=== PATIENT | female | born 1995 | race Caucasian/White ===

== ENCOUNTER 2023-11-21 03:29 | Inpatient (IN) ==
[2023-11-21 03:50] LABS: Appearance Urine Clear (Clear); Bacteria Urine Automated None Seen (None Seen); Bilirubin Urine Negative (Negative); Blood Urine Negative (Negative); Cast Urine Automated 0-2 /lpf (0-2); Color Urine Yellow; Glucose Urine UA Negative (Negative); Ketones Urine Negative (Negative); Leukocyte Esterase Urine Trace (Negative); Nitrite Urine Negative (Negative); Protein Urine Negative (Negative); RBC Urine Automated 0-2 /hpf (0-2); Specific Gravity Urine 1.013 (1.000-1.030); Urobilinogen Urine Negative (Negative); WBC Urine Automated 0-5 /hpf (0-5)
--- NOTE | 2023-11-21 04:00 | Emergency Department Note ---
Impression & Plan Psychosis ED Provider Note HISTORY OF PRESENT ILLNESS: Patient is a 28-year-old female presenting for mental health examination. Patient was brought in by police after being found wandering the streets by special [facility] hospital and [employer]. Patient came willingly on her own volition with the police. On arrival to the ER, the patient is very tangential and is unable to provide significant meaningful history. She is not from the area and reports she is trying to get back to [place]. She reports that she has not been on her psychiatric medications since "I left that place." She is alert to date and location. She denies any suicidal or homicidal ideation. She will not answer why she is in town. She is unsure how she got to town ROS: as above PHYSICAL EXAM: Constitutional: Patient appears in no acute distress. HENT: Head: Normocephalic and atraumatic. Eyes: EOMI, PERRL Mouth/Throat: Mucous membranes moist. Neck: Trachea midline. Neck supple. Musculoskeletal: No edema, tenderness or deformity noted. Skin: Warm and dry. No rash, erythema, pallor or cyanosis Psychiatric: Patient appears poorly groomed. Makes fair eye contact. Thought process is tangential and difficult to redirect. Neurological: Alert and keenly responsive. CN II-XII grossly intact, moving all extremities equally and fully. MDM: - Vitals signs stable - History obtained via patient and police. History as above. - Chronic conditions affecting care: unknown - pt unsure of her medical history - Differential diagnoses include, but are not limited to: Depression; drug intoxication; alcohol intoxication; psychosis - External medical records reviewed. - Laboratory workup interpreted by myself showed normal WBC; stable electrolytes; negative ethanol; negative salicylate/acetaminophen levels - COVID negative - UA negative for infection - UDS negative - Patient was medically cleared at 5:40 AM on 11/21/2023. She is evaluated by behavioral health mental health case manager, but the patient does seem to lack any insight into her situation. She is unable to consent herself for inpatient treatment. She is very tangential in her thinking and difficult to redirect. Concerned about her ability to care for herself. Delegate issuing warrant for 302. - Prior to disposition, care of patient was checked out to Dr. Liu following a discussion of the patient's course. ASSESSMENT AND PLAN: Diagnosis: psychosis Past Med/Surg History Problem List (Updated 11/21/23 @ 06:21 by Dee Bell MD) Psychosis (Acute) Social History Smoking Status: Current every day smoker Tobacco Type: Cigarettes Preferred Language: Polish Feels Safe at Home: Yes Results & Data (ED) Vital Signs Vital Signs - 24 hr 11/21/23 03:34 11/21/23 03:34 11/21/23 05:30 Temperature 36.6 C Temperature Source Oral Oral Pulse Rate 79 Pulse Rate [Finger] 79 72 Pulse Rhythm Regular Pulse Rhythm [Finger] Regular Regular Respiratory Rate 18 18 18 Respiratory Effort / Characteristics Non-Labored Spontaneous Non-Labored Spontaneous Non-Labored Spontaneous Respiratory Depth Normal Normal Normal Respiratory Pattern Regular Regular Regular Blood Pressure 108/69 Blood Pressure [Right Arm] 108/69 111/70 Blood Pressure Mean 82 Blood Pressure Mean [Right Arm] 82 83 Pulse Oximetry 100 100 100 Oxygen Delivery Method Room Air Room Air Room Air Sepsis Recent Fever Within 48 Hours No Sepsis New/Unexplained Change in Mental Status N/A Sepsis Action Taken by Nursing No Action Required Laboratory Data 11/21/23 04:07 11/21/23 04:07 Lab Results 11/21/23 11/21/23 11/21/23 Range/Units 03:34 04:07 Unknown WBC 9.38 (4.8-10.8) K/ul RBC 4.50 (4.20-5.40) M/uL Hgb 13.7 (12.0-16.0) g/dl Hct 40.1 (37.0-47.0) % MCV 89.1 (80.0-100.0) fL MCH 30.4 (25.0-34.0) pg MCHC 34.2 (32.0-36.0) g/dL RDW Std Deviation 39.8 (36.4-46.3) fL RDW Coeff of Jay 12.3 (11.5-14.5) % Plt Count 305 (130-400) K/uL MPV 9.6 (9.4-12.4) fL Immature Gran % (Auto) 0.2 % Neut % (Auto) 69.1 % Lymph % (Auto) 21.2 % [place] % (Auto) 7.7 % Eos % (Auto) 1.1 % Baso % (Auto) 0.7 % Neut # (Auto) 6.48 (1.40-6.50) K/uL Lymph # (Auto) 1.99 (1.20-3.40) K/uL [place] # (Auto) 0.72 H (0.11-0.59) K/uL Eos # (Auto) 0.10 (0.00-0.50) K/uL Baso # (Auto) 0.07 (0.00-0.20) K/uL Immature Gran # (Auto) 0.02 (0.01-0.20) K/uL Sodium 135 L (136-145) mmol/L Potassium 4.0 (3.5-5.1) mmol/L Chloride 103 (98-107) mmol/L Carbon Dioxide 26 (21-32) mmol/L Anion Gap 6 (3-11) BUN 9 (6-23) mg/dl Creatinine 0.47 L (0.6-1.2) mg/dl Est Cr Clr Drug Dosing 157.5 ml/min Est GFR ( Amer) > 150.0 ml/min Est GFR (Non-Af Amer) 132.5 ml/min BUN/Creatinine Ratio 19.1 (10-20) Glucose 96 (70-99(Fasting)) mg/dl Calcium 9.7 (8.6-10.3) mg/dl Total Bilirubin 0.9 (0.2-1.0) mg/dl AST 31 (13-39) U/L ALT 14 (7-52) U/L Alkaline Phosphatase 47 (34-104) U/L Total Protein 8.4 H (6.0-8.3) gm/dl Albumin 5.3 H (3.4-5.0) gm/dl Globulin 3.1 (2.5-4.0) gm/dl Albumin/Globulin Ratio 1.7 (0.9-2) Urine Color Yellow Urine Appearance Clear (Clear) Urine pH 6.0 (4.5-7.5) Ur Specific [place] 1.013 (1.000-1.030) Urine Protein Negative (Negative) Urine Glucose (UA) Negative (Negative) Urine Ketones Negative (Negative) Urine Blood Negative (Negative) Urine Nitrite Negative (Negative) Urine Bilirubin Negative (Negative) Urine Urobilinogen Negative (Negative) Ur Leukocyte Esterase Trace H (Negative) Urine WBC (Auto) 0-5 (0-5) /hpf Urine RBC (Auto) 0-2 (0-2) /hpf U Hyaline Cast (Auto) 0-2 (0-2) /lpf U Epithel Cells (Auto) 3-5 H (0-2) /hpf Urine Bacteria (Auto) None Seen (None Seen) Salicylates < 3.0 L (3.0-30) mg/dl Urine Opiates Screen Neg (Neg) Ur Methadone, Qual Neg (Neg) Urine Fentanyl Screen Neg (Neg) Acetaminophen < 3 L (10-30) ug/ml Urine Barbiturates Neg (Neg) Ur Phencyclidine (PCP) Neg (Neg) U Amphetamin/Meth Scrn Neg (Neg) MDMA (Ecstasy) Screen Neg (Neg) U Benzodiazepines Scrn Neg (Neg) Ur Cocaine Metabolite Neg (Neg) U Marijuana (THC) Screen Neg (Neg) Ethyl Alcohol mg/dL < 10.0 (<10.0) mg/dl SARS-CoV-2, RNA, NAAT NEGATIVE (NEGATIVE) Discharge Plan Visit Data Chief Complaint: Mental Health Evaluation Stated Complaint: 201 ED Provider: Dee Bell Discharge Problem: Psychosis Forms Stand Alone Forms: My [facility], Suicide Prevention Resources Referrals Referrals: PCP,NO [Primary Care Provider] -
[2023-11-21 04:12] LABS: Basophils # (auto) 0.07 K/uL (0.00-0.20); Basophils % (auto) 0.7 %; Eosinophils % (auto) 1.1 %; Hematocrit (blood only) 40.1 % (37.0-47.0); Hemoglobin 13.7 g/dl (12.0-16.0); Immature Granulocytes # (auto) 0.02 K/uL (0.01-0.20); Immature Granulocytes % (auto) 0.2 %; Lymphocytes # (auto) 1.99 K/uL (1.20-3.40); Lymphocytes % (auto) 21.2 %; Mean Corpuscular Hemoglobin 30.4 pg (25.0-34.0); Mean Corpuscular Hgb Conc 34.2 g/dL (32.0-36.0); Mean Corpuscular Volume 89.1 fL (80.0-100.0); Mean Platelet Volume 9.6 fL (9.4-12.4); Monocytes # (auto) 0.72 K/uL (0.11-0.59); Monocytes % (auto) 7.7 %; Neutrophils # (auto) 6.48 K/uL (1.40-6.50); Neutrophils % (auto) 69.1 %; Platelet Count 305 K/uL (130-400); RDW Coefficient of Variation 12.3 % (11.5-14.5); RDW Standard Deviation 39.8 fL (36.4-46.3); White Blood Count 9.38 K/ul (4.8-10.8)
[2023-11-21 04:40] LABS: Alanine Aminotransferase 14 U/L (7-52); Albumin Globulin Ratio 1.7 (0.9-2); Albumin Level 5.3 gm/dl (3.4-5.0); Alkaline Phosphatase 47 U/L (34-104); Anion Gap 6 (3-11); Aspartate Aminotransferase 31 U/L (13-39); BUN Creatinine Ratio 19.1 (10-20); Bilirubin,Total 0.9 mg/dl (0.2-1.0); Blood Urea Nitrogen 9 mg/dl (6-23); Calcium 9.7 mg/dl (8.6-10.3); Carbon Dioxide 26 mmol/L (21-32); Chloride 103 mmol/L (98-107); Creatinine Clr Calc Pharmacy 157.5 ml/min; Est GFR (African American) > 150.0 ml/min; Est GFR (Non-African American) 132.5 ml/min; Globulin 3.1 gm/dl (2.5-4.0); Glucose 96 mg/dl (70-99(Fasting)); Sodium 135 mmol/L (136-145); Total Protein 8.4 gm/dl (6.0-8.3)
[2023-11-21 05:22] LABS: Amphetamines+Metham, Urine Neg (Neg); Barbiturates, Urine Neg (Neg); Benzodiazepine, Urine Neg (Neg); Cocaine, Urine Neg (Neg); Fentanyl, Urine Neg (Neg); MDMA (Ecstacy), Urine Neg (Neg); Marijuana, Urine Neg (Neg); Methadone, Urine Neg (Neg); Opiate, Urine Neg (Neg); Phencyclidine, Urine Neg (Neg)
[2023-11-21 05:32] LABS: Acetaminophen < 3 ug/ml (10-30); Salicylate < 3.0 mg/dl (3.0-30)
[2023-11-21 06:36] LABS: Thyroid Stimulating Hormone 6.146 uIu/ml (0.300-4.500)
--- NOTE | 2023-11-21 07:23 | Emergency Department Note ---
ED Visit Note Patient is a 28-year-old female was brought in by police voluntarily and evaluated by Dr. Bell. She is medically cleared. She was found to be very tangential, unable to be redirected lack insight into care and only oriented to person. Case was discussed with her psychiatric caretaker grounds and they both felt the patient was in need of inpatient treatment and consequently 302 petition was pending evaluation by delegate. On my evaluation patient refuses to participate in care and is very tangential for short period of time and then refuses to answer any questions or engage in conversation. Additional history was obtained and it was discovered that she was at [facility] daily from the to the first and found to be abusing methamphetamine. Patient was accepted and admitted to 3 S. on a [address] of the head per the request. .
--- NOTE | 2023-11-21 09:52 | CT Scan Report ---
CT OF THE HEAD WITHOUT CONTRAST CLINICAL HISTORY: per request of [facility]. Altered mental status. COMPARISON STUDY: No previous studies for comparison. CT DOSE: 2077.55 mGy.cm TECHNIQUE: Helical axial images of the head were obtained without IV contrast. Automated exposure con trol was utilized for the study. A dose lowering technique was utilized adhering to the principles o f ALARA. FINDINGS: This study is mildly compromised by motion artifact. No acute intracranial hemorrhage, midl ine shift or mass effect is present. The ventricular system is unremarkable. The basal cisterns are p atent. No extra-axial collections are present. There are no findings to suggest acute dural sinus thr ombosis or acute territorial infarct. No significant calvarial abnormalities are present. Visualized portions of the sinuses and mastoid air cells are clear. IMPRESSION: No acute intracranial findings. Exam mildly compromised by motion artifact. ACT 112: Negative or not required by law. Electronically signed by: Toni Joiner M.D. 11/21/2023 9:50 AM
[2023-11-21] MEDS ORDERED: SODIUM CHLORIDE 0.65% NA SOLN 45 ML (OCEAN) PRN (10:47)
[2023-11-21] MEDS ORDERED: MAGNESIUM HYDROXIDE SUSP 30 ML UDC PO PRN (10:47)
[2023-11-21] MEDS ORDERED: BISMUTH SUBSALICYLATE LIQD 236 ML PO PRN (10:47)
[2023-11-21] MEDS ORDERED: ALUMINUM/MAGNESIUM SUSP 30 ML UDC PO PRN (10:47)
[2023-11-21] MEDS ORDERED: LORazepam 2 MG/1 ML VIAL IM PRN (11:58)
[2023-11-21] MEDS ORDERED: BENZTROPINE MESYLATE 1 MG/ML 2 ML AMP IM PRN (11:58)
[2023-11-21] MEDS ORDERED: HALOPERIDOL LACTATE 5 MG/ML 1 ML VIAL IM PRN (11:58)
[2023-11-21] MEDS ORDERED: BENZTROPINE MESYLATE 1 MG TAB PO PRN (11:58)
[2023-11-21] MEDS: risperiDONE 1 MG TABLET PO SCH (12:45)
[2023-11-21] MEDS: LORazepam 1 MG TAB PO STA (12:45)
[2023-11-21] MEDS: Patient's ALLERGY Info needs ENTERED STA (12:48)
--- NOTE | 2023-11-21 13:23 | History & Physical ---
Date of Service November 21, 2023 Impression / Recommendations Impression Emilia Orta is a 28-year-old female unknown past history who was brought in by police after being found wandering the street by gas station. Patient presented pressured and tangential speech, memory impairment, and concern for psychosis. She was admitted on 11/21/23 09:58 on a 302 involuntary commitment for psychosis. Patient presents in a manic and psychotic condition. Unknown past history however has been on antipsychotics and lithiummood stabilizer concerning for bipolar disorder illness with psychosis. Attempts to gather collateral from family members unsuccessful. Patient has a history of legal troubles and concern for methamphetamine use. UDS was negative. TSH was elevated on admission and will check free T4 and free T3. We will get baseline EKG prior to lithium initiation. Baseline lipid panel and A1c labs. Given restless behavior and excessive and tangential speech will schedule benzodiazepine and antipsychotic medication. Overall, I spent a total of 60 minutes with this case including review of chart records, nursing report, review of lab work, direct evaluation of the patient at bedside, counseling the patient, multidisciplinary team meeting, orders, discussion with the psychiatric liason during clinical rounds, and documentation in the electronic health record. (1) Psychosis: (2) Becka: (3) High serum thyroid stimulating hormone (TSH): Plan 11/21/2023: One-time lorazepam 2 mg p.o. for anxiety. Schedule risperidone 1 mg twice daily and clonazepam 1 mg at bedtime. Baseline EKG and labs: Free T4, free T3, A1c, lipid panel. Inventory Assets Strengths: able to express needs, accepting treatment Needs: social supports, mood control Suicide Risk Level Suicide Risk Level: Moderate (q15 min suicide checks) Risk Factors Assessment Male: No : Yes Do You Have Access To A Gun?: No Health Problems: No Mental Health Diagnoses: Yes Substance Use Disorders: Yes Previous Attempt: No Family History of Suicide: No Previous Psychiatric Hospitalization: Yes Hopelessness: No Protective Factors Assessment Jehovah'S Witness Beliefs: No : No Responsible for Young Children: No Employed: No Stable Relationships: No Supportive Family: No Good Rapport with Provider: Yes Absence of Any Risk Factors Above: No Psychiatric History Identifying Data Emilia Orta is a 28-year-old female unknown past history who was brought in by police after being found wandering the street by gas station. Patient presented pressured and tangential speech, memory impairment, and concern for psychosis. She was admitted on 11/21/23 09:58 on a 302 involuntary commitment for psychosis. Chief Complaint "Uncomfortable in my skin" History of Present Illness Patient appears restless and is unable to sit still. She complains of being "uncomfortable in her skin" reports that she wants to complete steps for mental health however is vague when I try to clarify "I want to be out there" and tangential. Through the interview she is labile at times tearful and then smiling brightly. She reports having an altercation at home and then her grandmother called the police "it was all a blur". Reports past diagnosis of bipolar disorder, unable to clarify further. Complains of trouble sleeping. Unsure of past drug use. When asking about past drug use she looks at me and says "doesn't smoke come out of the body". Unable to answer questions about auditory visual hallucinations. Reports that she is not worried about her safety. Unable to give me clear medication history. Reports having a child and is from [place]. Pt provided verbal permission to call her grandmother Sejal Orta ([phone]): line disconnected. Alternate land line rang and went to [employer]. Called [facility] pharmacy and they report they never filled the prescription from 02/18/2022 of paliperidone 6 mg, lithium 300 mg twice daily, Wellbutrin, atorvastatin. Online legal records: Charges of misemanor theft by shoplifting and driving with suspended license on 10/14/2020 at [place], [place] Past Psychiatric History Current Psychiatric Diagnosis: Unspecified depression Do You Have Access To A Gun?: No History of Previous Suicide Attempt: No Past Medication Trials: paliperidone 6 mg, lithium 300 mg twice daily, Wellbutrin, atorvastatin. Allergies Allergy/AdvReac Type Severity Reaction Status Date / Time No Known Allergies Allergy Unverified 11/21/23 11:41 Family History Family History of: Doesn't Know Alcohol History Hx of Alcohol Use Over the Past 12 Months: No Smoking Use Have You Smoked or Used Tobacco Products in the Last 30 Days: Yes tobacco type: cigarettes Smoking Status: Heavy tobacco smoker Smoking packs per day: 2 Substance History Hx of Prescription Med Misuse Over the Past 12 Months: No Hx of Over the Counter Med Misuse Over the Past 12 Months: No Hx of Inhalent Misuse Over the Past 12 Months: No Hx of Organic Substance Use Over the Past 12 Months: No Hx of Illegal Substances/Street Drug Use Over Past 12 Months: Yes (Meth use in the past week) Problems as a Result of Past Substance Use: Other Problems as a Result of Past Substance Use Comments: Several visits to ER via police d/t AMS Personal History Living Arrangements: Homeless Beliefs That Will Affect Care: None Patient History Social History Smoking Status: Heavy tobacco smoker Tobacco Type: Cigarettes Preferred Language: American Communication Ability: Effective Job Tracer Required: No Beliefs That Will Affect Care: None Feels Safe at Home: Yes Gender Identity: Female Assistive Devices: None Physical Exam Mental Examination: Appearance: Disheveled Eye Contact: Direct Eye Contact Motor Behavior: Restless, Wringing Hands and Hyperactive Speech: Excessive, Tangential and Rambling Mood: Euthymic Affect: Euphoric, Labile, Nervous and Sad Thought Process: Disorganized and Tangential Thought Content: Disorganized Hallucinations: Tactile (unable to fully ascertain AVH) Insight: Poor Judgement: Poor Vital Signs (Past 24 Hours): Last Vital Signs Temp 36.6 C 11/21/23 10:50 Pulse 67 11/21/23 10:50 Resp 16 11/21/23 10:50 BP 90/72 L 11/21/23 10:50 Pulse Ox 100 11/21/23 10:50 O2 Del Method Room Air 11/21/23 10:50 Exam Statement: A physical exam was performed in the ED for the purposes of medical clearance. I accept that physical as correct and adequate for the purposes of the inpatient physical exam. Results & Data ([facility]UST) Laboratory Results Laboratory Results - last 24 hr 11/21/23 11/21/23 11/21/23 03:34 04:07 Unknown WBC 9.38 RBC 4.50 Hgb 13.7 Hct 40.1 MCV 89.1 MCH 30.4 MCHC 34.2 RDW Std Deviation 39.8 RDW Coeff of Jay 12.3 Plt Count 305 MPV 9.6 Immature Gran % (Auto) 0.2 Neut % (Auto) 69.1 Lymph % (Auto) 21.2 [place] % (Auto) 7.7 Eos % (Auto) 1.1 Baso % (Auto) 0.7 Neut # (Auto) 6.48 Lymph # (Auto) 1.99 [place] # (Auto) 0.72 H Eos # (Auto) 0.10 Baso # (Auto) 0.07 Immature Gran # (Auto) 0.02 Sodium 135 L Potassium 4.0 Chloride 103 Carbon Dioxide 26 Anion Gap 6 BUN 9 Creatinine 0.47 L Est Cr Clr Drug Dosing 157.5 Est GFR ( Amer) > 150.0 Est GFR (Non-Af Amer) 132.5 BUN/Creatinine Ratio 19.1 Glucose 96 Calcium 9.7 Total Bilirubin 0.9 AST 31 ALT 14 Alkaline Phosphatase 47 Total Protein 8.4 H Albumin 5.3 H Globulin 3.1 Albumin/Globulin Ratio 1.7 TSH 6.146 H Urine Color Yellow Urine Appearance Clear Urine pH 6.0 Ur Specific [place] 1.013 Urine Protein Negative Urine Glucose (UA) Negative Urine Ketones Negative Urine Blood Negative Urine Nitrite Negative Urine Bilirubin Negative Urine Urobilinogen Negative Ur Leukocyte Esterase Trace H Urine WBC (Auto) 0-5 Urine RBC (Auto) 0-2 U Hyaline Cast (Auto) 0-2 U Epithel Cells (Auto) 3-5 H Urine Bacteria (Auto) None Seen Salicylates < 3.0 L Urine Opiates Screen Neg Ur Methadone, Qual Neg Urine Fentanyl Screen Neg Acetaminophen < 3 L Urine Barbiturates Neg Ur Phencyclidine (PCP) Neg U Amphetamin/Meth Scrn Neg MDMA (Ecstasy) Screen Neg U Benzodiazepines Scrn Neg Ur Cocaine Metabolite Neg U Marijuana (THC) Screen Neg Ethyl Alcohol mg/dL < 10.0 SARS-CoV-2, RNA, NAAT NEGATIVE Current Inpatient Medications Current Inpatient Medications: Current Inpatient Medications Acetaminophen (Acetaminophen 325 Mg Tab) 650 mg PO Q4H PRN PRN Reason: Headache or Minor Fever Stop: 12/21/23 10:46 Al Hydrox/Mg Hydrox/Simethicone (Aluminum/Magnesium Susp 30 Ml Udc) 30 ml PO Q4H PRN PRN Reason: GI Upset Stop: 12/21/23 10:46 Benztropine Mesylate (Benztropine Mesylate 1 Mg Tab) 1 mg PO Q8H PRN PRN Reason: EPS, dystonia Stop: 12/21/23 11:57 Benztropine Mesylate (Benztropine Mesylate 1 Mg/Ml 2 Ml Amp) 1 mg IM Q8H PRN PRN Reason: EPS, dystonia Stop: 12/21/23 11:59 Bismuth Subsalicylate (Bismuth Subsalicylate Liqd 236 Ml) 15 ml PO PRN PRN PRN Reason: Loose Stool Stop: 12/21/23 10:46 Clonazepam (Clonazepam 1 Mg Tab) 1 mg PO HS JEREMIAH Stop: 12/21/23 21:59 Haloperidol (Haloperidol 5 Mg Tab) 5 mg PO Q8H PRN PRN Reason: Agitation Stop: 12/21/23 11:57 Haloperidol Lactate (Haloperidol Lactate 5 Mg/Ml 1 Ml Vial) 5 mg IM Q8H PRN PRN Reason: Agitation Stop: 12/21/23 11:57 Hydroxyzine HCl (Hydroxyzine Hcl 25 Mg Tab) 50 mg PO HSZ PRN PRN Reason: Insomnia Stop: 12/21/23 10:46 Hydroxyzine HCl (Hydroxyzine Hcl 25 Mg Tab) 25 mg PO Q4H PRN PRN Reason: Anxiety Stop: 12/21/23 10:46 Lorazepam (Lorazepam 1 Mg Tab) 2 mg PO Q8H PRN PRN Reason: Agitation Stop: 12/21/23 11:57 Lorazepam (Lorazepam 2 Mg/1 Ml Vial) 2 mg IM Q8H PRN PRN Reason: Agitation Stop: 12/21/23 11:57 Magnesium Hydroxide (Magnesium Hydroxide Susp 30 Ml Udc) 30 ml PO DAILY PRN PRN Reason: Constipation Stop: 12/21/23 10:46 Risperidone (Risperidone 1 Mg Tablet) 1 mg PO BID JEREMIAH Stop: 12/21/23 11:59 Last Admin: 11/21/23 12:45 Dose: 1 mg Sodium Chloride (Sodium Chloride 0.65% Na Soln 45 Ml ([place])) 1 - 2 sprays NA PRN PRN PRN Reason: Nasal Dryness/Congestion Stop: 12/21/23 10:46
[2023-11-21] MEDS: clonazePAM 1 MG TAB PO SCH (21:06)
[2023-11-22 08:54] LABS: Chol HDL Ratio 2.1 (0-5)
[2023-11-22 09:02] LABS: Estimated Average Glucose 100 mg/dl; Hemoglobin A1C 5.1 % (4.5-5.6)
[2023-11-22 09:12] LABS: T4 Free Thyroxine 0.93 ng/dl (0.61-1.60)
--- NOTE | 2023-11-22 10:26 | Psychiatric Progress Note ---
Date of Service November 22, 2023 Impression / Recommendations Impression Emilia Orta is a 28-year-old female unknown past history who was brought in by police after being found wandering the street by gas station. Patient presented pressured and tangential speech, memory impairment, and concern for psychosis. She was admitted on 11/21/23 09:58 on a 302 involuntary commitment for psychosis. Patient continues to be labile with tangential and disorganized thought. She presents poor orientation to her situation and location and is unable to state a clear safety or discharge plan. Concern for a bipolar 1 cyrus however cannot rule out stimulant induced psychotic disorder or schizoaffective disorder. She is tolerating her antipsychotic and sleep medications well and we will plan to increase her nightly risperidone dose today. Labs reviewed: Lipid panel and A1c within expected limits free T3 and free T4 were within expected limits. Pending baseline EKG. Blood pressure remains low likely due to dehydration. Considering starting lithium for mood stabilization. Would likely benefit from a long-acting injectable of antipsychotic given recurrent hospitalizations, poor insight, severe symptoms. Overall, I spent a total of 60 minutes with this case including review of chart records, nursing report, review of lab work, direct evaluation of the patient at bedside, counseling the patient, multidisciplinary team meeting, orders, and documentation in the electronic health record. (1) Psychosis: (2) Cyrus: (3) High serum thyroid stimulating hormone (TSH): Plan 11/22/2023: Increase risperidone to 1 mg every morning and 2 mg nightly. Continue clonazepam 1 mg at bedtime. Encourage fluids. 11/21/2023: One-time lorazepam 2 mg p.o. for anxiety. Schedule risperidone 1 mg twice daily and clonazepam 1 mg at bedtime. Baseline EKG and labs: Free T4, free T3, A1c, lipid panel. Inventory Assets Strengths: able to express needs, accepting treatment Needs: social supports, mood control Suicide Risk Level Suicide Risk Level: Moderate (q15 min suicide checks) Risk Factors Assessment Male: No : Yes Do You Have Access To A Gun?: No Health Problems: No Mental Health Diagnoses: Yes Substance Use Disorders: Yes Previous Attempt: No Family History of Suicide: No Previous Psychiatric Hospitalization: Yes Hopelessness: No Protective Factors Assessment Alevism Beliefs: No : No Responsible for Young Children: No Employed: No Stable Relationships: No Supportive Family: No Good Rapport with Provider: Yes Absence of Any Risk Factors Above: No Interval History Identifying Information Emilia Orta is a 28-year-old female unknown past history who was brought in by police after being found wandering the street by gas station. Patient presented pressured and tangential speech, memory impairment, and concern for psychosis. She was admitted on 11/21/23 09:58 on a 302 involuntary commitment for psychosis. Chief Complaint "love the way I woke up." Review of Systems Sleep Information Total Hours of Sleep: 13.15 Sleep Comments: HS Candace and Thai Meal Information Percent Meal Consumed - Breakfast: 100 Percent Meal Consumed - Lunch: 0 Nutrition Comment: Pt asleep. Meal placed in frig for Pt. Subjective Subjective Patient was seen & assessed and interval progress reviewed with treatment team nursing and social work Overnight nursing reports patient slept 13 hours. Eating well. Blood pressure remains low. When asked about sleep patient reports she "slept" and "love the way I woke up". Reports feeling "better". She then asks whether she was asked questions, proceeds to go on a tangent and says "wait that does not make sense." Reports past medications of Celexa, Wellbutrin, lithium. Confirms a history of manic episodes. When asked about her first episode of cyrus she initially states 2 years old than 5 years of age. Reports at times has been suicidal. Has difficulty staying focused in the conversation and is often tangential. Reports having 2 children but has "no clue" where they are. Reports she has been "wandering aimlessly" for the past 2 weeks. She denies recent drug or alcohol use. Reports taking a long-acting shot of Invega in the past however unable to clarify. She is quite labile during the interview laughing at times and then crying. She reports not seeing her grandmother in a "long time". Denies having any social supports. When asked where she wants to go she says "hospital" and cannot state a city, state, or any other location. When asked where she grew up she replies [place] and has lived everywhere. When I ask her if she was previously in [place] (because of collateral indicating recent hospitalization there) she reports not liking the word "[place]". She says that she wants to be "slapped in the face" with all her past medications. When asked about suicidal ideation she initially started laughing then replies "not really but may be". Struggles with answering the question clearly. She understands she is in a mental health hospital and knows the year and month however cannot state the name of the hospital and looks around. She denies hearing voices or seeing visions. She was updated about medications and treatment. Attempted to call patient's grandmother Sejal Orta and unsuccessful. Physical Exam Mental Examination Appearance: Disheveled Eye Contact: Direct Eye Contact Motor Behavior: Restless, Wringing Hands and Hyperactive Speech: Excessive, Tangential and Rambling Mood: Euthymic Affect: Euphoric, Labile, Nervous and Sad Thought Process: Disorganized and Tangential Thought Content: Disorganized Hallucinations: Tactile (unable to fully ascertain AVH) Insight: Poor Judgement: Poor Vital Signs (Past 24 Hours) Last Vital Signs Temp 36.9 C 11/22/23 06:27 Pulse 89 11/22/23 06:28 Resp 16 11/22/23 06:27 BP 89/60 L 11/22/23 06:28 Pulse Ox 100 11/21/23 10:50 O2 Del Method Room Air 11/21/23 10:50 Results & Data ([facility]) Laboratory Results Laboratory Results - last 24 hr 11/22/23 08:15 Estimat Average Glucose 100 Hemoglobin A1c 5.1 Triglycerides 40 Cholesterol 97 LDL Cholesterol, Calc 43 VLDL Cholesterol, Calc 8 HDL Cholesterol 46 Cholesterol/HDL Ratio 2.1 Free T4 0.93 Free T3 2.96 Current Inpatient Medications Current Inpatient Medications: Current Inpatient Medications Acetaminophen (Acetaminophen 325 Mg Tab) 650 mg PO Q4H PRN PRN Reason: Headache or Minor Fever Stop: 12/21/23 10:46 Al Hydrox/Mg Hydrox/Simethicone (Aluminum/Magnesium Susp 30 Ml Udc) 30 ml PO Q4H PRN PRN Reason: GI Upset Stop: 12/21/23 10:46 Benztropine Mesylate (Benztropine Mesylate 1 Mg Tab) 1 mg PO Q8H PRN PRN Reason: EPS, dystonia Stop: 12/21/23 11:57 Benztropine Mesylate (Benztropine Mesylate 1 Mg/Ml 2 Ml Amp) 1 mg IM Q8H PRN PRN Reason: EPS, dystonia Stop: 12/21/23 11:59 Bismuth Subsalicylate (Bismuth Subsalicylate Liqd 236 Ml) 15 ml PO PRN PRN PRN Reason: Loose Stool Stop: 12/21/23 10:46 Clonazepam (Clonazepam 1 Mg Tab) 1 mg PO HS JEREMIAH Stop: 12/21/23 21:59 Last Admin: 11/21/23 21:06 Dose: 1 mg Haloperidol (Haloperidol 5 Mg Tab) 5 mg PO Q8H PRN PRN Reason: Agitation Stop: 12/21/23 11:57 Haloperidol Lactate (Haloperidol Lactate 5 Mg/Ml 1 Ml Vial) 5 mg IM Q8H PRN PRN Reason: Agitation Stop: 12/21/23 11:57 Hydroxyzine HCl (Hydroxyzine Hcl 25 Mg Tab) 50 mg PO HSZ PRN PRN Reason: Insomnia Stop: 12/21/23 10:46 Hydroxyzine HCl (Hydroxyzine Hcl 25 Mg Tab) 25 mg PO Q4H PRN PRN Reason: Anxiety Stop: 12/21/23 10:46 Lorazepam (Lorazepam 1 Mg Tab) 2 mg PO Q8H PRN PRN Reason: Agitation Stop: 12/21/23 11:57 Lorazepam (Lorazepam 2 Mg/1 Ml Vial) 2 mg IM Q8H PRN PRN Reason: Agitation Stop: 12/21/23 11:57 Magnesium Hydroxide (Magnesium Hydroxide Susp 30 Ml Udc) 30 ml PO DAILY PRN PRN Reason: Constipation Stop: 12/21/23 10:46 Risperidone (Risperidone 1 Mg Tablet) 1 mg PO QAM JEREMIAH Stop: 12/23/23 08:59 Risperidone (Risperidone 2 Mg Tablet) 2 mg PO HS JEREMIAH Stop: 12/22/23 21:59 Sodium Chloride (Sodium Chloride 0.65% Na Soln 45 Ml ([place])) 1 - 2 sprays NA PRN PRN PRN Reason: Nasal Dryness/Congestion Stop: 12/21/23 10:46 Mental Health & Subst Abuse Tx Therapist Name of Therapist: marciies Latex Caster Name of Latex Caster: fidelina
[2023-11-22] MEDS: LORazepam 1 MG TAB PO ONE (10:32)
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
[2023-11-22] MEDS: DOCUSATE SODIUM 100 MG CAP PO SCH (13:47)
[2023-11-22] MEDS: haloperidoL 5 MG TAB PO PRN (13:56)
[2023-11-22] MEDS: LORazepam 1 MG TAB PO PRN (17:39)
[2023-11-22] MEDS: risperiDONE 2 MG TABLET PO SCH (21:32)
--- NOTE | 2023-11-22 22:24 | Electrocardiogram Report ---
Test Reason : Blood Pressure : / mmHG Vent. Rate : 078 BPM Atrial Rate : 078 BPM P-R Int : 116 ms QRS Dur : 076 ms QT Int : 404 ms P-R-T Axes : 070 075 056 degrees QTc Int : 460 ms Normal sinus rhythm Possible Left atrial enlargement Borderline ECG No previous ECGs available Confirmed by Rhys Gómez ([id number]) on 11/22/2023 10:23:53 PM Referred By: Boogie Liu Confirmed By:Rhys Gómez
[2023-11-23] MEDS: risperiDONE 1 MG TABLET PO SCH (08:46)
[2023-11-23 09:15] LABS: Hep B Surface Ag with confirm Negative (Negative)
[2023-11-23] MEDS ORDERED: LORazepam 1 MG TAB PO PRN (09:47)
[2023-11-23] MEDS: ACETAMINOPHEN 325 MG TAB PO PRN (09:51)
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
[2023-11-23 11:01] LABS: Hep C Ab Rflx HepCQuant RNA Prelim Positive (Negative)
[2023-11-24] MEDS: LORazepam 1 MG TAB PO PRN (10:09)
--- NOTE | 2023-11-24 10:12 | Psychiatric Progress Note ---
Date of Service November 24, 2023 Impression / Recommendations Impression Emilia Orta is a 28-year-old female unknown past history who was brought in by police after being found wandering the street by gas station. Patient presented pressured and tangential speech, memory impairment, and concern for psychosis. She was admitted on 11/21/23 09:58 on a 302 involuntary commitment for psychosis. 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 Patient has demonstrated significant dysfunction evidenced by recurrent legal troubles, persistent symptoms, recurrent hospitalizations, poor insight, inability to maintain stability in the community, and continued drug dependence. A: Blood STI tests negative. Preliminary positive reading for hepatitis C antibody. Gonorrhea and Chlamydia and Trichomonas vaginal swab pending; patient has poor insight and understanding and is unable to engage in testing. Patient had reported foot pain however is unwilling to have it examined. Patient continues to present a disorganized thought process and has difficulty engaging in the interview. Concern for delusional thinking. Appears to be tolerating the medications well presents improved sleep and slightly improved orientation. Concern for patient's safety for self care if discharged in the current state; she has difficulty engaging in aftercare planning. Overall, I spent a total of 60 minutes with this case including review of chart records, nursing report, review of lab work, direct evaluation of the patient at bedside, counseling the patient, multidisciplinary team meeting, orders, and documentation in the electronic health record. 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 11/23/2023: Continue medications and treatment plan. 11/22/2023: Increase risperidone to 1 mg every morning and 2 mg nightly. Continue clonazepam 1 mg at bedtime. Encourage fluids. 11/21/2023: One-time lorazepam 2 mg p.o. for anxiety. Schedule risperidone 1 mg twice daily and clonazepam 1 mg at bedtime. Baseline EKG and labs: Free T4, free T3, A1c, lipid panel. Inventory Assets Strengths: able to express needs, accepting treatment Needs: social supports, mood control Suicide Risk Level Suicide Risk Level: Moderate (q15 min suicide checks) Risk Factors Assessment Male: No : Yes Do You Have Access To A Gun?: No Health Problems: No Mental Health Diagnoses: Yes Substance Use Disorders: Yes Previous Attempt: No Family History of Suicide: No Previous Psychiatric Hospitalization: Yes Hopelessness: No Protective Factors Assessment Scientology Beliefs: No : No Responsible for Young Children: No Employed: No Stable Relationships: No Supportive Family: No Good Rapport with Provider: Yes Absence of Any Risk Factors Above: No Interval History Identifying Information Emilia Orta is a 28-year-old female unknown past history who was brought in by police after being found wandering the street by gas station. Patient presented pressured and tangential speech, memory impairment, and concern for psychosis. She was admitted on 11/21/23 09:58 on a 302 involuntary commitment for psychosis. Chief Complaint "woke up great". Review of Systems Sleep Information Total Hours of Sleep: 11.25 Sleep Comments: ANGEL LUIS Maria and Thai Meal Information Percent Meal Consumed - Breakfast: 75 Percent Meal Consumed - Lunch: 100 Percent Meal Consumed - Dinner: 100 Nutrition Comment: Pt asleep. Meal placed in frig for Pt. Subjective Subjective Patient was seen & assessed and interval progress reviewed with treatment team nursing and social work On initial approach the patient is smiling and reports waking up a great. Says she slept well. She was discussing with shoes that she can get. Then says there are "rude people" unable to clarify further She looks at her slip-ons and asks "are those considered sneakers." She is tangential and then reports wanting Wellbutrin and Celexa. She is alert and oriented to "[place]" not to month. She reports coming into the hospital because she is "homeless and out rage." She denies having feelings of bugs crawling over her. When asked about auditory visual hallucinations she starts laughing and then says that she needs a pair of shoes. When asked about a plan she says she has no plan. When discussing hepatitis C, her being positive for it and potential treatment she starts laughing. Educated patient about current treatments and plan. Spoke to patient's mother: reports pt becomes paranoid on methamphetamine, concern for persecutory delusions. Had extended hospital stay 2 years at [facility] for similar situation and her mental status improved. Was picked up by male friend Abdirizak from the hospital and mother suspects he has been keeping her and abusing methamphetamine with her for 2 years. Believes she may have overdosed and was put on the streets and police found her. Recent hospitalization in [facility]. Unaware of any hospitalizations during the 2 yr period when pt was with Abdirizak. Physical Exam Mental Examination Appearance: Disheveled Eye Contact: Direct Eye Contact Motor Behavior: Restless and Wringing Hands Speech: Tangential and Rambling Mood: Euthymic Affect: Euphoric, Labile, Nervous and Sad Thought Process: Disorganized and Tangential Thought Content: Disorganized Hallucinations: Tactile (unable to fully ascertain AVH) Insight: Poor Judgement: Poor Vital Signs (Past 24 Hours) Last Vital Signs Temp 36.7 C 11/24/23 06:22 Pulse 77 11/24/23 06:22 Resp 16 11/24/23 06:22 BP 106/72 11/24/23 06:22 Pulse Ox 98 11/23/23 06:05 O2 Del Method Room Air 11/23/23 06:05 Results & Data ([facility]) Laboratory Results Laboratory Results - last 24 hr 11/23/23 07:07 Hepatitis C Antibody Prelim Positive A HCV RNA (PCR) IUs/ml Pending HCV RNA PCR log IUs/ml Pending Current Inpatient Medications Current Inpatient Medications: Current Inpatient Medications Acetaminophen (Acetaminophen 325 Mg Tab) 650 mg PO Q4H PRN PRN Reason: Headache or Minor Fever Stop: 12/21/23 10:46 Last Admin: 11/23/23 09:51 Dose: 650 mg Al Hydrox/Mg Hydrox/Simethicone (Aluminum/Magnesium Susp 30 Ml Udc) 30 ml PO Q4H PRN PRN Reason: GI Upset Stop: 12/21/23 10:46 Benztropine Mesylate (Benztropine Mesylate 1 Mg Tab) 1 mg PO Q8H PRN PRN Reason: EPS, dystonia Stop: 12/21/23 11:57 Benztropine Mesylate (Benztropine Mesylate 1 Mg/Ml 2 Ml Amp) 1 mg IM Q8H PRN PRN Reason: EPS, dystonia Stop: 12/21/23 11:59 Bismuth Subsalicylate (Bismuth Subsalicylate Liqd 236 Ml) 15 ml PO PRN PRN PRN Reason: Loose Stool Stop: 12/21/23 10:46 Clonazepam (Clonazepam 1 Mg Tab) 1 mg PO HS JEREMIAH Stop: 12/21/23 21:59 Last Admin: 11/23/23 21:02 Dose: 1 mg Docusate Sodium (Docusate Sodium 100 Mg Cap) 100 mg PO BID JEREMIAH Stop: 12/22/23 10:44 Last Admin: 11/24/23 08:02 Dose: 100 mg Haloperidol (Haloperidol 5 Mg Tab) 5 mg PO Q8H PRN PRN Reason: Agitation Stop: 12/21/23 11:57 Last Admin: 11/23/23 15:01 Dose: 5 mg Haloperidol Lactate (Haloperidol Lactate 5 Mg/Ml 1 Ml Vial) 5 mg IM Q8H PRN PRN Reason: Agitation Stop: 12/21/23 11:57 Hydroxyzine HCl (Hydroxyzine Hcl 25 Mg Tab) 50 mg PO HSZ PRN PRN Reason: Insomnia Stop: 12/21/23 10:46 Hydroxyzine HCl (Hydroxyzine Hcl 25 Mg Tab) 25 mg PO Q4H PRN PRN Reason: Anxiety Stop: 12/21/23 10:46 Lorazepam (Lorazepam 2 Mg/1 Ml Vial) 1 mg IM Q8H PRN PRN Reason: Agitation Stop: 12/21/23 11:57 Lorazepam (Lorazepam 1 Mg Tab) 1 mg PO Q8H PRN PRN Reason: Agitation Stop: 12/21/23 11:57 Magnesium Hydroxide (Magnesium Hydroxide Susp 30 Ml Udc) 30 ml PO DAILY PRN PRN Reason: Constipation Stop: 12/21/23 10:46 Nicotine Polacrilex (Nicotine Polacrilex 2 Mg Gum) 1 piece MT Q2H PRN PRN Reason: nicotine cravings Stop: 12/24/23 09:27 Risperidone (Risperidone 1 Mg Tablet) 1 mg PO QAM JEREMIAH Stop: 12/23/23 08:59 Last Admin: 11/24/23 08:02 Dose: 1 mg Risperidone (Risperidone 2 Mg Tablet) 2 mg PO HS JEREMIAH Stop: 12/22/23 21:59 Last Admin: 11/23/23 21:02 Dose: 2 mg Sodium Chloride (Sodium Chloride 0.65% Na Soln 45 Ml ([place])) 1 - 2 sprays NA PRN PRN PRN Reason: Nasal Dryness/Congestion Stop: 12/21/23 10:46 Mental Health & Subst Abuse Tx Psychiatrist Name of Psychiatrist: Sara Duque [facility] Psychiatrist's Psychiatric Appointment Comment: [address], [address], [place] [address] Therapist Name of Therapist: denies Senior Qualitative Researcher Name of Senior Qualitative Researcher: denies Post Discharge Appointments Primary Care Physician Name Of Family Doctor/PCP: Sara Duque [facility] Primary Care Provider Appointment Comment: [address], [address], [place] [address]
[2023-11-24] MEDS: hydrOXYzine HCl 25 MG TAB PO PRN (15:30)
[2023-11-24] MEDS: LITHIUM CARBONATE 300 MG TAB PO SCH (21:05)
[2023-11-25] MEDS: hydrOXYzine HCl 25 MG TAB PO PRN (00:29)
--- NOTE | 2023-11-25 11:22 | Psychiatric Progress Note ---
Date of Service November 25, 2023 Impression / Recommendations Impression Emilia Orta is a 28-year-old female unknown past history who was brought in by police after being found wandering the street by gas station. Patient presented pressured and tangential speech, memory impairment, and concern for psychosis. She was admitted on 11/21/23 09:58 on a 302 involuntary commitment for psychosis. 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 Patient has demonstrated significant dysfunction evidenced by recurrent legal troubles, persistent symptoms, recurrent hospitalizations, poor insight, inability to maintain stability in the community, and continued drug dependence. A: 303 commitment approved yesterday due to concern for patient's inability to care for self in the community. Patient continues to present a labile affect and disorganized thought process. She has become more defiant with care and unwilling to engage in interview today. Patient has difficulty engaging in aftercare planning. Orientation slightly improved compared to initial prese ntation. Concern for hypotension due to poor fluid intake. Plan to decrease nightly clonazepam. Overall, I spent a total of 60 minutes with this case including review of chart records, nursing report, review of lab work, direct evaluation of the patient at bedside, counseling the patient, multidisciplinary team meeting, orders, and documentation in the electronic health record. 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 Encourage fluids. 11/24/2023: Start [place] 300mg BID for mood lability. 11/23/2023: Continue medications and treatment plan. 11/22/2023: Increase risperidone to 1 mg every morning and 2 mg nightly. Continue clonazepam 1 mg at bedtime. Encourage fluids. STI and hepatitis panel. 11/21/2023: One-time lorazepam 2 mg p.o. for anxiety. Schedule risperidone 1 mg twice daily and clonazepam 1 mg at bedtime. Baseline EKG and labs: Free T4, free T3, A1c, lipid panel. Inventory Assets Strengths: able to express needs, accepting treatment Needs: social supports, mood control Suicide Risk Level Suicide Risk Level: Moderate (q15 min suicide checks) Risk Factors Assessment Male: No : Yes Do You Have Access To A Gun?: No Health Problems: No Mental Health Diagnoses: Yes Substance Use Disorders: Yes Previous Attempt: No Family History of Suicide: No Previous Psychiatric Hospitalization: Yes Hopelessness: No Protective Factors Assessment Jain Beliefs: No : No Responsible for Young Children: No Employed: No Stable Relationships: No Supportive Family: No Good Rapport with Provider: Yes Absence of Any Risk Factors Above: No Interval History Identifying Information Emilia Orta is a 28-year-old female unknown past history who was brought in by police after being found wandering the street by gas station. Patient presented pressured and tangential speech, memory impairment, and concern for psychosis. She was admitted on 11/21/23 09:58 on a 302 involuntary commitment for psychosis. Chief Complaint "Didn't sleep well at all". Review of Systems Sleep Information Total Hours of Sleep: 6 Sleep Comments: ANGEL LUIS Andre with KIAN Guardado Meal Information Percent Meal Consumed - Breakfast: 100 Percent Meal Consumed - Lunch: 70 Percent Meal Consumed - Dinner: 100 Nutrition Comment: Pt asleep. Meal placed in frig for Pt. Subjective Subjective Patient was seen & assessed and interval progress reviewed with nursing and social work When approached for interview, pt asks when she is leaving. I ask her what is her plan and where she wants to go. She becomes angry and walks out of the room to nursing staff and asks "where can I get a plan?" Difficult to redirect and appears upset. Attempted to reassure patient and asked where she wants to go after leaving the hospital. Says she is from [place] and then asks for the interview to end. Attempted to inquire about her tooth pain and patient reports her tooth hurts and wouldn't clarify further. Physical Exam Mental Examination Appearance: Disheveled Eye Contact: Direct Eye Contact Motor Behavior: Restless and Wringing Hands Speech: Tangential and Rambling Mood: Euthymic Affect: Euphoric, Labile, Nervous and Sad Thought Process: Disorganized and Tangential Thought Content: Disorganized Hallucinations: None Insight: Poor Judgement: Poor Vital Signs (Past 24 Hours) Last Vital Signs Temp 36.6 C 11/25/23 06:46 Pulse 71 11/25/23 06:46 Resp 16 11/25/23 06:46 BP 80/46 L 11/25/23 06:47 Pulse Ox 98 11/25/23 06:46 O2 Del Method Room Air 11/25/23 06:46 Results & Data ([facility]) Laboratory Results Laboratory Results - last 24 hr 11/23/23 07:07 RPR Nonreactive Current Inpatient Medications Current Inpatient Medications: Current Inpatient Medications Acetaminophen (Acetaminophen 325 Mg Tab) 650 mg PO Q4H PRN PRN Reason: Headache or Minor Fever Stop: 12/21/23 10:46 Last Admin: 11/24/23 22:40 Dose: 650 mg Al Hydrox/Mg Hydrox/Simethicone (Aluminum/Magnesium Susp 30 Ml Udc) 30 ml PO Q4H PRN PRN Reason: GI Upset Stop: 12/21/23 10:46 Benztropine Mesylate (Benztropine Mesylate 1 Mg Tab) 1 mg PO Q8H PRN PRN Reason: EPS, dystonia Stop: 12/21/23 11:57 Benztropine Mesylate (Benztropine Mesylate 1 Mg/Ml 2 Ml Amp) 1 mg IM Q8H PRN PRN Reason: EPS, dystonia Stop: 12/21/23 11:59 Bismuth Subsalicylate (Bismuth Subsalicylate Liqd 236 Ml) 15 ml PO PRN PRN PRN Reason: Loose Stool Stop: 12/21/23 10:46 Clonazepam (Clonazepam 0.5 Mg Tab) 0.5 mg PO HS JEREMIAH Stop: 12/25/23 21:59 Docusate Sodium (Docusate Sodium 100 Mg Cap) 100 mg PO BID JEREMIAH Stop: 12/22/23 10:44 Last Admin: 11/25/23 08:53 Dose: 100 mg Haloperidol (Haloperidol 5 Mg Tab) 5 mg PO Q8H PRN PRN Reason: Agitation Stop: 12/21/23 11:57 Last Admin: 11/24/23 10:09 Dose: 5 mg Haloperidol Lactate (Haloperidol Lactate 5 Mg/Ml 1 Ml Vial) 5 mg IM Q8H PRN PRN Reason: Agitation Stop: 12/21/23 11:57 Hydroxyzine HCl (Hydroxyzine Hcl 25 Mg Tab) 50 mg PO HSZ PRN PRN Reason: Insomnia Stop: 12/21/23 10:46 Last Admin: 11/25/23 00:29 Dose: 50 mg Hydroxyzine HCl (Hydroxyzine Hcl 25 Mg Tab) 25 mg PO Q4H PRN PRN Reason: Anxiety Stop: 12/21/23 10:46 Last Admin: 11/25/23 09:01 Dose: 25 mg [place] Carbonate ([place] Carbonate 300 Mg Tab) 300 mg PO BID JEREMIAH Stop: 12/24/23 20:59 Last Admin: 11/25/23 08:53 Dose: 300 mg Lorazepam (Lorazepam 2 Mg/1 Ml Vial) 1 mg IM Q8H PRN PRN Reason: Agitation Stop: 12/21/23 11:57 Lorazepam (Lorazepam 1 Mg Tab) 1 mg PO Q8H PRN PRN Reason: Agitation Stop: 12/21/23 11:57 Last Admin: 11/24/23 10:09 Dose: 1 mg Magnesium Hydroxide (Magnesium Hydroxide Susp 30 Ml Udc) 30 ml PO DAILY PRN PRN Reason: Constipation Stop: 12/21/23 10:46 Nicotine Polacrilex (Nicotine Polacrilex 2 Mg Gum) 1 piece MT Q2H PRN PRN Reason: nicotine cravings Stop: 12/24/23 09:27 Risperidone (Risperidone 1 Mg Tablet) 1 mg PO QAM JEREMIAH Stop: 12/23/23 08:59 Last Admin: 11/25/23 08:54 Dose: 1 mg Risperidone (Risperidone 2 Mg Tablet) 2 mg PO HS JEREMIAH Stop: 12/22/23 21:59 Last Admin: 11/24/23 21:05 Dose: 2 mg Sodium Chloride (Sodium Chloride 0.65% Na Soln 45 Ml ([place])) 1 - 2 sprays NA PRN PRN PRN Reason: Nasal Dryness/Congestion Stop: 12/21/23 10:46 Mental Health & Subst Abuse Tx Psychiatrist Name of Psychiatrist: Sara Duque [facility] Psychiatrist's Psychiatric Appointment Comment: [address], [address], [facility] [address] Therapist Name of Therapist: denies Publicity Person Name of Publicity Person: denies Post Discharge Appointments Primary Care Physician Name Of Family Doctor/PCP: Sara Mandujano [facility] Primary Care Provider Appointment Comment: [address], [address], [place] [address]
[2023-11-25 11:43] LABS: Hepatitis A Antibody IgM NON-REACTIVE (NON-REACTIVE); Hepatitis B Core Antibody IgM NON-REACTIVE (NON-REACTIVE)
[2023-11-25] MEDS: NICOTINE POLACRILEX 2 MG GUM MT PRN (16:51)
[2023-11-25] MEDS: clonazePAM 0.5 MG TAB PO SCH (21:13)
--- NOTE | 2023-11-26 08:13 | Psychiatric Progress Note ---
Date of Service November 26, 2023 Impression / Recommendations Impression Emilia Orta is a 28-year-old female unknown past history who was brought in by police after being found wandering the street by gas station. Patient presented pressured and tangential speech, memory impairment, and concern for psychosis. She was admitted on 11/21/23 09:58 on a 302 involuntary commitment for psychosis, now on a 303 commitment. 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 Patient has demonstrated significant dysfunction evidenced by recurrent legal troubles, persistent symptoms, recurrent hospitalizations, poor insight, inability to maintain stability in the community, and continued drug dependence. A: Significant mood lability with marked irritability, anger, threatening violence and posturing toward provider during interview today. So far limited benefit from ativan and haldol prn so will attempt thorazine prn while continuing to monitor for hypotension but risks/benefit profile felt to favor use of alternative antipsychotic given her level of anger and impulsivity. Significant thought disorganization and confusion, unclear what may be due to primary psychotic or mood disorder vs neurotoxicity/brain insults from history of substance use including past IV substance use. Overall, I spent a total of 40 minutes on this case including meeting with the patient, reviewing the chart, nursing report, multidisciplinary team meeting, orders, and documentation. 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 11/25/2023: Decrease Clonazepam to 0.5mg HS. Encourage fluids. 11/24/2023: Start [place] 300mg BID for mood lability. 11/23/2023: Continue medications and treatment plan. 11/22/2023: Increase risperidone to 1 mg every morning and 2 mg nightly. Continue clonazepam 1 mg at bedtime. Encourage fluids. STI and hepatitis panel. 11/21/2023: One-time lorazepam 2 mg p.o. for anxiety. Schedule risperidone 1 mg twice daily and clonazepam 1 mg at bedtime. Baseline EKG and labs: Free T4, free T3, A1c, lipid panel. Inventory Assets Strengths: able to express needs, accepting treatment Needs: social supports, mood control Suicide Risk Level Suicide Risk Level: Moderate (q15 min suicide checks) (not voicing any SI but significant mood lability and disorganization) Risk Factors Assessment Male: No : Yes Do You Have Access To A Gun?: No Health Problems: No Mental Health Diagnoses: Yes Substance Use Disorders: Yes Previous Attempt: No Family History of Suicide: No Previous Psychiatric Hospitalization: Yes Hopelessness: No Protective Factors Assessment Baptism Beliefs: No : No Responsible for Young Children: No Employed: No Stable Relationships: No Supportive Family: No Good Rapport with Provider: Yes Absence of Any Risk Factors Above: No Interval History Identifying Information Emilia Orta is a 28-year-old female unknown past history who was brought in by police after being found wandering the street by gas station. Patient presented pressured and tangential speech, memory impairment, and concern for psychosis. She was admitted on 11/21/23 09:58 on a 302 involuntary commitment for psychosis. Chief Complaint "I'm going to knock you out you nasty piece of pig scum". Review of Systems Sleep Information Total Hours of Sleep: 10 Sleep Comments: ANGEL LUIS Andre Meal Information Percent Meal Consumed - Breakfast: 100 Percent Meal Consumed - Lunch: 100 Percent Meal Consumed - Dinner: 100 Nutrition Comment: Pt asleep. Meal placed in frig for Pt. Subjective Subjective Patient was seen & assessed and interval progress reviewed with treatment team nursing and social work. Very medication focused. This morning called RNs rude names and threatened to punch one of the RNs in the face. Significant mood lability. Still very disorganized, cannot tolerate any groups. Irritability. Asks to meet with me in my office. Once seated tells me her mood is "sh*tty but I'm doing". States she slept "perfectly". Then asks me about her medications, as we discuss she has significant confusion, wonders if one of her medications is "for a child". Gets agitated when she asks for the lithium "as a shot" and I tell her it is not available as an injection. Wants me to call [facility] where she was apparently hospitalized in the past and to let her go there instead for a shot. Then tells me her tooth is hurting, when I ask which tooth she states "no one who tells you that you should be asked that" and then threatens to knock me out. Physical Exam Psychiatric Orientation: alert, oriented to person and oriented to place; + uncooperative Apperance: + disheveled Eye Contact: + fair eye contact Motor Behavior: no abnormal motor movements Speech: normal rate/rhythm/volume of speech Affect: + labile affect and + angry affect Mood: + irritable mood and + angry mood Thought Process: + looseness of associations Thought Content: + preoccupation Insight: + poor insight Judgment: + poor judgement Vital Signs (Past 24 Hours) Last Vital Signs Temp 36.4 C L 11/26/23 06:30 Pulse 69 11/26/23 06:30 Resp 16 11/26/23 06:30 BP 107/72 11/26/23 06:30 Pulse Ox 98 11/26/23 06:30 O2 Del Method Room Air 11/26/23 06:30 Results & Data ([facility]) Laboratory Results Laboratory Results - last 24 hr 11/23/23 07:07 Hepatitis A IgM Ab NON-REACTIVE Hep B Core IgM Ab NON-REACTIVE Current Inpatient Medications Current Inpatient Medications: Current Inpatient Medications Acetaminophen (Acetaminophen 325 Mg Tab) 650 mg PO Q4H PRN PRN Reason: Headache or Minor Fever Stop: 12/21/23 10:46 Last Admin: 11/24/23 22:40 Dose: 650 mg Al Hydrox/Mg Hydrox/Simethicone (Aluminum/Magnesium Susp 30 Ml Udc) 30 ml PO Q4H PRN PRN Reason: GI Upset Stop: 12/21/23 10:46 Benztropine Mesylate (Benztropine Mesylate 1 Mg Tab) 1 mg PO Q8H PRN PRN Reason: EPS, dystonia Stop: 12/21/23 11:57 Benztropine Mesylate (Benztropine Mesylate 1 Mg/Ml 2 Ml Amp) 1 mg IM Q8H PRN PRN Reason: EPS, dystonia Stop: 12/21/23 11:59 Bismuth Subsalicylate (Bismuth Subsalicylate Liqd 236 Ml) 15 ml PO PRN PRN PRN Reason: Loose Stool Stop: 12/21/23 10:46 Clonazepam (Clonazepam 0.5 Mg Tab) 0.5 mg PO HS JEREMIAH Stop: 12/25/23 21:59 Last Admin: 11/25/23 21:13 Dose: 0.5 mg Docusate Sodium (Docusate Sodium 100 Mg Cap) 100 mg PO BID JEREMIAH Stop: 12/22/23 10:44 Last Admin: 11/25/23 21:12 Dose: 100 mg Haloperidol (Haloperidol 5 Mg Tab) 5 mg PO Q8H PRN PRN Reason: Agitation Stop: 12/21/23 11:57 Last Admin: 11/25/23 15:36 Dose: 5 mg Haloperidol Lactate (Haloperidol Lactate 5 Mg/Ml 1 Ml Vial) 5 mg IM Q8H PRN PRN Reason: Agitation Stop: 12/21/23 11:57 Hydroxyzine HCl (Hydroxyzine Hcl 25 Mg Tab) 50 mg PO HSZ PRN PRN Reason: Insomnia Stop: 12/21/23 10:46 Last Admin: 11/25/23 00:29 Dose: 50 mg Hydroxyzine HCl (Hydroxyzine Hcl 25 Mg Tab) 25 mg PO Q4H PRN PRN Reason: Anxiety Stop: 12/21/23 10:46 Last Admin: 11/25/23 09:01 Dose: 25 mg [place] Carbonate ([place] Carbonate 300 Mg Tab) 300 mg PO BID JEREMIAH Stop: 12/24/23 20:59 Last Admin: 11/25/23 21:13 Dose: 300 mg Lorazepam (Lorazepam 2 Mg/1 Ml Vial) 1 mg IM Q8H PRN PRN Reason: Agitation Stop: 12/21/23 11:57 Lorazepam (Lorazepam 1 Mg Tab) 1 mg PO Q8H PRN PRN Reason: Agitation Stop: 12/21/23 11:57 Last Admin: 11/25/23 15:36 Dose: 1 mg Magnesium Hydroxide (Magnesium Hydroxide Susp 30 Ml Udc) 30 ml PO DAILY PRN PRN Reason: Constipation Stop: 12/21/23 10:46 Nicotine Polacrilex (Nicotine Polacrilex 2 Mg Gum) 1 piece MT Q2H PRN PRN Reason: nicotine cravings Stop: 12/24/23 09:27 Last Admin: 11/25/23 16:51 Dose: 1 piece Risperidone (Risperidone 1 Mg Tablet) 1 mg PO QAM JEREMIAH Stop: 12/23/23 08:59 Last Admin: 11/25/23 21:13 Dose: 1 mg Risperidone (Risperidone 2 Mg Tablet) 2 mg PO HS JEREMIAH Stop: 12/22/23 21:59 Last Admin: 11/25/23 21:13 Dose: 2 mg Sodium Chloride (Sodium Chloride 0.65% Na Soln 45 Ml ([place])) 1 - 2 sprays NA PRN PRN PRN Reason: Nasal Dryness/Congestion Stop: 12/21/23 10:46 Mental Health & Subst Abuse Tx Psychiatrist Name of Psychiatrist: Sara Duque [facility] Psychiatrist's Psychiatric Appointment Comment: [id number], [place] [id number] Therapist Name of Therapist: [facility] The[facility] Name of Hospice Art Therapist: denies Post Discharge Appointments Primary Care Physician Name Of Family Doctor/PCP: Sara Duque [facility] Primary Care Provider Appointment Comment: [id number], [address], [place] [id number]
[2023-11-26] MEDS: chlorproMAZINE HCL 25 MG TAB PO PRN (09:04)
--- NOTE | 2023-11-27 08:53 | Psychiatric Progress Note ---
Date of Service November 27, 2023 Impression / Recommendations Impression Emilia Orta is a 28-year-old female unknown past history who was brought in by police after being found wandering the street by gas station. Patient presented pressured and tangential speech, memory impairment, and concern for psychosis. She was admitted on 11/21/23 09:58 on a 302 involuntary commitment for psychosis, now on a 303 commitment. 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 Patient has demonstrated significant dysfunction evidenced by recurrent legal troubles, persistent symptoms, recurrent hospitalizations, poor insight, inability to maintain stability in the community, and continued drug dependence. A: Remains disorganized and unpredictable with mood lability and significant irritability and anger. Continues to be very medication focused and derogatory. Had behavioral event requiring seclusion and IM thorazine this morning. Given concerns for need for frequent prns and hypotension will switch her from risperidone to haldol. Continue to have prn thorazine available for now as seems to be most effective prn trialed to date. Will discontinue [place] given concern for inability to safely monitor as she cannot participate in meaningful discussions about risks/possible side effects or tolerate blood work at this time and TSH already elevated at baseline. May consider Depakote trial in coming days. Overall, I spent a total of 55 minutes on this case including meeting with the patient, reviewing the chart, nursing report, multidisciplinary team meeting, orders, and documentation and emergency event. 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 Start haldol 5mg BID. 11/26/2023: Start Thorazine 12.5mg TID prn po for agitation. 11/25/2023: Decrease Clonazepam to 0.5mg HS. Encourage fluids. 11/24/2023: Start [place] 300mg BID for mood lability. 11/23/2023: Continue medications and treatment plan. 11/22/2023: Increase risperidone to 1 mg every morning and 2 mg nightly. Continue clonazepam 1 mg at bedtime. Encourage fluids. STI and hepatitis panel. 11/21/2023: One-time lorazepam 2 mg p.o. for anxiety. Schedule risperidone 1 mg twice daily and clonazepam 1 mg at bedtime. Baseline EKG and labs: Free T4, free T3, A1c, lipid panel. Inventory Assets Strengths: able to express needs, accepting treatment Needs: social supports, mood control Suicide Risk Level Suicide Risk Level: Moderate (q15 min suicide checks) (not voicing any SI but significant mood lability and disorganization) Risk Factors Assessment Male: No : Yes Do You Have Access To A Gun?: No Health Problems: No Mental Health Diagnoses: Yes Substance Use Disorders: Yes Previous Attempt: No Family History of Suicide: No Previous Psychiatric Hospitalization: Yes Hopelessness: No Protective Factors Assessment Scientologist Beliefs: No : No Responsible for Young Children: No Employed: No Stable Relationships: No Supportive Family: No Good Rapport with Provider: Yes Absence of Any Risk Factors Above: No Interval History Identifying Information Emilia Orta is a 28-year-old female unknown past history who was brought in by police after being found wandering the street by gas station. Patient presented pressured and tangential speech, memory impairment, and concern for psychosis. She was admitted on 11/21/23 09:58 on a 302 involuntary commitment for psychosis. Chief Complaint "Why am I even here? Psychosis, I know that's here (points to between her shoulder blades)". Review of Systems Sleep Information Total Hours of Sleep: 10 Sleep Comments: ANGEL LUIS Andre Meal Information Percent Meal Consumed - Breakfast: 100 Percent Meal Consumed - Lunch: 100 Percent Meal Consumed - Dinner: 100 Nutrition Comment: Pt asleep. Meal placed in frig for Pt. Subjective Subjective Patient was seen & assessed and interval progress reviewed with treatment team nursing and social work. Accepted prn Thorazine yesterday and then slept. IN the afternoon came out shirtless, threw all of her dirty clothes at the nurses station and threw a cup of water at the window. Got another prn of Thorazine around 4pm. Was taking her mattress off, this morning took her blinds down. Continues to speak about topics that make no sense. Made a hypersexual statement this morning to social science manager. Initially refused her AM medications, later accepted. Mid-morning became acutely agitated with no known inciting event, abruptly threw remote at the TV with increasing subsequent agitation and disorganized behavior then posturing and threatening and grabbed badge from RN. Required seclusion and IM thorazine. In the afternoon initially slightly more organized but then swearing profanities at staff. Physical Exam Psychiatric Orientation: alert, oriented to person and oriented to place; + uncooperative Apperance: + disheveled Eye Contact: + fair eye contact Motor Behavior: no abnormal motor movements Speech: normal rate/rhythm/volume of speech Affect: + labile affect and + angry affect Mood: + irritable mood and + angry mood Thought Process: + looseness of associations Thought Content: + preoccupation Insight: + poor insight Judgment: + poor judgement Vital Signs (Past 24 Hours) Last Vital Signs Temp 36.6 C 11/27/23 06:47 Pulse 89 11/27/23 06:47 Resp 16 11/27/23 06:47 BP 94/57 L 11/27/23 06:47 Pulse Ox 99 11/27/23 06:47 O2 Del Method Room Air 11/27/23 06:47 Results & Data ([facility]) Current Inpatient Medications Current Inpatient Medications: Current Inpatient Medications Acetaminophen (Acetaminophen 325 Mg Tab) 650 mg PO Q4H PRN PRN Reason: Headache or Minor Fever Stop: 12/21/23 10:46 Last Admin: 11/26/23 13:48 Dose: 650 mg Al Hydrox/Mg Hydrox/Simethicone (Aluminum/Magnesium Susp 30 Ml Udc) 30 ml PO Q4H PRN PRN Reason: GI Upset Stop: 12/21/23 10:46 Benztropine Mesylate (Benztropine Mesylate 1 Mg Tab) 1 mg PO Q8H PRN PRN Reason: EPS, dystonia Stop: 12/21/23 11:57 Benztropine Mesylate (Benztropine Mesylate 1 Mg/Ml 2 Ml Amp) 1 mg IM Q8H PRN PRN Reason: EPS, dystonia Stop: 12/21/23 11:59 Bismuth Subsalicylate (Bismuth Subsalicylate Liqd 236 Ml) 15 ml PO PRN PRN PRN Reason: Loose Stool Stop: 12/21/23 10:46 Chlorpromazine HCl (Chlorpromazine Hcl 25 Mg Tab) 12.5 mg PO TID PRN PRN Reason: Agitation Stop: 12/26/23 08:59 Last Admin: 11/27/23 07:40 Dose: 12.5 mg Clonazepam (Clonazepam 0.5 Mg Tab) 0.5 mg PO HS JEREMIAH Stop: 12/25/23 21:59 Last Admin: 11/26/23 21:03 Dose: 0.5 mg Docusate Sodium (Docusate Sodium 100 Mg Cap) 100 mg PO BID JEREMIAH Stop: 12/22/23 10:44 Last Admin: 11/26/23 21:03 Dose: 100 mg Haloperidol (Haloperidol 5 Mg Tab) 5 mg PO Q8H PRN PRN Reason: Agitation Stop: 12/21/23 11:57 Last Admin: 11/26/23 17:03 Dose: 5 mg Haloperidol Lactate (Haloperidol Lactate 5 Mg/Ml 1 Ml Vial) 5 mg IM Q8H PRN PRN Reason: Agitation Stop: 12/21/23 11:57 Hydroxyzine HCl (Hydroxyzine Hcl 25 Mg Tab) 50 mg PO HSZ PRN PRN Reason: Insomnia Stop: 12/21/23 10:46 Last Admin: 11/25/23 00:29 Dose: 50 mg Hydroxyzine HCl (Hydroxyzine Hcl 25 Mg Tab) 25 mg PO Q4H PRN PRN Reason: Anxiety Stop: 12/21/23 10:46 Last Admin: 11/25/23 09:01 Dose: 25 mg A[place]in Carbonate ([place] Carbonate 300 Mg Tab) 300 mg PO BID JEREMIAH Stop: 12/24/23 20:59 Last Admin: 11/26/23 21:03 Dose: 300 mg Lorazepam (Lorazepam 2 Mg/1 Ml Vial) 1 mg IM Q8H PRN PRN Reason: Agitation Stop: 12/21/23 11:57 Lorazepam (Lorazepam 1 Mg Tab) 1 mg PO Q8H PRN PRN Reason: Agitation Stop: 12/21/23 11:57 Last Admin: 11/26/23 17:03 Dose: 1 mg Magnesium Hydroxide (Magnesium Hydroxide Susp 30 Ml Udc) 30 ml PO DAILY PRN PRN Reason: Constipation Stop: 12/21/23 10:46 Nicotine Polacrilex (Nicotine Polacrilex 2 Mg Gum) 1 piece MT Q2H PRN PRN Reason: nicotine cravings Stop: 12/24/23 09:27 Last Admin: 11/25/23 16:51 Dose: 1 piece Risperidone (Risperidone 1 Mg Tablet) 1 mg PO QAM JEREMIAH Stop: 12/23/23 08:59 Last Admin: 11/25/23 21:13 Dose: 1 mg Risperidone (Risperidone 2 Mg Tablet) 2 mg PO HS JEREMIAH Stop: 12/22/23 21:59 Last Admin: 11/26/23 21:04 Dose: 2 mg Sodium Chloride (Sodium Chloride 0.65% Na Soln 45 Ml ([place])) 1 - 2 sprays NA PRN PRN PRN Reason: Nasal Dryness/Congestion Stop: 12/21/23 10:46 Mental Health & Subst Abuse Tx Psychiatrist Name of Psychiatrist: Sara Duque [facility] Psychiatrist's Psychiatric Appointment Comment: [phone] [place] [id number] Therapist Name of Therapist: denies Refrigeration Technician Name of Refrigeration Technician: denies Post Discharge Appointments Primary Care Physician Name Of Family Doctor/PCP: Sara Duque [facility] Primary Care Provider Appointment Comment: [phone] [place] [id number]
[2023-11-27] MEDS: chlorproMAZINE HCL 25 MG/ML AMP IM ONE (10:39)
--- NOTE | 2023-11-27 10:59 | Communication Note ---
Date of Service: November 27, 2023 Seclusion/Restraint/Emergency Medication Note Date: 11/27/2023 Patient assessed for imminent danger of harm to self/others. Description of events leading to Psychiatric Emergency Intervention: Patient was in main room watching TV and then threw the remote at the TV and when RN came to discuss with her she started to throw her shoes, rip up papers and making threatening statements. She then pulled a picture off the wall and attempted to flee the unit by standing by the door and pressing buttons on the badge access. She then grabbed the badge from a RN's shirt and made threatening statements including "I'm going to spit on your face" and "I'm going to kick you down the stairs". Security arrived and she walked into the seclusion room at 10:30am. The door was locked and emergency medication of Thorazine was ordered. IM Thorazine was administered at 10:39am which Emilia allowed to be administered. She continued to make statements about "he's " and "I have no mother" and "why do I even need to be here". When attempts were made to discuss concerns she was not receptive, yelled and made ongoing threats. Seclusion room door was re- locked after administration of IM medication at 10:40am. Mental Status Exam: Confused, disheveled, rapid speech, psychomotor agitation, intense eye contact, angry affect, angry mood, thought disorganization with delusions, very poor insight and judgment. Impression: Ongoing psychosis with hostility, anger and threatening behavior. Acute psychiatric emergency intervention was necessary to reduce the patient's imminent risk of harm to others/themself. Rationale for this seclusion/restraint order: refer to seclusion/restraint order Emergency Medication administered: Thorazine 25mg IM Rationale for emergency medications (if administered): refer to seclusion/restraint order Patient response: Lying down, shouting less. Plan: Continue to closely monitor patient as per seclusion/restraint criteria. No evidence of any physical harm, decompensation nor physical complaints. - Intervention initiated at: refer to seclusion/restraint order - Emergency meds (if administered): Thorazine 25mg IM -Debriefing occurred at: 10:41am with Hakan garcia MD. Marlen Bernard MD
[2023-11-27] MEDS: haloperidoL 5 MG TAB PO SCH (19:12)
--- NOTE | 2023-11-28 08:34 | Psychiatric Progress Note ---
Date of Service November 28, 2023 Impression / Recommendations Impression Emilia Orta is a 28-year-old female unknown past history who was brought in by police after being found wandering the street by gas station. Patient presented pressured and tangential speech, memory impairment, and concern for psychosis. She was admitted on 11/21/23 09:58 on a 302 involuntary commitment for psychosis, now on a 303 commitment. 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 Patient has demonstrated significant dysfunction evidenced by recurrent legal troubles, persistent symptoms, recurrent hospitalizations, poor insight, inability to maintain stability in the community, and continued drug dependence. A: Remains disorganized and unpredictable with mood lability and nonsensical thought process. Does seem to have slightly better behavioral control today after switching to haldol, will attempt to taper thorazine prns in coming days if she shows progress with haldol. No evidence for EPS or other side effects at this time. Remains hypotensive in the morning but slightly less so today. Overall, I spent a total of 30 minutes on this case including meeting with the patient, reviewing the chart, nursing report, multidisciplinary team meeting, orders, and documentation and emergency event. 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 11/27/2023: Discontinue [place] and risperidone. Start haldol 5mg BID. 11/26/2023: Start Thorazine 12.5mg TID prn po for agitation. 11/25/2023: Decrease Clonazepam to 0.5mg HS. Encourage fluids. 11/24/2023: Start [place] 300mg BID for mood lability. 11/23/2023: Continue medications and treatment plan. 11/22/2023: Increase risperidone to 1 mg every morning and 2 mg nightly. Continue clonazepam 1 mg at bedtime. Encourage fluids. STI and hepatitis panel. 11/21/2023: One-time lorazepam 2 mg p.o. for anxiety. Schedule risperidone 1 mg twice daily and clonazepam 1 mg at bedtime. Baseline EKG and labs: Free T4, free T3, A1c, lipid panel. Inventory Assets Strengths: able to express needs, accepting treatment Needs: social supports, mood control Suicide Risk Level Suicide Risk Level: Moderate (q15 min suicide checks) (not voicing any SI but significant mood lability and disorganization) Risk Factors Assessment Male: No : Yes Do You Have Access To A Gun?: No Health Problems: No Mental Health Diagnoses: Yes Substance Use Disorders: Yes Previous Attempt: No Family History of Suicide: No Previous Psychiatric Hospitalization: Yes Hopelessness: No Protective Factors Assessment Hinduism Beliefs: No : No Responsible for Young Children: No Employed: No Stable Relationships: No Supportive Family: No Good Rapport with Provider: Yes Absence of Any Risk Factors Above: No Interval History Identifying Information Emilia Orta is a 28-year-old female unknown past history who was brought in by police after being found wandering the street by gas station. Patient presented pressured and tangential speech, memory impairment, and concern for psychosis. She was admitted on 11/21/23 09:58 on a 302 involuntary commitment for psychosis. Chief Complaint "Fine". Review of Systems Sleep Information Total Hours of Sleep: 8.25 Sleep Comments: HS Thai Meal Information Percent Meal Consumed - Breakfast: 100 Percent Meal Consumed - Lunch: 100 Percent Meal Consumed - Dinner: 100 Nutrition Comment: Pt asleep. Meal placed in frig for Pt. Subjective Subjective Patient was seen & assessed and interval progress reviewed with treatment team nursing and social work. Received multiple prn medications last evening. Disorganized with showering and used barrier cream as conditioner. This morning making frequent sexual comments and with significant loosening of associations, largely nonsensical. Was able to tolerate meeting with me briefly. tells me her mood is "fine". Asks about her medications and requested a list which was provided to her. Unfortunately she remains unable to have any type of meaningful conversation about her medications. Tells me she wants to leave and when we discuss target symptoms that need to improve and disposition challenges of lack of housing she tells me she can go "anywhere" and to "run it up, set it up". When asked if she would be interested in residental substance use treatment/rehab she reports "what the f*ck kind of HIV are you throwing at me" and could not tolerate meeting with me any further. During our meeting she was observed to pour her coffee into a cup filled with coca cola and then drank this. Physical Exam Psychiatric Orientation: alert, oriented to person and oriented to place; + uncooperative Apperance: + disheveled Eye Contact: + fair eye contact Motor Behavior: no abnormal motor movements Speech: normal rate/rhythm/volume of speech Affect: + labile affect and + angry affect Mood: + irritable mood and + angry mood Thought Process: + looseness of associations Thought Content: + preoccupation (hypersexual, crude) Insight: + severely impaired insight Judgment: + poor judgement Vital Signs (Past 24 Hours) Last Vital Signs Temp 36.6 C 11/27/23 06:47 Pulse 89 11/27/23 06:47 Resp 16 11/27/23 06:47 BP 94/57 L 11/27/23 06:47 Pulse Ox 99 11/27/23 06:47 O2 Del Method Room Air 11/27/23 06:47 Results & Data ([facility]) Current Inpatient Medications Current Inpatient Medications: Current Inpatient Medications Acetaminophen (Acetaminophen 325 Mg Tab) 650 mg PO Q4H PRN PRN Reason: Headache or Minor Fever Stop: 12/21/23 10:46 Last Admin: 11/27/23 17:21 Dose: 650 mg Al Hydrox/Mg Hydrox/Simethicone (Aluminum/Magnesium Susp 30 Ml Udc) 30 ml PO Q4H PRN PRN Reason: GI Upset Stop: 12/21/23 10:46 Benztropine Mesylate (Benztropine Mesylate 1 Mg Tab) 1 mg PO Q8H PRN PRN Reason: EPS, dystonia Stop: 12/21/23 11:57 Benztropine Mesylate (Benztropine Mesylate 1 Mg/Ml 2 Ml Amp) 1 mg IM Q8H PRN PRN Reason: EPS, dystonia Stop: 12/21/23 11:59 Bismuth Subsalicylate (Bismuth Subsalicylate Liqd 236 Ml) 15 ml PO PRN PRN PRN Reason: Loose Stool Stop: 12/21/23 10:46 Chlorpromazine HCl (Chlorpromazine Hcl 25 Mg Tab) 12.5 mg PO TID PRN PRN Reason: Agitation Stop: 12/26/23 08:59 Last Admin: 11/27/23 16:27 Dose: 12.5 mg Clonazepam (Clonazepam 0.5 Mg Tab) 0.5 mg PO HS JEREMIAH Stop: 12/25/23 21:59 Last Admin: 11/27/23 19:12 Dose: 0.5 mg Docusate Sodium (Docusate Sodium 100 Mg Cap) 100 mg PO BID JEREMIAH Stop: 12/22/23 10:44 Last Admin: 11/27/23 19:13 Dose: 100 mg Haloperidol (Haloperidol 5 Mg Tab) 5 mg PO Q8H PRN PRN Reason: Agitation Stop: 12/21/23 11:57 Last Admin: 11/27/23 16:27 Dose: 5 mg Haloperidol (Haloperidol 5 Mg Tab) 5 mg PO BID JEREMIAH Stop: 12/27/23 20:59 Last Admin: 11/27/23 19:12 Dose: 5 mg Haloperidol Lactate (Haloperidol Lactate 5 Mg/Ml 1 Ml Vial) 5 mg IM Q8H PRN PRN Reason: Agitation Stop: 12/21/23 11:57 Hydroxyzine HCl (Hydroxyzine Hcl 25 Mg Tab) 50 mg PO HSZ PRN PRN Reason: Insomnia Stop: 12/21/23 10:46 Last Admin: 11/25/23 00:29 Dose: 50 mg Hydroxyzine HCl (Hydroxyzine Hcl 25 Mg Tab) 25 mg PO Q4H PRN PRN Reason: Anxiety Stop: 12/21/23 10:46 Last Admin: 11/25/23 09:01 Dose: 25 mg Lorazepam (Lorazepam 2 Mg/1 Ml Vial) 1 mg IM Q8H PRN PRN Reason: Agitation Stop: 12/21/23 11:57 Lorazepam (Lorazepam 1 Mg Tab) 1 mg PO Q8H PRN PRN Reason: Agitation Stop: 12/21/23 11:57 Last Admin: 11/27/23 15:06 Dose: 1 mg Magnesium Hydroxide (Magnesium Hydroxide Susp 30 Ml Udc) 30 ml PO DAILY PRN PRN Reason: Constipation Stop: 12/21/23 10:46 Nicotine Polacrilex (Nicotine Polacrilex 2 Mg Gum) 1 piece MT Q2H PRN PRN Reason: nicotine cravings Stop: 12/24/23 09:27 Last Admin: 11/27/23 14:53 Dose: 1 piece Sodium Chloride (Sodium Chloride 0.65% Na Soln 45 Ml ([place])) 1 - 2 sprays NA PRN PRN PRN Reason: Nasal Dryness/Congestion Stop: 12/21/23 10:46 Mental Health & Subst Abuse Tx Psychiatrist Name of Psychiatrist: Sara Duque [facility] Psychiatrist's Psychiatric Appointment Comment: [id number], [address], [place] [address] Therapist Name of Therapist: denies Help Desk Support Specialist Name of Help Desk Support Specialist: denies Post Discharge Appointments Primary Care Physician Name Of Family Doctor/PCP: Sara Duque [facility] Primary Care Provider Appointment Comment: [id number], [address], [place] [address]
[2023-11-28 17:37] LABS: Hepatitis C Vira RNA (Log) PCR <1.18 NOT DETECTED Log IU/mL (NOT DETECTED); Hepatitis C Viral RNA by PCR <15 NOT DETECTED IU/mL (NOT DETECTED)
--- NOTE | 2023-11-29 09:00 | Psychiatric Progress Note ---
Date of Service November 29, 2023 Impression / Recommendations Impression Emilia Orta is a 28-year-old female unknown past history who was brought in by police after being found wandering the street by gas station. Patient presented pressured and tangential speech, memory impairment, and concern for psychosis. She was admitted on 11/21/23 09:58 on a 302 involuntary commitment for psychosis, now on a 303 commitment. 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 Patient has demonstrated significant dysfunction evidenced by recurrent legal troubles, persistent symptoms, recurrent hospitalizations, poor insight, inability to maintain stability in the community, and continued drug dependence. A: Remains disorganized and unpredictable with mood lability and frequent crude, racist and hypersexual statements. However, overall showing some improved behavioral control today, spent more time in her room and sleeping. Remains unable to tolerate any groups, medication discussions or disposition planning. Overall, I spent a total of 25 minutes on this case including meeting with the patient, reviewing the chart, nursing report, multidisciplinary team meeting, orders, and documentation and emergency event. 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 11/28/2023: Continue current medications and tx plan. 11/27/2023: Discontinue [place] and risperidone. Start haldol 5mg BID. 11/26/2023: Start Thorazine 12.5mg TID prn po for agitation. 11/25/2023: Decrease Clonazepam to 0.5mg HS. Encourage fluids. 11/24/2023: Start [place] 300mg BID for mood lability. 11/23/2023: Continue medications and treatment plan. 11/22/2023: Increase risperidone to 1 mg every morning and 2 mg nightly. Continue clonazepam 1 mg at bedtime. Encourage fluids. STI and hepatitis panel. 11/21/2023: One-time lorazepam 2 mg p.o. for anxiety. Schedule risperidone 1 mg twice daily and clonazepam 1 mg at bedtime. Baseline EKG and labs: Free T4, free T3, A1c, lipid panel. Inventory Assets Strengths: able to express needs, accepting treatment Needs: social supports, mood control Suicide Risk Level Suicide Risk Level: Moderate (q15 min suicide checks) (not voicing any SI but significant mood lability and disorganization) Risk Factors Assessment Male: No : Yes Do You Have Access To A Gun?: No Health Problems: No Mental Health Diagnoses: Yes Substance Use Disorders: Yes Previous Attempt: No Family History of Suicide: No Previous Psychiatric Hospitalization: Yes Hopelessness: No Protective Factors Assessment Shinto Beliefs: No : No Responsible for Young Children: No Employed: No Stable Relationships: No Supportive Family: No Good Rapport with Provider: Yes Absence of Any Risk Factors Above: No Interval History Identifying Information Emilia Orta is a 28-year-old female unknown past history who was brought in by police after being found wandering the street by gas station. Patient presented pressured and tangential speech, memory impairment, and concern for psychosis. She was admitted on 11/21/23 09:58 on a 302 involuntary commitment for psychosis. Chief Complaint "I just spit in your face". Review of Systems Sleep Information Total Hours of Sleep: 9 Sleep Comments: ANGEL LUIS Andre Meal Information Percent Meal Consumed - Breakfast: 100 Percent Meal Consumed - Lunch: 100 Percent Meal Consumed - Dinner: 75 Nutrition Comment: Pt asleep. Meal placed in frig for Pt. Subjective Subjective Patient was seen & assessed and interval progress reviewed with treatment team nursing and social work. Taking her medication. Making intermittent crude sexual and racist statements. Slept well overnight. Slightly less agitated today but still insults me when I attempt to met with her and makes threats. [place] making crude statements directed at me after we met briefly. Unable to tolerate any type of meaningful or prolonged or in depth conversation. Physical Exam Psychiatric Orientation: alert, oriented to person and oriented to place; + uncooperative Apperance: + disheveled Eye Contact: + fair eye contact Motor Behavior: no abnormal motor movements Speech: normal rate/rhythm/volume of speech Affect: + labile affect and + angry affect Mood: + irritable mood and + angry mood Thought Process: + looseness of associations Thought Content: + preoccupation (hypersexual, crude) Insight: + severely impaired insight Judgment: + poor judgement Vital Signs (Past 24 Hours) Last Vital Signs Temp 36.6 C 11/27/23 06:47 Pulse 89 11/27/23 06:47 Resp 16 11/29/23 06:47 BP 94/57 L 11/27/23 06:47 Pulse Ox 99 11/27/23 06:47 O2 Del Method Room Air 11/27/23 06:47 Results & Data ([facility]) Laboratory Results Laboratory Results - last 24 hr 11/23/23 07:07 HCV RNA (PCR) IUs/ml <15 NOT DETECTED HCV RNA PCR log IUs/ml <1.18 NOT DETECTED Current Inpatient Medications Current Inpatient Medications: Current Inpatient Medications Acetaminophen (Acetaminophen 325 Mg Tab) 650 mg PO Q4H PRN PRN Reason: Headache or Minor Fever Stop: 12/21/23 10:46 Last Admin: 11/27/23 17:21 Dose: 650 mg Al Hydrox/Mg Hydrox/Simethicone (Aluminum/Magnesium Susp 30 Ml Udc) 30 ml PO Q4H PRN PRN Reason: GI Upset Stop: 12/21/23 10:46 Benztropine Mesylate (Benztropine Mesylate 1 Mg Tab) 1 mg PO Q8H PRN PRN Reason: EPS, dystonia Stop: 12/21/23 11:57 Benztropine Mesylate (Benztropine Mesylate 1 Mg/Ml 2 Ml Amp) 1 mg IM Q8H PRN PRN Reason: EPS, dystonia Stop: 12/21/23 11:59 Bismuth Subsalicylate (Bismuth Subsalicylate Liqd 236 Ml) 15 ml PO PRN PRN PRN Reason: Loose Stool Stop: 12/21/23 10:46 Chlorpromazine HCl (Chlorpromazine Hcl 25 Mg Tab) 12.5 mg PO TID PRN PRN Reason: Agitation Stop: 12/26/23 08:59 Last Admin: 11/29/23 08:18 Dose: 12.5 mg Clonazepam (Clonazepam 0.5 Mg Tab) 0.5 mg PO HS JEREMIAH Stop: 12/25/23 21:59 Last Admin: 11/28/23 20:35 Dose: 0.5 mg Haloperidol (Haloperidol 5 Mg Tab) 5 mg PO Q8H PRN PRN Reason: Agitation Stop: 12/21/23 11:57 Last Admin: 11/28/23 13:02 Dose: 5 mg Haloperidol (Haloperidol 5 Mg Tab) 5 mg PO BID JEREMIAH Stop: 12/27/23 20:59 Last Admin: 11/29/23 08:18 Dose: 5 mg Haloperidol Lactate (Haloperidol Lactate 5 Mg/Ml 1 Ml Vial) 5 mg IM Q8H PRN PRN Reason: Agitation Stop: 12/21/23 11:57 Hydroxyzine HCl (Hydroxyzine Hcl 25 Mg Tab) 50 mg PO HSZ PRN PRN Reason: Insomnia Stop: 12/21/23 10:46 Last Admin: 11/25/23 00:29 Dose: 50 mg Hydroxyzine HCl (Hydroxyzine Hcl 25 Mg Tab) 25 mg PO Q4H PRN PRN Reason: Anxiety Stop: 12/21/23 10:46 Last Admin: 11/28/23 08:53 Dose: 25 mg Lorazepam (Lorazepam 2 Mg/1 Ml Vial) 1 mg IM Q8H PRN PRN Reason: Agitation Stop: 12/21/23 11:57 Lorazepam (Lorazepam 1 Mg Tab) 1 mg PO Q8H PRN PRN Reason: Agitation Stop: 12/21/23 11:57 Last Admin: 11/28/23 13:02 Dose: 1 mg Magnesium Hydroxide (Magnesium Hydroxide Susp 30 Ml Udc) 30 ml PO DAILY PRN PRN Reason: Constipation Stop: 12/21/23 10:46 Nicotine Polacrilex (Nicotine Polacrilex 2 Mg Gum) 1 piece MT Q2H PRN PRN Reason: nicotine cravings Stop: 12/24/23 09:27 Last Admin: 11/28/23 10:09 Dose: 1 piece Sodium Chloride (Sodium Chloride 0.65% Na Soln 45 Ml ([place])) 1 - 2 sprays NA PRN PRN PRN Reason: Nasal Dryness/Congestion Stop: 12/21/23 10:46 Mental Health & Subst Abuse Tx Psychiatrist Name of Psychiatrist: Sara Mandujano [facility] Psychiatrist's Psychiatric Appointment Comment: [address], [address], [facility] [id number] Therapist Name of Therapist: denies Terrazzo Finisher Name of Terrazzo Finisher: denies Post Discharge Appointments Primary Care Physician Name Of Family Doctor/PCP: Sara Mandujano - [facility] Primary Care Provider Appointment Comment: [address], [address], [place] [id number]
--- NOTE | 2023-11-30 08:53 | Psychiatric Progress Note ---
Date of Service November 30, 2023 Impression / Recommendations Impression Emilia Orta is a 28-year-old female unknown past history who was brought in by police after being found wandering the street by gas station. Patient presented pressured and tangential speech, memory impairment, and concern for psychosis. She was admitted on 11/21/23 09:58 on a 302 involuntary commitment for psychosis, now on a 303 commitment. 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 Patient has demonstrated significant dysfunction evidenced by recurrent legal troubles, persistent symptoms, recurrent hospitalizations, poor insight, inability to maintain stability in the community, and continued drug dependence. A: Ongoing agitation and significantly loosened associations with crude and inappropriate behaviors. Given ongoing high level of agitation despite scheduled antipsychotic medication and prn antipsychotic medication will add Depakote in effort to address high level of disinhibition and anger however, patient never had screening for during medical clearance process so will attempt UPT. Once UPT results are back, if negative, will then start Depakote tomorrow morning via loading in effort to get faster symptom control. Baseline labs of CBC with diff, LFTs, electrolytes, PT, all within normal limits; will need UPT result. She remains unable to tolerate discussion of risks/benefits. Overall, I spent a total of 30 minutes on this case including meeting with the patient, reviewing the chart, nursing report, multidisciplinary team meeting, and orders. 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 Added Thorazine 25mg IM prn for agitation per her request for additional IM medication options. 11/29/2023: Continue current medications and tx plan. 11/28/2023: Continue current medications and tx plan. 11/27/2023: Discontinue [place] and risperidone. Start haldol 5mg BID. 11/26/2023: Start Thorazine 12.5mg TID prn po for agitation. 11/25/2023: Decrease Clonazepam to 0.5mg HS. Encourage fluids. 11/24/2023: Start [place] 300mg BID for mood lability. 11/23/2023: Continue medications and treatment plan. 11/22/2023: Increase risperidone to 1 mg every morning and 2 mg nightly. Continue clonazepam 1 mg at bedtime. Encourage fluids. STI and hepatitis panel. 11/21/2023: One-time lorazepam 2 mg p.o. for anxiety. Schedule risperidone 1 mg twice daily and clonazepam 1 mg at bedtime. Baseline EKG and labs: Free T4, free T3, A1c, lipid panel. Inventory Assets Strengths: able to express needs, accepting treatment Needs: social supports, mood control Suicide Risk Level Suicide Risk Level: Moderate (q15 min suicide checks) (one episode of voicing SI and significant mood lability and disorganization) Risk Factors Assessment Male: No : Yes Do You Have Access To A Gun?: No Health Problems: No Mental Health Diagnoses: Yes Substance Use Disorders: Yes Previous Attempt: No Family History of Suicide: No Previous Psychiatric Hospitalization: Yes Hopelessness: No Protective Factors Assessment Jain Beliefs: No : No Responsible for Young Children: No Employed: No Stable Relationships: No Supportive Family: No Good Rapport with Provider: Yes Absence of Any Risk Factors Above: No Interval History Identifying Information Emilia Orta is a 28-year-old female unknown past history who was brought in by police after being found wandering the street by gas station. Patient presented pressured and tangential speech, memory impairment, and concern for psychosis. She was admitted on 11/21/23 09:58 on a 302 involuntary commitment for psychosis. Chief Complaint "What do I have to do, fight you?". Review of Systems Sleep Information Total Hours of Sleep: 12 Sleep Comments: HS Klonopin Meal Information Percent Meal Consumed - Breakfast: 100 Percent Meal Consumed - Lunch: 100 Percent Meal Consumed - Dinner: 0 Nutrition Comment: sleeping Subjective Subjective Patient was seen & assessed and interval progress reviewed with treatment team nursing and social work. Last evening was tearful and reported no reason to live. Got prn Thorazine and then slept so did not get HS medications. She slept for 12 hours overnight. Asked and received prn Vistaril this morning. Mid-morning was quite agitated at times requiring security presence on the unit. She threatened to fight me and refused to engage with any type of prolonged discussion after wanting me to tell her she could leave the hospital today. She requests medication adjustments but then would not discuss any of her preferences with me or allow me to discuss possible options. Rather began asking about "squared time" and other loosened associations. She requested and received prn thorazine IM with minimal benefit. Calling RNs, SW and this provider names and later in the day threatening to slap the recreation therapist. made statements such as "hows the ret*rd then" and "you look like an cat". Continues to be unable to tolerate any groups. Doesn't interact with any peers. Physical Exam Psychiatric Orientation: alert, oriented to person and oriented to place; + uncooperative Apperance: + disheveled Eye Contact: + fair eye contact Motor Behavior: no abnormal motor movements Speech: normal rate/rhythm/volume of speech Affect: + labile affect and + angry affect Mood: + irritable mood and + angry mood Thought Process: + looseness of associations Thought Content: + preoccupation (hypersexual, crude) Insight: + severely impaired insight Judgment: + poor judgement Vital Signs (Past 24 Hours) Last Vital Signs Temp 36.6 C 11/27/23 06:47 Pulse 89 11/27/23 06:47 Resp 16 11/29/23 06:47 BP 94/57 L 11/27/23 06:47 Pulse Ox 99 11/27/23 06:47 O2 Del Method Room Air 11/27/23 06:47 Results & Data ([facility]) Current Inpatient Medications Current Inpatient Medications: Current Inpatient Medications Acetaminophen (Acetaminophen 325 Mg Tab) 650 mg PO Q4H PRN PRN Reason: Headache or Minor Fever Stop: 12/21/23 10:46 Last Admin: 11/27/23 17:21 Dose: 650 mg Al Hydrox/Mg Hydrox/Simethicone (Aluminum/Magnesium Susp 30 Ml Udc) 30 ml PO Q4H PRN PRN Reason: GI Upset Stop: 12/21/23 10:46 Benztropine Mesylate (Benztropine Mesylate 1 Mg Tab) 1 mg PO Q8H PRN PRN Reason: EPS, dystonia Stop: 12/21/23 11:57 Benztropine Mesylate (Benztropine Mesylate 1 Mg/Ml 2 Ml Amp) 1 mg IM Q8H PRN PRN Reason: EPS, dystonia Stop: 12/21/23 11:59 Bismuth Subsalicylate (Bismuth Subsalicylate Liqd 236 Ml) 15 ml PO PRN PRN PRN Reason: Loose Stool Stop: 12/21/23 10:46 Chlorpromazine HCl (Chlorpromazine Hcl 25 Mg Tab) 12.5 mg PO TID PRN PRN Reason: Agitation Stop: 12/26/23 08:59 Last Admin: 11/29/23 15:44 Dose: 12.5 mg Clonazepam (Clonazepam 0.5 Mg Tab) 0.5 mg PO HS JEREMIAH Stop: 12/25/23 21:59 Last Admin: 11/29/23 21:33 Dose: Not Given Haloperidol (Haloperidol 5 Mg Tab) 5 mg PO Q8H PRN PRN Reason: Agitation Stop: 12/21/23 11:57 Last Admin: 11/28/23 13:02 Dose: 5 mg Haloperidol (Haloperidol 5 Mg Tab) 5 mg PO BID JEREMIAH Stop: 12/27/23 20:59 Last Admin: 11/30/23 07:39 Dose: 5 mg Haloperidol Lactate (Haloperidol Lactate 5 Mg/Ml 1 Ml Vial) 5 mg IM Q8H PRN PRN Reason: Agitation Stop: 12/21/23 11:57 Hydroxyzine HCl (Hydroxyzine Hcl 25 Mg Tab) 50 mg PO HSZ PRN PRN Reason: Insomnia Stop: 12/21/23 10:46 Last Admin: 11/25/23 00:29 Dose: 50 mg Hydroxyzine HCl (Hydroxyzine Hcl 25 Mg Tab) 25 mg PO Q4H PRN PRN Reason: Anxiety Stop: 12/21/23 10:46 Last Admin: 11/30/23 07:42 Dose: 25 mg Lorazepam (Lorazepam 2 Mg/1 Ml Vial) 1 mg IM Q8H PRN PRN Reason: Agitation Stop: 12/21/23 11:57 Lorazepam (Lorazepam 1 Mg Tab) 1 mg PO Q8H PRN PRN Reason: Agitation Stop: 12/21/23 11:57 Last Admin: 11/29/23 09:05 Dose: 1 mg Magnesium Hydroxide (Magnesium Hydroxide Susp 30 Ml Udc) 30 ml PO DAILY PRN PRN Reason: Constipation Stop: 12/21/23 10:46 Nicotine Polacrilex (Nicotine Polacrilex 2 Mg Gum) 1 piece MT Q2H PRN PRN Reason: nicotine cravings Stop: 12/24/23 09:27 Last Admin: 11/28/23 10:09 Dose: 1 piece Sodium Chloride (Sodium Chloride 0.65% Na Soln 45 Ml ([place])) 1 - 2 sprays NA PRN PRN PRN Reason: Nasal Dryness/Congestion Stop: 12/21/23 10:46 Mental Health & Subst Abuse Tx Psychiatrist Name of Psychiatrist: Sara Duque [facility] Psychiatrist's Psychiatric Appointment Comment: [address], [address], [place] [address] Therapist Name of Therapist: denies Data Network Architect Name of Data Network Architect: denies Post Discharge Appointments Primary Care Physician Name Of Family Doctor/PCP: Sara Duque [facility] Primary Care Provider Appointment Comment: [phone], [address], [place] [address]
[2023-11-30] MEDS: chlorproMAZINE HCL 25 MG/ML AMP IM PRN (09:39)
[2023-11-30] MEDS: chlorproMAZINE HCL 25 MG/ML AMP ONE (10:06)
[2023-11-30] MEDS ORDERED: DIVALPROEX DELAY RELEASE 250 MG TABEC PO SCH (21:00)
--- NOTE | 2023-12-01 08:43 | Psychiatric Progress Note ---
Date of Service December 01, 2023 Impression / Recommendations Impression Emilia Orta is a 28-year-old female unknown past history who was brought in by police after being found wandering the street by gas station. Patient presented pressured and tangential speech, memory impairment, and concern for psychosis. She was admitted on 11/21/23 09:58 on a 302 involuntary commitment for psychosis, now on a 303 commitment. 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 Patient has demonstrated significant dysfunction evidenced by recurrent legal troubles, persistent symptoms, recurrent hospitalizations, poor insight, inability to maintain stability in the community, and continued drug dependence. A: Less agitated today but with ongoing loosened associations, nonsensical thought process though having moments of slightly clearer thought process at times. Remains unable to provide urine for test given her disorganization and agitation with attempts to prompt or assist. Therefore will continue with current medications. Overall, I spent a total of 25 minutes on this case including meeting with the patient, reviewing the chart, nursing report, multidisciplinary team meeting, an d orders. 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 Continuing to attempt to get urine sample for UPT. 11/30/2023: UPT ordered. Added Thorazine 25mg IM prn for agitation per her request for additional IM medication options. 11/29/2023: Continue current medications and tx plan. 11/28/2023: Continue current medications and tx plan. 11/27/2023: Discontinue [place] and risperidone. Start haldol 5mg BID. 11/26/2023: Start Thorazine 12.5mg TID prn po for agitation. 11/25/2023: Decrease Clonazepam to 0.5mg HS. Encourage fluids. 11/24/2023: Start [place] 300mg BID for mood lability. 11/23/2023: Continue medications and treatment plan. 11/22/2023: Increase risperidone to 1 mg every morning and 2 mg nightly. Continue clonazepam 1 mg at bedtime. Encourage fluids. STI and hepatitis panel. 11/21/2023: One-time lorazepam 2 mg p.o. for anxiety. Schedule risperidone 1 mg twice daily and clonazepam 1 mg at bedtime. Baseline EKG and labs: Free T4, free T3, A1c, lipid panel. Inventory Assets Strengths: able to express needs, accepting treatment Needs: social supports, mood control Suicide Risk Level Suicide Risk Level: Moderate (q15 min suicide checks) (one episode of voicing SI and significant mood lability and disorganization) Risk Factors Assessment Male: No : Yes Do You Have Access To A Gun?: No Health Problems: No Mental Health Diagnoses: Yes Substance Use Disorders: Yes Previous Attempt: No Family History of Suicide: No Previous Psychiatric Hospitalization: Yes Hopelessness: No Protective Factors Assessment Worship Beliefs: No : No Responsible for Young Children: No Employed: No Stable Relationships: No Supportive Family: No Good Rapport with Provider: Yes Absence of Any Risk Factors Above: No Interval History Identifying Information Emilia Orta is a 28-year-old female unknown past history who was brought in by police after being found wandering the street by gas station. Patient presented pressured and tangential speech, memory impairment, and concern for psychosis. She was admitted on 11/21/23 09:58 on a 302 involuntary commitment for psychosis. Chief Complaint "I'm sleeping, leave". Review of Systems Sleep Information Total Hours of Sleep: 7.30 Sleep Comments: PRN Thorazine and Vistaril Meal Information Percent Meal Consumed - Breakfast: 100 Percent Meal Consumed - Lunch: 75 Percent Meal Consumed - Dinner: 50 Nutrition Comment: sleeping Subjective Subjective Patient was seen & assessed and interval progress reviewed with treatment team nursing and social work. Requesting frequent prn medications. Thinks Vistaril is Ritalin so likes to ask for this. Declined her HS medications. This morning making rude statements. Remains nonsensical. Slept or remained in her room throughout much of the day. Frequently asking for prn medications. Ate her lunch. Dismissive during attempts to have any type of prolonged conversation but less acutely threatening. Physical Exam Psychiatric Orientation: alert, oriented to person and oriented to place; + uncooperative Apperance: + disheveled Eye Contact: + fair eye contact Motor Behavior: no abnormal motor movements Speech: normal rate/rhythm/volume of speech Affect: + labile affect Mood: + irritable mood and + angry mood Thought Process: + looseness of associations Thought Content: + preoccupation (hypersexual, crude) Insight: + severely impaired insight Judgment: + poor judgement Vital Signs (Past 24 Hours) Last Vital Signs Temp 36.6 C 11/27/23 06:47 Pulse 89 11/27/23 06:47 Resp 16 11/29/23 06:47 BP 94/57 L 11/27/23 06:47 Pulse Ox 99 11/27/23 06:47 O2 Del Method Room Air 11/27/23 06:47 Results & Data ([facility]) Current Inpatient Medications Current Inpatient Medications: Current Inpatient Medications Acetaminophen (Acetaminophen 325 Mg Tab) 650 mg PO Q4H PRN PRN Reason: Headache or Minor Fever Stop: 12/21/23 10:46 Last Admin: 11/27/23 17:21 Dose: 650 mg Al Hydrox/Mg Hydrox/Simethicone (Aluminum/Magnesium Susp 30 Ml Udc) 30 ml PO Q4H PRN PRN Reason: GI Upset Stop: 12/21/23 10:46 Benztropine Mesylate (Benztropine Mesylate 1 Mg Tab) 1 mg PO Q8H PRN PRN Reason: EPS, dystonia Stop: 12/21/23 11:57 Benztropine Mesylate (Benztropine Mesylate 1 Mg/Ml 2 Ml Amp) 1 mg IM Q8H PRN PRN Reason: EPS, dystonia Stop: 12/21/23 11:59 Bismuth Subsalicylate (Bismuth Subsalicylate Liqd 236 Ml) 15 ml PO PRN PRN PRN Reason: Loose Stool Stop: 12/21/23 10:46 Chlorpromazine HCl (Chlorpromazine Hcl 25 Mg Tab) 12.5 mg PO TID PRN PRN Reason: Agitation Stop: 12/26/23 08:59 Last Admin: 12/01/23 07:36 Dose: 12.5 mg Chlorpromazine HCl (Chlorpromazine Hcl 25 Mg/Ml Amp) 25 mg IM BID PRN PRN Reason: Agitation Stop: 12/30/23 09:34 Last Admin: 11/30/23 09:39 Dose: 25 mg Clonazepam (Clonazepam 0.5 Mg Tab) 0.5 mg PO HS JEREMIAH Stop: 12/25/23 21:59 Last Admin: 11/30/23 21:39 Dose: Not Given Haloperidol (Haloperidol 5 Mg Tab) 5 mg PO Q8H PRN PRN Reason: Agitation Stop: 12/21/23 11:57 Last Admin: 11/30/23 11:42 Dose: 5 mg Haloperidol (Haloperidol 5 Mg Tab) 5 mg PO BID JEREMIAH Stop: 12/27/23 20:59 Last Admin: 12/01/23 07:36 Dose: 5 mg Haloperidol Lactate (Haloperidol Lactate 5 Mg/Ml 1 Ml Vial) 5 mg IM Q8H PRN PRN Reason: Agitation Stop: 12/21/23 11:57 Hydroxyzine HCl (Hydroxyzine Hcl 25 Mg Tab) 50 mg PO HSZ PRN PRN Reason: Insomnia Stop: 12/21/23 10:46 Last Admin: 11/25/23 00:29 Dose: 50 mg Hydroxyzine HCl (Hydroxyzine Hcl 25 Mg Tab) 25 mg PO Q4H PRN PRN Reason: Anxiety Stop: 12/21/23 10:46 Last Admin: 12/01/23 07:36 Dose: 25 mg Lorazepam (Lorazepam 2 Mg/1 Ml Vial) 1 mg IM Q8H PRN PRN Reason: Agitation Stop: 12/21/23 11:57 Lorazepam (Lorazepam 1 Mg Tab) 1 mg PO Q8H PRN PRN Reason: Agitation Stop: 12/21/23 11:57 Last Admin: 11/30/23 11:42 Dose: 1 mg Magnesium Hydroxide (Magnesium Hydroxide Susp 30 Ml Udc) 30 ml PO DAILY PRN PRN Reason: Constipation Stop: 12/21/23 10:46 Nicotine Polacrilex (Nicotine Polacrilex 2 Mg Gum) 1 piece MT Q2H PRN PRN Reason: nicotine cravings Stop: 12/24/23 09:27 Last Admin: 11/28/23 10:09 Dose: 1 piece Sodium Chloride (Sodium Chloride 0.65% Na Soln 45 Ml ([place])) 1 - 2 sprays NA P RN PRN PRN Reason: Nasal Dryness/Congestion Stop: 12/21/23 10:46 Mental Health & Subst Abuse Tx Psychiatrist Name of Psychiatrist: Sara Duque [facility] Psychiatrist's Psychiatric Appointment Comment: [phone], [address], [place] [address] Therapist Name of Therapist: denies Destaticizer Feeder Name of Destaticizer Feeder: denies Post Discharge Appointments Primary Care Physician Name Of Family Doctor/PCP: Sara Duque [facility] Primary Care Provider Appointment Comment: [id number], [address], [place] [address]
[2023-12-01 21:38] LABS: Pregnancy Test, Urine Negative (Negative)
--- NOTE | 2023-12-02 12:12 | Psychiatric Progress Note ---
Date of Service December 02, 2023 Impression / Recommendations Impression Emilia Orta is a 28-year-old female unknown past history who was brought in by police after being found wandering the street by gas station. Patient presented pressured and tangential speech, memory impairment, and concern for psychosis. She was admitted on 11/21/23 09:58 on a 302 involuntary commitment for psychosis, now on a 303 commitment. 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 Patient has demonstrated significant dysfunction evidenced by recurrent legal troubles, persistent symptoms, recurrent hospitalizations, poor insight, inability to maintain stability in the community, and continued drug dependence. A: Ongoing loosened associations, nonsensical thought process though having moments of slightly clearer thought process at times. Presenting behavioral issues and prompting PRN medications for agitation. Urine test negative, LFTs within expected limits. Discussed starting Depakote for mood lability and sleep; risks/side effects discussed with patient and agreeable. Overall, I spent a total of 45 minutes with this case including review of chart records, nursing report, review of lab work, direct evaluation of the patient at bedside, counseling the patient, orders, and documentation in the electronic health record. 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 12/01/2023: Continue current medications and tx plan. Continuing to attempt to get urine sample for UPT. 11/30/2023: UPT ordered. Added Thorazine 25mg IM prn for agitation per her request for additional IM medication options. 11/29/2023: Continue current medications and tx plan. 11/28/2023: Continue current medications and tx plan. 11/27/2023: Discontinue [place] and risperidone. Start haldol 5mg BID. 11/26/2023: Start Thorazine 12.5mg TID prn po for agitation. 11/25/2023: Decrease Clonazepam to 0.5mg HS. Encourage fluids. 11/24/2023: Start [place] 300mg BID for mood lability. 11/23/2023: Continue medications and treatment plan. 11/22/2023: Increase risperidone to 1 mg every morning and 2 mg nightly. Continue clonazepam 1 mg at bedtime. Encourage fluids. STI and hepatitis panel. 11/21/2023: One-time lorazepam 2 mg p.o. for anxiety. Schedule risperidone 1 mg twice daily and clonazepam 1 mg at bedtime. Baseline EKG and labs: Free T4, free T3, A1c, lipid panel. Inventory Assets Strengths: able to express needs, accepting treatment Needs: social supports, mood control Suicide Risk Level Suicide Risk Level: Moderate (q15 min suicide checks) (one episode of voicing SI and significant mood lability and disorganization) Risk Factors Assessment Male: No : Yes Do You Have Access To A Gun?: No Health Problems: No Mental Health Diagnoses: Yes Substance Use Disorders: Yes Previous Attempt: No Family History of Suicide: No Previous Psychiatric Hospitalization: Yes Hopelessness: No Protective Factors Assessment Latter Day Beliefs: No : No Responsible for Young Children: No Employed: No Stable Relationships: No Supportive Family: No Good Rapport with Provider: Yes Absence of Any Risk Factors Above: No Interval History Identifying Information Emilia Orta is a 28-year-old female unknown past history who was brought in by police after being found wandering the street by gas station. Patient presented pressured and tangential speech, memory impairment, and concern for psychosis. She was admitted on 11/21/23 09:58 on a 302 involuntary commitment for psychosis. Chief Complaint "how do I make a plan" Review of Systems Sleep Information Total Hours of Sleep: 11 Sleep Comments: PRN Thorazine and Vistaril Meal Information Percent Meal Consumed - Breakfast: 100 Percent Meal Consumed - Lunch: 100 Percent Meal Consumed - Dinner: 100 Nutrition Comment: sleeping Subjective Subjective Patient was seen & assessed and interval progress reviewed with nursing and social work Pt is unable to state the location she is in or the name of the hospital. Saying it is [facility]. When asked about history of drug use says she is "sober" and does not clarify further. Later confirms past opiate use. When asked about events over the last 2 years says she doesn't remember anything. Reports having teeth problems, asked how her tooth chipped and says at a gas station. Often replies with non-sensical responses and has difficulty staying focused on the conversation. "What is to be a kenyan self." Says she is agreeable to looking int o rehab options after attempting to develop an aftercare plan with her. Pt is labile through the conversation, at times becoming slightly tearful. I clarified medications with the patient and she is agreeable to depakote. Discussed that the thorazine IMs are PRNs and says she likes the shots. Physical Exam Mental Examination Appearance: Disheveled Eye Contact: Direct Eye Contact Motor Behavior: Unremarkable Speech: Tangential Mood: Euthymic Affect: Labile, Nervous and Sad Thought Process: Disorganized and Tangential Thought Content: Disorganized Hallucinations: None Insight: Poor Judgement: Poor Vital Signs (Past 24 Hours) Last Vital Signs Temp 36.6 C 11/27/23 06:47 Pulse 89 11/27/23 06:47 Resp 16 11/29/23 06:47 BP 94/57 L 11/27/23 06:47 Pulse Ox 99 11/27/23 06:47 O2 Del Method Room Air 11/27/23 06:47 Results & Data ([facility]) Laboratory Results Laboratory Results - last 24 hr 12/01/23 21:20 Urine Test Negative Current Inpatient Medications Current Inpatient Medications: Current Inpatient Medications Acetaminophen (Acetaminophen 325 Mg Tab) 650 mg PO Q4H PRN PRN Reason: Headache or Minor Fever Stop: 12/21/23 10:46 Last Admin: 11/27/23 17:21 Dose: 650 mg Al Hydrox/Mg Hydrox/Simethicone (Aluminum/Magnesium Susp 30 Ml Udc) 30 ml PO Q4H PRN PRN Reason: GI Upset Stop: 12/21/23 10:46 Benztropine Mesylate (Benztropine Mesylate 1 Mg Tab) 1 mg PO Q8H PRN PRN Reason: EPS, dystonia Stop: 12/21/23 11:57 Benztropine Mesylate (Benztropine Mesylate 1 Mg/Ml 2 Ml Amp) 1 mg IM Q8H PRN PRN Reason: EPS, dystonia Stop: 12/21/23 11:59 Bismuth Subsalicylate (Bismuth Subsalicylate Liqd 236 Ml) 15 ml PO PRN PRN PRN Reason: Loose Stool Stop: 12/21/23 10:46 Chlorpromazine HCl (Chlorpromazine Hcl 25 Mg Tab) 12.5 mg PO TID PRN PRN Reason: Agitation Stop: 12/26/23 08:59 Last Admin: 12/02/23 07:45 Dose: 12.5 mg Chlorpromazine HCl (Chlorpromazine Hcl 25 Mg/Ml Amp) 25 mg IM BID PRN PRN Reason: Agitation Stop: 12/30/23 09:34 Last Admin: 11/30/23 09:39 Dose: 25 mg Clonazepam (Clonazepam 0.5 Mg Tab) 0.5 mg PO HS JEREMIAH Stop: 12/25/23 21:59 Last Admin: 12/01/23 21:09 Dose: 0.5 mg Haloperidol (Haloperidol 5 Mg Tab) 5 mg PO Q8H PRN PRN Reason: Agitation Stop: 12/21/23 11:57 Last Admin: 11/30/23 11:42 Dose: 5 mg Haloperidol (Haloperidol 5 Mg Tab) 5 mg PO BID JEREMIAH Stop: 12/27/23 20:59 Last Admin: 12/02/23 07:44 Dose: 5 mg Haloperidol Lactate (Haloperidol Lactate 5 Mg/Ml 1 Ml Vial) 5 mg IM Q8H PRN PRN Reason: Agitation Stop: 12/21/23 11:57 Hydroxyzine HCl (Hydroxyzine Hcl 25 Mg Tab) 50 mg PO HSZ PRN PRN Reason: Insomnia Stop: 12/21/23 10:46 Last Admin: 11/25/23 00:29 Dose: 50 mg Hydroxyzine HCl (Hydroxyzine Hcl 25 Mg Tab) 25 mg PO Q4H PRN PRN Reason: Anxiety Stop: 12/21/23 10:46 Last Admin: 12/02/23 07:45 Dose: 25 mg Lorazepam (Lorazepam 2 Mg/1 Ml Vial) 1 mg IM Q8H PRN PRN Reason: Agitation Stop: 12/21/23 11:57 Lorazepam (Lorazepam 1 Mg Tab) 1 mg PO Q8H PRN PRN Reason: Agitation Stop: 12/21/23 11:57 Last Admin: 12/01/23 10:08 Dose: 1 mg Magnesium Hydroxide (Magnesium Hydroxide Susp 30 Ml Udc) 30 ml PO DAILY PRN PRN Reason: Constipation Stop: 12/21/23 10:46 Nicotine Polacrilex (Nicotine Polacrilex 2 Mg Gum) 1 piece MT Q2H PRN PRN Reason: nicotine cravings Stop: 12/24/23 09:27 Last Admin: 11/28/23 10:09 Dose: 1 piece Sodium Chloride (Sodium Chloride 0.65% Na Soln 45 Ml ([place])) 1 - 2 sprays NA PRN PRN PRN Reason: Nasal Dryness/Congestion Stop: 12/21/23 10:46 Mental Health & Subst Abuse Tx Psychiatrist Name of Psychiatrist: Sara Duque [facility] Psychiatrist's Psychiatric Appointment Comment: [address], [address], [place] [address] Therapist Name of Therapist: denies Striper Name of Striper: denies Post Discharge Appointments Primary Care Physician Name Of Family Doctor/PCP: Sara Duque [facility] Primary Care Provider Appointment Comment: [address], [address], [place] [address]
[2023-12-02] MEDS: LORazepam 2 MG/1 ML VIAL IM PRN (14:06)
--- NOTE | 2023-12-02 14:10 | Communication Note ---
Date of Service: December 02, 2023 Pt placed herself in nursing station, attempted to deescalate by nursing and physicians and move to common area or her room; pt refused. Started pulling cab les from computers. Slightly combative when attempted to remove from room. Willingly took IM PRNs Thorazine 25mg, Lorazepam 1mg IM. Jaylan Cade MD
[2023-12-02] MEDS: DIVALPROEX DELAY RELEASE 500 MG TAB PO SCH (21:30)
--- NOTE | 2023-12-03 16:08 | Psychiatric Progress Note ---
Date of Service December 03, 2023 Impression / Recommendations Impression Emilia Orta is a 28-year-old female unknown past history who was brought in by police after being found wandering the street by gas station. Patient presented pressured and tangential speech, memory impairment, and concern for psychosis. She was admitted on 11/21/23 09:58 on a 302 involuntary commitment for psychosis, now on a 303 commitment. 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 Patient has demonstrated significant dysfunction evidenced by recurrent legal troubles, persistent symptoms, recurrent hospitalizations, poor insight, inability to maintain stability in the community, and continued drug dependence. A: Patient presenting clearer thought process. Unable to recall memories of recent years or prior to hospitalization. Less behavioral issues today. Tolerating depakote well with improved sleep. Overall, I spent a total of 45 minutes with this case including review of chart records, nursing report, review of lab work, direct evaluation of the patient at bedside, counseling the patient, orders, and documentation in the electronic health record. 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 12/02/2023: Start Depakote DR 500mg HS. 12/01/2023: Continue current medications and tx plan. Continuing to attempt to get urine sample for UPT. 11/30/2023: UPT ordered. Added Thorazine 25mg IM prn for agitation per her request for additional IM medication options. 11/29/2023: Continue current medications and tx plan. 11/28/2023: Continue current medications and tx plan. 11/27/2023: Discontinue [place] and risperidone. Start haldol 5mg BID. 11/26/2023: Start Thorazine 12.5mg TID prn po for agitation. 11/25/2023: Decrease Clonazepam to 0.5mg HS. Encourage fluids. 11/24/2023: Start [place] 300mg BID for mood lability. 11/23/2023: Continue medications and treatment plan. 11/22/2023: Increase risperidone to 1 mg every morning and 2 mg nightly. Continue clonazepam 1 mg at bedtime. Encourage fluids. STI and hepatitis panel. 11/21/2023: One-time lorazepam 2 mg p.o. for anxiety. Schedule risperidone 1 mg twice daily and clonazepam 1 mg at bedtime. Baseline EKG and labs: Free T4, free T3, A1c, lipid panel. Inventory Assets Strengths: able to express needs, accepting treatment Needs: social supports, mood control Suicide Risk Level Suicide Risk Level: Moderate (q15 min suicide checks) (one episode of voicing SI and significant mood lability and disorganization) Risk Factors Assessment Male: No : Yes Do You Have Access To A Gun?: No Health Problems: No Mental Health Diagnoses: Yes Substance Use Disorders: Yes Previous Attempt: No Family History of Suicide: No Previous Psychiatric Hospitalization: Yes Hopelessness: No Protective Factors Assessment Quaker Beliefs: No : No Responsible for Young Children: No Employed: No Stable Relationships: No Supportive Family: No Good Rapport with Provider: Yes Absence of Any Risk Factors Above: No Interval History Identifying Information Emilia Orta is a 28-year-old female unknown past history who was brought in by police after being found wandering the street by gas station. Patient presented pressured and tangential speech, memory impairment, and concern for psychosis. She was admitted on 11/21/23 09:58 on a 302 involuntary commitment for psychosis. Chief Complaint "doing ok". Review of Systems Sleep Information Total Hours of Sleep: 11.5 Sleep Comments: PRN Thorazine and Vistaril Meal Information Percent Meal Consumed - Breakfast: 100 Percent Meal Consumed - Lunch: 100 Percent Meal Consumed - Dinner: 100 Nutrition Comment: sleeping Subjective Subjective Patient was seen & assessed and interval progress reviewed with nursing and social work Overnight patient was irritable and angry. Eating well. Journaling. Took her medications. Slept well. Received as needed Thorazine this a.m. Patient seen in her room. Reports sleeping well. Feels "better". When attempting to recall her past prior to hospitalization she reports having a poor memory. Unable to state the name of the hospital. Verbalizes that she is open to rehab. Looking forward to lunch. Continues to have difficulty maintaining a linear thought process. Physical Exam Mental Examination Appearance: Disheveled Eye Contact: Maintains Eye Contact Motor Behavior: Unremarkable Speech: Tangential Mood: Euthymic Affect: Congruent Thought Process: Disorganized and Tangential Thought Content: Disorganized Hallucinations: None Insight: Poor Judgement: Poor Vital Signs (Past 24 Hours) Last Vital Signs Temp 36.6 C 11/27/23 06:47 Pulse 89 11/27/23 06:47 Resp 16 11/29/23 06:47 BP 94/57 L 11/27/23 06:47 Pulse Ox 99 11/27/23 06:47 O2 Del Method Room Air 11/27/23 06:47 Results & Data ([facility]) Current Inpatient Medications Current Inpatient Medications: Current Inpatient Medications Acetaminophen (Acetaminophen 325 Mg Tab) 650 mg PO Q4H PRN PRN Reason: Headache or Minor Fever Stop: 12/21/23 10:46 Last Admin: 11/27/23 17:21 Dose: 650 mg Al Hydrox/Mg Hydrox/Simethicone (Aluminum/Magnesium Susp 30 Ml Udc) 30 ml PO Q4H PRN PRN Reason: GI Upset Stop: 12/21/23 10:46 Benztropine Mesylate (Benztropine Mesylate 1 Mg Tab) 1 mg PO Q8H PRN PRN Reason: EPS, dystonia Stop: 12/21/23 11:57 Benztropine Mesylate (Benztropine Mesylate 1 Mg/Ml 2 Ml Amp) 1 mg IM Q8H PRN PRN Reason: EPS, dystonia Stop: 12/21/23 11:59 Bismuth Subsalicylate (Bismuth Subsalicylate Liqd 236 Ml) 15 ml PO PRN PRN PRN Reason: Loose Stool Stop: 12/21/23 10:46 Chlorpromazine HCl (Chlorpromazine Hcl 25 Mg Tab) 12.5 mg PO TID PRN PRN Reason: Agitation Stop: 12/26/23 08:59 Last Admin: 12/03/23 08:04 Dose: 12.5 mg Chlorpromazine HCl (Chlorpromazine Hcl 25 Mg/Ml Amp) 25 mg IM BID PRN PRN Reason: Agitation Stop: 12/30/23 09:34 Last Admin: 12/02/23 14:07 Dose: 25 mg Clonazepam (Clonazepam 0.5 Mg Tab) 0.5 mg PO HS JEREMIAH Stop: 12/25/23 21:59 Last Admin: 12/02/23 21:29 Dose: 0.5 mg Divalproex Sodium (Divalproex Delay Release 500 Mg Tab) 500 mg PO HS JEREMIAH Stop: 01/01/24 21:59 Last Admin: 12/02/23 21:30 Dose: 500 mg Haloperidol (Haloperidol 5 Mg Tab) 5 mg PO Q8H PRN PRN Reason: Agitation Stop: 12/21/23 11:57 Last Admin: 11/30/23 11:42 Dose: 5 mg Haloperidol (Haloperidol 5 Mg Tab) 5 mg PO BID JEREMIAH Stop: 12/27/23 20:59 Last Admin: 12/03/23 08:01 Dose: 5 mg Haloperidol Lactate (Haloperidol Lactate 5 Mg/Ml 1 Ml Vial) 5 mg IM Q8H PRN PRN Reason: Agitation Stop: 12/21/23 11:57 Hydroxyzine HCl (Hydroxyzine Hcl 25 Mg Tab) 50 mg PO HSZ PRN PRN Reason: Insomnia Stop: 12/21/23 10:46 Last Admin: 11/25/23 00:29 Dose: 50 mg Hydroxyzine HCl (Hydroxyzine Hcl 25 Mg Tab) 25 mg PO Q4H PRN PRN Reason: Anxiety Stop: 12/21/23 10:46 Last Admin: 12/03/23 08:04 Dose: 25 mg Lorazepam (Lorazepam 2 Mg/1 Ml Vial) 1 mg IM Q8H PRN PRN Reason: Agitation Stop: 12/21/23 11:57 Last Admin: 12/02/23 14:06 Dose: 1 mg Lorazepam (Lorazepam 1 Mg Tab) 1 mg PO Q8H PRN PRN Reason: Agitation Stop: 12/21/23 11:57 Last Admin: 12/02/23 13:42 Dose: 1 mg Magnesium Hydroxide (Magnesium Hydroxide Susp 30 Ml Udc) 30 ml PO DAILY PRN PRN Reason: Constipation Stop: 12/21/23 10:46 Nicotine Polacrilex (Nicotine Polacrilex 2 Mg Gum) 1 piece MT Q2H PRN PRN Reason: nicotine cravings Stop: 12/24/23 09:27 Last Admin: 11/28/23 10:09 Dose: 1 piece Sodium Chloride (Sodium Chloride 0.65% Na Soln 45 Ml ([place])) 1 - 2 sprays NA PRN PRN PRN Reason: Nasal Dryness/Congestion Stop: 12/21/23 10:46 Mental Health & Subst Abuse Tx Psychiatrist Name of Psychiatrist: Sara Duque [facility] Psychiatrist's Psychiatric Appointment Comment: [address], [address], [place] [address] Therapist Name of Therapist: denies Telecommunication Systems Designer Name of Telecommunication Systems Designer: denies Post Discharge Appointments Primary Care Physician Name Of Family Doctor/PCP: Sara Duque [facility] Primary Care Provider Appointment Comment: [address], [address], [place] [id number]
--- NOTE | 2023-12-04 16:30 | Psychiatric Progress Note ---
Date of Service December 04, 2023 Impression / Recommendations Impression Emilia Orta is a 28-year-old female unknown past history who was brought in by police after being found wandering the street by gas station. Patient presented pressured and tangential speech, memory impairment, and concern for psychosis. She was admitted on 11/21/23 09:58 on a 302 involuntary commitment for psychosis, now on a 303 commitment. Currently on 303 commitment. 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 Patient has demonstrated significant dysfunction evidenced by recurrent legal troubles, persistent sy mptoms, recurrent hospitalizations, poor insight, inability to maintain stability in the community, and continued drug dependence. A: Patient continues to present nonsensical statements. Calmer behaviors. Refusing medications at times. Gathered collateral from pt's mother today. Overall, I spent a total of 60 minutes with this case including review of chart records, nursing report, review of lab work, direct evaluation of the patient at bedside, counseling the patient, orders, and documentation in the electronic health record. 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 12/03/2023: Continue current medications and tx plan. 12/02/2023: Start Depakote DR 500mg HS. 12/01/2023: Continue current medications and tx plan. Continuing to attempt to get urine sample for UPT. 11/30/2023: UPT ordered. Added Thorazine 25mg IM prn for agitation per her request for additional IM medication options. 11/29/2023: Continue current medications and tx plan. 11/28/2023: Continue current medications and tx plan. 11/27/2023: Discontinue [place] and risperidone. Start haldol 5mg BID. 11/26/2023: Start Thorazine 12.5mg TID prn po for agitation. 11/25/2023: Decrease Clonazepam to 0.5mg HS. Encourage fluids. 11/24/2023: Start [place] 300mg BID for mood lability. 11/23/2023: Continue medications and treatment plan. 11/22/2023: Increase risperidone to 1 mg every morning and 2 mg nightly. Continue clonazepam 1 mg at bedtime. Encourage fluids. STI and hepatitis panel. 11/21/2023: One-time lorazepam 2 mg p.o. for anxiety. Schedule risperidone 1 mg twice daily and clonazepam 1 mg at bedtime. Baseline EKG and labs: Free T4, free T3, A1c, lipid panel. Inventory Assets Strengths: able to express needs, accepting treatment Needs: social supports, mood control Suicide Risk Level Suicide Risk Level: Moderate (q15 min suicide checks) (one episode of voicing SI and significant mood lability and disorganization) Risk Factors Assessment Male: No : Yes Do You Have Access To A Gun?: No Health Problems: No Mental Health Diagnoses: Yes Substance Use Disorders: Yes Previous Attempt: No Family History of Suicide: No Previous Psychiatric Hospitalization: Yes Hopelessness: No Protective Factors Assessment Mandaeism Beliefs: No : No Responsible for Young Children: No Employed: No Stable Relationships: No Supportive Family: No Good Rapport with Provider: Yes Absence of Any Risk Factors Above: No Interval History Identifying Information Emilia Orta is a 28-year-old female unknown past history who was brought in by police after being found wandering the street by gas station. Patient presented pressured and tangential speech, memory impairment, and concern for psychosis. She was admitted on 11/21/23 09:58 on a 302 involuntary commitment for psychosis. Chief Complaint "doing okay" Review of Systems Sleep Information Total Hours of Sleep: 7.5 Sleep Comments: PRN Thorazine and Vistaril Meal Information Percent Meal Consumed - Breakfast: 100 Percent Meal Consumed - Lunch: 100 Percent Meal Consumed - Dinner: 100 Nutrition Comment: sleeping Subjective Subjective Patient was seen & assessed and interval progress reviewed with treatment team nursing and social work Overnight patient skipped p.m. medications. Patient spoke to mother on phone. On interview patient reports "doing okay". Confirms that she called her mom. Alert and oriented to [facility] and hospital. When asked about her past she reports not remembering. Suddenly replies "get off your ass. Sick of this". And continues to make other nonsensical statements. When asked about past friend who engaged in drug use with her says she saw someone tried to kill someone and could not answer the question. When asked if she was feeling anxious she replies "do not know what anxiety is". Was not able to recall details of her last hospitalization in [place]. Agreeable for me to call her mother. Called patient's mother Rani Orta [phone]: Pt didn't ask about leaving the hospital this time. Pt told mother that she is not on medications. Mother lives in [place]. Abdirizak has been calling hospitals trying to find out where she is. During conversation pt didn't recall son, Roscoe. Will be in town in 2.5 weeks asking about vistation and clothing restrictions. Discussed our concerns with mother. Physical Exam Mental Examination Appearance: Disheveled Eye Contact: Maintains Eye Contact Motor Behavior: Unremarkable Speech: Tangential Mood: Euthymic Affect: Congruent Thought Process: Disorganized and Tangential Thought Content: Disorganized Hallucinations: None Insight: Poor Judgement: Poor Vital Signs (Past 24 Hours) Last Vital Signs Temp 36.6 C 11/27/23 06:47 Pulse 89 11/27/23 06:47 Resp 16 11/29/23 06:47 BP 94/57 L 11/27/23 06:47 Pulse Ox 99 11/27/23 06:47 O2 Del Method Room Air 11/27/23 06:47 Results & Data (U) Current Inpatient Medications Current Inpatient Medications: Current Inpatient Medications Acetaminophen (Acetaminophen 325 Mg Tab) 650 mg PO Q4H PRN PRN Reason: Headache or Minor Fever Stop: 12/21/23 10:46 Last Admin: 12/04/23 14:13 Dose: 650 mg Al Hydrox/Mg Hydrox/Simethicone (Aluminum/Magnesium Susp 30 Ml Udc) 30 ml PO Q4H PRN PRN Reason: GI Upset Stop: 12/21/23 10:46 Benzocaine (Benzocaine 20% (Orajel) 11.9 Gm Tube) 1 appln MT Q4H PRN PRN Reason: gum or tooth pain Stop: 01/03/24 08:56 Benztropine Mesylate (Benztropine Mesylate 1 Mg Tab) 1 mg PO Q8H PRN PRN Reason: EPS, dystonia Stop: 12/21/23 11:57 Benztropine Mesylate (Benztropine Mesylate 1 Mg/Ml 2 Ml Amp) 1 mg IM Q8H PRN PRN Reason: EPS, dystonia Stop: 12/21/23 11:59 Bismuth Subsalicylate (Bismuth Subsalicylate Liqd 236 Ml) 15 ml PO PRN PRN PRN Reason: Loose Stool Stop: 12/21/23 10:46 Chlorpromazine HCl (Chlorpromazine Hcl 25 Mg Tab) 12.5 mg PO TID PRN PRN Reason: Agitation Stop: 12/26/23 08:59 Last Admin: 12/03/23 08:04 Dose: 12.5 mg Chlorpromazine HCl (Chlorpromazine Hcl 25 Mg/Ml Amp) 25 mg IM BID PRN PRN Reason: Agitation Stop: 12/30/23 09:34 Last Admin: 12/02/23 14:07 Dose: 25 mg Clonazepam (Clonazepam 0.5 Mg Tab) 0.5 mg PO HS [facility] Stop: 12/25/23 21:59 Last Admin: 12/03/23 22:32 Dose: Not Given Divalproex Sodium (Divalproex Delay Release 500 Mg Tab) 500 mg PO HS JEREMIAH Stop: 01/01/24 21:59 Last Admin: 12/03/23 22:32 Dose: Not Given Haloperidol (Haloperidol 5 Mg Tab) 5 mg PO Q8H PRN PRN Reason: Agitation Stop: 12/21/23 11:57 Last Admin: 12/04/23 13:29 Dose: 5 mg Haloperidol (Haloperidol 5 Mg Tab) 5 mg PO BID JEREMIAH Stop: 12/27/23 20:59 Last Admin: 12/04/23 06:49 Dose: 5 mg Haloperidol Lactate (Haloperidol Lactate 5 Mg/Ml 1 Ml Vial) 5 mg IM Q8H PRN PRN Reason: Agitation Stop: 12/21/23 11:57 Hydroxyzine HCl (Hydroxyzine Hcl 25 Mg Tab) 50 mg PO HSZ PRN PRN Reason: Insomnia Stop: 12/21/23 10:46 Last Admin: 11/25/23 00:29 Dose: 50 mg Hydroxyzine HCl (Hydroxyzine Hcl 25 Mg Tab) 25 mg PO Q4H PRN PRN Reason: Anxiety Stop: 12/21/23 10:46 Last Admin: 12/04/23 06:52 Dose: 25 mg Lorazepam (Lorazepam 2 Mg/1 Ml Vial) 1 mg IM Q8H PRN PRN Reason: Agitation Stop: 12/21/23 11:57 Last Admin: 12/02/23 14:06 Dose: 1 mg Lorazepam (Lorazepam 1 Mg Tab) 1 mg PO Q8H PRN PRN Reason: Agitation Stop: 12/21/23 11:57 Last Admin: 12/04/23 13:29 Dose: 1 mg Magnesium Hydroxide (Magnesium Hydroxide Susp 30 Ml Udc) 30 ml PO DAILY PRN PRN Reason: Constipation Stop: 12/21/23 10:46 Nicotine Polacrilex (Nicotine Polacrilex 2 Mg Gum) 1 piece MT Q2H PRN PRN Reason: nicotine cravings Stop: 12/24/23 09:27 Last Admin: 12/04/23 07:50 Dose: 1 piece Sodium Chloride (Sodium Chloride 0.65% Na Soln 45 Ml ([place])) 1 - 2 sprays NA PRN PRN PRN Reason: Nasal Dryness/Congestion Stop: 12/21/23 10:46 Mental Health & Subst Abuse Tx Psychiatrist Name of Psychiatrist: Sara Duque [facility] Psychiatrist's Psychiatric Appointment Comment: [address], [address], [facility] [address] Therapist Name of Therapist: denies Apartment Maintenance Worker Name of Apartment Maintenance Worker: denies Post Discharge Appointments Primary Care Physician Name Of Family Doctor/PCP: Sara Duque [facility] Primary Care Provider Appointment Comment: [address], [address], [facility] [address]
--- NOTE | 2023-12-05 14:49 | Psychiatric Progress Note ---
Date of Service December 05, 2023 Impression / Recommendations Impression Emilia Orta is a 28-year-old female unknown past history who was brought in by police after being found wandering the street by gas station. Patient presented pressured and tangential speech, memory impairment, and concern for psychosis. She was admitted on 11/21/23 09:58 on a 302 involuntary commitment for psychosis, now on a 303 commitment. Currently on 303 commitment. 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 Patient has demonstrated significant dysfunction evidenced by recurrent legal troubles, persistent sy mptoms, recurrent hospitalizations, poor insight, inability to maintain stability in the community, and continued drug dependence. A: Patient is slowly becoming more lucid and presenting improved memory of the past. Still continues to be disoriented about her situation and only at times presents a linear stream of consciousness. She has been refusing nightly medications and may benefit from scheduling medications at dinner. Overall, I spent a total of 30 minutes with this case including review of chart records, nursing report, review of lab work, direct evaluation of the patient at bedside, counseling the patient, orders, and documentation in the electronic health record. 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 12/04/2023: Continue current medications and tx plan. 12/03/2023: Continue current medications and tx plan. 12/02/2023: Start Depakote DR 500mg HS. 12/01/2023: Continue current medications and tx plan. Continuing to attempt to get urine sample for UPT. 11/30/2023: UPT ordered. Added Thorazine 25mg IM prn for agitation per her request for additional IM medication options. 11/29/2023: Continue current medications and tx plan. 11/28/2023: Continue current medications and tx plan. 11/27/2023: Discontinue [place] and risperidone. Start haldol 5mg BID. 11/26/2023: Start Thorazine 12.5mg TID prn po for agitation. 11/25/2023: Decrease Clonazepam to 0.5mg HS. Encourage fluids. 11/24/2023: Start [place] 300mg BID for mood lability. 11/23/2023: Continue medications and treatment plan. 11/22/2023: Increase risperidone to 1 mg every morning and 2 mg nightly. Continue clonazepam 1 mg at bedtime. Encourage fluids. STI and hepatitis panel. 11/21/2023: One-time lorazepam 2 mg p.o. for anxiety. Schedule risperidone 1 mg twice daily and clonazepam 1 mg at bedtime. Baseline EKG and labs: Free T4, free T3, A1c, lipid panel. Inventory Assets Strengths: able to express needs, accepting treatment Needs: social supports, mood control Suicide Risk Level Suicide Risk Level: Moderate (q15 min suicide checks) (one episode of voicing SI and significant mood lability and disorganization) Risk Factors Assessment Male: No : Yes Do You Have Access To A Gun?: No Health Problems: No Mental Health Diagnoses: Yes Substance Use Disorders: Yes Previous Attempt: No Family History of Suicide: No Previous Psychiatric Hospitalization: Yes Hopelessness: No Protective Factors Assessment Mormonism Beliefs: No : No Responsible for Young Children: No Employed: No Stable Relationships: No Supportive Family: No Good Rapport with Provider: Yes Absence of Any Risk Factors Above: No Interval History Identifying Information Emilia Orta is a 28-year-old female unknown past history who was brought in by police after being found wandering the street by gas station. Patient presented pressured and tangential speech, memory impairment, and concern for psychosis. She was admitted on 11/21/23 09:58 on a 302 involuntary commitment for psychosis. Chief Complaint "okay". Review of Systems Sleep Information Total Hours of Sleep: 8.25 Sleep Comments: PRN Thorazine and Vistaril Meal Information Percent Meal Consumed - Breakfast: 100 Percent Meal Consumed - Lunch: 100 Percent Meal Consumed - Dinner: 100 Nutrition Comment: sleeping Subjective Subjective Patient was seen & assessed and interval progress reviewed with treatment team nursing and social work Overnight refused nightly medications. Blood pressure low today at 70/40 and likely due to low fluid intake, baseline low blood pressure, potentially cuff size may be too large for arm. Patient reports that she will take meds with dinner. Alert and oriented to [facility] however states the wrong city. When asked about Abdirizak she reports that it is a "friend of somebody's" and is unable to clarify further. She reports a plan to call at them when she leaves because she knows him. Reports having 4 children name Roscoe Varela Casein. Unable to state her fourth child's name. Then states nonsensical statements "how was I to get up like you are supposed to get up". "Some people do not know these things". She reports smoking methamphetamine did not inject. Patient walks up and stands near the entrance of her room and appears interested in lunch. Physical Exam Mental Examination Appearance: Disheveled Eye Contact: Maintains Eye Contact Motor Behavior: Unremarkable Speech: Tangential Mood: Euthymic Affect: Congruent Thought Process: Disorganized and Tangential Thought Content: Disorganized Hallucinations: None Insight: Poor Judgement: Poor Vital Signs (Past 24 Hours) Last Vital Signs Temp 36.1 C L 12/05/23 06:21 Pulse 72 12/05/23 06:21 Resp 16 12/05/23 06:21 BP 70/40 L 12/05/23 06:21 Pulse Ox 98 12/05/23 06:21 O2 Del Method Room Air 12/05/23 06:21 Results & Data ([facility]) Current Inpatient Medications Current Inpatient Medications: Current Inpatient Medications Acetaminophen (Acetaminophen 325 Mg Tab) 650 mg PO Q4H PRN PRN Reason: Headache or Minor Fever Stop: 12/21/23 10:46 Last Admin: 12/04/23 14:13 Dose: 650 mg Al Hydrox/Mg Hydrox/Simethicone (Aluminum/Magnesium Susp 30 Ml Udc) 30 ml PO Q4H PRN PRN Reason: GI Upset Stop: 12/21/23 10:46 Benzocaine (Benzocaine 20% (Orajel) 11.9 Gm Tube) 1 appln MT Q4H PRN PRN Reason: gum or tooth pain Stop: 01/03/24 08:56 Benztropine Mesylate (Benztropine Mesylate 1 Mg Tab) 1 mg PO Q8H PRN PRN Reason: EPS, dystonia Stop: 12/21/23 11:57 Benztropine Mesylate (Benztropine Mesylate 1 Mg/Ml 2 Ml Amp) 1 mg IM Q8H PRN PRN Reason: EPS, dystonia Stop: 12/21/23 11:59 Bismuth Subsalicylate (Bismuth Subsalicylate Liqd 236 Ml) 15 ml PO PRN PRN PRN Reason: Loose Stool Stop: 12/21/23 10:46 Chlorpromazine HCl (Chlorpromazine Hcl 25 Mg Tab) 12.5 mg PO TID PRN PRN Reason: Agitation Stop: 12/26/23 08:59 Last Admin: 12/03/23 08:04 Dose: 12.5 mg Chlorpromazine HCl (Chlorpromazine Hcl 25 Mg/Ml Amp) 25 mg IM BID PRN PRN Reason: Agitation Stop: 12/30/23 09:34 Last Admin: 12/02/23 14:07 Dose: 25 mg Clonazepam (Clonazepam 0.5 Mg Tab) 0.5 mg PO QDD JEREMIAH Stop: 01/04/24 17:44 Divalproex Sodium (Divalproex Delay Release 500 Mg Tab) 500 mg PO QDD JEREMIAH Stop: 01/04/24 17:44 Haloperidol (Haloperidol 5 Mg Tab) 5 mg PO Q8H PRN PRN Reason: Agitation Stop: 12/21/23 11:57 Last Admin: 12/04/23 13:29 Dose: 5 mg Haloperidol (Haloperidol 5 Mg Tab) 5 mg PO BIDM JEREMIAH Stop: 01/04/24 17:44 Haloperidol Lactate (Haloperidol Lactate 5 Mg/Ml 1 Ml Vial) 5 mg IM Q8H PRN PRN Reason: Agitation Stop: 12/21/23 11:57 Hydroxyzine HCl (Hydroxyzine Hcl 25 Mg Tab) 50 mg PO HSZ PRN PRN Reason: Insomnia Stop: 12/21/23 10:46 Last Admin: 11/25/23 00:29 Dose: 50 mg Hydroxyzine HCl (Hydroxyzine Hcl 25 Mg Tab) 25 mg PO Q4H PRN PRN Reason: Anxiety Stop: 12/21/23 10:46 Last Admin: 12/04/23 06:52 Dose: 25 mg Lorazepam (Lorazepam 2 Mg/1 Ml Vial) 1 mg IM Q8H PRN PRN Reason: Agitation Stop: 12/21/23 11:57 Last Admin: 12/02/23 14:06 Dose: 1 mg Lorazepam (Lorazepam 1 Mg Tab) 1 mg PO Q8H PRN PRN Reason: Agitation Stop: 12/21/23 11:57 Last Admin: 12/04/23 13:29 Dose: 1 mg Magnesium Hydroxide (Magnesium Hydroxide Susp 30 Ml Udc) 30 ml PO DAILY PRN PRN Reason: Constipation Stop: 12/21/23 10:46 Nicotine Polacrilex (Nicotine Polacrilex 2 Mg Gum) 1 piece MT Q2H PRN PRN Reason: nicotine cravings Stop: 12/24/23 09:27 Last Admin: 12/05/23 14:22 Dose: 1 piece Sodium Chloride (Sodium Chloride 0.65% Na Soln 45 Ml ([place])) 1 - 2 sprays NA PRN PRN PRN Reason: Nasal Dryness/Congestion Stop: 12/21/23 10:46 Mental Health & Subst Abuse Tx Psychiatrist Name of Psychiatrist: Sara Duque [facility] Psychiatrist's Psychiatric Appointment Comment: [address], [address], [facility] [address] Therapist Name of Therapist: denies Photographer Name of Photographer: denies Post Discharge Appointments Primary Care Physician Name Of Family Doctor/PCP: Sara Duque [facility] Primary Care Provider Appointment Comment: [address], [address], [place] [address]
[2023-12-05] MEDS: haloperidoL 5 MG TAB PO SCH (17:26)
[2023-12-05] MEDS: clonazePAM 0.5 MG TAB PO SCH (17:26)
[2023-12-05] MEDS: DIVALPROEX DELAY RELEASE 500 MG TAB PO SCH (17:27)
[2023-12-06] MEDS: NICOTINE 7 MG/24 HR TDSY TD SCH (07:43)
--- NOTE | 2023-12-06 17:08 | Psychiatric Progress Note ---
Date of Service December 06, 2023 Impression / Recommendations Impression Emilia Orta is a 28-year-old female unknown past history who was brought in by police after being found wandering the street by gas station. Patient presented pressured and tangential speech, memory impairment, and concern for psychosis. She was admitted on 11/21/23 09:58 on a 302 involuntary commitment for psychosis, now on a 303 commitment. Currently on 303 commitment. 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 Patient has demonstrated significant dysfunction evidenced by recurrent legal troubles, persistent sy mptoms, recurrent hospitalizations, poor insight, inability to maintain stability in the community, and continued drug dependence. A: Patient is slowly becoming more lucid and presenting improved memory of the past. Still continues to be disoriented about her situation and only at times presents a linear stream of consciousness. Took nightly meds however med seeking during the day. Overall, I spent a total of 30 minutes with this case including review of chart records, nursing report, review of lab work, direct evaluation of the patient at bedside, counseling the patient, orders, and documentation in the electronic health record. 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 12/05/2023: Schedule Depakote/Haldol/Klonopin at dinner instead of bedtime. 12/04/2023: Continue current medications and tx plan. 12/03/2023: Continue current medications and tx plan. 12/02/2023: Start Depakote DR 500mg HS. 12/01/2023: Continue current medications and tx plan. Continuing to attempt to get urine sample for UPT. 11/30/2023: UPT ordered. Added Thorazine 25mg IM prn for agitation per her request for additional IM medication options. 11/29/2023: Continue current medications and tx plan. 11/28/2023: Continue current medications and tx plan. 11/27/2023: Discontinue [place] and risperidone. Start haldol 5mg BID. 11/26/2023: Start Thorazine 12.5mg TID prn po for agitation. 11/25/2023: Decrease Clonazepam to 0.5mg HS. Encourage fluids. 11/24/2023: Start [place] 300mg BID for mood lability. 11/23/2023: Continue medications and treatment plan. 11/22/2023: Increase risperidone to 1 mg every morning and 2 mg nightly. Continue clonazepam 1 mg at bedtime. Encourage fluids. STI and hepatitis panel. 11/21/2023: One-time lorazepam 2 mg p.o. for anxiety. Schedule risperidone 1 mg twice daily and clonazepam 1 mg at bedtime. Baseline EKG and labs: Free T4, free T3, A1c, lipid panel. Inventory Assets Strengths: able to express needs, accepting treatment Needs: social supports, mood control Suicide Risk Level Suicide Risk Level: Moderate (q15 min suicide checks) (one episode of voicing SI and significant mood lability and disorganization) Risk Factors Assessment Male: No : Yes Do You Have Access To A Gun?: No Health Problems: No Mental Health Diagnoses: Yes Substance Use Disorders: Yes Previous Attempt: No Family History of Suicide: No Previous Psychiatric Hospitalization: Yes Hopelessness: No Protective Factors Assessment Mu-Ism Beliefs: No : No Responsible for Young Children: No Employed: No Stable Relationships: No Supportive Family: No Good Rapport with Provider: Yes Absence of Any Risk Factors Above: No Interval History Identifying Information Emilia Orta is a 28-year-old female unknown past history who was brought in by police after being found wandering the street by [employer]. Patient presented pressured and tangential speech, memory impairment, and concern for psychosis. She was admitted on 11/21/23 09:58 on a 302 involuntary commitment for psychosis. Chief Complaint "okay". Review of Systems Sleep Information Total Hours of Sleep: 7.30 Sleep Comments: PRN Thorazine and Vistaril Meal Information Percent Meal Consumed - Breakfast: 100 Percent Meal Consumed - Lunch: 100 Percent Meal Consumed - Dinner: 100 Nutrition Comment: sleeping Subjective Subjective Patient was seen & assessed and interval progress reviewed with treatment team nursing and social work Overnight took medications. Nursing reports she has been less aggressive but has less punding behavior. Has been drinking more water. On interview patient is asking for lithium. When explained that managing lithium levels would be difficult in her scenario she keeps asking for. Alert and oriented to [facility] [place]. When I explained my concerns for her continued drug dependence she appeared ambivalent. When asked what she remembers of the past year she reports that her uncle however says she is not sure when asked how. She said her son was just born last year and then says that was her "eldest son" and is unable to clarify further. "Came here for someone else's wellbeing." Asked what she means by that and is unable to explain. She then gets up from the interview and goes to the door and says that she is going to go ask for a prn. She appears to be calm in demeanor and not visibly anxious. I asked why she needs it currently and she is not able to give me an answer. Physical Exam Mental Examination Appearance: Disheveled Eye Contact: Maintains Eye Contact Motor Behavior: Unremarkable Speech: Tangential Mood: Euthymic Affect: Congruent Thought Process: Disorganized and Tangential Thought Content: Disorganized Hallucinations: None Insight: Poor Judgement: Poor Vital Signs (Past 24 Hours) Last Vital Signs Temp 36.1 C L 12/05/23 06:21 Pulse 72 12/05/23 06:21 Resp 16 12/05/23 06:21 BP 70/40 L 12/05/23 06:21 Pulse Ox 98 12/05/23 06:21 O2 Del Method Room Air 12/05/23 06:21 Results & Data ([facility]) Current Inpatient Medications Current Inpatient Medications: Current Inpatient Medications Acetaminophen (Acetaminophen 325 Mg Tab) 650 mg PO Q4H PRN PRN Reason: Headache or Minor Fever Stop: 12/21/23 10:46 Last Admin: 12/06/23 10:43 Dose: 650 mg Al Hydrox/Mg Hydrox/Simethicone (Aluminum/Magnesium Susp 30 Ml Udc) 30 ml PO Q4H PRN PRN Reason: GI Upset Stop: 12/21/23 10:46 Benzocaine (Benzocaine 20% (Orajel) 11.9 Gm Tube) 1 appln MT Q4H PRN PRN Reason: gum or tooth pain Stop: 01/03/24 08:56 Benztropine Mesylate (Benztropine Mesylate 1 Mg Tab) 1 mg PO Q8H PRN PRN Reason: EPS, dystonia Stop: 12/21/23 11:57 Benztropine Mesylate (Benztropine Mesylate 1 Mg/Ml 2 Ml Amp) 1 mg IM Q8H PRN PRN Reason: EPS, dystonia Stop: 12/21/23 11:59 Bismuth Subsalicylate (Bismuth Subsalicylate Liqd 236 Ml) 15 ml PO PRN PRN PRN Reason: Loose Stool Stop: 12/21/23 10:46 Chlorpromazine HCl (Chlorpromazine Hcl 25 Mg Tab) 12.5 mg PO TID PRN PRN Reason: Agitation Stop: 12/26/23 08:59 Last Admin: 12/06/23 10:43 Dose: 12.5 mg Chlorpromazine HCl (Chlorpromazine Hcl 25 Mg/Ml Amp) 25 mg IM BID PRN PRN Reason: Agitation Stop: 12/30/23 09:34 Last Admin: 12/02/23 14:07 Dose: 25 mg Clonazepam (Clonazepam 0.5 Mg Tab) 0.5 mg PO QDD JEREMIAH Stop: 01/04/24 17:44 Last Admin: 12/05/23 17:26 Dose: 0.5 mg Divalproex Sodium (Divalproex Delay Release 500 Mg Tab) 500 mg PO QDD JEREMIAH Stop: 01/04/24 17:44 Last Admin: 12/05/23 17:27 Dose: 500 mg Haloperidol (Haloperidol 5 Mg Tab) 5 mg PO Q8H PRN PRN Reason: Agitation Stop: 12/21/23 11:57 Last Admin: 12/06/23 11:28 Dose: 5 mg Haloperidol (Haloperidol 5 Mg Tab) 5 mg PO BIDM [facility] Stop: 01/04/24 17:44 Last Admin: 12/06/23 07:43 Dose: 5 mg Haloperidol Lactate (Haloperidol Lactate 5 Mg/Ml 1 Ml Vial) 5 mg IM Q8H PRN PRN Reason: Agitation Stop: 12/21/23 11:57 Hydroxyzine HCl (Hydroxyzine Hcl 25 Mg Tab) 50 mg PO HSZ PRN PRN Reason: Insomnia Stop: 12/21/23 10:46 Last Admin: 12/05/23 18:44 Dose: 50 mg Hydroxyzine HCl (Hydroxyzine Hcl 25 Mg Tab) 25 mg PO Q4H PRN PRN Reason: Anxiety Stop: 12/21/23 10:46 Last Admin: 12/04/23 06:52 Dose: 25 mg Lorazepam (Lorazepam 2 Mg/1 Ml Vial) 1 mg IM Q8H PRN PRN Reason: Agitation Stop: 12/21/23 11:57 Last Admin: 12/02/23 14:06 Dose: 1 mg Lorazepam (Lorazepam 1 Mg Tab) 1 mg PO Q8H PRN PRN Reason: Agitation Stop: 12/21/23 11:57 Last Admin: 12/06/23 11:28 Dose: 1 mg Magnesium Hydroxide (Magnesium Hydroxide Susp 30 Ml Udc) 30 ml PO DAILY PRN PRN Reason: Constipation Stop: 12/21/23 10:46 Miscellaneous (Remove Nicoderm Patch) 1 each N/A DAILY@0859 [facility] Stop: 01/05/24 08:58 Last Admin: 12/06/23 07:43 Dose: 1 each Nicotine (Nicotine 7 Mg/24 Hr Tdsy) 1 patch TD QAM JEREMIAH Stop: 01/05/24 08:59 Last Admin: 12/06/23 07:43 Dose: 1 patch Nicotine Polacrilex (Nicotine Polacrilex 2 Mg Gum) 1 piece MT Q2H PRN PRN Reason: nicotine cravings Stop: 12/24/23 09:27 Last Admin: 12/05/23 14:22 Dose: 1 piece Sodium Chloride (Sodium Chloride 0.65% Na Soln 45 Ml ([place])) 1 - 2 sprays NA PRN PRN PRN Reason: Nasal Dryness/Congestion Stop: 12/21/23 10:46 Mental Health & Subst Abuse Tx Psychiatrist Name of Psychiatrist: Sara Duque [facility] Psychiatrist's Psychiatric Appointment Comment: [address], [address], [place] [address] Therapist Name of Therapist: denies Game Warden Name of Game Warden: denies Post Discharge Appointments Primary Care Physician Name Of Family Doctor/PCP: Sara Duque [facility] Primary Care Provider Appointment Comment: [address], [address], [place] [address]
--- NOTE | 2023-12-08 12:44 | Psychiatric Progress Note ---
Date of Service December 07, 2023 Impression / Recommendations Impression Emilia Orta is a 28-year-old female unknown past history who was brought in by police after being found wandering the street [place]. Patient presented pressured and tangential speech, memory impairment, and concern for psychosis. She was admitted on 11/21/23 09:58 on a 302 involuntary commitment for psychosis, now on a 303 commitment. Currently on 303 commitment. 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 Patient has demonstrated significant dysfunction evidenced by recurrent legal troubles, persistent sy mptoms, recurrent hospitalizations, poor insight, inability to maintain stability in the community, and continued drug dependence. A: Patient is slowly becoming more lucid and presenting improved memory of the past. Disoriented about her situation and unable to reasonably engage in disposition planning. Refusing BP checks; unclear reason. Overall, I spent a total of 30 minutes with this case including review of chart records, nursing report, review of lab work, direct evaluation of the patient at bedside, counseling the patient, orders, and documentation in the electronic health record. 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 12/06/2023: Continue medications and treatment plan. 12/05/2023: Schedule Depakote/Haldol/Klonopin at dinner instead of bedtime. 12/04/2023: Continue current medications and tx plan. 12/03/2023: Continue current medications and tx plan. 12/02/2023: Start Depakote DR 500mg HS. 12/01/2023: Continue current medications and tx plan. Continuing to attempt to get urine sample for UPT. 11/30/2023: UPT ordered. Added Thorazine 25mg IM prn for agitation per her request for additional IM medication options. 11/29/2023: Continue current medications and tx plan. 11/28/2023: Continue current medications and tx plan. 11/27/2023: Discontinue [place] and risperidone. Start haldol 5mg BID. 11/26/2023: Start Thorazine 12.5mg TID prn po for agitation. 11/25/2023: Decrease Clonazepam to 0.5mg HS. Encourage fluids. 11/24/2023: Start [place] 300mg BID for mood lability. 11/23/2023: Continue medications and treatment plan. 11/22/2023: Increase risperidone to 1 mg every morning and 2 mg nightly. Continue clonazepam 1 mg at bedtime. Encourage fluids. STI and hepatitis panel. 11/21/2023: One-time lorazepam 2 mg p.o. for anxiety. Schedule risperidone 1 mg twice daily and clonazepam 1 mg at bedtime. Baseline EKG and labs: Free T4, free T3, A1c, lipid panel. Inventory Assets Strengths: able to express needs, accepting treatment Needs: social supports, mood control Suicide Risk Level Suicide Risk Level: Moderate (q15 min suicide checks) (one episode of voicing SI and significant mood lability and disorganization) Risk Factors Assessment Male: No : Yes Do You Have Access To A Gun?: No Health Problems: No Mental Health Diagnoses: Yes Substance Use Disorders: Yes Previous Attempt: No Family History of Suicide: No Previous Psychiatric Hospitalization: Yes Hopelessness: No Protective Factors Assessment Protestant Beliefs: No : No Responsible for Young Children: No Employed: No Stable Relationships: No Supportive Family: No Good Rapport with Provider: Yes Absence of Any Risk Factors Above: No Interval History Identifying Information Emilia Orta is a 28-year-old female unknown past history who was brought in by police after being found wandering the street [place]. Patient presented pressured and tangential speech, memory impairment, and concern for psychosis. She was admitted on 11/21/23 09:58 on a 302 involuntary commitment for psychosis. Chief Complaint "this is a bad joke". Review of Systems Sleep Information Total Hours of Sleep: 6.5 Sleep Comments: PRN Thorazine and Vistaril Meal Information Percent Meal Consumed - Breakfast: 100 Percent Meal Consumed - Lunch: 100 Percent Meal Consumed - Dinner: 100 Nutrition Comment: sleeping Subjective Subjective Patient was seen & assessed and interval progress reviewed with treatment team nursing and social work Pt took meds overnight. Slept well. Nursing reports she continues to be labile. Refuding BP checks in AM. Reports that the police brought her to the hospital. "Can't remember" what took place prior. Confirms she is open to rehab. asking if rehab is open and thinks that it's closed during the summer months. Believes its related to school schedule. Redirected. Does not state why she is refusing blood pressure checks. Physical Exam Mental Examination Appearance: Disheveled Eye Contact: Maintains Eye Contact Motor Behavior: Unremarkable Speech: Tangential Mood: Euthymic Affect: Congruent and Labile Thought Process: Disorganized and Tangential Thought Content: Disorganized Hallucinations: None Insight: Poor Judgement: Poor Vital Signs (Past 24 Hours) Last Vital Signs Temp 36.9 C 12/07/23 16:40 Pulse 81 12/07/23 16:40 Resp 16 12/07/23 16:40 BP 95/63 L 12/07/23 16:42 Pulse Ox 99 12/07/23 16:40 O2 Del Method Room Air 12/07/23 16:40 Results & Data ([facility]) Current Inpatient Medications Current Inpatient Medications: Current Inpatient Medications Acetaminophen (Acetaminophen 325 Mg Tab) 650 mg PO Q4H PRN PRN Reason: Headache or Minor Fever Stop: 12/21/23 10:46 Last Admin: 12/06/23 10:43 Dose: 650 mg Al Hydrox/Mg Hydrox/Simethicone (Aluminum/Magnesium Susp 30 Ml Udc) 30 ml PO Q4H PRN PRN Reason: GI Upset Stop: 12/21/23 10:46 Benzocaine (Benzocaine 20% (Orajel) 11.9 Gm Tube) 1 appln MT Q4H PRN PRN Reason: gum or tooth pain Stop: 01/03/24 08:56 Benztropine Mesylate (Benztropine Mesylate 1 Mg Tab) 1 mg PO Q8H PRN PRN Reason: EPS, dystonia Stop: 12/21/23 11:57 Benztropine Mesylate (Benztropine Mesylate 1 Mg/Ml 2 Ml Amp) 1 mg IM Q8H PRN PRN Reason: EPS, dystonia Stop: 12/21/23 11:59 Bismuth Subsalicylate (Bismuth Subsalicylate Liqd 236 Ml) 15 ml PO PRN PRN PRN Reason: Loose Stool Stop: 12/21/23 10:46 Chlorpromazine HCl (Chlorpromazine Hcl 25 Mg Tab) 12.5 mg PO TID PRN PRN Reason: Agitation Stop: 12/26/23 08:59 Last Admin: 12/06/23 10:43 Dose: 12.5 mg Chlorpromazine HCl (Chlorpromazine Hcl 25 Mg/Ml Amp) 25 mg IM BID PRN PRN Reason: Agitation Stop: 12/30/23 09:34 Last Admin: 12/02/23 14:07 Dose: 25 mg Clonazepam (Clonazepam 0.5 Mg Tab) 0.5 mg PO QDD JEREMIAH Stop: 01/04/24 17:44 Last Admin: 12/07/23 16:49 Dose: 0.5 mg Divalproex Sodium (Divalproex Delay Release 500 Mg Tab) 500 mg PO QDD JEREMIAH Stop: 01/04/24 17:44 Last Admin: 12/07/23 16:46 Dose: 500 mg Haloperidol (Haloperidol 5 Mg Tab) 5 mg PO Q8H PRN PRN Reason: Agitation Stop: 12/21/23 11:57 Last Admin: 12/07/23 12:16 Dose: 5 mg Haloperidol (Haloperidol 5 Mg Tab) 5 mg PO BIDM JEREMIAH Stop: 01/04/24 17:44 Last Admin: 12/07/23 16:47 Dose: 5 mg Haloperidol Lactate (Haloperidol Lactate 5 Mg/Ml 1 Ml Vial) 5 mg IM Q8H PRN PRN Reason: Agitation Stop: 12/21/23 11:57 Hydroxyzine HCl (Hydroxyzine Hcl 25 Mg Tab) 50 mg PO HSZ PRN PRN Reason: Insomnia Stop: 12/21/23 10:46 Last Admin: 12/05/23 18:44 Dose: 50 mg Hydroxyzine HCl (Hydroxyzine Hcl 25 Mg Tab) 25 mg PO Q4H PRN PRN Reason: Anxiety Stop: 12/21/23 10:46 Last Admin: 12/04/23 06:52 Dose: 25 mg Lorazepam (Lorazepam 2 Mg/1 Ml Vial) 1 mg IM Q8H PRN PRN Reason: Agitation Stop: 12/21/23 11:57 Last Admin: 12/02/23 14:06 Dose: 1 mg Lorazepam (Lorazepam 1 Mg Tab) 1 mg PO Q8H PRN PRN Reason: Agitation Stop: 12/21/23 11:57 Last Admin: 12/07/23 12:16 Dose: 1 mg Magnesium Hydroxide (Magnesium Hydroxide Susp 30 Ml Udc) 30 ml PO DAILY PRN PRN Reason: Constipation Stop: 12/21/23 10:46 Miscellaneous (Remove Nicoderm Patch) 1 each N/A DAILY@0859 [facility] Stop: 01/05/24 08:58 Last Admin: 12/07/23 09:03 Dose: 1 each Nicotine (Nicotine 7 Mg/24 Hr Tdsy) 1 patch TD QAM JEREMIAH Stop: 01/05/24 08:59 Last Admin: 12/07/23 09:02 Dose: 1 patch Nicotine Polacrilex (Nicotine Polacrilex 2 Mg Gum) 1 piece MT Q2H PRN PRN Reason: nicotine cravings Stop: 12/24/23 09:27 Last Admin: 12/05/23 14:22 Dose: 1 piece Sodium Chloride (Sodium Chloride 0.65% Na Soln 45 Ml ([place])) 1 - 2 sprays NA PRN PRN PRN Reason: Nasal Dryness/Congestion Stop: 12/21/23 10:46 Mental Health & Subst Abuse Tx Psychiatrist Name of Psychiatrist: Sara Duque [facility] Psychiatrist's Psychiatric Appointment Comment: [address], [address], [facility] [address] Therapist Name of Therapist: denies Baseball Winder Name of Baseball Winder: denies Post Discharge Appointments Primary Care Physician Name Of Family Doctor/PCP: Sara Duque [facility] Primary Care Provider Appointment Comment: [address], [address], [facility] [address]
--- NOTE | 2023-12-08 15:27 | Psychiatric Progress Note ---
Date of Service December 08, 2023 Impression / Recommendations Impression Emilia Orta is a 28-year-old female unknown past history who was brought in by police after being found wandering the street by gas station. Patient presented pressured and tangential speech, memory impairment, and concern for psychosis. She was admitted on 11/21/23 09:58 on a 302 involuntary commitment for psychosis, now on a 303 commitment. Currently on 303 commitment. 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 Patient has demonstrated significant dysfunction evidenced by recurrent legal troubles, persistent sy mptoms, recurrent hospitalizations, poor insight, inability to maintain stability in the community, and continued drug dependence. A: Patient is slowly becoming more lucid and presenting improved memory of the past. Having difficulty with disposition planning. Plan to get BP readings prior to lunch time given past non-adherence. VPA levels to be drawn tomorrow PM. Overall, I spent a total of 30 minutes with this case including review of chart records, nursing report, review of lab work, direct evaluation of the patient at bedside, counseling the patient, orders, and documentation in the electronic health record. 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 12/06/2023: Continue medications and treatment plan. 12/05/2023: Schedule Depakote/Haldol/Klonopin at dinner instead of bedtime. 12/04/2023: Continue current medications and tx plan. 12/03/2023: Continue current medications and tx plan. 12/02/2023: Start Depakote DR 500mg HS. 12/01/2023: Continue current medications and tx plan. Continuing to attempt to get urine sample for UPT. 11/30/2023: UPT ordered. Added Thorazine 25mg IM prn for agitation per her request for additional IM medication options. 11/29/2023: Continue current medications and tx plan. 11/28/2023: Continue current medications and tx plan. 11/27/2023: Discontinue Mack and risperidone. Start haldol 5mg BID. 11/26/2023: Start Thorazine 12.5mg TID prn po for agitation. 11/25/2023: Decrease Clonazepam to 0.5mg HS. Encourage fluids. 11/24/2023: Start Mack 300mg BID for mood lability. 11/23/2023: Continue medications and treatment plan. 11/22/2023: Increase risperidone to 1 mg every morning and 2 mg nightly. Continue clonazepam 1 mg at bedtime. Encourage fluids. STI and hepatitis panel. 11/21/2023: One-time lorazepam 2 mg p.o. for anxiety. Schedule risperidone 1 mg twice daily and clonazepam 1 mg at bedtime. Baseline EKG and labs: Free T4, free T3, A1c, lipid panel. Inventory Assets Strengths: able to express needs, accepting treatment Needs: social supports, mood control Suicide Risk Level Suicide Risk Level: Moderate (q15 min suicide checks) (one episode of voicing SI and significant mood lability and disorganization) Risk Factors Assessment Male: No : Yes Do You Have Access To A Gun?: No Health Problems: No Mental Health Diagnoses: Yes Substance Use Disorders: Yes Previous Attempt: No Family History of Suicide: No Previous Psychiatric Hospitalization: Yes Hopelessness: No Protective Factors Assessment Cheondoism Beliefs: No : No Responsible for Young Children: No Employed: No Stable Relationships: No Supportive Family: No Good Rapport with Provider: Yes Absence of Any Risk Factors Above: No Interval History Identifying Information Emilia Orta is a 28-year-old female unknown past history who was brought in by police after being found wandering the street by gas station. Patient presented pressured and tangential speech, memory impairment, and concern for psychosis. She was admitted on 11/21/23 09:58 on a 302 involuntary commitment for psychosis. Chief Complaint "okay" Review of Systems Sleep Information Total Hours of Sleep: 6.5 Sleep Comments: PRN Thorazine and Vistaril Meal Information Percent Meal Consumed - Breakfast: 100 Percent Meal Consumed - Lunch: 100 Percent Meal Consumed - Dinner: 100 Nutrition Comment: sleeping Subjective Subjective Patient was seen & assessed and interval progress reviewed with treatment team nursing and social work Pt seen in the group room. Playing music loudly and turns it off as I approach. Seen coloring in the artbook. Reports being happy because she can "walk away" when she leaves the hospital. Told her we can provide a ride as well and appears suprised and happy. Says she is unable to her call her mom when asked. Says her mom has trouble with the phone company and changes her number often. When asked about her discharge plans replies "no clue." Introduce the idea of rehab and she agrees and appears optimistic. Physical Exam Mental Examination Appearance: Disheveled Eye Contact: Maintains Eye Contact Motor Behavior: Unremarkable Speech: Tangential Mood: Euthymic Affect: Congruent and Labile Thought Process: Disorganized and Tangential Thought Content: Disorganized Hallucinations: None Insight: Poor Judgement: Poor Vital Signs (Past 24 Hours) Last Vital Signs Temp 36.9 C 12/07/23 16:40 Pulse 81 12/07/23 16:40 Resp 16 12/07/23 16:40 BP 95/63 L 12/07/23 16:42 Pulse Ox 99 12/07/23 16:40 O2 Del Method Room Air 12/07/23 16:40 Results & Data ([facility]) Current Inpatient Medications Current Inpatient Medications: Current Inpatient Medications Acetaminophen (Acetaminophen 325 Mg Tab) 650 mg PO Q4H PRN PRN Reason: Headache or Minor Fever Stop: 12/21/23 10:46 Last Admin: 12/06/23 10:43 Dose: 650 mg Al Hydrox/Mg Hydrox/Simethicone (Aluminum/Magnesium Susp 30 Ml Udc) 30 ml PO Q4H PRN PRN Reason: GI Upset Stop: 12/21/23 10:46 Benzocaine (Benzocaine 20% (Orajel) 11.9 Gm Tube) 1 appln MT Q4H PRN PRN Reason: gum or tooth pain Stop: 01/03/24 08:56 Benztropine Mesylate (Benztropine Mesylate 1 Mg Tab) 1 mg PO Q8H PRN PRN Reason: EPS, dystonia Stop: 12/21/23 11:57 Benztropine Mesylate (Benztropine Mesylate 1 Mg/Ml 2 Ml Amp) 1 mg IM Q8H PRN PRN Reason: EPS, dystonia Stop: 12/21/23 11:59 Bismuth Subsalicylate (Bismuth Subsalicylate Liqd 236 Ml) 15 ml PO PRN PRN PRN Reason: Loose Stool Stop: 12/21/23 10:46 Chlorpromazine HCl (Chlorpromazine Hcl 25 Mg Tab) 12.5 mg PO TID PRN PRN Reason: Agitation Stop: 12/26/23 08:59 Last Admin: 12/06/23 10:43 Dose: 12.5 mg Chlorpromazine HCl (Chlorpromazine Hcl 25 Mg/Ml Amp) 25 mg IM BID PRN PRN Reason: Agitation Stop: 12/30/23 09:34 Last Admin: 12/02/23 14:07 Dose: 25 mg Clonazepam (Clonazepam 0.5 Mg Tab) 0.5 mg PO QDD JEREMIAH Stop: 01/04/24 17:44 Last Admin: 12/07/23 16:49 Dose: 0.5 mg Divalproex Sodium (Divalproex Delay Release 500 Mg Tab) 500 mg PO QDD JEREMIAH Stop: 01/04/24 17:44 Last Admin: 12/07/23 16:46 Dose: 500 mg Haloperidol (Haloperidol 5 Mg Tab) 5 mg PO Q8H PRN PRN Reason: Agitation Stop: 12/21/23 11:57 Last Admin: 12/07/23 12:16 Dose: 5 mg Haloperidol (Haloperidol 5 Mg Tab) 5 mg PO BIDM [facility] Stop: 01/04/24 17:44 Last Admin: 12/07/23 16:47 Dose: 5 mg Haloperidol Lactate (Haloperidol Lactate 5 Mg/Ml 1 Ml Vial) 5 mg IM Q8H PRN PRN Reason: Agitation Stop: 12/21/23 11:57 Hydroxyzine HCl (Hydroxyzine Hcl 25 Mg Tab) 50 mg PO HSZ PRN PRN Reason: Insomnia Stop: 12/21/23 10:46 Last Admin: 12/05/23 18:44 Dose: 50 mg Hydroxyzine HCl (Hydroxyzine Hcl 25 Mg Tab) 25 mg PO Q4H PRN PRN Reason: Anxiety Stop: 12/21/23 10:46 Last Admin: 12/04/23 06:52 Dose: 25 mg Lorazepam (Lorazepam 2 Mg/1 Ml Vial) 1 mg IM Q8H PRN PRN Reason: Agitation Stop: 12/21/23 11:57 Last Admin: 12/02/23 14:06 Dose: 1 mg Lorazepam (Lorazepam 1 Mg Tab) 1 mg PO Q8H PRN PRN Reason: Agitation Stop: 12/21/23 11:57 Last Admin: 12/07/23 12:16 Dose: 1 mg Magnesium Hydroxide (Magnesium Hydroxide Susp 30 Ml Udc) 30 ml PO DAILY PRN PRN Reason: Constipation Stop: 12/21/23 10:46 Miscellaneous (Remove Nicoderm Patch) 1 each N/A DAILY@0859 [facility] Stop: 01/05/24 08:58 Last Admin: 12/07/23 09:03 Dose: 1 each Nicotine (Nicotine 7 Mg/24 Hr Tdsy) 1 patch TD QAM [facility] Stop: 01/05/24 08:59 Last Admin: 12/07/23 09:02 Dose: 1 patch Nicotine Polacrilex (Nicotine Polacrilex 2 Mg Gum) 1 piece MT Q2H PRN PRN Reason: nicotine cravings Stop: 12/24/23 09:27 Last Admin: 12/05/23 14:22 Dose: 1 piece Sodium Chloride (Sodium Chloride 0.65% Na Soln 45 Ml ([place])) 1 - 2 sprays NA PRN PRN PRN Reason: Nasal Dryness/Congestion Stop: 12/21/23 10:46 Mental Health & Subst Abuse Tx Psychiatrist Name of Psychiatrist: [facility] Psychiatrist's Psychiatric Appointment Comment: [address], [address], [place] [address] Therapist Name of Therapist: denies Carcass Splitter Name of Carcass Splitter: denies Post Discharge Appointments Primary Care Physician Name Of Family Doctor/PCP: [facility] Primary [facility] Provider Appointment Comment: [address], [address], [place] [id number]
--- NOTE | 2023-12-08 15:49 | Communication Note ---
Date of Service: December 08, 2023 Reviewed medication records from [facility] 02/04/2022 to 02/18/2022: Presented after having HI thoughts towards grandmother with plan to slit throat. H/o bipolar disorder with psychosis. H/o PTSD with childhood trauma. PPH first in adolescence, 2018, and 09/19/2021 to 10/07/2021. H/o smoked crack cocaine use, alcohol abuse. Past IVDU with heroin. Presented to hospital with crack and heroin use. H/o unprotected sexual with multiple partners; h/o STIs. Prior meds include wellbutrin, celexa, buspar, lithium, sertraline, risperidone, invega sustenna, lorazepam, mirtazapine, trazodone. Multiple past incarcerations and probation. In September 2021, pt moved from [place] to [place]. 3 y/o Daughter (At that time) lives with grandmother in [facility]. 3 y/o son and 11 y/o daughter lives with father in [place]. 2 sisters. 8th grade education. Unemployed at the time. Homeless. Pt was d/c to alcohol drug rehab.
--- NOTE | 2023-12-09 08:53 | Psychiatric Progress Note ---
Date of Service December 09, 2023 Impression / Recommendations Impression Emilia Orta is a 28-year-old female unknown past history who was brought in by police after being found wandering the street by gas station. Patient presented pressured and tangential speech, memory impairment, and concern for psychosis. She was admitted on 11/21/23 09:58 on a 302 involuntary commitment for psychosis, now on a 303 commitment. Currently on 303 commitment. 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 Patient has demonstrated significant dysfunction evidenced by recurrent legal troubles, persistent sy mptoms, recurrent hospitalizations, poor insight, inability to maintain stability in the community, and continued drug dependence. A: Less irritable, still with some confusion but more logical as we discuss possible disposition planning options. Seems to be responding to the medications. Continues to minimize prior to admission substance use. Reviewed interim progress. Overall, I spent a total of 35 minutes with this case including review of chart records, nursing report, review of lab work, direct evaluation of the patient at bedside, counseling the patient, orders, and documentation in the electronic health record. 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 Will consider transition to Depakote ER after trough level is back. Can consider transition to olanzapine if she continues to prefer this to haldol. 12/08/2023: Trough Depakote level tomorrow PM (12/09/23) 12/07/2023: Continue medications and treatment plan. 12/06/2023: Continue medications and treatment plan. 12/05/2023: Schedule Depakote/Haldol/Klonopin at dinner instead of bedtime. 12/04/2023: Continue current medications and tx plan. 12/03/2023: Continue current medications and tx plan. 12/02/2023: Start Depakote DR 500mg HS. 12/01/2023: Continue current medications and tx plan. Continuing to attempt to get urine sample for UPT. 11/30/2023: UPT ordered. Added Thorazine 25mg IM prn for agitation per her request for additional IM medication options. 11/29/2023: Continue current medications and tx plan. 11/28/2023: Continue current medications and tx plan. 11/27/2023: Discontinue Umapine and risperidone. Start haldol 5mg BID. 11/26/2023: Start Thorazine 12.5mg TID prn po for agitation. 11/25/2023: Decrease Clonazepam to 0.5mg HS. Encourage fluids. 11/24/2023: Start Umapine 300mg BID for mood lability. 11/23/2023: Continue medications and treatment plan. 11/22/2023: Increase risperidone to 1 mg every morning and 2 mg nightly. Continue clonazepam 1 mg at bedtime. Encourage fluids. STI and hepatitis panel. 11/21/2023: One-time lorazepam 2 mg p.o. for anxiety. Schedule risperidone 1 mg twice daily and clonazepam 1 mg at bedtime. Baseline EKG and labs: Free T4, free T3, A1c, lipid panel. Inventory Assets Strengths: able to express needs, accepting treatment Needs: social supports, mood control Suicide Risk Level Suicide Risk Level: Moderate (q15 min suicide checks) (one episode of voicing SI and significant mood lability and disorganization) Risk Factors Assessment Male: No : Yes Do You Have Access To A Gun?: No Health Problems: No Mental Health Diagnoses: Yes Substance Use Disorders: Yes Previous Attempt: No Family History of Suicide: No Previous Psychiatric Hospitalization: Yes Hopelessness: No Protective Factors Assessment Spiritism Beliefs: No : No Responsible for Young Children: No Employed: No Stable Relationships: No Supportive Family: No Good Rapport with Provider: Yes Absence of Any Risk Factors Above: No Interval History Identifying Information Emilia Orta is a 28-year-old female unknown past history who was brought in by police after being found wandering the street by gas station. Patient presented pressured and tangential speech, memory impairment, and concern for psychosis. She was admitted on 11/21/23 09:58 on a 302 involuntary commitment for psychosis. Chief Complaint "Ok". Review of Systems Sleep Information Total Hours of Sleep: 9.30 Sleep Comments: PRN Thorazine and Vistaril Meal Information Percent Meal Consumed - Breakfast: 100 Percent Meal Consumed - Lunch: 100 Percent Meal Consumed - Dinner: 75 Nutrition Comment: sleeping Subjective Subjective Patient was seen & assessed and interval progress reviewed with treatment team nursing and social work. More appropriate conversations and interactions. Today reports her mood is ok. Interested in residential substance use treatment but remains with some confusion about use patterns prior to admission. Denies any medication side effects. Some confusion about medications, states she likes olanzapine and then reports "you know it's because it and celexa, those medication in that class work well for me". Physical Exam Psychiatric Orientation: alert and oriented x 3 Apperance: + disheveled Eye Contact: + fair eye contact Motor Behavior: no abnormal motor movements Speech: normal rate/rhythm/volume of speech Affect: + labile affect Mood: + irritable mood (but much less today) Thought Process: + looseness of associations Thought Content: reality based without delusions Insight: + limited insight Judgment: + limited judgement Vital Signs (Past 24 Hours) Last Vital Signs Temp 36.9 C 12/07/23 16:40 Pulse 81 12/07/23 16:40 Resp 16 12/07/23 16:40 BP 95/63 L 12/07/23 16:42 Pulse Ox 99 12/07/23 16:40 O2 Del Method Room Air 12/07/23 16:40 Results & Data ([facility]) Current Inpatient Medications Current Inpatient Medications: Current Inpatient Medications Acetaminophen (Acetaminophen 325 Mg Tab) 650 mg PO Q4H PRN PRN Reason: Headache or Minor Fever Stop: 12/21/23 10:46 Last Admin: 12/06/23 10:43 Dose: 650 mg Al Hydrox/Mg Hydrox/Simethicone (Aluminum/Magnesium Susp 30 Ml Udc) 30 ml PO Q4H PRN PRN Reason: GI Upset Stop: 12/21/23 10:46 Benzocaine (Benzocaine 20% (Orajel) 11.9 Gm Tube) 1 appln MT Q4H PRN PRN Reason: gum or tooth pain Stop: 01/03/24 08:56 Benztropine Mesylate (Benztropine Mesylate 1 Mg Tab) 1 mg PO Q8H PRN PRN Reason: EPS, dystonia Stop: 12/21/23 11:57 Benztropine Mesylate (Benztropine Mesylate 1 Mg/Ml 2 Ml Amp) 1 mg IM Q8H PRN PRN Reason: EPS, dystonia Stop: 12/21/23 11:59 Bismuth Subsalicylate (Bismuth Subsalicylate Liqd 236 Ml) 15 ml PO PRN PRN PRN Reason: Loose Stool Stop: 12/21/23 10:46 Chlorpromazine HCl (Chlorpromazine Hcl 25 Mg Tab) 12.5 mg PO TID PRN PRN Reason: Agitation Stop: 12/26/23 08:59 Last Admin: 12/06/23 10:43 Dose: 12.5 mg Chlorpromazine HCl (Chlorpromazine Hcl 25 Mg/Ml Amp) 25 mg IM BID PRN PRN Reason: Agitation Stop: 12/30/23 09:34 Last Admin: 12/02/23 14:07 Dose: 25 mg Clonazepam (Clonazepam 0.5 Mg Tab) 0.5 mg PO QDD JEREMIA[facility] Stop: 01/04/24 17:44 Last Admin: 12/08/23 16:59 Dose: 0.5 mg Divalproex Sodium (Divalproex Delay Release 500 Mg Tab) 500 mg PO QDD [facility] Stop: 01/04/24 17:44 Last Admin: 12/08/23 16:59 Dose: 500 mg Haloperidol (Haloperidol 5 Mg Tab) 5 mg PO Q8H PRN PRN Reason: Agitation Stop: 12/21/23 11:57 Last Admin: 12/07/23 12:16 Dose: 5 mg Haloperidol (Haloperidol 5 Mg Tab) 5 mg PO BIDM [facility] Stop: 01/04/24 17:44 Last Admin: 12/09/23 07:22 Dose: 5 mg Haloperidol Lactate (Haloperidol Lactate 5 Mg/Ml 1 Ml Vial) 5 mg IM Q8H PRN PRN Reason: Agitation Stop: 12/21/23 11:57 Hydroxyzine HCl (Hydroxyzine Hcl 25 Mg Tab) 50 mg PO HSZ PRN PRN Reason: Insomnia Stop: 12/21/23 10:46 Last Admin: 12/05/23 18:44 Dose: 50 mg Hydroxyzine HCl (Hydroxyzine Hcl 25 Mg Tab) 25 mg PO Q4H PRN PRN Reason: Anxiety Stop: 12/21/23 10:46 Last Admin: 12/09/23 07:26 Dose: 25 mg Lorazepam (Lorazepam 2 Mg/1 Ml Vial) 1 mg IM Q8H PRN PRN Reason: Agitation Stop: 12/21/23 11:57 Last Admin: 12/02/23 14:06 Dose: 1 mg Lorazepam (Lorazepam 1 Mg Tab) 1 mg PO Q8H PRN PRN Reason: Agitation Stop: 12/21/23 11:57 Last Admin: 12/07/23 12:16 Dose: 1 mg Magnesium Hydroxide (Magnesium Hydroxide Susp 30 Ml Udc) 30 ml PO DAILY PRN PRN Reason: Constipation Stop: 12/21/23 10:46 Miscellaneous (Remove Nicoderm Patch) 1 each N/A DAILY@0859 [facility] Stop: 01/05/24 08:58 Last Admin: 12/09/23 07:25 Dose: Not Given Nicotine (Nicotine 7 Mg/24 Hr Tdsy) 1 patch TD QAM [facility] Stop: 01/05/24 08:59 Last Admin: 12/09/23 07:25 Dose: Not Given Nicotine Polacrilex (Nicotine Polacrilex 2 Mg Gum) 1 piece MT Q2H PRN PRN Reason: nicotine cravings Stop: 12/24/23 09:27 Last Admin: 12/05/23 14:22 Dose: 1 piece Sodium Chloride (Sodium Chloride 0.65% Na Soln 45 Ml ([place])) 1 - 2 sprays NA PRN PRN PRN Reason: Nasal Dryness/Congestion Stop: 12/21/23 10:46 Mental Health & Subst Abuse Tx Psychiatrist Name of Psychiatrist: Sara Duque [facility] Psychiatrist's Psychiatric Appointment Comment: [address], [address], [facility] [address] Therapist Name of Therapist: denies Tower Erector Name of Tower Erector: denies Post Discharge Appointments Primary Care Physician Name Of Family Doctor/PCP: Sara Duque [facility] Primary Care Provider Appointment Comment: [address], [address], [facility] [id number]
--- NOTE | 2023-12-10 09:09 | Psychiatric Progress Note ---
Date of Service December 10, 2023 Impression / Recommendations Impression Emilia Orta is a 28-year-old female unknown past history who was brought in by police after being found wandering the street by gas station. Patient presented pressured and tangential speech, memory impairment, and concern for psychosis. She was admitted on 11/21/23 09:58 on a 302 involuntary commitment for psychosis, now on a 303 commitment. Currently on 303 commitment. 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 Patient has demonstrated significant dysfunction evidenced by recurrent legal troubles, persistent sy mptoms, recurrent hospitalizations, poor insight, inability to maintain stability in the community, and continued drug dependence. A: Mood continues to be more pleasant and cooperative with more organized thought process. She is now able to tolerate discussions about her medications and disposition options. She consents to increasing Depakote to split dosing, she prefers this to once daily ER option. Reviewed Depakote level, outside therapeutic range so further reason to titrate dose up. Hypotensive this morning but asymptomatic, continue to encourage fluid intake, will continue to monitor. Overall, I spent a total of 30 minutes with this case including review of chart records, nursing report, review of lab work, direct evaluation of the patient at bedside, counseling the patient, orders, and documentation in the electronic health record. 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 Plan to taper Klonopin in coming days if Depakote increase is well tolerated. 12/09/2023: Continue current medications and tx plan. Will consider transition to Depakote ER after trough level is back. Can consider transition to olanzapine if she continues to prefer this to haldol. 12/08/2023: Trough Depakote level tomorrow PM (12/09/23) 12/07/2023: Continue medications and treatment plan. 12/06/2023: Continue medications and treatment plan. 12/05/2023: Schedule Depakote/Haldol/Klonopin at dinner instead of bedtime. 12/04/2023: Continue current medications and tx plan. 12/03/2023: Continue current medications and tx plan. 12/02/2023: Start Depakote DR 500mg HS. 12/01/2023: Continue current medications and tx plan. Continuing to attempt to get urine sample for UPT. 11/30/2023: UPT ordered. Added Thorazine 25mg IM prn for agitation per her request for additional IM medication options. 11/29/2023: Continue current medications and tx plan. 11/28/2023: Continue current medications and tx plan. 11/27/2023: Discontinue [place] and risperidone. Start haldol 5mg BID. 11/26/2023: Start Thorazine 12.5mg TID prn po for agitation. 11/25/2023: Decrease Clonazepam to 0.5mg HS. Encourage fluids. 11/24/2023: Start [place] 300mg BID for mood lability. 11/23/2023: Continue medications and treatment plan. 11/22/2023: Increase risperidone to 1 mg every morning and 2 mg nightly. Continue clonazepam 1 mg at bedtime. Encourage fluids. STI and hepatitis panel. 11/21/2023: One-time lorazepam 2 mg p.o. for anxiety. Schedule risperidone 1 mg twice daily and clonazepam 1 mg at bedtime. Baseline EKG and labs: Free T4, free T3, A1c, lipid panel. Inventory Assets Strengths: able to express needs, accepting treatment Needs: social supports, mood control Suicide Risk Level Suicide Risk Level: Moderate (q15 min suicide checks) (one episode of voicing SI but recently denying SI, mood less labile, able to ask staff for support ) Risk Factors Assessment Male: No : Yes Do You Have Access To A Gun?: No Health Problems: No Mental Health Diagnoses: Yes Substance Use Disorders: Yes Previous Attempt: No Family History of Suicide: No Previous Psychiatric Hospitalization: Yes Hopelessness: No Protective Factors Assessment Baptism Beliefs: No : No Responsible for Young Children: No Employed: No Stable Relationships: No Supportive Family: No Good Rapport with Provider: Yes Absence of Any Risk Factors Above: No Interval History Identifying Information Emilia Orta is a 28-year-old female unknown past history who was brought in by police after being found wandering the street by gas station. Patient presented pressured and tangential speech, memory impairment, and concern for psychosis. She was admitted on 11/21/23 09:58 on a 302 involuntary commitment for psychosis. Chief Complaint "Fine, a little anxious and agitated". Review of Systems Sleep Information Total Hours of Sleep: 12 Sleep Comments: Meal Information Percent Meal Consumed - Breakfast: 100 Percent Meal Consumed - Lunch: 100 Percent Meal Consumed - Dinner: 100 Nutrition Comment: sleeping Subjective Subjective Patient was seen & assessed and interval progress reviewed with treatment team nursing and social work. Sleeping well. Very cooperative with assessment today. Reports some mood symptoms including agitation but no evidence of this. Requests Klonopin but understanding of discussion for plan to taper this to discontinuation and therefore not increase dosing. She requests Vistaril instead as finds this helpful for her mood. She wonders about having a mood stabilizer in the morning as well as the afternoon and is interested in increasing the Depakote. Reviewed option for olanzapine as she mentioned this yesterday, she declines to start this preferring Depakote increase and staying on haldol. She is interested in residential substance use treatment. Physical Exam Psychiatric Orientation: alert and oriented x 3 Apperance: appropriately dressed and appropriately groomed Eye Contact: good eye contact Motor Behavior: no abnormal motor movements Speech: normal rate/rhythm/volume of speech Affect: + anxious affect Mood: + anxious mood and + irritable mood Thought Process: + circumstantial thought process Thought Content: reality based without delusions Insight: + limited insight Judgment: + fair judgement Vital Signs (Past 24 Hours) Last Vital Signs Temp 36.2 C L 12/09/23 15:55 Pulse 84 12/09/23 15:55 Resp 18 12/09/23 15:55 BP 100/66 12/09/23 15:55 Pulse Ox 99 12/09/23 15:55 O2 Del Method Room Air 12/09/23 15:55 Results & Data (U) Laboratory Results Laboratory Results - last 24 hr 12/09/23 17:30 Valproic Acid 43 L Current Inpatient Medications Current Inpatient Medications: Current Inpatient Medications Acetaminophen (Acetaminophen 325 Mg Tab) 650 mg PO Q4H PRN PRN Reason: Headache or Minor Fever Stop: 12/21/23 10:46 Last Admin: 12/06/23 10:43 Dose: 650 mg Al Hydrox/Mg Hydrox/Simethicone (Aluminum/Magnesium Susp 30 Ml Udc) 30 ml PO Q4H PRN PRN Reason: GI Upset Stop: 12/21/23 10:46 Benzocaine (Benzocaine 20% (Orajel) 11.9 Gm Tube) 1 appln MT Q4H PRN PRN Reason: gum or tooth pain Stop: 01/03/24 08:56 Benztropine Mesylate (Benztropine Mesylate 1 Mg Tab) 1 mg PO Q8H PRN PRN Reason: EPS, dystonia Stop: 12/21/23 11:57 Benztropine Mesylate (Benztropine Mesylate 1 Mg/Ml 2 Ml Amp) 1 mg IM Q8H PRN PRN Reason: EPS, dystonia Stop: 12/21/23 11:59 Bismuth Subsalicylate (Bismuth Subsalicylate Liqd 236 Ml) 15 ml PO PRN PRN PRN Reason: Loose Stool Stop: 12/21/23 10:46 Chlorpromazine HCl (Chlorpromazine Hcl 25 Mg Tab) 12.5 mg PO TID PRN PRN Reason: Agitation Stop: 12/26/23 08:59 Last Admin: 12/06/23 10:43 Dose: 12.5 mg Chlorpromazine HCl (Chlorpromazine Hcl 25 Mg/Ml Amp) 25 mg IM BID PRN PRN Reason: Agitation Stop: 12/30/23 09:34 Last Admin: 12/02/23 14:07 Dose: 25 mg Clonazepam (Clonazepam 0.5 Mg Tab) 0.5 mg PO QDD JEREMIAH Stop: 01/04/24 17:44 Last Admin: 12/09/23 16:59 Dose: 0.5 mg Divalproex Sodium (Divalproex Delay Release 500 Mg Tab) 500 mg PO QDD JEREMIAH Stop: 01/04/24 17:44 Last Admin: 12/09/23 17:29 Dose: 500 mg Haloperidol (Haloperidol 5 Mg Tab) 5 mg PO Q8H PRN PRN Reason: Agitation Stop: 12/21/23 11:57 Last Admin: 12/07/23 12:16 Dose: 5 mg Haloperidol (Haloperidol 5 Mg Tab) 5 mg PO BIDM [facility] Stop: 01/04/24 17:44 Last Admin: 12/10/23 08:58 Dose: 5 mg Haloperidol Lactate (Haloperidol Lactate 5 Mg/Ml 1 Ml Vial) 5 mg IM Q8H PRN PRN Reason: Agitation Stop: 12/21/23 11:57 Hydroxyzine HCl (Hydroxyzine Hcl 25 Mg Tab) 50 mg PO HSZ PRN PRN Reason: Insomnia Stop: 12/21/23 10:46 Last Admin: 12/05/23 18:44 Dose: 50 mg Hydroxyzine HCl (Hydroxyzine Hcl 25 Mg Tab) 25 mg PO Q4H PRN PRN Reason: Anxiety Stop: 12/21/23 10:46 Last Admin: 12/09/23 07:26 Dose: 25 mg Lorazepam (Lorazepam 2 Mg/1 Ml Vial) 1 mg IM Q8H PRN PRN Reason: Agitation Stop: 12/21/23 11:57 Last Admin: 12/02/23 14:06 Dose: 1 mg Lorazepam (Lorazepam 1 Mg Tab) 1 mg PO Q8H PRN PRN Reason: Agitation Stop: 12/21/23 11:57 Last Admin: 12/07/23 12:16 Dose: 1 mg Magnesium Hydroxide (Magnesium Hydroxide Susp 30 Ml Udc) 30 ml PO DAILY PRN PRN Reason: Constipation Stop: 12/21/23 10:46 Miscellaneous (Remove Nicoderm Patch) 1 each N/A DAILY@0859 [facility] Stop: 01/05/24 08:58 Last Admin: 12/10/23 08:59 Dose: Not Given Nicotine (Nicotine 7 Mg/24 Hr Tdsy) 1 patch TD QAM [facility] Stop: 01/05/24 08:59 Last Admin: 12/10/23 08:59 Dose: Not Given Nicotine Polacrilex (Nicotine Polacrilex 2 Mg Gum) 1 piece MT Q2H PRN PRN Reason: nicotine cravings Stop: 12/24/23 09:27 Last Admin: 12/09/23 15:58 Dose: 1 piece Sodium Chloride (Sodium Chloride 0.65% Na Soln 45 Ml ([place])) 1 - 2 sprays NA PRN PRN PRN Reason: Nasal Dryness/Congestion Stop: 12/21/23 10:46 Mental Health & Subst Abuse Tx Psychiatrist Name of Psychiatrist: Sara Duque [facility] Psychiatrist's Psychiatric Appointment Comment: [address], [address], [place] [address] Therapist Name of Therapist: denies Net Lead Architect Name of Net Lead Architect: denies Post Discharge Appointments Primary Care Physician Name Of Family Doctor/PCP: Sara Duque [facility] Primary Care Provider Appointment Comment: [address], [address], [place] [address]
--- NOTE | 2023-12-11 08:59 | Psychiatric Progress Note ---
Date of Service December 11, 2023 Impression / Recommendations Impression Emilia Orta is a 28-year-old female unknown past history who was brought in by police after being found wandering the street by gas station. Patient presented pressured and tangential speech, memory impairment, and concern for psychosis. She was admitted on 11/21/23 09:58 on a 302 involuntary commitment for psychosis, now on a 303 commitment. Currently on 303 commitment. 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 Patient has demonstrated significant dysfunction evidenced by recurrent legal troubles, persistent sy mptoms, recurrent hospitalizations, poor insight, inability to maintain stability in the community, and continued drug dependence. A: Some increased lability today related to disposition discussions which showed evidence of ongoing loosening associations and thought disorganization. Due to her ongoing difficulty attending to her basic needs including housing and welfare I completed paperwork to file for 304 commitment request. Tolerating Depakote increase. Will continue to monitor umbilicus site, hospitalist recommended trial of bacitracin ointment and ordered Tdap given risk for tetanus given metal of object she was using as a piercing ring. Overall, I spent a total of 55 minutes with this case including review of chart records, nursing report, review of lab work, direct evaluation of the patient at bedside, counseling the patient, orders, and documentation in the electronic health record. 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 12/10/2023: Increase Depakote DR 250mg qAM and 500mg qdinner. Plan to taper Klonopin in coming days if Depakote increase is well tolerated. 12/09/2023: Continue current medications and tx plan. Will consider transition to Depakote ER after trough level is back. Can consider transition to olanzapine if she continues to prefer this to haldol. 12/08/2023: Trough Depakote level tomorrow PM (12/09/23) 12/07/2023: Continue medications and treatment plan. 12/06/2023: Continue medications and treatment plan. 12/05/2023: Schedule Depakote/Haldol/Klonopin at dinner instead of bedtime. 12/04/2023: Continue current medications and tx plan. 12/03/2023: Continue current medications and tx plan. 12/02/2023: Start Depakote DR 500mg HS. 12/01/2023: Continue current medications and tx plan. Continuing to attempt to get urine sample for UPT. 11/30/2023: UPT ordered. Added Thorazine 25mg IM prn for agitation per her request for additional IM medication options. 11/29/2023: Continue current medications and tx plan. 11/28/2023: Continue current medications and tx plan. 11/27/2023: Discontinue [place] and risperidone. Start haldol 5mg BID. 11/26/2023: Start Thorazine 12.5mg TID prn po for agitation. 11/25/2023: Decrease Clonazepam to 0.5mg HS. Encourage fluids. 11/24/2023: Start [place] 300mg BID for mood lability. 11/23/2023: Continue medications and treatment plan. 11/22/2023: Increase risperidone to 1 mg every morning and 2 mg nightly. Continue clonazepam 1 mg at bedtime. Encourage fluids. STI and hepatitis panel. 11/21/2023: One-time lorazepam 2 mg p.o. for anxiety. Schedule risperidone 1 mg twice daily and clonazepam 1 mg at bedtime. Baseline EKG and labs: Free T4, free T3, A1c, lipid panel. Inventory Assets Strengths: able to express needs, accepting treatment Needs: social supports, mood control Suicide Risk Level Suicide Risk Level: Moderate (q15 min suicide checks) (one episode of voicing SI but recently denying SI, mood less labile overall, able to ask staff for support ) Risk Factors Assessment Male: No : Yes Do You Have Access To A Gun?: No Health Problems: No Mental Health Diagnoses: Yes Substance Use Disorders: Yes Previous Attempt: No Family History of Suicide: No Previous Psychiatric Hospitalization: Yes Hopelessness: No Protective Factors Assessment Episcopalian Beliefs: No : No Responsible for Young Children: No Employed: No Stable Relationships: No Supportive Family: No Good Rapport with Provider: Yes Absence of Any Risk Factors Above: No Interval History Identifying Information Emilia Orta is a 28-year-old female unknown past history who was brought in by police after being found wandering the street by gas station. Patient presented pressured and tangential speech, memory impairment, and concern for psychosis. She was admitted on 11/21/23 09:58 on a 302 involuntary commitment for psychosis. Chief Complaint "Ok". Review of Systems Sleep Information Total Hours of Sleep: 10 Meal Information Percent Meal Consumed - Breakfast: 100 Percent Meal Consumed - Lunch: 100 Percent Meal Consumed - Dinner: 100 Nutrition Comment: sleeping Subjective Subjective Patient was seen & assessed and interval progress reviewed with treatment team nursing and social work. Upbeat mood in the morning and made calls to start process for possible residential substance use treatment but then became more disorganized, requested to leave today and citing having an address she could go to but then unable to provide details of this. Confused when discussing disposition options with me. Frustrated by being in the hospital but unable to think about any possible options outside of the hospital. Confused about what day of the week it was. Confused about what county she had called on the phone mixing up [place] and [place] and frustrated when I attempted to discuss this with her. Mid-day announced that she needed a pair of scissors to cut a homemade ring out of her belly button. Nurses were able to remove using suture kit. Emilia stated homemade ring was from something she found and that "I just wasn't thinking" when she decided to put it in her exisiting piercing hole. She did allow me to examine site and slight redness near ring but no other redness, she reported very mild itchiness but denies any burning, redness, warmth or pain. She agreed to allow antibiotic ointment and nursing assessments to ensure no signs of infection develop. Physical Exam Psychiatric Orientation: alert and oriented x 3 Apperance: appropriately dressed and + disheveled Eye Contact: good eye contact Motor Behavior: no abnormal motor movements Speech: normal rate/rhythm/volume of speech Affect: + anxious affect, + labile affect, + irritable affect and + elated affect Mood: + anxious mood and + irritable mood Thought Process: + circumstantial thought process and + looseness of associations Thought Content: + preoccupation Insight: + limited insight Judgment: + limited judgement Vital Signs (Past 24 Hours) Last Vital Signs Temp 36.1 C L 12/10/23 12:20 Pulse 68 12/10/23 12:20 Resp 18 12/10/23 12:20 BP 89/61 L 12/10/23 12:20 Pulse Ox 99 12/10/23 12:20 O2 Del Method Room Air 12/10/23 12:20 Results & Data ([facility]) Current Inpatient Medications Current Inpatient Medications: Current Inpatient Medications Acetaminophen (Acetaminophen 325 Mg Tab) 650 mg PO Q4H PRN PRN Reason: Headache or Minor Fever Stop: 12/21/23 10:46 Last Admin: 12/06/23 10:43 Dose: 650 mg Al Hydrox/Mg Hydrox/Simethicone (Aluminum/Magnesium Susp 30 Ml Udc) 30 ml PO Q4H PRN PRN Reason: GI Upset Stop: 12/21/23 10:46 Benzocaine (Benzocaine 20% (Orajel) 11.9 Gm Tube) 1 appln MT Q4H PRN PRN Reason: gum or tooth pain Stop: 01/03/24 08:56 Benztropine Mesylate (Benztropine Mesylate 1 Mg Tab) 1 mg PO Q8H PRN PRN Reason: EPS, dystonia Stop: 12/21/23 11:57 Benztropine Mesylate (Benztropine Mesylate 1 Mg/Ml 2 Ml Amp) 1 mg IM Q8H PRN PRN Reason: EPS, dystonia Stop: 12/21/23 11:59 Bismuth Subsalicylate (Bismuth Subsalicylate Liqd 236 Ml) 15 ml PO PRN PRN PRN Reason: Loose Stool Stop: 12/21/23 10:46 Chlorpromazine HCl (Chlorpromazine Hcl 25 Mg Tab) 12.5 mg PO TID PRN PRN Reason: Agitation Stop: 12/26/23 08:59 Last Admin: 12/06/23 10:43 Dose: 12.5 mg Chlorpromazine HCl (Chlorpromazine Hcl 25 Mg/Ml Amp) 25 mg IM BID PRN PRN Reason: Agitation Stop: 12/30/23 09:34 Last Admin: 12/02/23 14:07 Dose: 25 mg Clonazepam (Clonazepam 0.5 Mg Tab) 0.5 mg PO QDD JEREMIAH Stop: 01/04/24 17:44 Last Admin: 12/10/23 17:23 Dose: 0.5 mg Divalproex Sodium (Divalproex Delay Release 500 Mg Tab) 500 mg PO QDD JEREMIAH Stop: 01/04/24 17:44 Last Admin: 12/10/23 17:23 Dose: 500 mg Divalproex Sodium (Divalproex Delay Release 250 Mg [place]) 250 mg PO QAM JEREMIAH Stop: 01/10/24 08:59 Haloperidol (Haloperidol 5 Mg Tab) 5 mg PO Q8H PRN PRN Reason: Agitation Stop: 12/21/23 11:57 Last Admin: 12/07/23 12:16 Dose: 5 mg Haloperidol (Haloperidol 5 Mg Tab) 5 mg PO BIDM [facility] Stop: 01/04/24 17:44 Last Admin: 12/10/23 17:23 Dose: 5 mg Haloperidol Lactate (Haloperidol Lactate 5 Mg/Ml 1 Ml Vial) 5 mg IM Q8H PRN PRN Reason: Agitation Stop: 12/21/23 11:57 Hydroxyzine HCl (Hydroxyzine Hcl 25 Mg Tab) 50 mg PO HSZ PRN PRN Reason: Insomnia Stop: 12/21/23 10:46 Last Admin: 12/05/23 18:44 Dose: 50 mg Hydroxyzine HCl (Hydroxyzine Hcl 25 Mg Tab) 25 mg PO Q4H PRN PRN Reason: Anxiety Stop: 12/21/23 10:46 Last Admin: 12/10/23 12:05 Dose: 25 mg Lorazepam (Lorazepam 2 Mg/1 Ml Vial) 1 mg IM Q8H PRN PRN Reason: Agitation Stop: 12/21/23 11:57 Last Admin: 12/02/23 14:06 Dose: 1 mg Lorazepam (Lorazepam 1 Mg Tab) 1 mg PO Q8H PRN PRN Reason: Agitation Stop: 12/21/23 11:57 Last Admin: 12/07/23 12:16 Dose: 1 mg Magnesium Hydroxide (Magnesium Hydroxide Susp 30 Ml Udc) 30 ml PO DAILY PRN PRN Reason: Constipation Stop: 12/21/23 10:46 Miscellaneous (Remove Nicoderm Patch) 1 each N/A DAILY@0859 [facility] Stop: 01/05/24 08:58 Last Admin: 12/10/23 08:59 Dose: Not Given Nicotine (Nicotine 7 Mg/24 Hr Tdsy) 1 patch TD QAM JEREMIAH Stop: 01/05/24 08:59 Last Admin: 12/10/23 08:59 Dose: Not Given Nicotine Polacrilex (Nicotine Polacrilex 2 Mg Gum) 1 piece MT Q2H PRN PRN Reason: nicotine cravings Stop: 12/24/23 09:27 Last Admin: 12/09/23 15:58 Dose: 1 piece Sodium Chloride (Sodium Chloride 0.65% Na Soln 45 Ml ([place])) 1 - 2 sprays NA PRN PRN PRN Reason: Nasal Dryness/Congestion Stop: 12/21/23 10:46 Mental Health & Subst Abuse Tx Psychiatrist Name of Psychiatrist: Sara Duque [facility] Psychiatrist's Psychiatric Appointment Comment: [address], [address], [facility] [address] Therapist Name of Therapist: denies Pad Extraction Tender Name of Pad Extraction Tender: denies Post Discharge Appointments Primary Care Physician Name Of Family Doctor/PCP: Sara Duque [facility] Primary Care Provider Appointment Comment: [address], [address], [place] [address]
[2023-12-11] MEDS: DIVALPROEX DELAY RELEASE 250 MG TABEC PO SCH (09:04)
[2023-12-11] MEDS: DIPHTHER/TETAN/PERTUS Vaccine (Tdap, Adol/Adult) 0.5mL IM ONE (15:35)
[2023-12-11] MEDS ORDERED: Nursing to Pharmacy Communication SCH (17:15)
[2023-12-11] MEDS: BACITRACIN OINT 14 GM TUBE EXT SCH (18:04)
[2023-12-11] MEDS ORDERED: BACITRACIN OINT 14 GM TUBE EXT SCH (21:00)
--- NOTE | 2023-12-12 08:51 | Psychiatric Progress Note ---
Date of Service December 12, 2023 Impression / Recommendations Impression Emilia Orta is a 28-year-old female unknown past history who was brought in by police after being found wandering the street by gas station. Patient presented pressured and tangential speech, memory impairment, and concern for psychosis. She was admitted on 11/21/23 09:58 on a 302 involuntary commitment for psychosis, now on a 303 commitment. Currently on 303 commitment. 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 Patient has demonstrated significant dysfunction evidenced by recurrent legal troubles, persistent sy mptoms, recurrent hospitalizations, poor insight, inability to maintain stability in the community, and continued drug dependence. A: Ongoing mood lability, more tearful today. 304 commitment hearing scheduled for tomorrow. Unclear if her statements about living with her mother are a plausible disposition option. SW left message with her mother to confirm and discuss logistics if this were to be a feasible option. Overall, I spent a total of 25 minutes with this case including review of chart records, nursing report, review of lab work, direct evaluation of the patient at bedside, counseling the patient, orders, and documentation in the electronic health record. 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 12/11/2023: Bacitracin ointment BID and Tdap vaccine ordered. 12/10/2023: Increase Depakote DR 250mg qAM and 500mg qdinner. Plan to taper Klonopin in coming days if Depakote increase is well tolerated. 12/09/2023: Continue current medications and tx plan. Will consider transition to Depakote ER after trough level is back. Can consider transition to olanzapine if she continues to prefer this to haldol. 12/08/2023: Trough Depakote level tomorrow PM (7/20/24) 12/07/2023: Continue medications and treatment plan. 12/06/2023: Continue medications and treatment plan. 12/05/2023: Schedule Depakote/Haldol/Klonopin at dinner instead of bedtime. 12/04/2023: Continue current medications and tx plan. 12/03/2023: Continue current medications and tx plan. 12/02/2023: Start Depakote DR 500mg HS. 12/01/2023: Continue current medications and tx plan. Continuing to attempt to get urine sample for UPT. 11/30/2023: UPT ordered. Added Thorazine 25mg IM prn for agitation per her request for additional IM medication options. 11/29/2023: Continue current medications and tx plan. 11/28/2023: Continue current medications and tx plan. 11/27/2023: Discontinue [place] and risperidone. Start haldol 5mg BID. 11/26/2023: Start Thorazine 12.5mg TID prn po for agitation. 11/25/2023: Decrease Clonazepam to 0.5mg HS. Encourage fluids. 11/24/2023: Start [place] 300mg BID for mood lability. 11/23/2023: Continue medications and treatment plan. 11/22/2023: Increase risperidone to 1 mg every morning and 2 mg nightly. Continue clonazepam 1 mg at bedtime. Encourage fluids. STI and hepatitis panel. 11/21/2023: One-time lorazepam 2 mg p.o. for anxiety. Schedule risperidone 1 mg twice daily and clonazepam 1 mg at bedtime. Baseline EKG and labs: Free T4, free T3, A1c, lipid panel. Inventory Assets Strengths: able to express needs, accepting treatment Needs: social supports, mood control Suicide Risk Level Suicide Risk Level: Moderate (q15 min suicide checks) (one episode of voicing SI but recently denying SI, mood lability, able to ask staff for support ) Risk Factors Assessment Male: No : Yes Do You Have Access To A Gun?: No Health Problems: No Mental Health Diagnoses: Yes Substance Use Disorders: Yes Previous Attempt: No Family History of Suicide: No Previous Psychiatric Hospitalization: Yes Hopelessness: No Protective Factors Assessment Christian Beliefs: No : No Responsible for Young Children: No Employed: No Stable Relationships: No Supportive Family: No Good Rapport with Provider: Yes Absence of Any Risk Factors Above: No Interval History Identifying Information Emilia Orta is a 28-year-old female unknown past history who was brought in by police after being found wandering the street by gas station. Patient presented pressured and tangential speech, memory impairment, and concern for psychosis. She was admitted on 11/21/23 09:58 on a 302 involuntary commitment for psychosis. Chief Complaint "My mom can get me". Review of Systems Sleep Information Total Hours of Sleep: 8 Meal Information Percent Meal Consumed - Breakfast: 100 Percent Meal Consumed - Lunch: 100 Percent Meal Consumed - Dinner: 100 Nutrition Comment: sleeping Subjective Subjective Patient was seen & assessed and interval progress reviewed with treatment team nursing and social work. Still not attending any groups. Hang up yesterday afternoon while trying to call [facility] to discuss residential substance use treatment. This morning was tearful in discussing with counselor being lonely and not having any support except her mother. Today tells me she wants to live with her mother in [place]. Tolerating her medications. Physical Exam Psychiatric Orientation: alert and oriented x 3 Apperance: appropriately dressed and + disheveled Eye Contact: good eye contact Motor Behavior: no abnormal motor movements Speech: normal rate/rhythm/volume of speech Affect: + anxious affect, + tearful affect, + labile affect and + irritable affect Mood: + depressed mood and + anxious mood Thought Process: + circumstantial thought process and + looseness of associations Thought Content: + preoccupation Insight: + limited insight Judgment: + limited judgement Vital Signs (Past 24 Hours) Last Vital Signs Temp 36.5 C 12/12/23 06:38 Pulse 73 12/12/23 06:38 Resp 16 12/12/23 06:38 BP 90/57 L 12/12/23 06:38 Pulse Ox 99 12/10/23 12:20 O2 Del Method Room Air 12/10/23 12:20 Results & Data ([facility]) Current Inpatient Medications Current Inpatient Medications: Current Inpatient Medications Acetaminophen (Acetaminophen 325 Mg Tab) 650 mg PO Q4H PRN PRN Reason: Headache or Minor Fever Stop: 12/21/23 10:46 Last Admin: 12/06/23 10:43 Dose: 650 mg Al Hydrox/Mg Hydrox/Simethicone (Aluminum/Magnesium Susp 30 Ml Udc) 30 ml PO Q4H PRN PRN Reason: GI Upset Stop: 12/21/23 10:46 Bacitracin (Bacitracin Oint 14 Gm Tube) 1 appln EXT BID JEREMIAH Stop: 01/11/24 08:59 Benzocaine (Benzocaine 20% (Orajel) 11.9 Gm Tube) 1 appln MT Q4H PRN PRN Reason: gum or tooth pain Stop: 01/03/24 08:56 Benztropine Mesylate (Benztropine Mesylate 1 Mg Tab) 1 mg PO Q8H PRN PRN Reason: EPS, dystonia Stop: 12/21/23 11:57 Benztropine Mesylate (Benztropine Mesylate 1 Mg/Ml 2 Ml Amp) 1 mg IM Q8H PRN PRN Reason: EPS, dystonia Stop: 12/21/23 11:59 Bismuth Subsalicylate (Bismuth Subsalicylate Liqd 236 Ml) 15 ml PO PRN PRN PRN Reason: Loose Stool Stop: 12/21/23 10:46 Chlorpromazine HCl (Chlorpromazine Hcl 25 Mg Tab) 12.5 mg PO TID PRN PRN Reason: Agitation Stop: 12/26/23 08:59 Last Admin: 12/06/23 10:43 Dose: 12.5 mg Chlorpromazine HCl (Chlorpromazine Hcl 25 Mg/Ml Amp) 25 mg IM BID PRN PRN Reason: Agitation Stop: 12/30/23 09:34 Last Admin: 12/02/23 14:07 Dose: 25 mg Clonazepam (Clonazepam 0.5 Mg Tab) 0.5 mg PO QDD [facility] Stop: 01/04/24 17:44 Last Admin: 12/11/23 17:35 Dose: 0.5 mg Divalproex Sodium (Divalproex Delay Release 500 Mg Tab) 500 mg PO QDD [facility] Stop: 01/04/24 17:44 Last Admin: 12/11/23 17:34 Dose: 500 mg Divalproex Sodium (Divalproex Delay Release 250 Mg Tabec) 250 mg PO QAM [facility] Stop: 01/10/24 08:59 Last Admin: 12/12/23 07:58 Dose: 250 mg Haloperidol (Haloperidol 5 Mg Tab) 5 mg PO Q8H PRN PRN Reason: Agitation Stop: 12/21/23 11:57 Last Admin: 12/07/23 12:16 Dose: 5 mg Haloperidol (Haloperidol 5 Mg Tab) 5 mg PO BIDM [facility] Stop: 01/04/24 17:44 Last Admin: 12/12/23 07:57 Dose: 5 mg Haloperidol Lactate (Haloperidol Lactate 5 Mg/Ml 1 Ml Vial) 5 mg IM Q8H PRN PRN Reason: Agitation Stop: 12/21/23 11:57 Hydroxyzine HCl (Hydroxyzine Hcl 25 Mg Tab) 50 mg PO HSZ PRN PRN Reason: Insomnia Stop: 12/21/23 10:46 Last Admin: 12/05/23 18:44 Dose: 50 mg Hydroxyzine HCl (Hydroxyzine Hcl 25 Mg Tab) 25 mg PO Q4H PRN PRN Reason: Anxiety Stop: 12/21/23 10:46 Last Admin: 12/10/23 12:05 Dose: 25 mg Lorazepam (Lorazepam 2 Mg/1 Ml Vial) 1 mg IM Q8H PRN PRN Reason: Agitation Stop: 12/21/23 11:57 Last Admin: 12/02/23 14:06 Dose: 1 mg Lorazepam (Lorazepam 1 Mg Tab) 1 mg PO Q8H PRN PRN Reason: Agitation Stop: 12/21/23 11:57 Last Admin: 12/07/23 12:16 Dose: 1 mg Magnesium Hydroxide (Magnesium Hydroxide Susp 30 Ml Udc) 30 ml PO DAILY PRN PRN Reason: Constipation Stop: 12/21/23 10:46 Miscellaneous (Remove Nicoderm Patch) 1 each N/A DAILY@0859 [facility] Stop: 01/05/24 08:58 Last Admin: 12/12/23 08:00 Dose: Not Given Nicotine (Nicotine 7 Mg/24 Hr Tdsy) 1 patch TD QAM [facility] Stop: 01/05/24 08:59 Last Admin: 12/12/23 07:59 Dose: 1 patch Nicotine Polacrilex (Nicotine Polacrilex 2 Mg Gum) 1 piece MT Q2H PRN PRN Reason: nicotine cravings Stop: 12/24/23 09:27 Last Admin: 12/09/23 15:58 Dose: 1 piece Sodium Chloride (Sodium Chloride 0.65% Na Soln 45 Ml ([place])) 1 - 2 sprays NA PRN PRN PRN Reason: Nasal Dryness/Congestion Stop: 12/21/23 10:46 Mental Health & Subst Abuse Tx Psychiatrist Name of Psychiatrist: Sara Duque [facility] Psychiatrist's Psychiatric Appointment Comment: [address], [address], [facility] [address] Therapist Name of Therapist: denies Radio Station Operator Name of Radio Station Operator: denies Post Discharge Appointments Primary Care Physician Name Of Family Doctor/PCP: Sara Duque [facility] Primary Care Provider Appointment Comment: [address], [address], [facility] [address]
[2023-12-12] MEDS: BACITRACIN OINT 14 GM TUBE EXT SCH (10:29)
[2023-12-12] MEDS: BENZOCAINE 20% (ORAJEL) 11.9 GM TUBE MT PRN (19:10)
--- NOTE | 2023-12-13 08:56 | Psychiatric Progress Note ---
Date of Service December 13, 2023 Impression / Recommendations Impression Emilia Orta is a 28-year-old female unknown past history who was brought in by police after being found wandering the street by gas station. Patient presented pressured and tangential speech, memory impairment, and concern for psychosis. She was admitted on 11/21/23 09:58 on a 302 involuntary commitment for psychosis, now on a 304 commitment. 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 Patient has demonstrated significant dysfunction evidenced by recurrent legal troubles, persistent symptoms, recurrent hospitalizations, poor insight, inability to maintain stability in the community, and continued drug dependence. A: More irritable and disorganized today, increased delusions and paranoia after night with less sleep. participated in 304 commitment hearing and 304 commitment granted. Ongoing challenge of lack of disposition options. Overall, I spent a total of 60 minutes with this case including review of chart records, nursing report, review of lab work, direct evaluation of the patient at bedside, counseling the patient, orders, and documentation in the electronic health record, participation in 304 hearing. 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 12/12/2023: Continue current medications and tx plan. 12/11/2023: Bacitracin ointment BID and Tdap vaccine ordered. 12/10/2023: Increase Depakote DR 250mg qAM and 500mg qdinner. Plan to taper Klonopin in coming days if Depakote increase is well tolerated. 12/09/2023: Continue current medications and tx plan. Will consider transition to Depakote ER after trough level is back. Can consider transition to olanzapine if she continues to prefer this to haldol. 12/08/2023: Trough Depakote level tomorrow PM (12/09/23) 12/07/2023: Continue medications and treatment plan. 12/06/2023: Continue medications and treatment plan. 12/05/2023: Schedule Depakote/Haldol/Klonopin at dinner instead of bedtime. 12/04/2023: Continue current medications and tx plan. 12/03/2023: Continue current medications and tx plan. 12/02/2023: Start Depakote DR 500mg HS. 12/01/2023: Continue current medications and tx plan. Continuing to attempt to get urine sample for UPT. 11/30/2023: UPT ordered. Added Thorazine 25mg IM prn for agitation per her request for additional IM medication options. 11/29/2023: Continue current medications and tx plan. 11/28/2023: Continue current medications and tx plan. 11/27/2023: Discontinue [place] and risperidone. Start haldol 5mg BID. 11/26/2023: Start Thorazine 12.5mg TID prn po for agitation. 11/25/2023: Decrease Clonazepam to 0.5mg HS. Encourage fluids. 11/24/2023: Start [place] 300mg BID for mood lability. 11/23/2023: Continue medications and treatment plan. 11/22/2023: Increase risperidone to 1 mg every morning and 2 mg nightly. Continue clonazepam 1 mg at bedtime. Encourage fluids. STI and hepatitis panel. 11/21/2023: One-time lorazepam 2 mg p.o. for anxiety. Schedule risperidone 1 mg twice daily and clonazepam 1 mg at bedtime. Baseline EKG and labs: Free T4, free T3, A1c, lipid panel. Inventory Assets Strengths: able to express needs, accepting treatment Needs: social supports, mood control Suicide Risk Level Suicide Risk Level: Moderate (q15 min suicide checks) (one episode of voicing SI but recently denying SI, mood lability, able to ask staff for support ) Risk Factors Assessment Male: No : Yes Do You Have Access To A Gun?: No Health Problems: No Mental Health Diagnoses: Yes Substance Use Disorders: Yes Previous Attempt: No Family History of Suicide: No Previous Psychiatric Hospitalization: Yes Hopelessness: No Protective Factors Assessment Zoroastrian Beliefs: No : No Responsible for Young Children: No Employed: No Stable Relationships: No Supportive Family: No Good Rapport with Provider: Yes Absence of Any Risk Factors Above: No Interval History Identifying Information Emilia Orta is a 28-year-old female unknown past history who was brought in by police after being found wandering the street by gas station. Patient presented pressured and tangential speech, memory impairment, and concern for psychosis. She was admitted on 11/21/23 09:58 on a 302 involuntary commitment for psychosis. Chief Complaint "I'm not taking medication when I leave". Review of Systems Sleep Information Total Hours of Sleep: 6.30 Meal Information Percent Meal Consumed - Breakfast: 100 Percent Meal Consumed - Lunch: 100 Percent Meal Consumed - Dinner: 100 Nutrition Comment: sleeping Subjective Subjective Patient was seen & assessed and interval progress reviewed with treatment team nursing and social work. Yesterday tolerated community meeting and did seem to follow structure for the first time yesterday. This morning more organized, declined to participate in 304 commitment hearing. Afternoon much more disorganized, talking about HIV, suspicious of me asking me about my mu-ism beliefs and reporting her intention to not take any medications and not need any medical follow-up after discharge. Reports she can live with grandmother who has PFA against her. Then tells us her mother was on the phone and was coming to get her next week but then observed to not be dialing any numbers on the phone. Upset with discussion about medications, asking for [place] "injection" and to get more Klonopin. Physical Exam Psychiatric Orientation: alert and oriented x 3 Apperance: appropriately dressed and + disheveled Eye Contact: good eye contact Motor Behavior: no abnormal motor movements Speech: normal rate/rhythm/volume of speech Affect: + anxious affect, + tearful affect, + labile affect and + irritable affect Mood: + anxious mood, + irritable mood and + angry mood Thought Process: + circumstantial thought process and + looseness of association s Thought Content: + preoccupation Insight: + limited insight Judgment: + limited judgement Vital Signs (Past 24 Hours) Last Vital Signs Temp 36.5 C 12/12/23 06:38 Pulse 73 12/12/23 06:38 Resp 16 12/12/23 06:38 BP 90/57 L 12/12/23 06:38 Pulse Ox 99 12/10/23 12:20 O2 Del Method Room Air 12/10/23 12:20 Results & Data ([facility]) Current Inpatient Medications Current Inpatient Medications: Current Inpatient Medications Acetaminophen (Acetaminophen 325 Mg Tab) 650 mg PO Q4H PRN PRN Reason: Headache or Minor Fever Stop: 12/21/23 10:46 Last Admin: 12/12/23 18:41 Dose: 650 mg Al Hydrox/Mg Hydrox/Simethicone (Aluminum/Magnesium Susp 30 Ml Udc) 30 ml PO Q4H PRN PRN Reason: GI Upset Stop: 12/21/23 10:46 Bacitracin (Bacitracin Oint 14 Gm Tube) 1 appln EXT BID JEREMIAH Stop: 01/11/24 08:59 Last Admin: 12/13/23 08:41 Dose: Not Given Benzocaine (Benzocaine 20% (Orajel) 11.9 Gm Tube) 1 appln MT Q4H PRN PRN Reason: gum or tooth pain Stop: 01/03/24 08:56 Last Admin: 12/12/23 19:10 Dose: 1 appln Benztropine Mesylate (Benztropine Mesylate 1 Mg Tab) 1 mg PO Q8H PRN PRN Reason: EPS, dystonia Stop: 12/21/23 11:57 Benztropine Mesylate (Benztropine Mesylate 1 Mg/Ml 2 Ml Amp) 1 mg IM Q8H PRN PRN Reason: EPS, dystonia Stop: 12/21/23 11:59 Bismuth Subsalicylate (Bismuth Subsalicylate Liqd 236 Ml) 15 ml PO PRN PRN PRN Reason: Loose Stool Stop: 12/21/23 10:46 Chlorpromazine HCl (Chlorpromazine Hcl 25 Mg Tab) 12.5 mg PO TID PRN PRN Reason: Agitation Stop: 12/26/23 08:59 Last Admin: 12/06/23 10:43 Dose: 12.5 mg Chlorpromazine HCl (Chlorpromazine Hcl 25 Mg/Ml Amp) 25 mg IM BID PRN PRN Reason: Agitation Stop: 12/30/23 09:34 Last Admin: 12/02/23 14:07 Dose: 25 mg Clonazepam (Clonazepam 0.5 Mg Tab) 0.5 mg PO QDD [facility] Stop: 01/04/24 17:44 Last Admin: 12/12/23 17:29 Dose: 0.5 mg Divalproex Sodium (Divalproex Delay Release 500 Mg Tab) 500 mg PO QDD [facility] Stop: 01/04/24 17:44 Last Admin: 12/12/23 18:41 Dose: 500 mg Divalproex Sodium (Divalproex Delay Release 250 Mg Tabec) 250 mg PO QAM [facility] Stop: 01/10/24 08:59 Last Admin: 12/13/23 08:40 Dose: 250 mg Haloperidol (Haloperidol 5 Mg Tab) 5 mg PO Q8H PRN PRN Reason: Agitation Stop: 12/21/23 11:57 Last Admin: 12/07/23 12:16 Dose: 5 mg Haloperidol (Haloperidol 5 Mg Tab) 5 mg PO BIDM [facility] Stop: 01/04/24 17:44 Last Admin: 12/13/23 08:40 Dose: 5 mg Haloperidol Lactate (Haloperidol Lactate 5 Mg/Ml 1 Ml Vial) 5 mg IM Q8H PRN PRN Reason: Agitation Stop: 12/21/23 11:57 Hydroxyzine HCl (Hydroxyzine Hcl 25 Mg Tab) 50 mg PO HSZ PRN PRN Reason: Insomnia Stop: 12/21/23 10:46 Last Admin: 12/05/23 18:44 Dose: 50 mg Hydroxyzine HCl (Hydroxyzine Hcl 25 Mg Tab) 25 mg PO Q4H PRN PRN Reason: Anxiety Stop: 12/21/23 10:46 Last Admin: 12/12/23 10:35 Dose: 25 mg Lorazepam (Lorazepam 2 Mg/1 Ml Vial) 1 mg IM Q8H PRN PRN Reason: Agitation Stop: 12/21/23 11:57 Last Admin: 12/02/23 14:06 Dose: 1 mg Lorazepam (Lorazepam 1 Mg Tab) 1 mg PO Q8H PRN PRN Reason: Agitation Stop: 12/21/23 11:57 Last Admin: 12/07/23 12:16 Dose: 1 mg Magnesium Hydroxide (Magnesium Hydroxide Susp 30 Ml Udc) 30 ml PO DAILY PRN PRN Reason: Constipation Stop: 12/21/23 10:46 Miscellaneous (Remove Nicoderm Patch) 1 each N/A DAILY@0859 [facility] Stop: 01/05/24 08:58 Last Admin: 12/13/23 08:41 Dose: 1 each Nicotine (Nicotine 7 Mg/24 Hr Tdsy) 1 patch TD QAM [facility]ER[facility]IA[facility] Stop: 01/05/24 08:59 Last Admin: 12/13/23 08:41 Dose: Not Given Nicotine Polacrilex (Nicotine Polacrilex 2 Mg Gum) 1 piece MT Q2H PRN PRN Reason: nicotine cravings Stop: 12/24/23 09:27 Last Admin: 12/12/23 10:37 Dose: 1 piece Sodium Chloride (Sodium Chloride 0.65% Na Soln 45 Ml ([place])) 1 - 2 sprays NA PRN PRN PRN Reason: Nasal Dryness/Congestion Stop: 12/21/23 10:46 Mental Health & Subst Abuse Tx Psychiatrist Name of Psychiatrist: Sara Mandujano [facility] Psychiatrist's Psychiatric Appointment Comment: [address], [address], [place] [address] Therapist Name of Therapist: denies Straw Hat Brusher Name of Straw Hat Brusher: denies Post Discharge Appointments Primary Care Physician Name Of Family Doctor/PCP: Sara Mandujano [facility] Primary Care Provider Appointment Comment: [address], [address], [place] [address]
--- NOTE | 2023-12-14 09:01 | Psychiatric Progress Note ---
Date of Service December 14, 2023 Impression / Recommendations Impression Emilia Orta is a 28-year-old female unknown past history who was brought in by police after being found wandering the street by gas station. Patient presented pressured and tangential speech, memory impairment, and concern for psychosis. She was admitted on 11/21/23 09:58 on a 302 involuntary commitment for psychosis, now on a 304 commitment. 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 Patient has demonstrated significant dysfunction evidenced by recurrent legal troubles, persistent symptoms, recurrent hospitalizations, poor insight, inability to maintain stability in the community, and continued drug dependence. A: Less irritable today but still with loosened associations, paranoia. Ongoing poor insight. Tolerating higher dose of Depakote, plan to continue with titration. Ongoing challenge of lack of disposition options, ongoing attempts at motivational interviewing regarding substance use prior to admission. Overall, I spent a total of 25 minutes with this case including review of chart records, nursing report, review of lab work, direct evaluation of the patient at bedside, counseling the patient, orders, and documentation in the electronic health record. 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 12/13/2023: Increase Depakote to 500mg BID. 12/12/2023: Continue current medications and tx plan. 12/11/2023: Bacitracin ointment BID and Tdap vaccine ordered. 12/10/2023: Increase Depakote DR 250mg qAM and 500mg qdinner. Plan to taper Klonopin in coming days if Depakote increase is well tolerated. 12/09/2023: Continue current medications and tx plan. Will consider transition to Depakote ER after trough level is back. Can consider transition to olanzapine if she continues to prefer this to haldol. 12/08/2023: Trough Depakote level tomorrow PM (12/09/23) 12/07/2023: Continue medications and treatment plan. 12/06/2023: Continue medications and treatment plan. 12/05/2023: Schedule Depakote/Haldol/Klonopin at dinner instead of bedtime. 12/04/2023: Continue current medications and tx plan. 12/03/2023: Continue current medications and tx plan. 12/02/2023: Start Depakote DR 500mg HS. 12/01/2023: Continue current medications and tx plan. Continuing to attempt to get urine sample for UPT. 11/30/2023: UPT ordered. Added Thorazine 25mg IM prn for agitation per her request for additional IM medication options. 11/29/2023: Continue current medications and tx plan. 11/28/2023: Continue current medications and tx plan. 11/27/2023: Discontinue [place] and risperidone. Start haldol 5mg BID. 11/26/2023: Start Thorazine 12.5mg TID prn po for agitation. 11/25/2023: Decrease Clonazepam to 0.5mg HS. Encourage fluids. 11/24/2023: Start [place] 300mg BID for mood lability. 11/23/2023: Continue medications and treatment plan. 11/22/2023: Increase risperidone to 1 mg every morning and 2 mg nightly. Continue clonazepam 1 mg at bedtime. Encourage fluids. STI and hepatitis panel. 11/21/2023: One-time lorazepam 2 mg p.o. for anxiety. Schedule risperidone 1 mg twice daily and clonazepam 1 mg at bedtime. Baseline EKG and labs: Free T4, free T3, A1c, lipid panel. Inventory Assets Strengths: able to express needs, accepting treatment Needs: social supports, mood control Suicide Risk Level Suicide Risk Level: Moderate (q15 min suicide checks) (one episode of voicing SI but recently denying SI, mood lability, able to ask staff for support ) Risk Factors Assessment Male: No : Yes Do You Have Access To A Gun?: No Health Problems: No Mental Health Diagnoses: Yes Substance Use Disorders: Yes Previous Attempt: No Family History of Suicide: No Previous Psychiatric Hospitalization: Yes Hopelessness: No Protective Factors Assessment Yarsani Beliefs: No : No Responsible for Young Children: No Employed: No Stable Relationships: No Supportive Family: No Good Rapport with Provider: Yes Absence of Any Risk Factors Above: No Interval History Identifying Information Emilia Orta is a 28-year-old female unknown past history who was brought in by police after being found wandering the street by gas station. Patient presented pressured and tangential speech, memory impairment, and concern for psychosis. She was admitted on 11/21/23 09:58 on a 302 involuntary commitment for psychosis. Chief Complaint "Fine". Review of Systems Sleep Information Total Hours of Sleep: 7.75 Meal Information Percent Meal Consumed - Breakfast: 100 Percent Meal Consumed - Lunch: 100 Percent Meal Consumed - Dinner: 90 Nutrition Comment: sleeping Subjective Subjective Patient was seen & assessed and interval progress reviewed with treatment team nursing and social work. Yesterday got prn haldol and ativan po and did better in the evening. Her mother called in last night and confirmed that Emilia did in fact call her and that Emilia asked her mom to lie to staff to say that she would pick and shovel man Emilia and let her live with her. Her mother wants to visit but wants Emilia to go to residential substance use treatment. Today reports her mood is "fine". Attempt to discuss her recent methamphetamine use prior to hospitalization, she states she thinks her confusion may be due to "the air is bad out there". Denies any side effects from the higher dose of Depakote. More cooperative with interview today. Physical Exam Psychiatric Orientation: alert and oriented x 3 Apperance: appropriately dressed and + disheveled Eye Contact: good eye contact Motor Behavior: no abnormal motor movements Speech: normal rate/rhythm/volume of speech Affect: + labile affect and + constricted affect Mood: + anxious mood and + irritable mood Thought Process: + circumstantial thought process and + looseness of associations Thought Content: + preoccupation Insight: + poor insight Judgment: + limited judgement Vital Signs (Past 24 Hours) Last Vital Signs Temp 36.5 C 12/13/23 12:00 Pulse 80 12/13/23 12:00 Resp 18 12/13/23 12:00 BP 98/67 L 12/13/23 12:00 Pulse Ox 99 12/10/23 12:20 O2 Del Method Room Air 12/10/23 12:20 Results & Data ([facility]) Current Inpatient Medications Current Inpatient Medications: Current Inpatient Medications Acetaminophen (Acetaminophen 325 Mg Tab) 650 mg PO Q4H PRN PRN Reason: Headache or Minor Fever Stop: 12/21/23 10:46 Last Admin: 12/14/23 07:36 Dose: 650 mg Al Hydrox/Mg Hydrox/Simethicone (Aluminum/Magnesium Susp 30 Ml Udc) 30 ml PO Q4H PRN PRN Reason: GI Upset Stop: 12/21/23 10:46 Bacitracin (Bacitracin Oint 14 Gm Tube) 1 appln EXT BID JEREMIAH Stop: 01/11/24 08:59 Last Admin: 12/13/23 19:47 Dose: Not Given Benzocaine (Benzocaine 20% (Orajel) 11.9 Gm Tube) 1 appln MT Q4H PRN PRN Reason: gum or tooth pain Stop: 01/03/24 08:56 Last Admin: 12/12/23 19:10 Dose: 1 appln Benztropine Mesylate (Benztropine Mesylate 1 Mg Tab) 1 mg PO Q8H PRN PRN Reason: EPS, dystonia Stop: 12/21/23 11:57 Benztropine Mesylate (Benztropine Mesylate 1 Mg/Ml 2 Ml Amp) 1 mg IM Q8H PRN PRN Reason: EPS, dystonia Stop: 12/21/23 11:59 Bismuth Subsalicylate (Bismuth Subsalicylate Liqd 236 Ml) 15 ml PO PRN PRN PRN Reason: Loose Stool Stop: 12/21/23 10:46 Chlorpromazine HCl (Chlorpromazine Hcl 25 Mg Tab) 12.5 mg PO TID PRN PRN Reason: Agitation Stop: 12/26/23 08:59 Last Admin: 12/06/23 10:43 Dose: 12.5 mg Chlorpromazine HCl (Chlorpromazine Hcl 25 Mg/Ml Amp) 25 mg IM BID PRN PRN Reason: Agitation Stop: 12/30/23 09:34 Last Admin: 12/02/23 14:07 Dose: 25 mg Clonazepam (Clonazepam 0.5 Mg Tab) 0.5 mg PO QDD JEREMIAH Stop: 01/04/24 17:44 Last Admin: 12/13/23 17:40 Dose: 0.5 mg Divalproex Sodium (Divalproex Delay Release 500 Mg Tab) 500 mg PO QDD [facility] Stop: 01/04/24 17:44 Last Admin: 12/13/23 17:40 Dose: 500 mg Divalproex Sodium (Divalproex Delay Release 500 Mg Tab) 500 mg PO QAM [facility] Stop: 01/13/24 08:59 Haloperidol (Haloperidol 5 Mg Tab) 5 mg PO Q8H PRN PRN Reason: Agitation Stop: 12/21/23 11:57 Last Admin: 12/13/23 15:27 Dose: 5 mg Haloperidol (Haloperidol 5 Mg Tab) 5 mg PO BIDM [facility] Stop: 01/04/24 17:44 Last Admin: 12/13/23 17:40 Dose: 5 mg Haloperidol Lactate (Haloperidol Lactate 5 Mg/Ml 1 Ml Vial) 5 mg IM Q8H PRN PRN Reason: Agitation Stop: 12/21/23 11:57 Hydroxyzine HCl (Hydroxyzine Hcl 25 Mg Tab) 50 mg PO HSZ PRN PRN Reason: Insomnia Stop: 12/21/23 10:46 Last Admin: 12/05/23 18:44 Dose: 50 mg Hydroxyzine HCl (Hydroxyzine Hcl 25 Mg Tab) 25 mg PO Q4H PRN PRN Reason: Anxiety Stop: 12/21/23 10:46 Last Admin: 12/12/23 10:35 Dose: 25 mg Lorazepam (Lorazepam 2 Mg/1 Ml Vial) 1 mg IM Q8H PRN PRN Reason: Agitation Stop: 12/21/23 11:57 Last Admin: 12/02/23 14:06 Dose: 1 mg Lorazepam (Lorazepam 1 Mg Tab) 1 mg PO Q8H PRN PRN Reason: Agitation Stop: 12/21/23 11:57 Last Admin: 12/13/23 15:23 Dose: 1 mg Magnesium Hydroxide (Magnesium Hydroxide Susp 30 Ml Udc) 30 ml PO DAILY PRN PRN Reason: Constipation Stop: 12/21/23 10:46 Miscellaneous (Remove Nicoderm Patch) 1 each N/A DAILY@0859 [facility] Stop: 01/05/24 08:58 Last Admin: 12/13/23 08:41 Dose: 1 each Nicotine (Nicotine 7 Mg/24 Hr Tdsy) 1 patch TD QAM JEREMIAH Stop: 01/05/24 08:59 Last Admin: 12/13/23 08:41 Dose: Not Given Nicotine Polacrilex (Nicotine Polacrilex 2 Mg Gum) 1 piece MT Q2H PRN PRN Reason: nicotine cravings Stop: 12/24/23 09:27 Last Admin: 12/13/23 10:09 Dose: 1 piece Sodium Chloride (Sodium Chloride 0.65% Na Soln 45 Ml ([place])) 1 - 2 sprays NA PRN PRN PRN Reason: Nasal Dryness/Congestion Stop: 12/21/23 10:46 Mental Health & Subst Abuse Tx Psychiatrist Name of Psychiatrist: Sara Mandujano [facility] Psychiatrist's Psychiatric Appointment Comment: [address], [address], [place] [address] Therapist Name of Therapist: denies Documentation Engineer Name of Documentation Engineer: denies Post Discharge Appointments Primary Care Physician Name Of Family Doctor/PCP: Sara Mandujano [facility] Primary Care Provider Appointment Comment: [address], [address], [place] [address]
[2023-12-14] MEDS: DIVALPROEX DELAY RELEASE 500 MG TAB PO SCH (09:08)
--- NOTE | 2023-12-15 09:05 | Psychiatric Progress Note ---
Date of Service December 15, 2023 Impression / Recommendations Impression Emilia Orta is a 28-year-old female unknown past history who was brought in by police after being found wandering the street by [place] station. Patient presented pressured and tangential speech, memory impairment, and concern for psychosis. She was admitted on 11/21/23 09:58 on a 302 involuntary commitment for psychosis, now on a 304 commitment. 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 Patient has demonstrated significant dysfunction evidenced by recurrent legal troubles, persistent symptoms, recurrent hospitalizations, poor insight, inability to maintain stability in the community, and continued drug dependence. A: Cooperative with interview today but fairly superficial in terms of discussion so hard to determine how much underlying irritability may be present. Remains easily confused during attempts to discuss disposition but states willing to re-attempt call with [facility] today. Depending on progress may need to consider state hospital referral if poor insight persists. Overall, I spent a total of 25 minutes with this case including review of chart records, nursing report, review of lab work, direct evaluation of the patient at bedside, counseling the patient, orders, and documentation in the electronic health record. 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 12/14/2023: Continue current medications and tx plan. 12/13/2023: Increase Depakote to 500mg BID. 12/12/2023: Continue current medications and tx plan. 12/11/2023: Bacitracin ointment BID and Tdap vaccine ordered. 12/10/2023: Increase Depakote DR 250mg qAM and 500mg qdinner. Plan to taper Klonopin in coming days if Depakote increase is well tolerated. 12/09/2023: Continue current medications and tx plan. Will consider transition to Depakote ER after trough level is back. Can consider transition to olanzapine if she continues to prefer this to haldol. 12/08/2023: Trough Depakote level tomorrow PM (12/09/23) 12/07/2023: Continue medications and treatment plan. 12/06/2023: Continue medications and treatment plan. 12/05/2023: Schedule Depakote/Haldol/Klonopin at dinner instead of bedtime. 12/04/2023: Continue current medications and tx plan. 12/03/2023: Continue current medications and tx plan. 12/02/2023: Start Depakote DR 500mg HS. 12/01/2023: Continue current medications and tx plan. Continuing to attempt to get urine sample for UPT. 11/30/2023: UPT ordered. Added Thorazine 25mg IM prn for agitation per her request for additional IM medication options. 11/29/2023: Continue current medications and tx plan. 11/28/2023: Continue current medications and tx plan. 11/27/2023: Discontinue [place] and risperidone. Start haldol 5mg BID. 11/26/2023: Start Thorazine 12.5mg TID prn po for agitation. 11/25/2023: Decrease Clonazepam to 0.5mg HS. Encourage fluids. 11/24/2023: Start [place] 300mg BID for mood lability. 11/23/2023: Continue medications and treatment plan. 11/22/2023: Increase risperidone to 1 mg every morning and 2 mg nightly. Continue clonazepam 1 mg at bedtime. Encourage fluids. STI and hepatitis panel. 11/21/2023: One-time lorazepam 2 mg p.o. for anxiety. Schedule risperidone 1 mg twice daily and clonazepam 1 mg at bedtime. Baseline EKG and labs: Free T4, free T3, A1c, lipid panel. Inventory Assets Strengths: able to express needs, accepting treatment Needs: social supports, mood control Suicide Risk Level Suicide Risk Level: Moderate (q15 min suicide checks) (one episode of voicing SI but recently denying SI, mood lability, able to ask staff for support ) Risk Factors Assessment Male: No : Yes Do You Have Access To A Gun?: No Health Problems: No Mental Health Diagnoses: Yes Substance Use Disorders: Yes Previous Attempt: No Family History of Suicide: No Previous Psychiatric Hospitalization: Yes Hopelessness: No Protective Factors Assessment Presybeterian Beliefs: No : No Responsible for Young Children: No Employed: No Stable Relationships: No Supportive Family: No Good Rapport with Provider: Yes Absence of Any Risk Factors Above: No Interval History Identifying Information Emilia Orta is a 28-year-old female unknown past history who was brought in by police after being found wandering the street by [place] station. Patient presented pressured and tangential speech, memory impairment, and concern for psychosis. She was admitted on 11/21/23 09:58 on a 302 involuntary commitment for psychosis. Chief Complaint "OK, I slept pretty good". Review of Systems Sleep Information Total Hours of Sleep: 10 Meal Information Percent Meal Consumed - Breakfast: 100 Percent Meal Consumed - Lunch: 100 Percent Meal Consumed - Dinner: 75 Nutrition Comment: sleeping Subjective Subjective Patient was seen & assessed and interval progress reviewed with treatment team nursing and social work. More cooperative last evening. Today lying in bed, but reports stable mood. Agreeable to try to make phone call to [facility] again about possible residential substance use use treatment resources. Continues to have limited insight. Physical Exam Psychiatric Orientation: alert and oriented x 3 Apperance: appropriately dressed and + disheveled Eye Contact: good eye contact Motor Behavior: no abnormal motor movements Speech: normal rate/rhythm/volume of speech Affect: + labile affect and + constricted affect Mood: + anxious mood and + irritable mood Thought Process: + circumstantial thought process and + looseness of associations Thought Content: + preoccupation Insight: + poor insight Judgment: + limited judgement Vital Signs (Past 24 Hours) Last Vital Signs Temp 36.9 C 12/14/23 12:38 Pulse 74 12/14/23 12:38 Resp 16 12/14/23 12:38 BP 98/66 L 12/14/23 12:38 Pulse Ox 99 12/10/23 12:20 O2 Del Method Room Air 12/10/23 12:20 Results & Data (U) Current Inpatient Medications Current Inpatient Medications: Current Inpatient Medications Acetaminophen (Acetaminophen 325 Mg Tab) 650 mg PO Q4H PRN PRN Reason: Headache or Minor Fever Stop: 12/21/23 10:46 Last Admin: 12/14/23 16:09 Dose: 650 mg Al Hydrox/Mg Hydrox/Simethicone (Aluminum/Magnesium Susp 30 Ml Udc) 30 ml PO Q4H PRN PRN Reason: GI Upset Stop: 12/21/23 10:46 Bacitracin (Bacitracin Oint 14 Gm Tube) 1 appln EXT BID JEREMIAH Stop: 01/11/24 08:59 Last Admin: 12/15/23 08:32 Dose: Not Given Benzocaine (Benzocaine 20% (Orajel) 11.9 Gm Tube) 1 appln MT Q4H PRN PRN Reason: gum or tooth pain Stop: 01/03/24 08:56 Last Admin: 12/14/23 16:10 Dose: 1 appln Benztropine Mesylate (Benztropine Mesylate 1 Mg Tab) 1 mg PO Q8H PRN PRN Reason: EPS, dystonia Stop: 12/21/23 11:57 Benztropine Mesylate (Benztropine Mesylate 1 Mg/Ml 2 Ml Amp) 1 mg IM Q8H PRN PRN Reason: EPS, dystonia Stop: 12/21/23 11:59 Bismuth Subsalicylate (Bismuth Subsalicylate Liqd 236 Ml) 15 ml PO PRN PRN PRN Reason: Loose Stool Stop: 12/21/23 10:46 Chlorpromazine HCl (Chlorpromazine Hcl 25 Mg Tab) 12.5 mg PO TID PRN PRN Reason: Agitation Stop: 12/26/23 08:59 Last Admin: 12/06/23 10:43 Dose: 12.5 mg Chlorpromazine HCl (Chlorpromazine Hcl 25 Mg/Ml Amp) 25 mg IM BID PRN PRN Reason: Agitation Stop: 12/30/23 09:34 Last Admin: 12/02/23 14:07 Dose: 25 mg Clonazepam (Clonazepam 0.5 Mg Tab) 0.5 mg PO QDD [facility] Stop: 01/04/24 17:44 Last Admin: 12/14/23 17:55 Dose: 0.5 mg Divalproex Sodium (Divalproex Delay Release 500 Mg Tab) 500 mg PO QDD [facility] Stop: 01/04/24 17:44 Last Admin: 12/14/23 17:54 Dose: 500 mg Divalproex Sodium (Divalproex Delay Release 500 Mg Tab) 500 mg PO QAM [facility] Stop: 01/13/24 08:59 Last Admin: 12/15/23 08:33 Dose: 500 mg Haloperidol (Haloperidol 5 Mg Tab) 5 mg PO Q8H PRN PRN Reason: Agitation Stop: 12/21/23 11:57 Last Admin: 12/13/23 15:27 Dose: 5 mg Haloperidol (Haloperidol 5 Mg Tab) 5 mg PO BIDM [facility] Stop: 01/04/24 17:44 Last Admin: 12/15/23 08:33 Dose: 5 mg Haloperidol Lactate (Haloperidol Lactate 5 Mg/Ml 1 Ml Vial) 5 mg IM Q8H PRN PRN Reason: Agitation Stop: 12/21/23 11:57 Hydroxyzine HCl (Hydroxyzine Hcl 25 Mg Tab) 50 mg PO HSZ PRN PRN Reason: Insomnia Stop: 12/21/23 10:46 Last Admin: 12/05/23 18:44 Dose: 50 mg Hydroxyzine HCl (Hydroxyzine Hcl 25 Mg Tab) 25 mg PO Q4H PRN PRN Reason: Anxiety Stop: 12/21/23 10:46 Last Admin: 12/12/23 10:35 Dose: 25 mg Lorazepam (Lorazepam 2 Mg/1 Ml Vial) 1 mg IM Q8H PRN PRN Reason: Agitation Stop: 12/21/23 11:57 Last Admin: 12/02/23 14:06 Dose: 1 mg Lorazepam (Lorazepam 1 Mg Tab) 1 mg PO Q8H PRN PRN Reason: Agitation Stop: 12/21/23 11:57 Last Admin: 12/14/23 16:10 Dose: 1 mg Magnesium Hydroxide (Magnesium Hydroxide Susp 30 Ml Udc) 30 ml PO DAILY PRN PRN Reason: Constipation Stop: 12/21/23 10:46 Miscellaneous (Remove Nicoderm Patch) 1 each N/A DAILY@0859 [facility] Stop: 01/05/24 08:58 Last Admin: 12/15/23 08:32 Dose: Not Given Nicotine (Nicotine 7 Mg/24 Hr Tdsy) 1 patch TD QAM [facility] Stop: 01/05/24 08:59 Last Admin: 12/15/23 08:32 Dose: Not Given Nicotine Polacrilex (Nicotine Polacrilex 2 Mg Gum) 1 piece MT Q2H PRN PRN Reason: nicotine cravings Stop: 12/24/23 09:27 Last Admin: 12/13/23 10:09 Dose: 1 piece Sodium Chloride (Sodium Chloride 0.65% Na Soln 45 Ml ([place])) 1 - 2 sprays NA PRN PRN PRN Reason: Nasal Dryness/Congestion Stop: 12/21/23 10:46 Mental Health & Subst Abuse Tx Psychiatrist Name of Psychiatrist: Sara Duque [facility] Psychiatrist's Psychiatric Appointment Comment: [id number], [address], [place] [address] Therapist Name of Therapist: denies Cogeneration Technician Name of Cogeneration Technician: denies Post Discharge Appointments Primary Care Physician Name Of Family Doctor/PCP: Sara Duque [facility] Primary Care Provider Appointment Comment: [id number], [address], [place] [address]
[2023-12-16] MEDS: IBUPROFEN 200 MG TAB PO PRN (13:12)
--- NOTE | 2023-12-16 16:51 | Psychiatric Progress Note ---
Date of Service December 16, 2023 Impression / Recommendations Impression Emilia Orta is a 28-year-old female unknown past history who was brought in by police after being found wandering the street by gas station. Patient presented pressured and tangential speech, memory impairment, and concern for psychosis. She was admitted on 11/21/23 09:58 on a 302 involuntary commitment for psychosis, now on a 304 commitment. 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 Patient has demonstrated significant dysfunction evidenced by recurrent legal troubles, persistent symptoms, recurrent hospitalizations, poor insight, inability to maintain stability in the community, and continued drug dependence. A: Cooperative with interview today but fairly superficial in terms of discussion so hard to determine how much underlying irritability may be present. Remains easily confused during attempts to discuss disposition. If patient's mental status does not improve considering referral to [facility] or [facility]. Overall, I spent a total of 35 minutes with this case including review of chart records, nursing report, review of lab work, direct evaluation of the patient at bedside, counseling the patient, orders, and documentation in the electronic health record. 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 12/15/2023: Continue current medications and tx plan. 12/14/2023: Continue current medications and tx plan. 12/13/2023: Increase Depakote to 500mg BID. 12/12/2023: Continue current medications and tx plan. 12/11/2023: Bacitracin ointment BID and Tdap vaccine ordered. 12/10/2023: Increase Depakote DR 250mg qAM and 500mg qdinner. Plan to taper Klonopin in coming days if Depakote increase is well tolerated. 12/09/2023: Continue current medications and tx plan. Will consider transition to Depakote ER after trough level is back. Can consider transition to olanzapine if she continues to prefer this to haldol. 12/08/2023: Trough Depakote level tomorrow PM (12/09/23) 12/07/2023: Continue medications and treatment plan. 12/06/2023: Continue medications and treatment plan. 12/05/2023: Schedule Depakote/Haldol/Klonopin at dinner instead of bedtime. 12/04/2023: Continue current medications and tx plan. 12/03/2023: Continue current medications and tx plan. 12/02/2023: Start Depakote DR 500mg HS. 12/01/2023: Continue current medications and tx plan. Continuing to attempt to get urine sample for UPT. 11/30/2023: UPT ordered. Added Thorazine 25mg IM prn for agitation per her request for additional IM medication options. 11/29/2023: Continue current medications and tx plan. 11/28/2023: Continue current medications and tx plan. 11/27/2023: Discontinue [place] and risperidone. Start haldol 5mg BID. 11/26/2023: Start Thorazine 12.5mg TID prn po for agitation. 11/25/2023: Decrease Clonazepam to 0.5mg HS. Encourage fluids. 11/24/2023: Start [place] 300mg BID for mood lability. 11/23/2023: Continue medications and treatment plan. 11/22/2023: Increase risperidone to 1 mg every morning and 2 mg nightly. Continue clonazepam 1 mg at bedtime. Encourage fluids. STI and hepatitis panel. 11/21/2023: One-time lorazepam 2 mg p.o. for anxiety. Schedule risperidone 1 mg twice daily and clonazepam 1 mg at bedtime. Baseline EKG and labs: Free T4, free T3, A1c, lipid panel. Inventory Assets Strengths: able to express needs, accepting treatment Needs: social supports, mood control Suicide Risk Level Suicide Risk Level: Moderate (q15 min suicide checks) (one episode of voicing SI but recently denying SI, mood lability, able to ask staff for support ) Risk Factors Assessment Male: No : Yes Do You Have Access To A Gun?: No Health Problems: No Mental Health Diagnoses: Yes Substance Use Disorders: Yes Previous Attempt: No Family History of Suicide: No Previous Psychiatric Hospitalization: Yes Hopelessness: No Protective Factors Assessment Confucianist Beliefs: No : No Responsible for Young Children: No Employed: No Stable Relationships: No Supportive Family: No Good Rapport with Provider: Yes Absence of Any Risk Factors Above: No Interval History Identifying Information Emilia Orta is a 28-year-old female unknown past history who was brought in by police after being found wandering the street by gas station. Patient presented pressured and tangential speech, memory impairment, and concern for psychosis. She was admitted on 11/21/23 09:58 on a 302 involuntary commitment for psychosis. Currently on 304 comittment. Chief Complaint "Need help adulting" Review of Systems Sleep Information Total Hours of Sleep: 10.75 Meal Information Percent Meal Consumed - Breakfast: 100 Percent Meal Consumed - Lunch: 100 Percent Meal Consumed - Dinner: 100 Nutrition Comment: sleeping Subjective Subjective Patient was seen & assessed and interval progress reviewed with treatment team nursing and social work Patient appears labile today and tearful. Unable to state why. Says she is agreeable for rehab. Seems unaware of her phone call with rehab the week prior. Says she is not sleeping well however unable to clarify further. Eating well. Alert and oriented to place however not date or month. When asked about what rehab can help her with says that can help her with "adult thing". When discussing substance use and potential contributions to her condition unable to state that she wants to quit. Physical Exam Mental Examination Appearance: Disheveled Eye Contact: Maintains Eye Contact Motor Behavior: Unremarkable Speech: Tangential Mood: Euthymic Affect: Congruent and Labile Thought Process: Disorganized and Tangential Thought Content: Disorganized Hallucinations: None Insight: Poor Judgement: Poor Vital Signs (Past 24 Hours) Last Vital Signs Temp 36.7 C 12/16/23 12:00 Pulse 72 12/16/23 12:00 Resp 18 12/16/23 12:00 BP 96/64 L 12/16/23 12:00 Pulse Ox 99 12/10/23 12:20 O2 Del Method Room Air 12/10/23 12:20 Results & Data (U) Current Inpatient Medications Current Inpatient Medications: Current Inpatient Medications Acetaminophen (Acetaminophen 325 Mg Tab) 650 mg PO Q4H PRN PRN Reason: Headache or Minor Fever Stop: 12/21/23 10:46 Last Admin: 12/16/23 10:41 Dose: 650 mg Al Hydrox/Mg Hydrox/Simethicone (Aluminum/Magnesium Susp 30 Ml Udc) 30 ml PO Q4H PRN PRN Reason: GI Upset Stop: 12/21/23 10:46 Bacitracin (Bacitracin Oint 14 Gm Tube) 1 appln EXT BID JEREMIAH Stop: 01/11/24 08:59 Last Admin: 12/16/23 08:15 Dose: 1 appln Benzocaine (Benzocaine 20% (Orajel) 11.9 Gm Tube) 1 appln MT Q4H PRN PRN Reason: gum or tooth pain Stop: 01/03/24 08:56 Last Admin: 12/16/23 11:30 Dose: 1 appln Benztropine Mesylate (Benztropine Mesylate 1 Mg Tab) 1 mg PO Q8H PRN PRN Reason: EPS, dystonia Stop: 12/21/23 11:57 Benztropine Mesylate (Benztropine Mesylate 1 Mg/Ml 2 Ml Amp) 1 mg IM Q8H PRN PRN Reason: EPS, dystonia Stop: 12/21/23 11:59 Bismuth Subsalicylate (Bismuth Subsalicylate Liqd 236 Ml) 15 ml PO PRN PRN PRN Reason: Loose Stool Stop: 12/21/23 10:46 Chlorpromazine HCl (Chlorpromazine Hcl 25 Mg Tab) 12.5 mg PO TID PRN PRN Reason: Agitation Stop: 12/26/23 08:59 Last Admin: 12/06/23 10:43 Dose: 12.5 mg Chlorpromazine HCl (Chlorpromazine Hcl 25 Mg/Ml Amp) 25 mg IM BID PRN PRN Reason: Agitation Stop: 12/30/23 09:34 Last Admin: 12/02/23 14:07 Dose: 25 mg Clonazepam (Clonazepam 0.5 Mg Tab) 0.5 mg PO QDD [facility] Stop: 01/04/24 17:44 Last Admin: 12/15/23 17:10 Dose: 0.5 mg Divalproex Sodium (Divalproex Delay Release 500 Mg Tab) 500 mg PO QDD [facility] Stop: 01/04/24 17:44 Last Admin: 12/15/23 17:08 Dose: 500 mg Divalproex Sodium (Divalproex Delay Release 500 Mg Tab) 500 mg PO QAM [facility] Stop: 01/13/24 08:59 Last Admin: 12/16/23 08:15 Dose: 500 mg Haloperidol (Haloperidol 5 Mg Tab) 5 mg PO Q8H PRN PRN Reason: Agitation Stop: 12/21/23 11:57 Last Admin: 12/16/23 10:10 Dose: 5 mg Haloperidol (Haloperidol 5 Mg Tab) 5 mg PO BIDM [facility] Stop: 01/04/24 17:44 Last Admin: 12/16/23 08:15 Dose: 5 mg Haloperidol Lactate (Haloperidol Lactate 5 Mg/Ml 1 Ml Vial) 5 mg IM Q8H PRN PRN Reason: Agitation Stop: 12/21/23 11:57 Hydroxyzine HCl (Hydroxyzine Hcl 25 Mg Tab) 50 mg PO HSZ PRN PRN Reason: Insomnia Stop: 12/21/23 10:46 Last Admin: 12/05/23 18:44 Dose: 50 mg Hydroxyzine HCl (Hydroxyzine Hcl 25 Mg Tab) 25 mg PO Q4H PRN PRN Reason: Anxiety Stop: 12/21/23 10:46 Last Admin: 12/12/23 10:35 Dose: 25 mg Ibuprofen (Ibuprofen 200 Mg Tab) 400 mg PO Q8H PRN PRN Reason: Pain Stop: 01/15/24 12:36 Last Admin: 12/16/23 13:12 Dose: 400 mg Lorazepam (Lorazepam 2 Mg/1 Ml Vial) 1 mg IM Q8H PRN PRN Reason: Agitation Stop: 12/21/23 11:57 Last Admin: 12/02/23 14:06 Dose: 1 mg Lorazepam (Lorazepam 1 Mg Tab) 1 mg PO Q8H PRN PRN Reason: Agitation Stop: 12/21/23 11:57 Last Admin: 12/16/23 10:10 Dose: 1 mg Magnesium Hydroxide (Magnesium Hydroxide Susp 30 Ml Udc) 30 ml PO DAILY PRN PRN Reason: Constipation Stop: 12/21/23 10:46 Miscellaneous (Remove Nicoderm Patch) 1 each N/A DAILY@0859 [facility] Stop: 01/05/24 08:58 Last Admin: 12/16/23 08:15 Dose: 1 each Nicotine (Nicotine 7 Mg/24 Hr Tdsy) 1 patch TD QAM JEREMIAH Stop: 01/05/24 08:59 Last Admin: 12/16/23 08:14 Dose: 1 patch Nicotine Polacrilex (Nicotine Polacrilex 2 Mg Gum) 1 piece MT Q2H PRN PRN Reason: nicotine cravings Stop: 12/24/23 09:27 Last Admin: 12/16/23 09:36 Dose: 1 piece Sodium Chloride (Sodium Chloride 0.65% Na Soln 45 Ml ([place])) 1 - 2 sprays NA PRN PRN PRN Reason: Nasal Dryness/Congestion Stop: 12/21/23 10:46 Mental Health & Subst Abuse Tx Psychiatrist Name of Psychiatrist: Sara Mandujano [facility] Psychiatrist's Psychiatric Appointment Comment: [address], [address], [place] [address] Therapist Name of Therapist: denies Offset Press Operator Helper Name of Offset Press Operator Helper: denies Post Discharge Appointments Primary Care Physician Name Of Family Doctor/PCP: Sara Mandujano [facility] Primary Care Provider Appointment Comment: [address], [address], [place] [address]
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
--- NOTE | 2023-12-18 13:04 | Psychiatric Progress Note ---
Date of Service December 18, 2023 Impression / Recommendations Impression Emilia Orta is a 28-year-old female unknown past history who was brought in by police after being found wandering the street by gas station. Patient presented pressured and tangential speech, memory impairment, and concern for psychosis. She was admitted on 11/21/23 09:58 on a 302 involuntary commitment for psychosis, now on a 304 commitment. 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 Patient has demonstrated significant dysfunction evidenced by recurrent legal troubles, persistent symptoms, recurrent hospitalizations, poor insight, inability to maintain stability in the community, and continued drug dependence. A: Patient continues to be disorganized on interview. Has trouble maintaining a linear stream of thought and unable to answer questions regarding substance use history. 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 Patient's behaviors have been stable recently however showing slow improvement in cognition. Concern for ability for self care and nourishment if discharged in her current state. May benefit from subacute care for recovery. Exploring placement options however limited given patient's mental state and potential for acceptance. VPA trough level resulted at 49, plan to continue current dosing. Overall, I spent a total of 45 minutes with this case including review of chart records, nursing report, review of lab work, direct evaluation of the patient at bedside, counseling the patient, orders, gathering collateral, documentation in the electronic health record. 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 12/17/2023: Continue current medications and tx plan. Plan for VPA trough level tomorrow AM. 12/16/2023: Continue current medication and tx plan. 12/15/2023: Continue current medications and tx plan. 12/14/2023: Continue current medications and tx plan. 12/13/2023: Increase Depakote to 500mg BID. 12/12/2023: Continue current medications and tx plan. 12/11/2023: Bacitracin ointment BID and Tdap vaccine ordered. 12/10/2023: Increase Depakote DR 250mg qAM and 500mg qdinner. Plan to taper Klonopin in coming days if Depakote increase is well tolerated. 12/09/2023: Continue current medications and tx plan. Will consider transition to Depakote ER after trough level is back. Can consider transition to olanzapine if she continues to prefer this to haldol. 12/08/2023: Trough Depakote level tomorrow PM (12/09/23) 12/07/2023: Continue medications and treatment plan. 12/06/2023: Continue medications and treatment plan. 12/05/2023: Schedule Depakote/Haldol/Klonopin at dinner instead of bedtime. 12/04/2023: Continue current medications and tx plan. 12/03/2023: Continue current medications and tx plan. 12/02/2023: Start Depakote DR 500mg HS. 12/01/2023: Continue current medications and tx plan. Continuing to attempt to get urine sample for UPT. 11/30/2023: UPT ordered. Added Thorazine 25mg IM prn for agitation per her request for additional IM medication options. 11/29/2023: Continue current medications and tx plan. 11/28/2023: Continue current medications and tx plan. 11/27/2023: Discontinue [place] and risperidone. Start haldol 5mg BID. 11/26/2023: Start Thorazine 12.5mg TID prn po for agitation. 11/25/2023: Decrease Clonazepam to 0.5mg HS. Encourage fluids. 11/24/2023: Start Lockney 300mg BID for mood lability. 11/23/2023: Continue medications and treatment plan. 11/22/2023: Increase risperidone to 1 mg every morning and 2 mg nightly. Continue clonazepam 1 mg at bedtime. Encourage fluids. STI and hepatitis panel. 11/21/2023: One-time lorazepam 2 mg p.o. for anxiety. Schedule risperidone 1 mg twice daily and clonazepam 1 mg at bedtime. Baseline EKG and labs: Free T4, free T3, A1c, lipid panel. Inventory Assets Strengths: able to express needs, accepting treatment Needs: social supports, mood control Suicide Risk Level Suicide Risk Level: Moderate (q15 min suicide checks) (one episode of voicing SI but recently denying SI, mood lability, able to ask staff for support ) Risk Factors Assessment Male: No : Yes Do You Have Access To A Gun?: No Health Problems: No Mental Health Diagnoses: Yes Substance Use Disorders: Yes Previous Attempt: No Family History of Suicide: No Previous Psychiatric Hospitalization: Yes Hopelessness: No Protective Factors Assessment Confucianism Beliefs: No : No Responsible for Young Children: No Employed: No Stable Relationships: No Supportive Family: No Good Rapport with Provider: Yes Absence of Any Risk Factors Above: No Interval History Identifying Information Emilia Orta is a 28-year-old female unknown past history who was brought in by police after being found wandering the street by gas station. Patient presented pressured and tangential speech, memory impairment, and concern for psychosis. She was admitted on 11/21/23 09:58 on a 302 involuntary commitment for psychosis. Currently on 304 comittment. Chief Complaint "I'm confused" Review of Systems Sleep Information Total Hours of Sleep: 10.15 Meal Information Percent Meal Consumed - Breakfast: 100 Percent Meal Consumed - Lunch: 100 Percent Meal Consumed - Dinner: 100 Nutrition Comment: sleeping Subjective Subjective Patient was seen & assessed and interval progress reviewed with treatment team nursing and social work Reports having an okay night. Feels rested. Confirms she is still interested in rehab. We discuss what potentially went wrong in her preliminary interview. I role-play the interviewer and asked her what substance use problems she has. She reports "I do not know, I do not have problems". when asked specifically what drugs that she used too much have in the past she reports "meth". Again I ask her what substance use problems she has and she repeatedly says "I am confused. I do not know." Conversation is derailed patient has trouble staying focused on the question. Physical Exam Mental Examination Appearance: Disheveled Eye Contact: Maintains Eye Contact Motor Behavior: Unremarkable Speech: Tangential Mood: Euthymic Affect: Congruent and Labile Thought Process: Disorganized and Tangential Thought Content: Disorganized Hallucinations: None Insight: Poor Judgement: Poor Vital Signs (Past 24 Hours) Last Vital Signs Temp 36.5 C 12/17/23 12:00 Pulse 74 12/17/23 12:00 Resp 18 12/17/23 12:00 BP 94/66 L 12/17/23 12:00 Pulse Ox 99 12/10/23 12:20 O2 Del Method Room Air 12/10/23 12:20 Results & Data ([facility]) Laboratory Results Laboratory Results - last 24 hr 12/18/23 07:42 Valproic Acid 49 L Current Inpatient Medications Current Inpatient Medications: Current Inpatient Medications Acetaminophen (Acetaminophen 325 Mg Tab) 650 mg PO Q4H PRN PRN Reason: Headache or Minor Fever Stop: 12/21/23 10:46 Last Admin: 12/18/23 12:01 Dose: 650 mg Al Hydrox/Mg Hydrox/Simethicone (Aluminum/Magnesium Susp 30 Ml Udc) 30 ml PO Q4H PRN PRN Reason: GI Upset Stop: 12/21/23 10:46 Bacitracin (Bacitracin Oint 14 Gm Tube) 1 appln EXT BID JEREMIAH Stop: 01/11/24 08:59 Last Admin: 12/18/23 07:57 Dose: Not Given Benzocaine (Benzocaine 20% (Orajel) 11.9 Gm Tube) 1 appln MT Q4H PRN PRN Reason: gum or tooth pain Stop: 01/03/24 08:56 Last Admin: 12/17/23 10:11 Dose: 1 appln Benztropine Mesylate (Benztropine Mesylate 1 Mg Tab) 1 mg PO Q8H PRN PRN Reason: EPS, dystonia Stop: 12/21/23 11:57 Benztropine Mesylate (Benztropine Mesylate 1 Mg/Ml 2 Ml Amp) 1 mg IM Q8H PRN PRN Reason: EPS, dystonia Stop: 12/21/23 11:59 Bismuth Subsalicylate (Bismuth Subsalicylate Liqd 236 Ml) 15 ml PO PRN PRN PRN Reason: Loose Stool Stop: 12/21/23 10:46 Chlorpromazine HCl (Chlorpromazine Hcl 25 Mg Tab) 12.5 mg PO TID PRN PRN Reason: Agitation Stop: 12/26/23 08:59 Last Admin: 12/17/23 08:26 Dose: 12.5 mg Chlorpromazine HCl (Chlorpromazine Hcl 25 Mg/Ml Amp) 25 mg IM BID PRN PRN Reason: Agitation Stop: 12/30/23 09:34 Last Admin: 12/02/23 14:07 Dose: 25 mg Clonazepam (Clonazepam 0.5 Mg Tab) 0.5 mg PO QDD [facility] Stop: 01/04/24 17:44 Last Admin: 12/17/23 17:02 Dose: 0.5 mg Divalproex Sodium (Divalproex Delay Release 500 Mg Tab) 500 mg PO QDD [facility] Stop: 01/04/24 17:44 Last Admin: 12/17/23 17:02 Dose: 500 mg Divalproex Sodium (Divalproex Delay Release 500 Mg Tab) 500 mg PO QAM [facility] Stop: 01/13/24 08:59 Last Admin: 12/18/23 07:54 Dose: 500 mg Haloperidol (Haloperidol 5 Mg Tab) 5 mg PO Q8H PRN PRN Reason: Agitation Stop: 12/21/23 11:57 Last Admin: 12/16/23 10:10 Dose: 5 mg Haloperidol (Haloperidol 5 Mg Tab) 5 mg PO BIDM [facility] Stop: 01/04/24 17:44 Last Admin: 12/18/23 07:54 Dose: 5 mg Haloperidol Lactate (Haloperidol Lactate 5 Mg/Ml 1 Ml Vial) 5 mg IM Q8H PRN PRN Reason: Agitation Stop: 12/21/23 11:57 Hydroxyzine HCl (Hydroxyzine Hcl 25 Mg Tab) 50 mg PO HSZ PRN PRN Reason: Insomnia Stop: 12/21/23 10:46 Last Admin: 12/05/23 18:44 Dose: 50 mg Hydroxyzine HCl (Hydroxyzine Hcl 25 Mg Tab) 25 mg PO Q4H PRN PRN Reason: Anxiety Stop: 12/21/23 10:46 Last Admin: 12/12/23 10:35 Dose: 25 mg Ibuprofen (Ibuprofen 200 Mg Tab) 400 mg PO Q8H PRN PRN Reason: Pain Stop: 01/15/24 12:36 Last Admin: 12/18/23 10:00 Dose: 400 mg Lorazepam (Lorazepam 2 Mg/1 Ml Vial) 1 mg IM Q8H PRN PRN Reason: Agitation Stop: 12/21/23 11:57 Last Admin: 12/02/23 14:06 Dose: 1 mg Lorazepam (Lorazepam 1 Mg Tab) 1 mg PO Q8H PRN PRN Reason: Agitation Stop: 12/21/23 11:57 Last Admin: 12/16/23 10:10 Dose: 1 mg Magnesium Hydroxide (Magnesium Hydroxide Susp 30 Ml Udc) 30 ml PO DAILY PRN PRN Reason: Constipation Stop: 12/21/23 10:46 Miscellaneous (Remove Nicoderm Patch) 1 each N/A DAILY@0859 [facility] Stop: 01/05/24 08:58 Last Admin: 12/18/23 07:56 Dose: 1 each Nicotine (Nicotine 7 Mg/24 Hr Tdsy) 1 patch TD QAM [facility] Stop: 01/05/24 08:59 Last Admin: 12/18/23 07:54 Dose: 1 patch Nicotine Polacrilex (Nicotine Polacrilex 2 Mg Gum) 1 piece MT Q2H PRN PRN Reason: nicotine cravings Stop: 12/24/23 09:27 Last Admin: 12/16/23 09:36 Dose: 1 piece Sodium Chloride (Sodium Chloride 0.65% Na Soln 45 Ml ([place])) 1 - 2 sprays NA PRN PRN PRN Reason: Nasal Dryness/Congestion Stop: 12/21/23 10:46 Mental Health & Subst Abuse Tx Psychiatrist Name of Psychiatrist: Sara Duque [facility] Psychiatrist's Psychiatric Appointment Comment: [id number], [address], [facility] [address] Therapist Name of Therapist: denies Still Photographer Name of Still Photographer: denies Post Discharge Appointments Primary Care Physician Name Of Family Doctor/PCP: Sara Duque [facility] Primary Care Provider Appointment Comment: [id number], [address], [place] [address]
[2023-12-19] MEDS: haloperidoL 0.5 MG TAB PO SCH (17:25)
--- NOTE | 2023-12-19 18:08 | Oral/Maxillofacial Consult ---
Date of Consultation December 19, 2023 Assessment & Plan (1) Carious teeth: (2) Staining of teeth due to drugs: (3) Gingival and periodontal disease: History of Present Illness Attending Physician: Marlen Bernard MD History of Present Illness Oral Maxillofacial Surgery Exam Present Complaint: I have pain/swelling from my infected and fractured teeth. Symptoms have been ongoing for a while. Grossly decayed and fractured # 16 and 19 Oral Exam: Finding--P-cor associated with the fractured teeth, tender gingival tissue with deep pocket formation.Teeth are grossly decayed and removal is clinical indicated. Imaging: CT will be ordered Soft tissue The floor of the mouth, tongue, hard/soft palate, posterior pharyngeal area all with in normal limits, no pathology or abnormal findings noted. No lesions noted that require follow up or Bx. Oral Care: Overall oral care is fair Occlusion: Class I TMJ exam: No pop, clicking, pain, good ROM, No history of TMJ injury or dysfunction Periodontal exam: Generalized gingival tissue inflammation with evidence of periodontal pathology. Head/Neck exam: Neck is supple, FROM, Able to extend and flex neck w/o difficulty, no masses, no abnormalities. Treatment Plan: Obtain CT evaluate the relationship of the grossly carious and fractured teeth to the nerve and sinus Set up with general anesthesia in hospital vs. surgical due to complexity of the procedure I reviewed the treatment plan and consent with the patient. Understanding was expressed. Time was given for questions regarding the surgery, risks and post op care. Discussed alternative to treatment--procedure as planned, Do not do surgery The following teeth are decayed and fractured and removal is indicated SUKI:16 and 19 I will finalize the treatment plan after I review the CT scan Risks discussed: Bleeding,Pain,swelling,infection, dry socket, delayed healing, nerve injury to face,lips,tongue,chin area which could be permanent (rare). TMJ, jaw stiffness, change in bite (rare), ear pain (referred). Sinus problems like fistula or infection. Need to leave a small root fragment in place to avoid injury to nerve or sinus. Relationship of teeth to nerve/sinus and risk of jaw fracture. Consent to be signed once I evaluate the CT and review with Emilia Surgery to be set up once I review the CT scan and have Emilia sign the consent for extractions and anesthesia Allergies Allergy/AdvReac Type Severity Reaction Status Date / Time No Known Allergies Allergy Unverified 11/21/23 11:41 Patient History Social History Smoking Status: Heavy tobacco smoker Tobacco Type: Cigarettes Preferred Language: Slovak Communication Ability: Effective Mail Sorting Supervisor Required: No Beliefs That Will Affect Care: None Feels Safe at Home: Yes Gender Identity: Female Assistive Devices: None Results & Data Vital Signs (Past 12 Hours) Vital Signs Temp Pulse Resp BP 12/19/23 12:00 36.5 C 72 18 98/62 L PG Care Time/CCT Total # of Minutes Spent Total Time Spent with Patient: Total time spent is greater than 50% in coordination of care (as documented) at patient's floor/unit and/or counseling patient: Coding Level of Care Code 65013 INT INP/OBS CARE MIN Diagnoses Carious teeth K02.9 Staining of teeth due to drugs K03.7; T50.905A Gingival and periodontal disease K05.6; K06.9
[2023-12-20] MEDS: haloperidoL 5 MG TAB PO SCH (08:55)
--- NOTE | 2023-12-20 11:23 | CT Scan Report ---
CT facial bones wo con CLINICAL HISTORY: 28 years-old Female presenting with Fractured , decayed teeth. COMPARISON STUDY: Head CT November 21, 2023 TECHNIQUE: High-resolution CT scan of the facial bones is performed. Images are reviewed in the axia l, sagittal, and coronal planes. IV contrast was not administered for this examination. Additional 3 -D rendered images were submitted for review. A dose lowering technique was utilized adhering to the principles of ALARA. FINDINGS: There is no evidence of facial bone fracture. The bony orbits are intact and the orbital contents are within normal limits. The zygomatic arches, nasal bones, and pterygoid plates are preserved. The max illa and mandible are intact. Mastoid air cells and middle ear cavities are clear. Mild mucosal thickening of the left maxillary si nus. Remaining paranasal sinuses are clear. Mild rightward bowing and spurring of the nasal septum. T he imaged calvarium and upper cervical spine are within normal limits. Partially imaged brain parench yma is within normal limits. Dental findings include unerupted bilateral third mandibular molars and absent maxillary third molars. There is a large dental caries present within the left maxillary secon d molar with small periapical cyst. The roots of this molar extend into the floor of the maxillary si nus. Additional large dental caries noted within the left mandibular first molar. Root canal changes with moderate-sized periapical cyst involves the left maxillary central incisor with anterior cortica l dehiscence. There are two unerupted supernumerary small teeth posterior to the maxillary central in cisors. IMPRESSION: 1. Bilateral molar dental caries as above. 2. Root canal changes with moderate-sized periapical cyst involves the left maxillary central incisor with anterior cortical dehiscence. 3. Unerupted bilateral third mandibular molars with two unerupted supernumerary small teeth posterior to the maxillary central incisors. . 4. Mild mucosal thickening of the left maxillary sinus. 5. No significant inflammatory changes or fluid collections. ACT 112: Negative or not required by law. The above report was generated using voice recognition software. It may contain grammatical, syntax o r spelling errors. Electronically signed by: Reese Estrada M.D. 12/20/2023 11:21 AM
--- NOTE | 2023-12-20 12:39 | Oral/Maxillofacial Progress Nt ---
Date of Service December 20, 2023 Assessment & Plan Admission and Anticipated Discharge Date Admission Date: November 21, 2023 Subjective I reviewed the CT. There is no doubt that Emilia has many dental issues. She has multiply dental caries and early periodontal disease. She has asymptomatic impacted lower # 17 and # 32 impacted teeth and supernumerary teeth present behind the upper central teeth There is an asymptomatic failing root canal associated with # 9 Ideally getting her involved for routine dental care would be the best option to address the on going problems Perhaps she is a candidate for the CV dental program. To address the most urgent needs I will plan to extract # 15 and 30 in the OR with general anesthesia. The extraction of the upper left # 15 will also address the sinus issues in the left sinus. I will stop over to the unit to get consent and arrange an OR date the extractions of 15 and 30 in the OR. For future planning on D/C if someone can check to see if she would be eligible for the CV dental program that would be greatly appreciated. CT facial bones wo con CLINICAL HISTORY: 28 years-old Female presenting with Fractured , decayed teeth. COMPARISON STUDY: Head CT November 21, 2023 FINDINGS: There is no evidence of facial bone fracture. The bony orbits are intact and the orbital contents are within normal limits. The zygomatic arches, nasal bones, and pterygoid plates are preserved. The maxilla and mandible are intact. Mastoid air cells and middle ear cavities are clear. Mild mucosal thickening of the left maxillary sinus. Remaining paranasal sinuses are clear. Mild rightward bowing and spurring of the nasal septum. The imaged calvarium and upper cervical spine are within normal limits. Partially imaged brain parenchyma is within no rmal limits. Dental findings include unerupted bilateral third mandibular molars and absent maxillary third molars. There is a large dental caries present within the left maxillary second molar with small periapical cyst. The roots of this molar extend into the floor of the maxillary sinus. Additional large dental caries noted within the left mandibular first molar. Root canal changes with moderate-sized periapical cyst involves the left maxillary central incisor with anterior cortical dehiscence. There are two unerupted supernumerary small teeth posterior to the maxillary central incisors. IMPRESSION: 1. Bilateral molar dental caries as above. 2. Root canal changes with moderate-sized periapical cyst involves the left maxillary central incisor with anterior cortical dehiscence. 3. Unerupted bilateral third mandibular molars with two unerupted supernumerary small teeth posterior to the maxillary central incisors. 4. Mild mucosal thickening of the left maxillary sinus. 5. No significant inflammatory changes or fluid collection PG Care Time/CCT Total # of Minutes Spent Total Time Spent with Patient: Total time spent is greater than 50% in coordination of care (as documented) at patient's floor/unit and/or counseling patient: Coding Level of Care Code None
--- NOTE | 2023-12-20 15:22 | Psychiatric Progress Note ---
Date of Service December 20, 2023 Impression / Recommendations Impression Emilia Orta is a 28-year-old female unknown past history who was brought in by police after being found wandering the street by gas station. Patient presented pressured and tangential speech, memory impairment, and concern for psychosis. She was admitted on 11/21/23 09:58 on a 302 involuntary commitment for psychosis, now on a 304 commitment. 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 Patient has demonstrated significant dysfunction evidenced by recurrent legal troubles, persistent symptoms, recurrent hospitalizations, poor insight, inability to maintain stability in the community, and continued drug dependence. A: Patient appears slightly more labile today and having difficulty controlling emotions. Memory has been slowly improving the patient presents more linear thought process. Better able to engage in discussions about abstinence from illicit drugs. Patient seen by oral surgeon and CT noted to have multiple severe dental caries with cysts; surgery to be scheduled. Overall, I spent a total of 45 minutes with this case including review of chart records, nursing report, review of lab work, direct evaluation of the patient at bedside, counseling the patient, orders, documentation in the electronic health record. 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 Continue medications and treatment plan. 12/19/2023: Decrease Haloperidol to 2.5mg BID. Consult for oral surgery for tooth pain. 12/18/2023: Continue current medications and tx plan. 12/17/2023: Continue current medications and tx plan. Plan for VPA trough level tomorrow AM. 12/16/2023: Continue current medication and tx plan. 12/15/2023: Continue current medications and tx plan. 12/14/2023: Continue current medications and tx plan. 12/13/2023: Increase Depakote to 500mg BID. 12/12/2023: Continue current medications and tx plan. 12/11/2023: Bacitracin ointment BID and Tdap vaccine ordered. 12/10/2023: Increase Depakote DR 250mg qAM and 500mg qdinner. Plan to taper Klonopin in coming days if Depakote increase is well tolerated. 12/09/2023: Continue current medications and tx plan. Will consider transition to Depakote ER after trough level is back. Can consider transition to olanzapine if she continues to prefer this to haldol. 12/08/2023: Trough Depakote level tomorrow PM (12/09/23) 12/07/2023: Continue medications and treatment plan. 12/06/2023: Continue medications and treatment plan. 12/05/2023: Schedule Depakote/Haldol/Klonopin at dinner instead of bedtime. 12/04/2023: Continue current medications and tx plan. 12/03/2023: Continue current medications and tx plan. 12/02/2023: Start Depakote DR 500mg HS. 12/01/2023: Continue current medications and tx plan. Continuing to attempt to get urine sample for UPT. 11/30/2023: UPT ordered. Added Thorazine 25mg IM prn for agitation per her request for additional IM medication options. 11/29/2023: Continue current medications and tx plan. 11/28/2023: Continue current medications and tx plan. 11/27/2023: Discontinue [place] and risperidone. Start haldol 5mg BID. 11/26/2023: Start Thorazine 12.5mg TID prn po for agitation. 11/25/2023: Decrease Clonazepam to 0.5mg HS. Encourage fluids. 11/24/2023: Start Grabill 300mg BID for mood lability. 11/23/2023: Continue medications and treatment plan. 11/22/2023: Increase risperidone to 1 mg every morning and 2 mg nightly. Continue clonazepam 1 mg at bedtime. Encourage fluids. STI and hepatitis panel. 11/21/2023: One-time lorazepam 2 mg p.o. for anxiety. Schedule risperidone 1 mg twice daily and clonazepam 1 mg at bedtime. Baseline EKG and labs: Free T4, free T3, A1c, lipid panel. Inventory Assets Strengths: able to express needs, accepting treatment Needs: social supports, mood control Suicide Risk Level Suicide Risk Level: Moderate (q15 min suicide checks) (one episode of voicing SI but recently denying SI, mood lability, able to ask staff for support ) Risk Factors Assessment Male: No : Yes Do You Have Access To A Gun?: No Health Problems: No Mental Health Diagnoses: Yes Substance Use Disorders: Yes Previous Attempt: No Family History of Suicide: No Previous Psychiatric Hospitalization: Yes Hopelessness: No Protective Factors Assessment Zoroastrianism Beliefs: No : No Responsible for Young Children: No Employed: No Stable Relationships: No Supportive Family: No Good Rapport with Provider: Yes Absence of Any Risk Factors Above: No Interval History Identifying Information Emilia Orta is a 28-year-old female unknown past history who was brought in by police after being found wandering the street by gas station. Patient presented pressured and tangential speech, memory impairment, and concern for psychosis. She was admitted on 11/21/23 09:58 on a 302 involuntary commitment for psychosis. Currently on 304 comittment. Chief Complaint "great day" Review of Systems Sleep Information Total Hours of Sleep: 8.75 Meal Information Percent Meal Consumed - Breakfast: 100 Percent Meal Consumed - Lunch: 100 Percent Meal Consumed - Dinner: 100 Nutrition Comment: sleeping Subjective Subjective Patient was seen & assessed and interval progress reviewed with treatment team nursing and social work Seen by oral surgeon and ordered CT scan. Patient reports not noticing a difference being off the Haldol. Complains of being "a little jumpy" and agitated this morning. Says the rest of her day went "great". Patient is labile on interview and is on the verge of crying. Role- played the interview with rehab and she reports past drug problem on heroin and alcohol and meth. Reports initially not wanting to be clean and then says she does want to be clean. Discusses how she is having so many emotions and has been difficult to handle. Says that she "wants to know how the brain works and what she needs". Physical Exam Mental Examination Appearance: Disheveled Eye Contact: Maintains Eye Contact Motor Behavior: Unremarkable Speech: Tangential Mood: Euthymic Affect: Congruent and Labile Thought Process: Disorganized and Tangential Thought Content: Disorganized Hallucinations: None Insight: Poor Judgement: Poor Vital Signs (Past 24 Hours) Last Vital Signs Temp 36.7 C 12/20/23 12:00 Pulse 70 12/20/23 12:00 Resp 18 12/20/23 12:00 BP 96/68 L 12/20/23 12:00 Pulse Ox 99 12/10/23 12:20 O2 Del Method Room Air 12/10/23 12:20 Results & Data ([facility]) Current Inpatient Medications Current Inpatient Medications: Current Inpatient Medications Acetaminophen (Acetaminophen 325 Mg Tab) 650 mg PO Q4H PRN PRN Reason: Headache or Minor Fever Stop: 12/21/23 10:46 Last Admin: 12/19/23 16:18 Dose: 650 mg Al Hydrox/Mg Hydrox/Simethicone (Aluminum/Magnesium Susp 30 Ml Udc) 30 ml PO Q4H PRN PRN Reason: GI Upset Stop: 12/21/23 10:46 Bacitracin (Bacitracin Oint 14 Gm Tube) 1 appln EXT BID JEREMIAH Stop: 01/11/24 08:59 Last Admin: 12/20/23 08:56 Dose: Not Given Benzocaine (Benzocaine 20% (Orajel) 11.9 Gm Tube) 1 appln MT Q4H PRN PRN Reason: gum or tooth pain Stop: 01/03/24 08:56 Last Admin: 12/17/23 10:11 Dose: 1 appln Benztropine Mesylate (Benztropine Mesylate 1 Mg Tab) 1 mg PO Q8H PRN PRN Reason: EPS, dystonia Stop: 12/21/23 11:57 Benztropine Mesylate (Benztropine Mesylate 1 Mg/Ml 2 Ml Amp) 1 mg IM Q8H PRN PRN Reason: EPS, dystonia Stop: 12/21/23 11:59 Bismuth Subsalicylate (Bismuth Subsalicylate Liqd 236 Ml) 15 ml PO PRN PRN PRN Reason: Loose Stool Stop: 12/21/23 10:46 Chlorpromazine HCl (Chlorpromazine Hcl 25 Mg Tab) 12.5 mg PO TID PRN PRN Reason: Agitation Stop: 12/26/23 08:59 Last Admin: 12/17/23 08:26 Dose: 12.5 mg Chlorpromazine HCl (Chlorpromazine Hcl 25 Mg/Ml Amp) 25 mg IM BID PRN PRN Reason: Agitation Stop: 12/30/23 09:34 Last Admin: 12/02/23 14:07 Dose: 25 mg Clonazepam (Clonazepam 0.5 Mg Tab) 0.5 mg PO QDD [facility] Stop: 01/04/24 17:44 Last Admin: 12/19/23 17:25 Dose: 0.5 mg Divalproex Sodium (Divalproex Delay Release 500 Mg Tab) 500 mg PO QDD [facility] Stop: 01/04/24 17:44 Last Admin: 12/19/23 17:25 Dose: 500 mg Divalproex Sodium (Divalproex Delay Release 500 Mg Tab) 500 mg PO QAM [facility] Stop: 01/13/24 08:59 Last Admin: 12/20/23 08:56 Dose: 500 mg Haloperidol (Haloperidol 5 Mg Tab) 5 mg PO Q8H PRN PRN Reason: Agitation Stop: 12/21/23 11:57 Last Admin: 12/16/23 10:10 Dose: 5 mg Haloperidol (Haloperidol 5 Mg Tab) 2.5 mg PO BIDM [facility] Stop: 01/19/24 08:59 Last Admin: 12/20/23 08:55 Dose: 2.5 mg Haloperidol Lactate (Haloperidol Lactate 5 Mg/Ml 1 Ml Vial) 5 mg IM Q8H PRN PRN Reason: Agitation Stop: 12/21/23 11:57 Hydroxyzine HCl (Hydroxyzine Hcl 25 Mg Tab) 50 mg PO HSZ PRN PRN Reason: Insomnia Stop: 12/21/23 10:46 Last Admin: 12/05/23 18:44 Dose: 50 mg Hydroxyzine HCl (Hydroxyzine Hcl 25 Mg Tab) 25 mg PO Q4H PRN PRN Reason: Anxiety Stop: 12/21/23 10:46 Last Admin: 12/18/23 16:08 Dose: 25 mg Ibuprofen (Ibuprofen 200 Mg Tab) 400 mg PO Q8H PRN PRN Reason: Pain Stop: 01/15/24 12:36 Last Admin: 12/19/23 12:38 Dose: 400 mg Lorazepam (Lorazepam 2 Mg/1 Ml Vial) 1 mg IM Q8H PRN PRN Reason: Agitation Stop: 12/21/23 11:57 Last Admin: 12/02/23 14:06 Dose: 1 mg Lorazepam (Lorazepam 1 Mg Tab) 1 mg PO Q8H PRN PRN Reason: Agitation Stop: 12/21/23 11:57 Last Admin: 12/20/23 11:17 Dose: 1 mg Magnesium Hydroxide (Magnesium Hydroxide Susp 30 Ml Udc) 30 ml PO DAILY PRN PRN Reason: Constipation Stop: 12/21/23 10:46 Miscellaneous (Remove Nicoderm Patch) 1 each N/A DAILY@0859 [facility] Stop: 01/05/24 08:58 Last Admin: 12/20/23 08:57 Dose: 1 each Nicotine (Nicotine 7 Mg/24 Hr Tdsy) 1 patch TD QAM JEREMIAH Stop: 01/05/24 08:59 Last Admin: 12/20/23 08:57 Dose: 1 patch Nicotine Polacrilex (Nicotine Polacrilex 2 Mg Gum) 1 piece MT Q2H PRN PRN Reason: nicotine cravings Stop: 12/24/23 09:27 Last Admin: 12/20/23 14:38 Dose: 1 piece Sodium Chloride (Sodium Chloride 0.65% Na Soln 45 Ml ([place])) 1 - 2 sprays NA PRN PRN PRN Reason: Nasal Dryness/Congestion Stop: 12/21/23 10:46 Mental Health & Subst Abuse Tx Psychiatrist Name of Psychiatrist: Sara Duque [facility] Psychiatrist's Psychiatric Appointment Comment: [address], [address], [facility] [address] Therapist Name of Therapist: denies Central Office Operator Name of Central Office Operator: denies Post Discharge Appointments Primary Care Physician Name Of Family Doctor/PCP: Sara Duque [facility] Primary Care Provider Appointment Comment: [address], [address], [facility] [address]
--- NOTE | 2023-12-20 22:10 | Oral/Maxillofacial Progress Nt ---
Date of Service December 20, 2023 Assessment & Plan Admission and Anticipated Discharge Date Admission Date: November 21, 2023 Subjective With unit staff present I reviewed with Emilia that we will plan on removing tooth 15 and 30 with anesthesia on Monday. I reviewed the consent and Emilia has a good understanding that the 2 teeth must be removed. The unit will help to coordinate the procedure for MondayDec 24 in the OR. I see no reason that Emilia can not be transferred back to the unit from the outpatient recovery area. She may need pain Meds and a few days of oral antibiotics. If we are a go for Monday OR please arrange for NPO Monday night Please, if need make any drug modifications pre-op. Thanks Garrett Zuñiga DMD Results & Data Vital Signs (Past 12 Hours) Vital Signs Temp Pulse Resp BP 12/20/23 12:00 36.7 C 70 18 96/68 L PG Care Time/CCT Total # of Minutes Spent Total Time Spent with Patient: Total time spent is greater than 50% in coordination of care (as documented) at patient's floor/unit and/or counseling patient: Coding Level of Care Code None
--- NOTE | 2023-12-21 08:08 | Psychiatric Progress Note ---
Date of Service December 19, 2023 Back dated progress note, hospital outage impacted note submission Impression / Recommendations Impression Emilia Orta is a 28-year-old female unknown past history who was brought in by police after being found wandering the street by gas station. Patient presented pressured and tangential speech, memory impairment, and concern for psychosis. She was admitted on 11/21/23 09:58 on a 302 involuntary commitment for psychosis, now on a 304 commitment. 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 Patient has demonstrated significant dysfunction evidenced by recurrent legal troubles, persistent symptoms, recurrent hospitalizations, poor insight, inability to maintain stability in the community, and continued drug dependence. A: Patient having difficulty with extended conversations about abstinence and rehab. Appears slightly less disorganized and interacting more clearly. Open to plan to decrease haldol dose. Overall, I spent a total of 30 minutes with this case including review of chart records, nursing report, review of lab work, direct evaluation of the patient at bedside, counseling the patient, orders, documentation in the electronic health record. 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 Consult for oral surgery for tooth pain. 12/18/2023: Continue current medications and tx plan. 12/17/2023: Continue current medications and tx plan. Plan for VPA trough level tomorrow AM. 12/16/2023: Continue current medication and tx plan. 12/15/2023: Continue current medications and tx plan. 12/14/2023: Continue current medications and tx plan. 12/13/2023: Increase Depakote to 500mg BID. 12/12/2023: Continue current medications and tx plan. 12/11/2023: Bacitracin ointment BID and Tdap vaccine ordered. 12/10/2023: Increase Depakote DR 250mg qAM and 500mg qdinner. Plan to taper Klonopin in coming days if Depakote increase is well tolerated. 12/09/2023: Continue current medications and tx plan. Will consider transition to Depakote ER after trough level is back. Can consider transition to olanzapine if she continues to prefer this to haldol. 12/08/2023: Trough Depakote level tomorrow PM (12/09/23) 12/07/2023: Continue medications and treatment plan. 12/06/2023: Continue medications and treatment plan. 12/05/2023: Schedule Depakote/Haldol/Klonopin at dinner instead of bedtime. 12/04/2023: Continue current medications and tx plan. 12/03/2023: Continue current medications and tx plan. 12/02/2023: Start Depakote DR 500mg HS. 12/01/2023: Continue current medications and tx plan. Continuing to attempt to get urine sample for UPT. 11/30/2023: UPT ordered. Added Thorazine 25mg IM prn for agitation per her request for additional IM medication options. 11/29/2023: Continue current medications and tx plan. 11/28/2023: Continue current medications and tx plan. 11/27/2023: Discontinue Bear and risperidone. Start haldol 5mg BID. 11/26/2023: Start Thorazine 12.5mg TID prn po for agitation. 11/25/2023: Decrease Clonazepam to 0.5mg HS. Encourage fluids. 11/24/2023: Start Bear 300mg BID for mood lability. 11/23/2023: Continue medications and treatment plan. 11/22/2023: Increase risperidone to 1 mg every morning and 2 mg nightly. Continue clonazepam 1 mg at bedtime. Encourage fluids. STI and hepatitis panel. 11/21/2023: One-time lorazepam 2 mg p.o. for anxiety. Schedule risperidone 1 mg twice daily and clonazepam 1 mg at bedtime. Baseline EKG and labs: Free T4, free T3, A1c, lipid panel. Inventory Assets Strengths: able to express needs, accepting treatment Needs: social supports, mood control Suicide Risk Level Suicide Risk Level: Moderate (q15 min suicide checks) (one episode of voicing SI but recently denying SI, mood lability, able to ask staff for support ) Risk Factors Assessment Male: No : Yes Do You Have Access To A Gun?: No Health Problems: No Mental Health Diagnoses: Yes Substance Use Disorders: Yes Previous Attempt: No Family History of Suicide: No Previous Psychiatric Hospitalization: Yes Hopelessness: No Protective Factors Assessment Lutheran Beliefs: No : No Responsible for Young Children: No Employed: No Stable Relationships: No Supportive Family: No Good Rapport with Provider: Yes Absence of Any Risk Factors Above: No Interval History Identifying Information Emilia Orta is a 28-year-old female unknown past history who was brought in by police after being found wandering the street by [place] station. Patient presented pressured and tangential speech, memory impairment, and concern for psychosis. She was admitted on 11/21/23 09:58 on a 302 involuntary commitment for psychosis. Currently on 304 comittment. Chief Complaint "Ok" Review of Systems Sleep Information Total Hours of Sleep: 6.5 Meal Information Percent Meal Consumed - Breakfast: 100 Percent Meal Consumed - Lunch: 100 Percent Meal Consumed - Dinner: 100 Nutrition Comment: sleeping Subjective Subjective Patient was seen & assessed and interval progress reviewed with treatment team nursing and social work Patient reports doing well. Was presented interview questions for rehab and required some redirection. Open to getting treatment for her tooth pain. Labile and crying at times. Physical Exam Mental Examination Appearance: Disheveled Eye Contact: Maintains Eye Contact Motor Behavior: Unremarkable Speech: Tangential Mood: Euthymic Affect: Congruent and Labile Thought Process: Disorganized and Tangential Thought Content: Disorganized Hallucinations: None Insight: Poor Judgement: Poor Vital Signs (Past 24 Hours) Last Vital Signs Temp 36.7 C 12/20/23 12:00 Pulse 70 12/20/23 12:00 Resp 18 12/20/23 12:00 BP 96/68 L 12/20/23 12:00 Pulse Ox 99 12/10/23 12:20 O2 Del Method Room Air 12/10/23 12:20 Results & Data (U) Current Inpatient Medications Current Inpatient Medications: Current Inpatient Medications Acetaminophen (Acetaminophen 325 Mg Tab) 650 mg PO Q4H PRN PRN Reason: Headache or Minor Fever Stop: 12/21/23 10:46 Last Admin: 12/19/23 16:18 Dose: 650 mg Al Hydrox/Mg Hydrox/Simethicone (Aluminum/Magnesium Susp 30 Ml Udc) 30 ml PO Q4H PRN PRN Reason: GI Upset Stop: 12/21/23 10:46 Bacitracin (Bacitracin Oint 14 Gm Tube) 1 appln EXT BID JEREMIAH Stop: 01/11/24 08:59 Last Admin: 12/20/23 21:02 Dose: 1 appln Benzocaine (Benzocaine 20% (Orajel) 11.9 Gm Tube) 1 appln MT Q4H PRN PRN Reason: gum or tooth pain Stop: 01/03/24 08:56 Last Admin: 12/17/23 10:11 Dose: 1 appln Benztropine Mesylate (Benztropine Mesylate 1 Mg Tab) 1 mg PO Q8H PRN PRN Reason: EPS, dystonia Stop: 12/21/23 11:57 Benztropine Mesylate (Benztropine Mesylate 1 Mg/Ml 2 Ml Amp) 1 mg IM Q8H PRN PRN Reason: EPS, dystonia Stop: 12/21/23 11:59 Bismuth Subsalicylate (Bismuth Subsalicylate Liqd 236 Ml) 15 ml PO PRN PRN PRN Reason: Loose Stool Stop: 12/21/23 10:46 Chlorpromazine HCl (Chlorpromazine Hcl 25 Mg Tab) 12.5 mg PO TID PRN PRN Reason: Agitation Stop: 12/26/23 08:59 Last Admin: 12/17/23 08:26 Dose: 12.5 mg Chlorpromazine HCl (Chlorpromazine Hcl 25 Mg/Ml Amp) 25 mg IM BID PRN PRN Reason: Agitation Stop: 12/30/23 09:34 Last Admin: 12/02/23 14:07 Dose: 25 mg Clonazepam (Clonazepam 0.5 Mg Tab) 0.5 mg PO QDD [facility] Stop: 01/04/24 17:44 Last Admin: 12/20/23 17:25 Dose: 0.5 mg Divalproex Sodium (Divalproex Delay Release 500 Mg Tab) 500 mg PO QDD [facility] Stop: 01/04/24 17:44 Last Admin: 12/20/23 17:25 Dose: 500 mg Divalproex Sodium (Divalproex Delay Release 500 Mg Tab) 500 mg PO QAM [facility] Stop: 01/13/24 08:59 Last Admin: 12/20/23 08:56 Dose: 500 mg Haloperidol (Haloperidol 5 Mg Tab) 5 mg PO Q8H PRN PRN Reason: Agitation Stop: 12/21/23 11:57 Last Admin: 12/16/23 10:10 Dose: 5 mg Haloperidol (Haloperidol 5 Mg Tab) 2.5 mg PO BIDM [facility] Stop: 01/19/24 08:59 Last Admin: 12/20/23 17:25 Dose: 2.5 mg Haloperidol Lactate (Haloperidol Lactate 5 Mg/Ml 1 Ml Vial) 5 mg IM Q8H PRN PRN Reason: Agitation Stop: 12/21/23 11:57 Hydroxyzine HCl (Hydroxyzine Hcl 25 Mg Tab) 50 mg PO HSZ PRN PRN Reason: Insomnia Stop: 12/21/23 10:46 Last Admin: 12/20/23 21:07 Dose: 50 mg Hydroxyzine HCl (Hydroxyzine Hcl 25 Mg Tab) 25 mg PO Q4H PRN PRN Reason: Anxiety Stop: 12/21/23 10:46 Last Admin: 12/18/23 16:08 Dose: 25 mg Ibuprofen (Ibuprofen 200 Mg Tab) 400 mg PO Q8H PRN PRN Reason: Pain Stop: 01/15/24 12:36 Last Admin: 12/19/23 12:38 Dose: 400 mg Lorazepam (Lorazepam 2 Mg/1 Ml Vial) 1 mg IM Q8H PRN PRN Reason: Agitation Stop: 12/21/23 11:57 Last Admin: 12/02/23 14:06 Dose: 1 mg Lorazepam (Lorazepam 1 Mg Tab) 1 mg PO Q8H PRN PRN Reason: Agitation Stop: 12/21/23 11:57 Last Admin: 12/20/23 21:10 Dose: 1 mg Magnesium Hydroxide (Magnesium Hydroxide Susp 30 Ml Udc) 30 ml PO DAILY PRN PRN Reason: Constipation Stop: 12/21/23 10:46 Miscellaneous (Remove Nicoderm Patch) 1 each N/A DAILY@0859 [facility] Stop: 01/05/24 08:58 Last Admin: 12/20/23 08:57 Dose: 1 each Nicotine (Nicotine 7 Mg/24 Hr Tdsy) 1 patch TD [facility] Stop: 01/05/24 08:59 Last Admin: 12/20/23 08:57 Dose: 1 patch Nicotine Polacrilex (Nicotine Polacrilex 2 Mg Gum) 1 piece MT Q2H PRN PRN Reason: nicotine cravings Stop: 12/24/23 09:27 Last Admin: 12/20/23 17:52 Dose: 1 piece Sodium Chloride (Sodium Chloride 0.65% Na Soln 45 Ml ([place])) 1 - 2 sprays NA PRN PRN PRN Reason: Nasal Dryness/Congestion Stop: 12/21/23 10:46 Mental Health & Subst Abuse Tx Psychiatrist Name of Psychiatrist: Sara Duque [facility] Psychiatrist's Psychiatric Appointment Comment: [address], [address], [place] [address] Therapist Name of Therapist: denies Engagement Quality Consultant Name of Engagement Quality Consultant: denies Post Discharge Appointments Primary Care Physician Name Of Family Doctor/PCP: Sara Duque [facility] Primary Care Provider Appointment Comment: [address], [address], [place] [address]
[2023-12-21] MEDS ORDERED: BISMUTH SUBSALICYLATE LIQD 236 ML PO PRN (11:20)
[2023-12-21] MEDS ORDERED: MAGNESIUM HYDROXIDE SUSP 30 ML UDC PO PRN (11:20)
[2023-12-21] MEDS ORDERED: ALUMINUM/MAGNESIUM SUSP 30 ML UDC PO PRN (11:20)
[2023-12-21] MEDS ORDERED: SODIUM CHLORIDE 0.65% NA SOLN 45 ML (OCEAN) PRN (11:20)
--- NOTE | 2023-12-21 14:59 | Psychiatric Progress Note ---
Date of Service December 21, 2023 Impression / Recommendations Impression Emilia Orta is a 28-year-old female unknown past history who was brought in by police after being found wandering the street by gas station. Patient presented pressured and tangential speech, memory impairment, and concern for psychosis. She was admitted on 11/21/23 09:58 on a 302 involuntary commitment for psychosis, now on a 304 commitment. 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 Patient has demonstrated significant dysfunction evidenced by recurrent legal troubles, persistent symptoms, recurrent hospitalizations, poor insight, inability to maintain stability in the community, and continued drug dependence. A: Patient more labile alternating from bright affect to tearfulness. Able to tolerate longer conversations about after care and more input into discussion. Oral surgery tooth removal planned for Monday and pt to be NPO Monday after dinner. Can get Monday AM meds after returning from surgery. Given increased lability will increase nightly depakote to 750mg HS (pt able to tolerate based on recent blood levels). SW updated that pt eligible for step down unit in this [facility] and will apply. Pt previously denied from [facility] since not currently in [facility]. Overall, I spent a total of 40 minutes with this case including review of chart records, nursing report, review of lab work, direct evaluation of the patient at bedside, counseling the patient, orders, documentation in the electronic health record. 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 12/20/2023: Continue current medications and tx plan. 12/19/2023: Decrease Haloperidol to 2.5mg BID. Consult for oral surgery for tooth pain. 12/18/2023: Continue current medications and tx plan. 12/17/2023: Continue current medications and tx plan. Plan for VPA trough level tomorrow AM. 12/16/2023: Continue current medication and tx plan. 12/15/2023: Continue current medications and tx plan. 12/14/2023: Continue current medications and tx plan. 12/13/2023: Increase Depakote to 500mg BID. 12/12/2023: Continue current medications and tx plan. 12/11/2023: Bacitracin ointment BID and Tdap vaccine ordered. 12/10/2023: Increase Depakote DR 250mg qAM and 500mg qdinner. Plan to taper Klonopin in coming days if Depakote increase is well tolerated. 12/09/2023: Continue current medications and tx plan. Will consider transition to Depakote ER after trough level is back. Can consider transition to olanzapine if she continues to prefer this to haldol. 12/08/2023: Trough Depakote level tomorrow PM (12/09/23) 12/07/2023: Continue medications and treatment plan. 12/06/2023: Continue medications and treatment plan. 12/05/2023: Schedule Depakote/Haldol/Klonopin at dinner instead of bedtime. 12/04/2023: Continue current medications and tx plan. 12/03/2023: Continue current medications and tx plan. 12/02/2023: Start Depakote DR 500mg HS. 12/01/2023: Continue current medications and tx plan. Continuing to attempt to get urine sample for UPT. 11/30/2023: UPT ordered. Added Thorazine 25mg IM prn for agitation per her request for additional IM medication options. 11/29/2023: Continue current medications and tx plan. 11/28/2023: Continue current medications and tx plan. 11/27/2023: Discontinue [place] and risperidone. Start haldol 5mg BID. 11/26/2023: Start Thorazine 12.5mg TID prn po for agitation. 11/25/2023: Decrease Clonazepam to 0.5mg HS. Encourage fluids. 11/24/2023: Start [place] 300mg BID for mood lability. 11/23/2023: Continue medications and treatment plan. 11/22/2023: Increase risperidone to 1 mg every morning and 2 mg nightly. Continue clonazepam 1 mg at bedtime. Encourage fluids. STI and hepatitis panel. 11/21/2023: One-time lorazepam 2 mg p.o. for anxiety. Schedule risperidone 1 mg twice daily and clonazepam 1 mg at bedtime. Baseline EKG and labs: Free T4, free T3, A1c, lipid panel. Inventory Assets Strengths: able to express needs, accepting treatment Needs: social supports, mood control Suicide Risk Level Suicide Risk Level: Moderate (q15 min suicide checks) (one episode of voicing SI but recently denying SI, mood lability, able to ask staff for support ) Risk Factors Assessment Male: No : Yes Do You Have Access To A Gun?: No Health Problems: No Mental Health Diagnoses: Yes Substance Use Disorders: Yes Previous Attempt: No Family History of Suicide: No Previous Psychiatric Hospitalization: Yes Hopelessness: No Protective Factors Assessment Islam Beliefs: No : No Responsible for Young Children: No Employed: No Stable Relationships: No Supportive Family: No Good Rapport with Provider: Yes Absence of Any Risk Factors Above: No Interval History Identifying Information Emilia Orta is a 28-year-old female unknown past history who was brought in by police after being found wandering the street by gas station. Patient presented pressured and tangential speech, memory impairment, and concern for psychosis. She was admitted on 11/21/23 09:58 on a 302 involuntary commitment for psychosis. Currently on 304 comittment. Chief Complaint "Feeling great". Review of Systems Sleep Information Total Hours of Sleep: 6.5 Meal Information Percent Meal Consumed - Breakfast: 80 Percent Meal Consumed - Lunch: 100 Percent Meal Consumed - Dinner: 100 Nutrition Comment: sleeping Subjective Subjective Patient was seen & assessed and interval progress reviewed with treatment team nursing and social work Patient reports "Feeling great" and in high spirits. Seems very happy. We discuss updates regarding her dental care. Attempt to have discussion about relapse prevention and impact on illicit substances, some understanding presented. Discussed avenues for independent living moving forward. Labile and at times appeared sad in the interview; unable to clarify further. Physical Exam Mental Examination Appearance: Disheveled Eye Contact: Maintains Eye Contact Motor Behavior: Unremarkable Speech: Tangential Mood: Euthymic Affect: Congruent and Labile Thought Process: Disorganized and Tangential Thought Content: Disorganized Hallucinations: None Insight: Poor Judgement: Poor Vital Signs (Past 24 Hours) Last Vital Signs Temp 36.7 C 12/20/23 12:00 Pulse 70 12/20/23 12:00 Resp 18 12/20/23 12:00 BP 96/68 L 12/20/23 12:00 Pulse Ox 99 12/10/23 12:20 O2 Del Method Room Air 12/10/23 12:20 Results & Data ([facility]) Current Inpatient Medications Current Inpatient Medications: Current Inpatient Medications Acetaminophen (Acetaminophen 325 Mg Tab) 650 mg PO Q4H PRN PRN Reason: Headache or Minor Fever Stop: 01/20/24 11:19 Al Hydrox/Mg Hydrox/Simethicone (Aluminum/Magnesium Susp 30 Ml Udc) 30 ml PO Q4H PRN PRN Reason: GI Upset Stop: 01/20/24 11:19 Bacitracin (Bacitracin Oint 14 Gm Tube) 1 appln EXT BID JEREMIAH Stop: 01/11/24 08:59 Last Admin: 12/21/23 09:45 Dose: Not Given Benzocaine (Benzocaine 20% (Orajel) 11.9 Gm Tube) 1 appln MT Q4H PRN PRN Reason: gum or tooth pain Stop: 01/03/24 08:56 Last Admin: 12/17/23 10:11 Dose: 1 appln Bismuth Subsalicylate (Bismuth Subsalicylate Liqd 236 Ml) 15 ml PO PRN PRN PRN Reason: Loose Stool Stop: 01/20/24 11:19 Chlorpromazine HCl (Chlorpromazine Hcl 25 Mg Tab) 12.5 mg PO TID PRN PRN Reason: Agitation Stop: 12/26/23 08:59 Last Admin: 12/17/23 08:26 Dose: 12.5 mg Chlorpromazine HCl (Chlorpromazine Hcl 25 Mg/Ml Amp) 25 mg IM BID PRN PRN Reason: Agitation Stop: 12/30/23 09:34 Last Admin: 12/02/23 14:07 Dose: 25 mg Clonazepam (Clonazepam 0.5 Mg Tab) 0.5 mg PO QDD JEREMIAH Stop: 01/04/24 17:44 Last Admin: 12/20/23 17:25 Dose: 0.5 mg Divalproex Sodium (Divalproex Delay Release 500 Mg Tab) 500 mg PO QAM [facility] Stop: 01/13/24 08:59 Last Admin: 12/21/23 09:30 Dose: 500 mg Divalproex Sodium (Divalproex Delay Release 250 Mg Tabec) 750 mg PO QDD [facility] Stop: 01/20/24 17:44 Haloperidol (Haloperidol 5 Mg Tab) 5 mg PO Q8H PRN PRN Reason: Agitation Stop: 01/18/24 11:57 Last Admin: 12/16/23 10:10 Dose: 5 mg Haloperidol (Haloperidol 5 Mg Tab) 2.5 mg PO BIDM [facility] Stop: 01/19/24 08:59 Last Admin: 12/21/23 09:30 Dose: 2.5 mg Haloperidol Lactate (Haloperidol Lactate 5 Mg/Ml 1 Ml Vial) 5 mg IM Q8H PRN PRN Reason: Agitation Stop: 01/18/24 11:57 Hydroxyzine HCl (Hydroxyzine Hcl 25 Mg Tab) 50 mg PO HSZ PRN PRN Reason: Insomnia Stop: 01/20/24 11:19 Hydroxyzine HCl (Hydroxyzine Hcl 25 Mg Tab) 25 mg PO Q4H PRN PRN Reason: Anxiety Stop: 01/20/24 11:19 Ibuprofen (Ibuprofen 200 Mg Tab) 400 mg PO Q8H PRN PRN Reason: Pain Stop: 01/15/24 12:36 Last Admin: 12/19/23 12:38 Dose: 400 mg Lorazepam (Lorazepam 2 Mg/1 Ml Vial) 1 mg IM Q8H PRN PRN Reason: Agitation Stop: 01/18/24 11:57 Last Admin: 12/02/23 14:06 Dose: 1 mg Lorazepam (Lorazepam 1 Mg Tab) 1 mg PO Q8H PRN PRN Reason: Agitation Stop: 01/18/24 11:57 Last Admin: 12/20/23 21:10 Dose: 1 mg Magnesium Hydroxide (Magnesium Hydroxide Susp 30 Ml Udc) 30 ml PO DAILY PRN PRN Reason: Constipation Stop: 01/20/24 11:19 Miscellaneous (Remove Nicoderm Patch) 1 each N/A DAILY@0859 [facility] Stop: 01/05/24 08:58 Last Admin: 12/21/23 09:38 Dose: 1 each Nicotine (Nicotine 7 Mg/24 Hr Tdsy) 1 patch TD QAM [facility] Stop: 01/05/24 08:59 Last Admin: 12/21/23 09:31 Dose: 1 patch Nicotine Polacrilex (Nicotine Polacrilex 2 Mg Gum) 1 piece MT Q2H PRN PRN Reason: nicotine cravings Stop: 12/24/23 09:27 Last Admin: 12/21/23 13:21 Dose: 1 piece Sodium Chloride (Sodium Chloride 0.65% Na Soln 45 Ml ([place])) 1 - 2 sprays NA PRN PRN PRN Reason: Nasal Dryness/Congestion Stop: 01/20/24 11:19 Mental Health & Subst Abuse Tx Psychiatrist Name of Psychiatrist: Sara Duque [facility] Psychiatrist's Psychiatric Appointment Comment: [address], [address] [address] Therapist Name of Therapist: marciies Social And Political Studies Professor Name of Social And Political Studies Professor: denies Post Discharge Appointments Primary Care Physician Name Of Family Doctor/PCP: Sara Duque [facility] Primary Care Provider Appointment Comment: [address], [address], [place] [address]
[2023-12-21] MEDS: ACETAMINOPHEN 325 MG TAB PO PRN (15:41)
[2023-12-21] MEDS: DIVALPROEX DELAY RELEASE 250 MG TABEC PO SCH (17:18)
--- NOTE | 2023-12-22 08:55 | Psychiatric Progress Note ---
Date of Service December 22, 2023 Impression / Recommendations Impression Emilia Orta is a 28-year-old female unknown past history who was brought in by police after being found wandering the street by gas station. Patient presented pressured and tangential speech, memory impairment, and concern for psychosis. She was admitted on 11/21/23 09:58 on a 302 involuntary commitment for psychosis, now on a 304 commitment. 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 Patient has demonstrated significant dysfunction evidenced by recurrent legal troubles, persistent symptoms, recurrent hospitalizations, poor insight, inability to maintain stability in the community, and continued drug dependence. A: She recalls plan for oral surgery on Monday and is glad this is happening, remains otherwise frustrated with hospitalization as wishes she could just be discharge. Continues to have poor insight into lack of disposition options and that her inability to tolerate conversations about disposition, especially phone calls, is the main reason for this. Unclear why she brought up Wellbutrin but this is contraindicated given her recent agitation, ongoing lability and psychosis with loosening of associations. Tolerating taper of haldol so far but still with loosening of associations. She has been hospitalized for 30days so 30 day length of stay and treatment team review was done today. Discussed as treatment team concerns about the safety of having her be able to go outside. Given her ongoing significantly impaired insight and mood lability with periods of agitation, she is not deemed to be a candidate to be able to go outside at this time due to concern for high elopement risk. We will continue to re-assess during treatment team and as she progresses clinically. Overall, I spent a total of 36 minutes with this case including review of chart records, nursing report, review of lab work, direct evaluation of the patient at bedside, counseling the patient, orders, documentation in the electronic health record. 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 12/21/2023: Increase nightly depakote to 750mg in the evening. 12/20/2023: Continue current medications and tx plan. 12/19/2023: Decrease Haloperidol to 2.5mg BID. Consult for oral surgery for tooth pain. 12/18/2023: Continue current medications and tx plan. 12/17/2023: Continue current medications and tx plan. Plan for VPA trough level tomorrow AM. 12/16/2023: Continue current medication and tx plan. 12/15/2023: Continue current medications and tx plan. 12/14/2023: Continue current medications and tx plan. 12/13/2023: Increase Depakote to 500mg BID. 12/12/2023: Continue current medications and tx plan. 12/11/2023: Bacitracin ointment BID and Tdap vaccine ordered. 12/10/2023: Increase Depakote DR 250mg qAM and 500mg qdinner. Plan to taper Klonopin in coming days if Depakote increase is well tolerated. 12/09/2023: Continue current medications and tx plan. Will consider transition to Depakote ER after trough level is back. Can consider transition to olanzapine if she continues to prefer this to haldol. 12/08/2023: Trough Depakote level tomorrow PM (12/09/23) 12/07/2023: Continue medications and treatment plan. 12/06/2023: Continue medications and treatment plan. 12/05/2023: Schedule Depakote/Haldol/Klonopin at dinner instead of bedtime. 12/04/2023: Continue current medications and tx plan. 12/03/2023: Continue current medications and tx plan. 12/02/2023: Start Depakote DR 500mg HS. 12/01/2023: Continue current medications and tx plan. Continuing to attempt to get urine sample for UPT. 11/30/2023: UPT ordered. Added Thorazine 25mg IM prn for agitation per her reques t for additional IM medication options. 11/29/2023: Continue current medications and tx plan. 11/28/2023: Continue current medications and tx plan. 11/27/2023: Discontinue [place] and risperidone. Start haldol 5mg BID. 11/26/2023: Start Thorazine 12.5mg TID prn po for agitation. 11/25/2023: Decrease Clonazepam to 0.5mg HS. Encourage fluids. 11/24/2023: Start [place] 300mg BID for mood lability. 11/23/2023: Continue medications and treatment plan. 11/22/2023: Increase risperidone to 1 mg every morning and 2 mg nightly. Continue clonazepam 1 mg at bedtime. Encourage fluids. STI and hepatitis panel. 11/21/2023: One-time lorazepam 2 mg p.o. for anxiety. Schedule risperidone 1 mg twice daily and clonazepam 1 mg at bedtime. Baseline EKG and labs: Free T4, free T3, A1c, lipid panel. Inventory Assets Strengths: able to express needs, accepting treatment Needs: social supports, mood control Suicide Risk Level Suicide Risk Level: Moderate (q15 min suicide checks) (one episode of voicing SI but recently denying SI, mood lability, able to ask staff for support ) Risk Factors Assessment Male: No : Yes Do You Have Access To A Gun?: No Health Problems: No Mental Health Diagnoses: Yes Substance Use Disorders: Yes Previous Attempt: No Family History of Suicide: No Previous Psychiatric Hospitalization: Yes Hopelessness: No Protective Factors Assessment Buddhist Beliefs: No : No Responsible for Young Children: No Employed: No Stable Relationships: No Supportive Family: No Good Rapport with Provider: Yes Absence of Any Risk Factors Above: No Interval History Identifying Information Emilia Orta is a 28-year-old female unknown past history who was brought in by police after being found wandering the street by gas station. Patient presented pressured and tangential speech, memory impairment, and concern for psychosis. She was admitted on 11/21/23 09:58 on a 302 involuntary commitment for psychosis. Currently on 304 comittment. Chief Complaint "Fine, pretty well". Review of Systems Sleep Information Total Hours of Sleep: 7.5 Meal Information Percent Meal Consumed - Breakfast: 80 Percent Meal Consumed - Lunch: 100 Percent Meal Consumed - Dinner: 90 Nutrition Comment: sleeping Subjective Subjective Patient was seen & assessed and interval progress reviewed with treatment team nursing and social work. Disorganized in group yesterday, said she was "". Attending groups. Reports her mood is stable but feels "tired" due to "drinking coffee to crash out". Wonders about stopping Depakote and starting Wellbutrin, advised this was not recommended and plan is to continue with Depakote, she was receptive to this. Remains focused on discharge, encouraged her to journal her thoughts about what she wants and what she would hope to get out of residential substance use treatment as she is hopeful to explore this again. She asks for higher nicotine patch dose. Physical Exam Psychiatric Orientation: alert and oriented x 3 Apperance: appropriately dressed and + disheveled Eye Contact: good eye contact Motor Behavior: no abnormal motor movements Speech: normal rate/rhythm/volume of speech Affect: + labile affect Mood: + anxious mood and + irritable mood Thought Process: + circumstantial thought process and + looseness of associations Thought Content: + preoccupation Insight: + poor insight Judgment: + limited judgement Vital Signs (Past 24 Hours) Last Vital Signs Temp 36.7 C 12/20/23 12:00 Pulse 70 12/20/23 12:00 Resp 18 12/20/23 12:00 BP 96/68 L 12/20/23 12:00 Pulse Ox 99 12/10/23 12:20 O2 Del Method Room Air 12/10/23 12:20 Results & Data ([facility]) Laboratory Results Laboratory Results - last 24 hr 12/21/23 20:43 C.trachomatis RNA Pending N.gonorrhoeae RNA Pending T.vaginalis (Amp Det) Pending Current Inpatient Medications Current Inpatient Medications: Current Inpatient Medications Acetaminophen (Acetaminophen 325 Mg Tab) 650 mg PO Q4H PRN PRN Reason: Headache or Minor Fever Stop: 01/20/24 11:19 Last Admin: 12/21/23 15:41 Dose: 650 mg Al Hydrox/Mg Hydrox/Simethicone (Aluminum/Magnesium Susp 30 Ml Udc) 30 ml PO Q4H PRN PRN Reason: GI Upset Stop: 01/20/24 11:19 Bacitracin (Bacitracin Oint 14 Gm Tube) 1 appln EXT BID JEREMIAH Stop: 01/11/24 08:59 Last Admin: 12/22/23 07:38 Dose: Not Given Benzocaine (Benzocaine 20% (Orajel) 11.9 Gm Tube) 1 appln MT Q4H PRN PRN Reason: gum or tooth pain Stop: 01/03/24 08:56 Last Admin: 12/17/23 10:11 Dose: 1 appln Bismuth Subsalicylate (Bismuth Subsalicylate Liqd 236 Ml) 15 ml PO PRN PRN PRN Reason: Loose Stool Stop: 01/20/24 11:19 Chlorpromazine HCl (Chlorpromazine Hcl 25 Mg Tab) 12.5 mg PO TID PRN PRN Reason: Agitation Stop: 12/26/23 08:59 Last Admin: 12/17/23 08:26 Dose: 12.5 mg Chlorpromazine HCl (Chlorpromazine Hcl 25 Mg/Ml Amp) 25 mg IM BID PRN PRN Reason: Agitation Stop: 12/30/23 09:34 Last Admin: 12/02/23 14:07 Dose: 25 mg Clonazepam (Clonazepam 0.5 Mg Tab) 0.5 mg PO QDD [facility] Stop: 01/04/24 17:44 Last Admin: 12/21/23 17:20 Dose: 0.5 mg Divalproex Sodium (Divalproex Delay Release 500 Mg Tab) 500 mg PO QAM [facility] Stop: 01/13/24 08:59 Last Admin: 12/22/23 07:32 Dose: 500 mg Divalproex Sodium (Divalproex Delay Release 250 Mg Tabec) 750 mg PO QDD [facility] Stop: 01/20/24 17:44 Last Admin: 12/21/23 17:18 Dose: 750 mg Haloperidol (Haloperidol 5 Mg Tab) 5 mg PO Q8H PRN PRN Reason: Agitation Stop: 01/18/24 11:57 Last Admin: 12/16/23 10:10 Dose: 5 mg Haloperidol (Haloperidol 5 Mg Tab) 2.5 mg PO BIDM [facility] Stop: 01/19/24 08:59 Last Admin: 12/22/23 07:32 Dose: 2.5 mg Haloperidol Lactate (Haloperidol Lactate 5 Mg/Ml 1 Ml Vial) 5 mg IM Q8H PRN PRN Reason: Agitation Stop: 01/18/24 11:57 Hydroxyzine HCl (Hydroxyzine Hcl 25 Mg Tab) 50 mg PO HSZ PRN PRN Reason: Insomnia Stop: 01/20/24 11:19 Hydroxyzine HCl (Hydroxyzine Hcl 25 Mg Tab) 25 mg PO Q4H PRN PRN Reason: Anxiety Stop: 01/20/24 11:19 Ibuprofen (Ibuprofen 200 Mg Tab) 400 mg PO Q8H PRN PRN Reason: Pain Stop: 01/15/24 12:36 Last Admin: 12/19/23 12:38 Dose: 400 mg Lorazepam (Lorazepam 2 Mg/1 Ml Vial) 1 mg IM Q8H PRN PRN Reason: Agitation Stop: 01/18/24 11:57 Last Admin: 12/02/23 14:06 Dose: 1 mg Lorazepam (Lorazepam 1 Mg Tab) 1 mg PO Q8H PRN PRN Reason: Agitation Stop: 01/18/24 11:57 Last Admin: 12/20/23 21:10 Dose: 1 mg Magnesium Hydroxide (Magnesium Hydroxide Susp 30 Ml Udc) 30 ml PO DAILY PRN PRN Reason: Constipation Stop: 01/20/24 11:19 Miscellaneous (Remove Nicoderm Patch) 1 each N/A DAILY@0859 [facility] Stop: 01/05/24 08:58 Last Admin: 12/22/23 07:32 Dose: 1 each Nicotine (Nicotine 7 Mg/24 Hr Tdsy) 1 patch TD QAM JEREMIAH Stop: 01/05/24 08:59 Last Admin: 12/22/23 07:32 Dose: 1 patch Nicotine Polacrilex (Nicotine Polacrilex 2 Mg Gum) 1 piece MT Q2H PRN PRN Reason: nicotine cravings Stop: 12/24/23 09:27 Last Admin: 12/21/23 15:42 Dose: 1 piece Sodium Chloride (Sodium Chloride 0.65% Na Soln 45 Ml ([place])) 1 - 2 sprays NA PRN PRN PRN Reason: Nasal Dryness/Congestion Stop: 01/20/24 11:19 Mental Health & Subst Abuse Tx Psychiatrist Name of Psychiatrist: Sara Mandujano [facility] Psychiatrist's Psychiatric Appointment Comment: [address], [place] [address] Therapist Name of Therapist: denies Retina Subspecialist Name of Retina Subspecialist: denies Post Discharge Appointments Primary Care Physician Name Of Family Doctor/PCP: Sara Mandujano [facility] Primary Care Provider Appointment Comment: [address], [address], [place] [address]
[2023-12-22 12:30] LABS: Chlam trach RNA(Genit,Ureth,Ur Not Detected (NotDetected); GC(Neis gon)RNA(Genit,Ureth,Ur Not Detected (NotDetected)
[2023-12-22 12:35] LABS: Trichomonas vag by NAA Not Detected (NotDetected)
[2023-12-22] MEDS: NICOTINE 14 MG/24 HR PATCH TD SCH (18:11)
--- NOTE | 2023-12-23 09:27 | Psychiatric Progress Note ---
Date of Service December 23, 2023 Impression / Recommendations Impression Emilia Orta is a 28-year-old female unknown past history who was brought in by police after being found wandering the street by gas station. Patient presented pressured and tangential speech, memory impairment, and concern for psychosis. She was admitted on 11/21/23 09:58 on a 302 involuntary commitment for psychosis, now on a 304 commitment. 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 Patient has demonstrated significant dysfunction evidenced by recurrent legal troubles, persistent symptoms, recurrent hospitalizations, poor insight, inability to maintain stability in the community, and continued drug dependence. A: Increasingly suspect diagnosis may be most consistent with schizophrenia. Mood lability lessening but still with periods of loosening of associations but overall making good progress. No new medication side effects. Overall, I spent a total of 25 minutes with this case including review of chart records, nursing report, review of lab work, direct evaluation of the patient at bedside, counseling the patient, orders, documentation in the electronic health record. 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 12/22/2023: Continue current medications and tx plan. 12/21/2023: Increase nightly depakote to 750mg in the evening. 12/20/2023: Continue current medications and tx plan. 12/19/2023: Decrease Haloperidol to 2.5mg BID. Consult for oral surgery for tooth pain. 12/18/2023: Continue current medications and tx plan. 12/17/2023: Continue current medications and tx plan. Plan for VPA trough level tomorrow AM. 12/16/2023: Continue current medication and tx plan. 12/15/2023: Continue current medications and tx plan. 12/14/2023: Continue current medications and tx plan. 12/13/2023: Increase Depakote to 500mg BID. 12/12/2023: Continue current medications and tx plan. 12/11/2023: Bacitracin ointment BID and Tdap vaccine ordered. 12/10/2023: Increase Depakote DR 250mg qAM and 500mg qdinner. Plan to taper Klonopin in coming days if Depakote increase is well tolerated. 12/09/2023: Continue current medications and tx plan. Will consider transition to Depakote ER after trough level is back. Can consider transition to olanzapine if she continues to prefer this to haldol. 12/08/2023: Trough Depakote level tomorrow PM (12/09/23) 12/07/2023: Continue medications and treatment plan. 12/06/2023: Continue medications and treatment plan. 12/05/2023: Schedule Depakote/Haldol/Klonopin at dinner instead of bedtime. 12/04/2023: Continue current medications and tx plan. 12/03/2023: Continue current medications and tx plan. 12/02/2023: Start Depakote DR 500mg HS. 12/01/2023: Continue current medications and tx plan. Continuing to attempt to get urine sample for UPT. 11/30/2023: UPT ordered. Added Thorazine 25mg IM prn for agitation per her request for additional IM medication options. 11/29/2023: Continue current medications and tx plan. 11/28/2023: Continue current medications and tx plan. 11/27/2023: Discontinue [place] and risperidone. Start haldol 5mg BID. 11/26/2023: Start Thorazine 12.5mg TID prn po for agitation. 11/25/2023: Decrease Clonazepam to 0.5mg HS. Encourage fluids. 11/24/2023: Start [place] 300mg BID for mood lability. 11/23/2023: Continue medications and treatment plan. 11/22/2023: Increase risperidone to 1 mg every morning and 2 mg nightly. Continue clonazepam 1 mg at bedtime. Encourage fluids. STI and hepatitis panel. 11/21/2023: One-time lorazepam 2 mg p.o. for anxiety. Schedule risperidone 1 mg twice daily and clonazepam 1 mg at bedtime. Baseline EKG and labs: Free T4, free T3, A1c, lipid panel. Inventory Assets Strengths: able to express needs, accepting treatment Needs: social supports, mood control Suicide Risk Level Suicide Risk Level: Moderate (q15 min suicide checks) (one episode of voicing SI but recently denying SI, mood lability, able to ask staff for support ) Risk Factors Assessment Male: No : Yes Do You Have Access To A Gun?: No Health Problems: No Mental Health Diagnoses: Yes Substance Use Disorders: Yes Previous Attempt: No Family History of Suicide: No Previous Psychiatric Hospitalization: Yes Hopelessness: No Protective Factors Assessment Caodaism Beliefs: No : No Responsible for Young Children: No Employed: No Stable Relationships: No Supportive Family: No Good Rapport with Provider: Yes Absence of Any Risk Factors Above: No Interval History Identifying Information Emilia Orta is a 28-year-old female unknown past history who was brought in by police after being found wandering the street by gas station. Patient presented pressured and tangential speech, memory impairment, and concern for psychosis. She was admitted on 11/21/23 09:58 on a 302 involuntary commitment for psychosis. Currently on 304 comittment. Chief Complaint "They're going". Review of Systems Sleep Information Total Hours of Sleep: 11 Meal Information Percent Meal Consumed - Breakfast: 100 Percent Meal Consumed - Lunch: 100 Percent Meal Consumed - Dinner: 100 Nutrition Comment: sleeping Subjective Subjective Patient was seen & assessed and interval progress reviewed with treatment team nursing and social work. Sleeping overnight but less napping during the day. Still periods of disorganization, but attending some groups. Made some disorganized comments to RN about past pregnancies. Reports stable mood, looking forward to tooth extraction procedure. Physical Exam Psychiatric Orientation: alert and oriented x 3 Apperance: appropriately dressed and + disheveled Eye Contact: good eye contact Motor Behavior: no abnormal motor movements Speech: normal rate/rhythm/volume of speech Affect: + labile affect Mood: no anxious mood and no irritable mood Thought Process: + circumstantial thought process and + looseness of associations Thought Content: + preoccupation Insight: + poor insight Judgment: + limited judgement Vital Signs (Past 24 Hours) Last Vital Signs Temp 36.7 C 12/22/23 12:00 Pulse 74 12/22/23 12:00 Resp 18 12/22/23 12:00 BP 96/64 L 12/22/23 12:00 Pulse Ox 99 12/10/23 12:20 O2 Del Method Room Air 12/10/23 12:20 Results & Data ([facility]) Laboratory Results Laboratory Results - last 24 hr 12/21/23 20:43 C.trachomatis RNA Not Detected N.gonorrhoeae RNA Not Detected T.vaginalis (Amp Det) Not Detected Current Inpatient Medications Current Inpatient Medications: Current Inpatient Medications Acetaminophen (Acetaminophen 325 Mg Tab) 650 mg PO Q4H PRN PRN Reason: Headache or Minor Fever Stop: 01/20/24 11:19 Last Admin: 12/22/23 11:12 Dose: 650 mg Al Hydrox/Mg Hydrox/Simethicone (Aluminum/Magnesium Susp 30 Ml Udc) 30 ml PO Q4H PRN PRN Reason: GI Upset Stop: 01/20/24 11:19 Bacitracin (Bacitracin Oint 14 Gm Tube) 1 appln EXT BID JEREMIAH Stop: 01/11/24 08:59 Last Admin: 12/23/23 08:22 Dose: 1 appln Benzocaine (Benzocaine 20% (Orajel) 11.9 Gm Tube) 1 appln MT Q4H PRN PRN Reason: gum or tooth pain Stop: 01/03/24 08:56 Last Admin: 12/17/23 10:11 Dose: 1 appln Bismuth Subsalicylate (Bismuth Subsalicylate Liqd 236 Ml) 15 ml PO PRN PRN PRN Reason: Loose Stool Stop: 01/20/24 11:19 Chlorpromazine HCl (Chlorpromazine Hcl 25 Mg Tab) 12.5 mg PO TID PRN PRN Reason: Agitation Stop: 12/26/23 08:59 Last Admin: 12/22/23 12:33 Dose: 12.5 mg Chlorpromazine HCl (Chlorpromazine Hcl 25 Mg/Ml Amp) 25 mg IM BID PRN PRN Reason: Agitation Stop: 12/30/23 09:34 Last Admin: 12/02/23 14:07 Dose: 25 mg Clonazepam (Clonazepam 0.5 Mg Tab) 0.5 mg PO QDD JEREMIAH Stop: 01/04/24 17:44 Last Admin: 12/22/23 18:14 Dose: 0.5 mg Divalproex Sodium (Divalproex Delay Release 500 Mg Tab) 500 mg PO QAM [facility] Stop: 01/13/24 08:59 Last Admin: 12/23/23 08:21 Dose: 500 mg Divalproex Sodium (Divalproex Delay Release 250 Mg Tabec) 750 mg PO QDD [facility] Stop: 01/20/24 17:44 Last Admin: 12/22/23 18:12 Dose: 750 mg Haloperidol (Haloperidol 5 Mg Tab) 5 mg PO Q8H PRN PRN Reason: Agitation Stop: 01/18/24 11:57 Last Admin: 12/16/23 10:10 Dose: 5 mg Haloperidol (Haloperidol 5 Mg Tab) 2.5 mg PO BIDM [facility] Stop: 01/19/24 08:59 Last Admin: 12/23/23 08:21 Dose: 2.5 mg Haloperidol Lactate (Haloperidol Lactate 5 Mg/Ml 1 Ml Vial) 5 mg IM Q8H PRN PRN Reason: Agitation Stop: 01/18/24 11:57 Hydroxyzine HCl (Hydroxyzine Hcl 25 Mg Tab) 50 mg PO HSZ PRN PRN Reason: Insomnia Stop: 01/20/24 11:19 Hydroxyzine HCl (Hydroxyzine Hcl 25 Mg Tab) 25 mg PO Q4H PRN PRN Reason: Anxiety Stop: 01/20/24 11:19 Ibuprofen (Ibuprofen 200 Mg Tab) 400 mg PO Q8H PRN PRN Reason: Pain Stop: 01/15/24 12:36 Last Admin: 12/22/23 15:04 Dose: 400 mg Lorazepam (Lorazepam 2 Mg/1 Ml Vial) 1 mg IM Q8H PRN PRN Reason: Agitation Stop: 01/18/24 11:57 Last Admin: 12/02/23 14:06 Dose: 1 mg Lorazepam (Lorazepam 1 Mg Tab) 1 mg PO Q8H PRN PRN Reason: Agitation Stop: 01/18/24 11:57 Last Admin: 12/20/23 21:10 Dose: 1 mg Magnesium Hydroxide (Magnesium Hydroxide Susp 30 Ml Udc) 30 ml PO DAILY PRN PRN Reason: Constipation Stop: 01/20/24 11:19 Miscellaneous (Remove Nicoderm Patch) 1 each N/A DAILY@0859 [facility] Stop: 01/05/24 08:58 Last Admin: 12/23/23 08:19 Dose: 1 each Miscellaneous (Remove Nicoderm Patch) 1 each N/A DAILY@0859 [facility] Stop: 01/21/24 15:59 Last Admin: 12/23/23 09:02 Dose: 1 each Nicotine (Nicotine 14 Mg/24 Hr Patch) 1 patch TD QAM [facility] Stop: 01/21/24 15:59 Last Admin: 12/23/23 09:02 Dose: 1 patch Nicotine Polacrilex (Nicotine Polacrilex 2 Mg Gum) 1 piece MT Q2H PRN PRN Reason: nicotine cravings Stop: 12/24/23 09:27 Last Admin: 12/22/23 09:09 Dose: 1 piece Sodium Chloride (Sodium Chloride 0.65% Na Soln 45 Ml ([place])) 1 - 2 sprays NA PRN PRN PRN Reason: Nasal Dryness/Congestion Stop: 01/20/24 11:19 Mental Health & Subst Abuse Tx Psychiatrist Name of Psychiatrist: Sara Duque [facility] Psychiatrist's Psychiatric Appointment Comment: [phone], [address], [place] [address] Therapist Name of Therapist: denies Canvass Manager Name of Canvass Manager: denies Post Discharge Appointments Primary Care Physician Name Of Family Doctor/PCP: Sara Mandujano [facility] Primary Care Provider Appointment Comment: [phone], [address], [place] [address]
[2023-12-23] MEDS: hydrOXYzine HCl 25 MG TAB PO PRN (12:05)
--- NOTE | 2023-12-24 08:52 | Psychiatric Progress Note ---
Date of Service December 24, 2023 Impression / Recommendations Impression Emilia Orta is a 28-year-old female unknown past history who was brought in by police after being found wandering the street by [place] station. Patient presented pressured and tangential speech, memory impairment, and concern for psychosis. She was admitted on 11/21/23 09:58 on a 302 involuntary commitment for psychosis, now on a 304 commitment. 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 Patient has demonstrated significant dysfunction evidenced by recurrent legal troubles, persistent symptoms, recurrent hospitalizations, poor insight, inability to maintain stability in the community, and continued drug dependence. A: Stable mood today, more organized but concrete and sparse thought content during our interview today. No new medication side effects. NOP after dinner for surgical procedure tomorrow. After surgery may attempt to cross-titrate from haldol to abilify or paliperidone to provide option for STEINER moving forward. Overall, I spent a total of 25 minutes with this case including review of chart records, nursing report, review of lab work, direct evaluation of the patient at bedside, counseling the patient, orders, documentation in the electronic health record. 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 12/23/2023: Continue current medications and tx plan. 12/22/2023: Continue current medications and tx plan. 12/21/2023: Increase nightly depakote to 750mg in the evening. 12/20/2023: Continue current medications and tx plan. 12/19/2023: Decrease Haloperidol to 2.5mg BID. Consult for oral surgery for tooth pain. 12/18/2023: Continue current medications and tx plan. 12/17/2023: Continue current medications and tx plan. Plan for VPA trough level tomorrow AM. 12/16/2023: Continue current medication and tx plan. 12/15/2023: Continue current medications and tx plan. 12/14/2023: Continue current medications and tx plan. 12/13/2023: Increase Depakote to 500mg BID. 12/12/2023: Continue current medications and tx plan. 12/11/2023: Bacitracin ointment BID and Tdap vaccine ordered. 12/10/2023: Increase Depakote DR 250mg qAM and 500mg qdinner. Plan to taper Klonopin in coming days if Depakote increase is well tolerated. 12/09/2023: Continue current medications and tx plan. Will consider transition to Depakote ER after trough level is back. Can consider transition to olanzapine if she continues to prefer this to haldol. 12/08/2023: Trough Depakote level tomorrow PM (12/09/23) 12/07/2023: Continue medications and treatment plan. 12/06/2023: Continue medications and treatment plan. 12/05/2023: Schedule Depakote/Haldol/Klonopin at dinner instead of bedtime. 12/04/2023: Continue current medications and tx plan. 12/03/2023: Continue current medications and tx plan. 12/02/2023: Start Depakote DR 500mg HS. 12/01/2023: Continue current medications and tx plan. Continuing to attempt to get urine sample for UPT. 11/30/2023: UPT ordered. Added Thorazine 25mg IM prn for agitation per her request for additional IM medication options. 11/29/2023: Continue current medications and tx plan. 11/28/2023: Continue current medications and tx plan. 11/27/2023: Discontinue [place] and risperidone. Start haldol 5mg BID. 11/26/2023: Start Thorazine 12.5mg TID prn po for agitation. 11/25/2023: Decrease Clonazepam to 0.5mg HS. Encourage fluids. 11/24/2023: Start [place] 300mg BID for mood lability. 11/23/2023: Continue medications and treatment plan. 11/22/2023: Increase risperidone to 1 mg every morning and 2 mg nightly. Continue clonazepam 1 mg at bedtime. Encourage fluids. STI and hepatitis panel. 11/21/2023: One-time lorazepam 2 mg p.o. for anxiety. Schedule risperidone 1 mg twice daily and clonazepam 1 mg at bedtime. Baseline EKG and labs: Free T4, free T3, A1c, lipid panel. Inventory Assets Strengths: able to express needs, accepting treatment Needs: social supports, mood control Suicide Risk Level Suicide Risk Level: Moderate (q15 min suicide checks) (one episode of voicing SI but recently denying SI, mood lability, able to ask staff for support ) Risk Factors Assessment Male: No : Yes Do You Have Access To A Gun?: No Health Problems: No Mental Health Diagnoses: Yes Substance Use Disorders: Yes Previous Attempt: No Family History of Suicide: No Previous Psychiatric Hospitalization: Yes Hopelessness: No Protective Factors Assessment Confucianist Beliefs: No : No Responsible for Young Children: No Employed: No Stable Relationships: No Supportive Family: No Good Rapport with Provider: Yes Absence of Any Risk Factors Above: No Interval History Identifying Information Emilia Orta is a 28-year-old female unknown past history who was brought in by police after being found wandering the street by gas station. Patient presented pressured and tangential speech, memory impairment, and concern for psychosis. She was admitted on 11/21/23 09:58 on a 302 involuntary commitment for psychosis. Currently on 304 comittment. Chief Complaint "OK". Review of Systems Sleep Information Total Hours of Sleep: 9 Meal Information Percent Meal Consumed - Breakfast: 100 Percent Meal Consumed - Lunch: 100 Percent Meal Consumed - Dinner: 100 Nutrition Comment: sleeping Subjective Subjective Patient was seen & assessed and interval progress reviewed with treatment team nursing and social work. Played a card game with peers yesterday, slightly hyperverbal at times but was able to be redirected. Some disorganization after dinner for which she received prn Thorazine. Reports stable mood today, that she's been going to groups and talking to people. Glad she's having her dental procedure tomorrow as she thinks one of her teeth to be removed is getting more infected. Denies any medication issues. Physical Exam Psychiatric Orientation: alert and oriented x 3 Apperance: appropriately dressed and + disheveled Eye Contact: good eye contact Motor Behavior: no abnormal motor movements Speech: normal rate/rhythm/volume of speech Affect: + labile affect Mood: no anxious mood and no irritable mood Thought Process: + circumstantial thought process and + looseness of associations Thought Content: + preoccupation Insight: + poor insight Judgment: + limited judgement Vital Signs (Past 24 Hours) Last Vital Signs Temp 36.7 C 12/22/23 12:00 Pulse 74 12/22/23 12:00 Resp 18 12/22/23 12:00 BP 96/64 L 12/22/23 12:00 Pulse Ox 99 12/10/23 12:20 O2 Del Method Room Air 12/10/23 12:20 Results & Data ([facility]) Current Inpatient Medications Current Inpatient Medications: Current Inpatient Medications Acetaminophen (Acetaminophen 325 Mg Tab) 650 mg PO Q4H PRN PRN Reason: Headache or Minor Fever Stop: 01/20/24 11:19 Last Admin: 12/22/23 11:12 Dose: 650 mg Al Hydrox/Mg Hydrox/Simethicone (Aluminum/Magnesium Susp 30 Ml Udc) 30 ml PO Q4H PRN PRN Reason: GI Upset Stop: 01/20/24 11:19 Bacitracin (Bacitracin Oint 14 Gm Tube) 1 appln EXT BID JEREMIAH Stop: 01/11/24 08:59 Last Admin: 12/24/23 08:44 Dose: 1 appln Benzocaine (Benzocaine 20% (Orajel) 11.9 Gm Tube) 1 appln MT Q4H PRN PRN Reason: gum or tooth pain Stop: 01/03/24 08:56 Last Admin: 12/17/23 10:11 Dose: 1 appln Bismuth Subsalicylate (Bismuth Subsalicylate Liqd 236 Ml) 15 ml PO PRN PRN PRN Reason: Loose Stool Stop: 01/20/24 11:19 Chlorpromazine HCl (Chlorpromazine Hcl 25 Mg Tab) 12.5 mg PO TID PRN PRN Reason: Agitation Stop: 12/26/23 08:59 Last Admin: 12/23/23 19:15 Dose: 12.5 mg Chlorpromazine HCl (Chlorpromazine Hcl 25 Mg/Ml Amp) 25 mg IM BID PRN PRN Reason: Agitation Stop: 12/30/23 09:34 Last Admin: 12/02/23 14:07 Dose: 25 mg Clonazepam (Clonazepam 0.5 Mg Tab) 0.5 mg PO QDD [facility] Stop: 01/04/24 17:44 Last Admin: 12/23/23 17:37 Dose: 0.5 mg Divalproex Sodium (Divalproex Delay Release 500 Mg Tab) 500 mg PO QAM [facility] Stop: 01/13/24 08:59 Last Admin: 12/24/23 08:43 Dose: 500 mg Divalproex Sodium (Divalproex Delay Release 250 Mg Tabec) 750 mg PO QDD [facility] Stop: 01/20/24 17:44 Last Admin: 12/23/23 17:36 Dose: 750 mg Haloperidol (Haloperidol 5 Mg Tab) 5 mg PO Q8H PRN PRN Reason: Agitation Stop: 01/18/24 11:57 Last Admin: 12/16/23 10:10 Dose: 5 mg Haloperidol (Haloperidol 5 Mg Tab) 2.5 mg PO BIDM [facility] Stop: 01/19/24 08:59 Last Admin: 12/24/23 08:43 Dose: 2.5 mg Haloperidol Lactate (Haloperidol Lactate 5 Mg/Ml 1 Ml Vial) 5 mg IM Q8H PRN PRN Reason: Agitation Stop: 01/18/24 11:57 Hydroxyzine HCl (Hydroxyzine Hcl 25 Mg Tab) 50 mg PO HSZ PRN PRN Reason: Insomnia Stop: 01/20/24 11:19 Hydroxyzine HCl (Hydroxyzine Hcl 25 Mg Tab) 25 mg PO Q4H PRN PRN Reason: Anxiety Stop: 01/20/24 11:19 Last Admin: 12/24/23 08:49 Dose: 25 mg Ibuprofen (Ibuprofen 200 Mg Tab) 400 mg PO Q8H PRN PRN Reason: Pain Stop: 01/15/24 12:36 Last Admin: 12/22/23 15:04 Dose: 400 mg Lorazepam (Lorazepam 2 Mg/1 Ml Vial) 1 mg IM Q8H PRN PRN Reason: Agitation Stop: 01/18/24 11:57 Last Admin: 12/02/23 14:06 Dose: 1 mg Lorazepam (Lorazepam 1 Mg Tab) 1 mg PO Q8H PRN PRN Reason: Agitation Stop: 01/18/24 11:57 Last Admin: 12/20/23 21:10 Dose: 1 mg Magnesium Hydroxide (Magnesium Hydroxide Susp 30 Ml Udc) 30 ml PO DAILY PRN PRN Reason: Constipation Stop: 01/20/24 11:19 Miscellaneous (Remove Nicoderm Patch) 1 each N/A DAILY@0859 [facility] Stop: 01/21/24 15:59 Last Admin: 12/24/23 08:43 Dose: 1 each Nicotine (Nicotine 14 Mg/24 Hr Patch) 1 patch TD QAM [facility] Stop: 01/21/24 15:59 Last Admin: 12/24/23 08:43 Dose: 1 patch Nicotine Polacrilex (Nicotine Polacrilex 2 Mg Gum) 1 piece MT Q2H PRN PRN Reason: nicotine cravings Stop: 12/24/23 09:27 Last Admin: 12/23/23 11:09 Dose: 1 piece Sodium Chloride (Sodium Chloride 0.65% Na Soln 45 Ml ([place])) 1 - 2 sprays NA PRN PRN PRN Reason: Nasal Dryness/Congestion Stop: 01/20/24 11:19 Mental Health & Subst Abuse Tx Psychiatrist Name of Psychiatrist: Sara Duque [facility] Psychiatrist's Psychiatric Appointment Comment: [phone], [address], [place] [address] Therapist Name of Therapist: denies Hospital Administrative Assistant Name of Hospital Administrative Assistant: denies Post Discharge Appointments Primary Care Physician Name Of Family Doctor/PCP: Sara Duque [facility] Primary Care Provider Appointment Comment: [phone], [address], [place] [address]
--- NOTE | 2023-12-25 07:59 | History & Physical Report ---
Date of Service December 25, 2023 Assessment & Plan Admission and Anticipated Discharge Date Admission Date: November 21, 2023 History of Present Illness Chief Complaint: Updated H&P for the planned oral surgery procedure Problem: Pain,swelling located---lower right # 30 area Finding: There is a carious, fractured and infected tooth at site#:15 and 30 Plan: Surgical removal of the following tooth/teeth:15 and 30 After a complete H&P/ vital signs and oral exam was completed the patient was ready for the surgical procedure. I was requested to remove the infected teeth 15 and 32 as part of her comprehensive care and planning for eventual discharge. Informed consent was reviewed and the consent form was signed. I gave them time to discuss any questions and if I explained the surgery that I will be performing to their understanding. Emilia Orta is a 28-year-old female unknown past history who was brought in by police after being found wandering the street by gas station. Patient presented pressured and tangential speech, memory impairment, and concern for psychosis. She was admitted on 11/21/23 09:58 on a 302 involuntary commitment for psychosis. Patient presents in a manic and psychotic condition. Unknown past history however has been on antipsychotics and lithiummood stabilizer concerning for bipolar disorder illness with psychosis. Attempts to gather collateral from family members unsuccessful. Patient has a history of legal troubles and concern for methamphetamine use. UDS was negative. TSH was elevated on admission and will check free T4 and free T3. We will get baseline EKG prior to lithium initiation. Baseline lipid panel and A1c labs. Given restless behavior and excessive and tangential speech will schedule benzodiazepine and antipsychotic medication. Overall, I spent a total of 60 minutes with this case including review of chart records, nursing report, review of lab work, direct evaluation of the patient at bedside, counseling the patient, multidisciplinary team meeting, orders, discussion with the psychiatric liaison during clinical rounds, and documentation in the electronic health record. (1) Psychosis: (2) Becka: (3) High serum thyroid stimulating hormone (TSH): Reviewed case for staff and MD chris for the planned procedure Physical Exam Eyes PERRL, conjunctivae normal, anicteric sclerae Mouth carious # 15 and 30 Neck trachea midline, no thyromegaly Thyroid: normal thyroid Respiratory normal respiratory effort, lungs clear to auscultation Auscultation: lungs clear to auscultation bilaterally Cardiovascular RRR, no murmur, no edema Rate/Rhythm: regular rate and regular rhythm Gastrointestinal (Abdomen) normal bowel sounds, soft, nontender, no hepatosplenomegaly Musculoskeletal no cyanosis or clubbing, extremities motor strength 5/5 Skin no rashes, warm and dry Neurologic PERRL, EOMI, accommodation nl, no face palsy, no dysarthria Cranial Nerves: sense of smell intact, PERRL, normal accommodation, EOM intact bilaterally, normal facial strength, tongue midline, normal gag reflex, normal hearing, able to rotate head bilaterally, able to elevate shoulders bilaterally, no nystagmus and symmetric palate elevation Primary Care Provider: NO PCP Allergies Allergy/AdvReac Type Severity Reaction Status Date / Time No Known Allergies Allergy Verified 12/25/23 06:50 Past Med/Surg History Problem List Staining of teeth due to drugs Other and unspecified reactive psychosis Thoughts of violence Unspecified mood [affective] disorder Polysubstance abuse Medical History Encounter for pre-operative examination Gingival and periodontal disease Carious teeth Polysubstance use disorder 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 High serum thyroid stimulating hormone (TSH) Social History Smoking Status: Heavy tobacco smoker Tobacco Type: Cigarettes Preferred Language: Citizen Of [place] Communication Ability: Effective Underwater Photographer Required: No Beliefs That Will Affect Care: None Feels Safe at Home: Yes Gender Identity: Female Assistive Devices: None Code Status & VTE Plan VTE Prophylaxis Plan VTE Prophylaxis will be ordered: No Reason for no VTE drug order: Treatment not indicated PG Care Time/CCT Total # of Minutes Spent Total Time Spent with Patient: Total time spent is greater than 50% in coordination of care (as documented) at patient's floor/unit and/or counseling patient: Coding Level of Care Code None
[2023-12-25] MEDS ORDERED: HYDROCODONE/ACETAMOPHEN 5/325MG TAB PO PRN (08:46)
[2023-12-25] MEDS ORDERED: ONDANSETRON INJ 2 MG/ML 2 ML VIAL IV PRN (08:46)
--- NOTE | 2023-12-25 08:56 | Post Operative Brief Note ---
PG Immediate Post Op with CF Date of Surgery December 25, 2023 Pre & Post Diagnosis carious and abscessed teeth I identified the patient and participated in the time-out.: Yes Procedure I&D lower right Ext of ,15, Surgeon Garrett Zñuiga, OLIVIA Director [employer] none Estimated Blood Loss 2 Findings Consistent with Post-Op Diagnosis abscessed teeth and swelling/pain Anesthesia Type General Complications none Disposition Accompanied Patient To Recovery: Yes
--- NOTE | 2023-12-25 09:30 | Psychiatric Progress Note ---
Date of Service December 25, 2023 Impression / Recommendations Impression Emliia Orta is a 28-year-old female unknown past history who was brought in by police after being found wandering the street by gas station. Patient presented pressured and tangential speech, memory impairment, and concern for psychosis. She was admitted on 11/21/23 09:58 on a 302 involuntary commitment for psychosis, now on a 304 commitment. 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 Patient has demonstrated significant dysfunction evidenced by recurrent legal troubles, persistent symptoms, recurrent hospitalizations, poor insight, inability to maintain stability in the community, and continued drug dependence. A: Some increased mood lability and periods of increased impulsivity and irritability following OR dental procedure this morning, suspect may be in part due to use of sedative medications which can be disinhibiting and required steroids. Pain medications ordered per recommendation by oral surgeon, appreciate their help and recommendations. Requiring frequent nursing reminders about her dietary limitations while she recovers from the procedure, observed trying to grab items out of the garage and some other disorganized behaviors following her return to the unit. Overall, I spent a total of 25 minutes with this case including review of chart records, nursing report, review of lab work, direct evaluation of the patient at bedside, counseling the patient, orders, documentation in the electronic health record. 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 12/24/2023: Continue current medications and tx plan. 12/23/2023: Continue current medications and tx plan. 12/22/2023: Continue current medications and tx plan. 12/21/2023: Increase nightly depakote to 750mg in the evening. 12/20/2023: Continue current medications and tx plan. 12/19/2023: Decrease Haloperidol to 2.5mg BID. Consult for oral surgery for tooth pain. 12/18/2023: Continue current medications and tx plan. 12/17/2023: Continue current medications and tx plan. Plan for VPA trough level tomorrow AM. 12/16/2023: Continue current medication and tx plan. 12/15/2023: Continue current medications and tx plan. 12/14/2023: Continue current medications and tx plan. 12/13/2023: Increase Depakote to 500mg BID. 12/12/2023: Continue current medications and tx plan. 12/11/2023: Bacitracin ointment BID and Tdap vaccine ordered. 12/10/2023: Increase Depakote DR 250mg qAM and 500mg qdinner. Plan to taper Klonopin in coming days if Depakote increase is well tolerated. 12/09/2023: Continue current medications and tx plan. Will consider transition to Depakote ER after trough level is back. Can consider transition to olanzapine if she continues to prefer this to haldol. 12/08/2023: Trough Depakote level tomorrow PM (12/09/23) 12/07/2023: Continue medications and treatment plan. 12/06/2023: Continue medications and treatment plan. 12/05/2023: Schedule Depakote/Haldol/Klonopin at dinner instead of bedtime. 12/04/2023: Continue current medications and tx plan. 12/03/2023: Continue current medications and tx plan. 12/02/2023: Start Depakote DR 500mg HS. 12/01/2023: Continue current medications and tx plan. Continuing to attempt to get urine sample for UPT. 11/30/2023: UPT ordered. Added Thorazine 25mg IM prn for agitation per her request for additional IM medication options. 11/29/2023: Continue current medications and tx plan. 11/28/2023: Continue current medications and tx plan. 11/27/2023: Discontinue [place] and risperidone. Start haldol 5mg BID. 11/26/2023: Start Thorazine 12.5mg TID prn po for agitation. 11/25/2023: Decrease Clonazepam to 0.5mg HS. Encourage fluids. 11/24/2023: Start [place] 300mg BID for mood lability. 11/23/2023: Continue medications and treatment plan. 11/22/2023: Increase risperidone to 1 mg every morning and 2 mg nightly. Continue clonazepam 1 mg at bedtime. Encourage fluids. STI and hepatitis panel. 11/21/2023: One-time lorazepam 2 mg p.o. for anxiety. Schedule risperidone 1 mg twice daily and clonazepam 1 mg at bedtime. Baseline EKG and labs: Free T4, free T3, A1c, lipid panel. Inventory Assets Strengths: able to express needs, accepting treatment Needs: social supports, mood control Suicide Risk Level Suicide Risk Level: Moderate (q15 min suicide checks) (one episode of voicing SI but recently denying SI, mood lability, able to ask staff for support ) Risk Factors Assessment Male: No : Yes Do You Have Access To A Gun?: No Health Problems: No Mental Health Diagnoses: Yes Substance Use Disorders: Yes Previous Attempt: No Family History of Suicide: No Previous Psychiatric Hospitalization: Yes Hopelessness: No Protective Factors Assessment Buddhism Beliefs: No : No Responsible for Young Children: No Employed: No Stable Relationships: No Supportive Family: No Good Rapport with Provider: Yes Absence of Any Risk Factors Above: No Interval History Identifying Information Emilia Orta is a 28-year-old female unknown past history who was brought in by police after being found wandering the street by gas station. Patient presented pressured and tangential speech, memory impairment, and concern for psychosis. She was admitted on 11/21/23 09:58 on a 302 involuntary commitment for psychosis. Currently on 304 comittment. Chief Complaint "No more talking to me". Review of Systems Sleep Information Total Hours of Sleep: 8.15 Meal Information Percent Meal Consumed - Breakfast: 90 Percent Meal Consumed - Lunch: 100 Percent Meal Consumed - Dinner: 100 Nutrition Comment: Patient NPO - in surgery Subjective Subjective Patient was seen & assessed and interval progress reviewed with treatment team nursing and social work. Went to OR this morning for dental procedure. Pleased with dental procedure. Quite energetic and animated on her return with some ongo ing loosened associations. Focused on desire to eat normal meals, reminded of recommendation to start with liquids and progress slowly as tolerated. Observed her eating a jelly packet from the counter with her fingers. Tells me "I'm totally good" and pleased with result of the surgery. States she now wants to work on discharge, wonders if she's still here because "you don't even know what to do with me". Discussed the referral in place to [facility] but she was not able to tolerate this discussion. Then asked for coffee and told me "no more talking to me". Physical Exam Psychiatric Orientation: alert and oriented x 3 Apperance: appropriately dressed and + disheveled Eye Contact: good eye contact Motor Behavior: no abnormal motor movements Speech: normal rate/rhythm/volume of speech Affect: + labile affect, + irritable affect and + elated affect Mood: + irritable mood; no anxious mood Thought Process: + circumstantial thought process and + looseness of associations Thought Content: + preoccupation Insight: + poor insight Judgment: + limited judgement Vital Signs (Past 24 Hours) Last Vital Signs Temp 36.7 C 12/22/23 12:00 Pulse 74 12/22/23 12:00 Resp 18 12/22/23 12:00 BP 96/64 L 12/22/23 12:00 Pulse Ox 99 12/10/23 12:20 O2 Del Method Room Air 12/10/23 12:20 Results & Data (U) Current Inpatient Medications Current Inpatient Medications: Current Inpatient Medications Acetaminophen (Acetaminophen 325 Mg Tab) 650 mg PO Q4H JEREMIAH Stop: 01/24/24 09:14 Hydrocodone Bitart/Acetaminophen (Hydrocodone/Acetamophen 5/325mg Tab) 1 tab PO Q4H PRN PRN Reason: MODERATE Pain (4,5,6) & Pre PT Stop: 01/08/24 08:45 Al Hydrox/Mg Hydrox/Simethicone (Aluminum/Magnesium Susp 30 Ml Udc) 30 ml PO Q4H PRN PRN Reason: GI Upset Stop: 01/20/24 11:19 Bacitracin (Bacitracin Oint 14 Gm Tube) 1 appln EXT BID JEREMIAH Stop: 01/11/24 08:59 Last Admin: 12/24/23 20:03 Dose: Not Given Benzocaine (Benzocaine 20% (Orajel) 11.9 Gm Tube) 1 appln MT Q4H PRN PRN Reason: gum or tooth pain Stop: 01/03/24 08:56 Last Admin: 12/17/23 10:11 Dose: 1 appln Bismuth Subsalicylate (Bismuth Subsalicylate Liqd 236 Ml) 15 ml PO PRN PRN PRN Reason: Loose Stool Stop: 01/20/24 11:19 Chlorpromazine HCl (Chlorpromazine Hcl 25 Mg Tab) 12.5 mg PO TID PRN PRN Reason: Agitation Stop: 12/26/23 08:59 Last Admin: 12/24/23 15:34 Dose: 12.5 mg Chlorpromazine HCl (Chlorpromazine Hcl 25 Mg/Ml Amp) 25 mg IM BID PRN PRN Reason: Agitation Stop: 12/30/23 09:34 Last Admin: 12/02/23 14:07 Dose: 25 mg Clonazepam (Clonazepam 0.5 Mg Tab) 0.5 mg PO QDD [facility] Stop: 01/04/24 17:44 Last Admin: 12/24/23 17:12 Dose: 0.5 mg Divalproex Sodium (Divalproex Delay Release 500 Mg Tab) 500 mg PO QAM [facility] Stop: 01/13/24 08:59 Last Admin: 12/24/23 08:43 Dose: 500 mg Divalproex Sodium (Divalproex Delay Release 250 Mg Tabec) 750 mg PO QDD [facility] Stop: 01/20/24 17:44 Last Admin: 12/24/23 17:12 Dose: 750 mg Haloperidol (Haloperidol 5 Mg Tab) 5 mg PO Q8H PRN PRN Reason: Agitation Stop: 01/18/24 11:57 Last Admin: 12/16/23 10:10 Dose: 5 mg Haloperidol (Haloperidol 5 Mg Tab) 2.5 mg PO BIDM [facility] Stop: 01/19/24 08:59 Last Admin: 12/24/23 17:12 Dose: 2.5 mg Haloperidol Lactate (Haloperidol Lactate 5 Mg/Ml 1 Ml Vial) 5 mg IM Q8H PRN PRN Reason: Agitation Stop: 01/18/24 11:57 Hydroxyzine HCl (Hydroxyzine Hcl 25 Mg Tab) 50 mg PO HSZ PRN PRN Reason: Insomnia Stop: 01/20/24 11:19 Hydroxyzine HCl (Hydroxyzine Hcl 25 Mg Tab) 25 mg PO Q4H PRN PRN Reason: Anxiety Stop: 01/20/24 11:19 Last Admin: 12/24/23 08:49 Dose: 25 mg Ibuprofen (Ibuprofen 200 Mg Tab) 400 mg PO Q8H PRN PRN Reason: Pain Stop: 01/15/24 12:36 Last Admin: 12/22/23 15:04 Dose: 400 mg Ibuprofen (Ibuprofen 600 Mg Tab) 600 mg PO QID JEREMIAH Stop: 01/24/24 12:59 Lorazepam (Lorazepam 2 Mg/1 Ml Vial) 1 mg IM Q8H PRN PRN Reason: Agitation Stop: 01/18/24 11:57 Last Admin: 12/02/23 14:06 Dose: 1 mg Lorazepam (Lorazepam 1 Mg Tab) 1 mg PO Q8H PRN PRN Reason: Agitation Stop: 01/18/24 11:57 Last Admin: 12/20/23 21:10 Dose: 1 mg Magnesium Hydroxide (Magnesium Hydroxide Susp 30 Ml Udc) 30 ml PO DAILY PRN PRN Reason: Constipation Stop: 01/20/24 11:19 Miscellaneous (Remove Nicoderm Patch) 1 each N/A DAILY@[id number] [facility] Stop: 01/21/24 15:59 Last Admin: 12/24/23 08:43 Dose: 1 each Nicotine (Nicotine 14 Mg/24 Hr Patch) 1 patch TD QAM [facility] Stop: 01/21/24 15:59 Last Admin: 12/24/23 08:43 Dose: 1 patch Ondansetron HCl (Ondansetron Inj 2 Mg/Ml 2 Ml Vial) 4 mg IV Q4H PRN PRN Reason: Nausea And Vomiting Stop: 01/24/24 08:45 Sodium Chloride (Sodium Chloride 0.65% Na Soln 45 Ml (Weld)) 1 - 2 sprays NA PRN PRN PRN Reason: Nasal Dryness/Congestion Stop: 01/20/24 11:19 Mental Health & Subst Abuse Tx Psychiatrist Name of Psychiatrist: Sara Duque [facility] Psychiatrist's Psychiatric Appointment Comment: [address], [address], [facility] [address] Therapist Name of Therapist: denies Pickle Maker Name of Pickle Maker: denies Post Discharge Appointments Primary Care Physician Name Of Family Doctor/PCP: Sara Duque [facility] Primary Care Provider Appointment Comment: [address], [address], [place] [address]
[2023-12-25] MEDS: ACETAMINOPHEN 325 MG TAB PO SCH (11:00)
[2023-12-25] MEDS: IBUPROFEN 600 MG TAB PO SCH (11:01)
[2023-12-25] MEDS ORDERED: Nursing to Pharmacy Communication SCH (13:45)
--- NOTE | 2023-12-26 09:10 | Psychiatric Progress Note ---
Date of Service December 26, 2023 Impression / Recommendations Impression Emilia Orta is a 28-year-old female unknown past history who was brought in by police after being found wandering the street by gas station. Patient presented pressured and tangential speech, memory impairment, and concern for psychosis. She was admitted on 11/21/23 09:58 on a 302 involuntary commitment for psychosis, now on a 304 commitment. Diagnostically consistent with unspecified psychosis- suspect schizoaffective disorder and possible methamphetamine induced psychosis as well as manic episode on admission. Collateral notable for periods of prolonged heavy methamphetamine use, particularly smoked methamphetamine, other polysubstance use, second-degree relative with a primary psychotic disorder, and presentation of a disorganized tangential thought process with concern for tactile disturbances and delusional thoughts there is a strong suspicion for methamphetamine induced psychotic disorder in the setting of severe methamphetamine use disorder vs schizophrenia vs bipolar affective disorder current manic episode. Patient has demonstrated significant dysfunction evidenced by recurrent legal troubles, persistent symptoms, recurrent hospitalizations, poor insight, inability to maintain stab ility in the community, and continued drug dependence. A: Mood is more euthymic today, overall more organized but still with some delusions and disorganization, cannot safely manage outside of the structure of an inpatient environment without additional supports so continuing to explore option for EAC. Did well with her EAC interview, and showed some insight about psychosis and that she remains in need of additional support. Continues to tolerate medications well. Overall, I spent a total of 35 minutes with this case including review of chart records, nursing report, review of lab work, direct evaluation of the patient at bedside, counseling the patient, orders, documentation in the electronic health record. 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 12/25/2023: Continue current medications and tx plan. 12/24/2023: Continue current medications and tx plan. 12/23/2023: Continue current medications and tx plan. 12/22/2023: Continue current medications and tx plan. 12/21/2023: Increase nightly depakote to 750mg in the evening. 12/20/2023: Continue current medications and tx plan. 12/19/2023: Decrease Haloperidol to 2.5mg BID. Consult for oral surgery for tooth pain. 12/18/2023: Continue current medications and tx plan. 12/17/2023: Continue current medications and tx plan. Plan for VPA trough level tomorrow AM. 12/16/2023: Continue current medication and tx plan. 12/15/2023: Continue current medications and tx plan. 12/14/2023: Continue current medications and tx plan. 12/13/2023: Increase Depakote to 500mg BID. 12/12/2023: Continue current medications and tx plan. 12/11/2023: Bacitracin ointment BID and Tdap vaccine ordered. 12/10/2023: Increase Depakote DR 250mg qAM and 500mg qdinner. Plan to taper Klonopin in coming days if Depakote increase is well tolerated. 12/09/2023: Continue current medications and tx plan. Will consider transition to Depakote ER after trough level is back. Can consider transition to olanzapine if she continues to prefer this to haldol. 12/08/2023: Trough Depakote level tomorrow PM (12/09/23) 12/07/2023: Continue medications and treatment plan. 12/06/2023: Continue medications and treatment plan. 12/05/2023: Schedule Depakote/Haldol/Klonopin at dinner instead of bedtime. 12/04/2023: Continue current medications and tx plan. 12/03/2023: Continue current medications and tx plan. 12/02/2023: Start Depakote DR 500mg HS. 12/01/2023: Continue current medications and tx plan. Continuing to attempt to get urine sample for UPT. 11/30/2023: UPT ordered. Added Thorazine 25mg IM prn for agitation per her request for additional IM medication options. 11/29/2023: Continue current medications and tx plan. 11/28/2023: Continue current medications and tx plan. 11/27/2023: Discontinue [place] and risperidone. Start haldol 5mg BID. 11/26/2023: Start Thorazine 12.5mg TID prn po for agitation. 11/25/2023: Decrease Clonazepam to 0.5mg HS. Encourage fluids. 11/24/2023: Start [place] 300mg BID for mood lability. 11/23/2023: Continue medications and treatment plan. 11/22/2023: Increase risperidone to 1 mg every morning and 2 mg nightly. Continue clonazepam 1 mg at bedtime. Encourage fluids. STI and hepatitis panel. 11/21/2023: One-time lorazepam 2 mg p.o. for anxiety. Schedule risperidone 1 mg twice daily and clonazepam 1 mg at bedtime. Baseline EKG and labs: Free T4, free T3, A1c, lipid panel. Inventory Assets Strengths: able to express needs, accepting treatment Needs: social supports, mood control Suicide Risk Level Suicide Risk Level: Moderate (q15 min suicide checks) (one episode of voicing SI but recently denying SI, mood lability, able to ask staff for support ) Risk Factors Assessment Male: No : Yes Do You Have Access To A Gun?: No Health Problems: No Mental Health Diagnoses: Yes Substance Use Disorders: Yes Previous Attempt: No Family History of Suicide: No Previous Psychiatric Hospitalization: Yes Hopelessness: No Protective Factors Assessment Taoism Beliefs: No : No Responsible for Young Children: No Employed: No Stable Relationships: No Supportive Family: No Good Rapport with Provider: Yes Absence of Any Risk Factors Above: No Interval History Identifying Information Emilia Orta is a 28-year-old female unknown past history who was brought in by police after being found wandering the street [place] station. Patient presented pressured and tangential speech, memory impairment, and concern for psychosis. She was admitted on 11/21/23 09:58 on a 302 involuntary commitment for psychosis. Currently on 304 comittment. Chief Complaint "I wanted to apologize". Review of Systems Sleep Information Total Hours of Sleep: 8.75 Meal Information Percent Meal Consumed - Breakfast: 90 Percent Meal Consumed - Lunch: 100 Percent Meal Consumed - Dinner: 90 Nutrition Comment: Subjective Subjective Patient was seen & assessed and interval progress reviewed with treatment team nursing and social work. Smiling and happy last evening, tolerating solid food without any pain. Declined scheduled pain medications overnight while sleeping. Today asks to meet with me and then apologizes stating she went to a group about conflict and felt she wanted to say sorry for getting frustrated at times due to lack of disposition options. She notes "I know you're trying your best to help me". Processed this with her and the gradual improvement she has been making, she expressed excitement about call this afternoon with EAC as potential disposition option. Reports no tooth pain today, eating well. Feels her mood is "pretty good". Physical Exam Psychiatric Orientation: alert and oriented x 3 Apperance: appropriately dressed and + disheveled Eye Contact: good eye contact Motor Behavior: no abnormal motor movements Speech: normal rate/rhythm/volume of speech Affect: euthymic affect Mood: no anxious mood Thought Process: + circumstantial thought process and + looseness of associations Thought Content: + preoccupation, + delusions and + ideas of reference Suicidal Thoughts: denies suicidal thoughts Homicidal Thoughts: denies homicidal thoughts Hallucinations: no auditory hallucinations and no visual hallucinations Insight: + poor insight Judgment: + limited judgement Vital Signs (Past 24 Hours) Last Vital Signs Temp 36.7 C 12/22/23 12:00 Pulse 74 12/22/23 12:00 Resp 18 12/22/23 12:00 BP 96/64 L 12/22/23 12:00 Pulse Ox 99 12/10/23 12:20 O2 Del Method Room Air 12/10/23 12:20 Results & Data ([facility]) Current Inpatient Medications Current Inpatient Medications: Current Inpatient Medications Acetaminophen (Acetaminophen 325 Mg Tab) 650 mg PO Q4H JEREMIAH Stop: 01/24/24 09:14 Last Admin: 12/26/23 07:06 Dose: Not Given Hydrocodone Bitart/Acetaminophen (Hydrocodone/Acetamophen 5/325mg Tab) 1 tab PO Q4H PRN PRN Reason: MODERATE Pain (4,5,6) & Pre PT Stop: 01/08/24 08:45 Al Hydrox/Mg Hydrox/Simethicone (Aluminum/Magnesium Susp 30 Ml Udc) 30 ml PO Q4H PRN PRN Reason: GI Upset Stop: 01/20/24 11:19 Bacitracin (Bacitracin Oint 14 Gm Tube) 1 appln EXT BID JEREMIAH Stop: 01/11/24 08:59 Last Admin: 12/26/23 08:58 Dose: Not Given Benzocaine (Benzocaine 20% (Orajel) 11.9 Gm Tube) 1 appln MT Q4H PRN PRN Reason: gum or tooth pain Stop: 01/03/24 08:56 Last Admin: 12/17/23 10:11 Dose: 1 appln Bismuth Subsalicylate (Bismuth Subsalicylate Liqd 236 Ml) 15 ml PO PRN PRN PRN Reason: Loose Stool Stop: 01/20/24 11:19 Chlorpromazine HCl (Chlorpromazine Hcl 25 Mg/Ml Amp) 25 mg IM BID PRN PRN Reason: Agitation Stop: 12/30/23 09:34 Last Admin: 12/02/23 14:07 Dose: 25 mg Clonazepam (Clonazepam 0.5 Mg Tab) 0.5 mg PO QDD [facility] Stop: 01/04/24 17:44 Last Admin: 12/25/23 17:43 Dose: 0.5 mg Divalproex Sodium (Divalproex Delay Release 500 Mg Tab) 500 mg PO QAM [facility] Stop: 01/13/24 08:59 Last Admin: 12/26/23 08:40 Dose: 500 mg Divalproex Sodium (Divalproex Delay Release 250 Mg Tabec) 750 mg PO QDD [facility] Stop: 01/20/24 17:44 Last Admin: 12/25/23 17:45 Dose: 750 mg Haloperidol (Haloperidol 5 Mg Tab) 5 mg PO Q8H PRN PRN Reason: Agitation Stop: 01/18/24 11:57 Last Admin: 12/16/23 10:10 Dose: 5 mg Haloperidol (Haloperidol 5 Mg Tab) 2.5 mg PO BIDM [facility] Stop: 01/19/24 08:59 Last Admin: 12/26/23 08:39 Dose: 2.5 mg Haloperidol Lactate (Haloperidol Lactate 5 Mg/Ml 1 Ml Vial) 5 mg IM Q8H PRN PRN Reason: Agitation Stop: 01/18/24 11:57 Hydroxyzine HCl (Hydroxyzine Hcl 25 Mg Tab) 50 mg PO HSZ PRN PRN Reason: Insomnia Stop: 01/20/24 11:19 Hydroxyzine HCl (Hydroxyzine Hcl 25 Mg Tab) 25 mg PO Q4H PRN PRN Reason: Anxiety Stop: 01/20/24 11:19 Last Admin: 12/24/23 08:49 Dose: 25 mg Ibuprofen (Ibuprofen 200 Mg Tab) 400 mg PO Q8H PRN PRN Reason: Pain Stop: 01/15/24 12:36 Last Admin: 12/22/23 15:04 Dose: 400 mg Ibuprofen (Ibuprofen 600 Mg Tab) 600 mg PO QID [facility] Stop: 01/24/24 12:59 Last Admin: 12/26/23 08:40 Dose: 600 mg Lorazepam (Lorazepam 2 Mg/1 Ml Vial) 1 mg IM Q8H PRN PRN Reason: Agitation Stop: 01/18/24 11:57 Last Admin: 12/02/23 14:06 Dose: 1 mg Lorazepam (Lorazepam 1 Mg Tab) 1 mg PO Q8H PRN PRN Reason: Agitation Stop: 01/18/24 11:57 Last Admin: 12/20/23 21:10 Dose: 1 mg Magnesium Hydroxide (Magnesium Hydroxide Susp 30 Ml Udc) 30 ml PO DAILY PRN PRN Reason: Constipation Stop: 01/20/24 11:19 Miscellaneous (Remove Nicoderm Patch) 1 each N/A DAILY@0859 [facility] Stop: 01/21/24 15:59 Last Admin: 12/26/23 08:58 Dose: Not Given Nicotine (Nicotine 14 Mg/24 Hr Patch) 1 patch TD QAM [facility] Stop: 01/21/24 15:59 Last Admin: 12/26/23 08:44 Dose: 1 patch Ondansetron HCl (Ondansetron Inj 2 Mg/Ml 2 Ml Vial) 4 mg IV Q4H PRN PRN Reason: Nausea And Vomiting Stop: 01/24/24 08:45 Sodium Chloride (Sodium Chloride 0.65% Na Soln 45 Ml ([place])) 1 - 2 sprays NA PRN PRN PRN Reason: Nasal Dryness/Congestion Stop: 01/20/24 11:19 Mental Health & Subst Abuse Tx Psychiatrist Name of Psychiatrist: Sara Duque [facility] Psychiatrist's Psychiatric Appointment Comment: [address], [address], [place] [id number] Therapist Name of Therapist: denies Cost Clerk Name of Cost Clerk: denies Post Discharge Appointments Primary Care Physician Name Of Family Doctor/PCP: Sara Duque [facility] Primary Care Provider Appointment Comment: [address], [address], [place] [address]
--- NOTE | 2023-12-27 09:03 | Psychiatric Progress Note ---
Date of Service December 27, 2023 Impression / Recommendations Impression Emilia Orta is a 28-year-old female unknown past history who was brought in by police after being found wandering the street by gas station. Patient presented pressured and tangential speech, memory impairment, and concern for psychosis. She was admitted on 11/21/23 09:58 on a 302 involuntary commitment for psychosis, now on a 304 commitment. Diagnostically consistent with unspecified psychosis- suspect schizoaffective disorder and possible methamphetamine induced psychosis as well as manic episode on admission. Collateral notable for periods of prolonged heavy methamphetamine use, particularly smoked methamphetamine, other polysubstance use, second-degree relative with a primary psychotic disorder, and presentation of a disorganized tangential thought process with concern for tactile disturbances and delusional thoughts there is a strong suspicion for methamphetamine induced psychotic disorder in the setting of severe methamphetamine use disorder vs schizophrenia vs bipolar affective disorder current manic episode. Patient has demonstrated significant dysfunction evidenced by recurrent legal troubles, persistent symptoms, recurrent hospitalizations, poor insight, inability to maintain stab ility in the community, and continued drug dependence. A: More irritable today, focused on her medications but very difficult to discuss in a meaningful way with her at times due to loosened associations and some flight of ideas as she jumps from wanting an alternative mood stabilizer, to more benzos to a stimulant or Wellbutrin or Celexa. Attempts to process this were met with her frustration and accusations that I've not listening and attempting to trick her with different medications. Ultimately she was able to tolerate a discussion about STEINER options. She went back and forth between abilify vs Invega but ultimately requested that we attempt a cross taper from haldol to Invega. Explained need for po tolerance before starting STEINER which she understands and is agreeable to. Discussed why stimulants and additional benzodiazepines (which goal is to continue to taper given her substance use history) and use of an SSRI are not indicated at this point and how they could worsen psychosis and cyrus. She questions the psychosis but feels bipolar disorder is accurate. Reviewed risks/benefits/side effects of Invega including movement (TD, NMS), cardiac (QTc prolongation), and metabolic (stroke, insulin resistance) and necessity for fasting lipid and glucose labwork (done this admission) and AIMS done with score of 0. Tolerated being off the unit for her oral surgery and tolerating transition out of [facility] so will start to offer her option of going outside as part of her privileges for >30 day length of stay. Overall, I spent a total of 55 minutes with this case including review of chart records, nursing report, review of lab work, direct evaluation of the patient at bedside, counseling the patient, orders, documentation in the electronic health record. 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 Stopping haldol and starting Invega 3mg BID po as first step for eventual transition to STEINER for mood stabilization and psychosis per her preference to lessen po medications. 12/26/2023: Continue current medications and tx plan. 12/25/2023: Continue current medications and tx plan. 12/24/2023: Continue current medications and tx plan. 12/23/2023: Continue current medications and tx plan. 12/22/2023: Continue current medications and tx plan. 12/21/2023: Increase nightly depakote to 750mg in the evening. 12/20/2023: Continue current medications and tx plan. 12/19/2023: Decrease Haloperidol to 2.5mg BID. Consult for oral surgery for tooth pain. 12/18/2023: Continue current medications and tx plan. 12/17/2023: Continue current medications and tx plan. Plan for VPA trough level tomorrow AM. 12/16/2023: Continue current medication and tx plan. 12/15/2023: Continue current medications and tx plan. 12/14/2023: Continue current medications and tx plan. 12/13/2023: Increase Depakote to 500mg BID. 12/12/2023: Continue current medications and tx plan. 12/11/2023: Bacitracin ointment BID and Tdap vaccine ordered. 12/10/2023: Increase Depakote DR 250mg qAM and 500mg qdinner. Plan to taper Klonopin in coming days if Depakote increase is well tolerated. 12/09/2023: Continue current medications and tx plan. Will consider transition to Depakote ER after trough level is back. Can consider transition to olanzapine if she continues to prefer this to haldol. 12/08/2023: Trough Depakote level tomorrow PM (12/09/23) 12/07/2023: Continue medications and treatment plan. 12/06/2023: Continue medications and treatment plan. 12/05/2023: Schedule Depakote/Haldol/Klonopin at dinner instead of bedtime. 12/04/2023: Continue current medications and tx plan. 12/03/2023: Continue current medications and tx plan. 12/02/2023: Start Depakote DR 500mg HS. 12/01/2023: Continue current medications and tx plan. Continuing to attempt to get urine sample for UPT. 11/30/2023: UPT ordered. Added Thorazine 25mg IM prn for agitation per her request for additional IM medication options. 11/29/2023: Continue current medications and tx plan. 11/28/2023: Continue current medications and tx plan. 11/27/2023: Discontinue Jobos and risperidone. Start haldol 5mg BID. 11/26/2023: Start Thorazine 12.5mg TID prn po for agitation. 11/25/2023: Decrease Clonazepam to 0.5mg HS. Encourage fluids. 11/24/2023: Start Jobos 300mg BID for mood lability. 11/23/2023: Continue medications and treatment plan. 11/22/2023: Increase risperidone to 1 mg every morning and 2 mg nightly. Continue clonazepam 1 mg at bedtime. Encourage fluids. STI and hepatitis panel. 11/21/2023: One-time lorazepam 2 mg p.o. for anxiety. Schedule risperidone 1 mg twice daily and clonazepam 1 mg at bedtime. Baseline EKG and labs: Free T4, free T3, A1c, lipid panel. Inventory Assets Strengths: able to express needs, accepting treatment Needs: social supports, mood control Suicide Risk Level Suicide Risk Level: Moderate (q15 min suicide checks) (one episode of voicing SI but recently denying SI, mood lability, able to ask staff for support ) Risk Factors Assessment Male: No : Yes Do You Have Access To A Gun?: No Health Problems: No Mental Health Diagnoses: Yes Substance Use Disorders: Yes Previous Attempt: No Family History of Suicide: No Previous Psychiatric Hospitalization: Yes Hopelessness: No Protective Factors Assessment Orthodoxy Beliefs: No : No Responsible for Young Children: No Employed: No Stable Relationships: No Supportive Family: No Good Rapport with Provider: Yes Absence of Any Risk Factors Above: No Interval History Identifying Information Emilia Orta is a 28-year-old female unknown past history who was brought in by police after being found wandering the street by gas station. Patient presented pressured and tangential speech, memory impairment, and concern for psychosis. She was admitted on 11/21/23 09:58 on a 302 involuntary commitment for psychosis. Currently on 304 comittment. Chief Complaint "I need help with these racing thoughts, no more tricking meds". Review of Systems Sleep Information Total Hours of Sleep: 9.45 Sleep Comments: KIAN Guadrado at 1900 Meal Information Percent Meal Consumed - Breakfast: 100 Percent Meal Consumed - Lunch: 100 Percent Meal Consumed - Dinner: 50 Subjective Subjective Patient was seen & assessed and interval progress reviewed with treatment team nursing and social work. Pleased to have her room moved. 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 During interview acknowledged past substance use, denied any use since last fall. Today more irritable, reports periods of anxiety and desire to stop Depakote, get a Jobos injection, be on "clonidine" and Wellbutrin and celexa. Also jose e Hook. Attempts to review rationale for her medications and process improvements that we've seen with Depakote and haldol are met by her frustration tells me she is not interested in continuing her current medications, is only taking them to not "mess up" her discharge plans. Wants to make changes now to be on fewer po medications and to get an injection. Reviewed at length options for antipsychotic Jayro she would like to try Invega and is hopeful that then she could eventually stop Depakote. Physical Exam Psychiatric Orientation: alert and oriented x 3 Apperance: appropriately dressed and + disheveled Eye Contact: good eye contact Motor Behavior: no abnormal motor movements Speech: normal rate/rhythm/volume of speech Affect: + irritable affect Mood: + irritable mood; no anxious mood Thought Process: + circumstantial thought process and + looseness of associations Thought Content: + preoccupation, + delusions and + ideas of reference Suicidal Thoughts: denies suicidal thoughts Homicidal Thoughts: denies homicidal thoughts Hallucinations: no auditory hallucinations and no visual hallucinations Insight: + poor insight Judgment: + limited judgement Vital Signs (Past 24 Hours) Last Vital Signs Temp 36.7 C 12/22/23 12:00 Pulse 74 12/22/23 12:00 Resp 18 12/22/23 12:00 BP 96/64 L 12/22/23 12:00 Pulse Ox 99 12/10/23 12:20 O2 Del Method Room Air 12/10/23 12:20 Results & Data ([facility]) Current Inpatient Medications Current Inpatient Medications: Current Inpatient Medications Acetaminophen (Acetaminophen 325 Mg Tab) 650 mg PO Q4H JEREMIAH Stop: 01/24/24 09:14 Last Admin: 12/27/23 06:36 Dose: Not Given Hydrocodone Bitart/Acetaminophen (Hydrocodone/Acetamophen 5/325mg Tab) 1 tab PO Q4H PRN PRN Reason: MODERATE Pain (4,5,6) & Pre PT Stop: 01/08/24 08:45 Al Hydrox/Mg Hydrox/Simethicone (Aluminum/Magnesium Susp 30 Ml Udc) 30 ml PO Q4H PRN PRN Reason: GI Upset Stop: 01/20/24 11:19 Bacitracin (Bacitracin Oint 14 Gm Tube) 1 appln EXT BID JEREMIAH Stop: 01/11/24 08:59 Last Admin: 12/26/23 21:18 Dose: Not Given Benzocaine (Benzocaine 20% (Orajel) 11.9 Gm Tube) 1 appln MT Q4H PRN PRN Reason: gum or tooth pain Stop: 01/03/24 08:56 Last Admin: 12/17/23 10:11 Dose: 1 appln Bismuth Subsalicylate (Bismuth Subsalicylate Liqd 236 Ml) 15 ml PO PRN PRN PRN Reason: Loose Stool Stop: 01/20/24 11:19 Chlorpromazine HCl (Chlorpromazine Hcl 25 Mg/Ml Amp) 25 mg IM BID PRN PRN Reason: Agitation Stop: 12/30/23 09:34 Last Admin: 12/02/23 14:07 Dose: 25 mg Clonazepam (Clonazepam 0.5 Mg Tab) 0.5 mg PO QDD [facility] Stop: 01/04/24 17:44 Last Admin: 12/26/23 17:41 Dose: 0.5 mg Divalproex Sodium (Divalproex Delay Release 500 Mg Tab) 500 mg PO QAM [facility] Stop: 01/13/24 08:59 Last Admin: 12/26/23 08:40 Dose: 500 mg Divalproex Sodium (Divalproex Delay Release 250 Mg Tabec) 750 mg PO QDD [facility] Stop: 01/20/24 17:44 Last Admin: 12/26/23 17:41 Dose: 750 mg Haloperidol (Haloperidol 5 Mg Tab) 5 mg PO Q8H PRN PRN Reason: Agitation Stop: 01/18/24 11:57 Last Admin: 12/16/23 10:10 Dose: 5 mg Haloperidol (Haloperidol 5 Mg Tab) 2.5 mg PO BIDM [facility] Stop: 01/19/24 08:59 Last Admin: 12/26/23 17:42 Dose: 2.5 mg Haloperidol Lactate (Haloperidol Lactate 5 Mg/Ml 1 Ml Vial) 5 mg IM Q8H PRN PRN Reason: Agitation Stop: 01/18/24 11:57 Hydroxyzine HCl (Hydroxyzine Hcl 25 Mg Tab) 50 mg PO HSZ PRN PRN Reason: Insomnia Stop: 01/20/24 11:19 Hydroxyzine HCl (Hydroxyzine Hcl 25 Mg Tab) 25 mg PO Q4H PRN PRN Reason: Anxiety Stop: 01/20/24 11:19 Last Admin: 12/26/23 18:54 Dose: 25 mg Ibuprofen (Ibuprofen 200 Mg Tab) 400 mg PO Q8H PRN PRN Reason: Pain Stop: 01/15/24 12:36 Last Admin: 12/22/23 15:04 Dose: 400 mg Ibuprofen (Ibuprofen 600 Mg Tab) 600 mg PO QID [facility] Stop: 01/24/24 12:59 Last Admin: 12/26/23 21:19 Dose: Not Given Lorazepam (Lorazepam 2 Mg/1 Ml Vial) 1 mg IM Q8H PRN PRN Reason: Agitation Stop: 01/18/24 11:57 Last Admin: 12/02/23 14:06 Dose: 1 mg Lorazepam (Lorazepam 1 Mg Tab) 1 mg PO Q8H PRN PRN Reason: Agitation Stop: 01/18/24 11:57 Last Admin: 12/20/23 21:10 Dose: 1 mg Magnesium Hydroxide (Magnesium Hydroxide Susp 30 Ml Udc) 30 ml PO DAILY PRN PRN Reason: Constipation Stop: 01/20/24 11:19 Miscellaneous (Remove Nicoderm Patch) 1 each N/A DAILY@0859 [facility] Stop: 01/21/24 15:59 Last Admin: 12/26/23 08:58 Dose: Not Given Nicotine (Nicotine 14 Mg/24 Hr Patch) 1 patch TD QAM [facility] Stop: 01/21/24 15:59 Last Admin: 12/26/23 08:44 Dose: 1 patch Nicotine Polacrilex (Nicotine Polacrilex 2 Mg Gum) 1 piece MT Q2H PRN PRN Reason: nicotine cravings Stop: 01/25/24 09:29 Ondansetron HCl (Ondansetron Inj 2 Mg/Ml 2 Ml Vial) 4 mg IV Q4H PRN PRN Reason: Nausea And Vomiting Stop: 01/24/24 08:45 Sodium Chloride (Sodium Chloride 0.65% Na Soln 45 Ml (Larose)) 1 - 2 sprays NA PRN PRN PRN Reason: Nasal Dryness/Congestion Stop: 01/20/24 11:19 Mental Health & Subst Abuse Tx Psychiatrist Name of Psychiatrist: Sara Du[facility] Psychiatrist's Psychiatric Appointment Comment: [address], [address], [place] [id number] Therapist Name of Therapist: denies Retail Loan Originator Name of Retail Loan Originator: denies Post Discharge Appointments Primary Care Physician Name Of Family Doctor/PCP: [facility] Primary Care Provider Appointment Comment: [address], [address], [place] [address]
[2023-12-27] MEDS ORDERED: IBUPROFEN 600 MG TAB PO PRN (09:05)
[2023-12-27] MEDS ORDERED: clonazePAM 0.5 MG TAB PO SCH (17:45)
[2023-12-27] MEDS: PALIPERIDONE 3 MG TABCR PO SCH (20:39)
--- NOTE | 2023-12-28 08:52 | Psychiatric Progress Note ---
Date of Service December 28, 2023 Impression / Recommendations Impression Emilia Orta is a 28-year-old female unknown past history who was brought in by police after being found wandering the street by gas station. Patient presented pressured and tangential speech, memory impairment, and concern for psychosis. She was admitted on 11/21/23 09:58 on a 302 involuntary commitment for psychosis, now on a 304 commitment. Diagnostically consistent with unspecified psychosis- suspect schizoaffective disorder and possible methamphetamine induced psychosis as well as manic episode on admission. Collateral notable for periods of prolonged heavy methamphetamine use, particularly smoked methamphetamine, other polysubstance use, second-degree relative with a primary psychotic disorder, and presentation of a disorganized tangential thought process with concern for tactile disturbances and delusional thoughts there is a strong suspicion for methamphetamine induced psychotic disorder in the setting of severe methamphetamine use disorder vs schizophrenia vs bipolar affective disorder current manic episode. Patient has demonstrated significant dysfunction evidenced by recurrent legal troubles, persistent symptoms, recurrent hospitalizations, poor insight, inability to maintain stab ility in the community, and continued drug dependence. A: Tolerating Invega so far, less irritable today, tolerating groups better but still discussing odd topics/delusions/loosened associations at times. Given sedation will reduce Klonopin dose especially given goal of tapering to discontinuation eventually. Overall, I spent a total of 25 minutes with this case including review of chart records, nursing report, review of lab work, direct evaluation of the patient at bedside, counseling the patient, orders, documentation in the electronic health record. 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 Continue Invega and other medications. 12/27/2023: Will move Klonopin from late afternoon to AM to help address her concerns for anxiety during the day. Stopping haldol and starting Invega 3mg BID po as first step for eventual transition to STEINER for mood stabilization and psychosis per her preference to lessen po medications. 12/26/2023: Continue current medications and tx plan. 12/25/2023: Continue current medications and tx plan. 12/24/2023: Continue current medications and tx plan. 12/23/2023: Continue current medications and tx plan. 12/22/2023: Continue current medications and tx plan. 12/21/2023: Increase nightly depakote to 750mg in the evening. 12/20/2023: Continue current medications and tx plan. 12/19/2023: Decrease Haloperidol to 2.5mg BID. Consult for oral surgery for tooth pain. 12/18/2023: Continue current medications and tx plan. 12/17/2023: Continue current medications and tx plan. Plan for VPA trough level tomorrow AM. 12/16/2023: Continue current medication and tx plan. 12/15/2023: Continue current medications and tx plan. 12/14/2023: Continue current medications and tx plan. 12/13/2023: Increase Depakote to 500mg BID. 12/12/2023: Continue current medications and tx plan. 12/11/2023: Bacitracin ointment BID and Tdap vaccine ordered. 12/10/2023: Increase Depakote DR 250mg qAM and 500mg qdinner. Plan to taper Klonopin in coming days if Depakote increase is well tolerated. 12/09/2023: Continue current medications and tx plan. Will consider transition to Depakote ER after trough level is back. Can consider transition to olanzapine if she continues to prefer this to haldol. 12/08/2023: Trough Depakote level tomorrow PM (12/09/23) 12/07/2023: Continue medications and treatment plan. 12/06/2023: Continue medications and treatment plan. 12/05/2023: Schedule Depakote/Haldol/Klonopin at dinner instead of bedtime. 12/04/2023: Continue current medications and tx plan. 12/03/2023: Continue current medications and tx plan. 12/02/2023: Start Depakote DR 500mg HS. 12/01/2023: Continue current medications and tx plan. Continuing to attempt to get urine sample for UPT. 11/30/2023: UPT ordered. Added Thorazine 25mg IM prn for agitation per her request for additional IM medication options. 11/29/2023: Continue current medications and tx plan. 11/28/2023: Continue current medications and tx plan. 11/27/2023: Discontinue [place] and risperidone. Start haldol 5mg BID. 11/26/2023: Start Thorazine 12.5mg TID prn po for agitation. 11/25/2023: Decrease Clonazepam to 0.5mg HS. Encourage fluids. 11/24/2023: Start [place] 300mg BID for mood lability. 11/23/2023: Continue medications and treatment plan. 11/22/2023: Increase risperidone to 1 mg every morning and 2 mg nightly. Continue clonazepam 1 mg at bedtime. Encourage fluids. STI and hepatitis panel. 11/21/2023: One-time lorazepam 2 mg p.o. for anxiety. Schedule risperidone 1 mg twice daily and clonazepam 1 mg at bedtime. Baseline EKG and labs: Free T4, free T3, A1c, lipid panel. Inventory Assets Strengths: able to express needs, accepting treatment Needs: social supports, mood control Suicide Risk Level Suicide Risk Level: Moderate (q15 min suicide checks) (one episode of voicing SI but recently denying SI, mood lability, able to ask staff for support ) Risk Factors Assessment Male: No : Yes Do You Have Access To A Gun?: No Health Problems: No Mental Health Diagnoses: Yes Substance Use Disorders: Yes Previous Attempt: No Family History of Suicide: No Previous Psychiatric Hospitalization: Yes Hopelessness: No Protective Factors Assessment Adventist Beliefs: No : No Responsible for Young Children: No Employed: No Stable Relationships: No Supportive Family: No Good Rapport with Provider: Yes Absence of Any Risk Factors Above: No Interval History Identifying Information Emilia Orta is a 28-year-old female unknown past history who was brought in by police after being found wandering the street by gas station. Patient presented pressured and tangential speech, memory impairment, and concern for psychosis. She was admitted on 11/21/23 09:58 on a 302 involuntary commitment for psychosis. Currently on 304 comittment. Chief Complaint "OK". Review of Systems Sleep Information Total Hours of Sleep: 7 Sleep Comments: PRN Vistaril at 1900 Meal Information Percent Meal Consumed - Breakfast: 100 Percent Meal Consumed - Lunch: 100 Percent Meal Consumed - Dinner: 100 Subjective Subjective Patient was seen & assessed and interval progress reviewed with treatment team nursing and social work. Slept all evening. Declining pain medication for her teeth. More sedated this morning with shift of Klonopin dose, reports stable mood, hopeful about possibility of EAC. Denies any side effects from Invega, remains desiring STEINER. Physical Exam Psychiatric Orientation: alert and oriented x 3 Apperance: appropriately dressed and + disheveled Eye Contact: good eye contact Motor Behavior: no abnormal motor movements Speech: normal rate/rhythm/volume of speech Affect: euthymic affect Mood: no anxious mood Thought Process: + circumstantial thought process Thought Content: + preoccupation and + delusions Suicidal Thoughts: denies suicidal thoughts Homicidal Thoughts: denies homicidal thoughts Hallucinations: no auditory hallucinations and no visual hallucinations Insight: + poor insight Judgment: + limited judgement Vital Signs (Past 24 Hours) Last Vital Signs Temp 36.8 C 12/27/23 12:00 Pulse 78 12/27/23 12:00 Resp 18 12/27/23 12:00 BP 98/68 L 12/27/23 12:00 Pulse Ox 99 12/10/23 12:20 O2 Del Method Room Air 12/10/23 12:20 Results & Data ([facility]) Current Inpatient Medications Current Inpatient Medications: Current Inpatient Medications Acetaminophen (Acetaminophen 325 Mg Tab) 650 mg PO Q4H PRN PRN Reason: tooth pain Stop: 01/24/24 09:14 Al Hydrox/Mg Hydrox/Simethicone (Aluminum/Magnesium Susp 30 Ml Udc) 30 ml PO Q4H PRN PRN Reason: GI Upset Stop: 01/20/24 11:19 Bacitracin (Bacitracin Oint 14 Gm Tube) 1 appln EXT BID JEREMIAH Stop: 01/11/24 08:59 Last Admin: 12/27/23 20:39 Dose: Not Given Benzocaine (Benzocaine 20% (Orajel) 11.9 Gm Tube) 1 appln MT Q4H PRN PRN Reason: gum or tooth pain Stop: 01/03/24 08:56 Last Admin: 12/17/23 10:11 Dose: 1 appln Bismuth Subsalicylate (Bismuth Subsalicylate Liqd 236 Ml) 15 ml PO PRN PRN PRN Reason: Loose Stool Stop: 01/20/24 11:19 Chlorpromazine HCl (Chlorpromazine Hcl 25 Mg/Ml Amp) 25 mg IM BID PRN PRN Reason: Agitation Stop: 12/30/23 09:34 Last Admin: 12/02/23 14:07 Dose: 25 mg Clonazepam (Clonazepam 0.5 Mg Tab) 0.5 mg PO DAILY [facility] Stop: 01/27/24 08:59 Divalproex Sodium (Divalproex Delay Release 500 Mg Tab) [facility] [place] Stop: 01/13/24 08:59 Last Admin: 12/27/23 08:58 Dose: 500 mg Divalproex Sodium (Divalproex Delay Release 250 Mg Tabec) 750 mg PO QDD [facility] Stop: 01/20/24 17:44 Last Admin: 12/27/23 17:30 Dose: 750 mg Haloperidol (Haloperidol 5 Mg Tab) 5 mg PO Q8H PRN PRN Reason: Agitation Stop: 01/18/24 11:57 Last Admin: 12/16/23 10:10 Dose: 5 mg Hydroxyzine HCl (Hydroxyzine Hcl 25 Mg Tab) 50 mg PO HSZ PRN PRN Reason: Insomnia Stop: 01/20/24 11:19 Hydroxyzine HCl (Hydroxyzine Hcl 25 Mg Tab) 25 mg PO Q4H PRN PRN Reason: Anxiety Stop: 01/20/24 11:19 Last Admin: 12/27/23 09:03 Dose: 25 mg Ibuprofen (Ibuprofen 600 Mg Tab) 600 mg PO QID PRN PRN Reason: Pain Stop: 01/24/24 12:59 Magnesium Hydroxide (Magnesium Hydroxide Susp 30 Ml Udc) 30 ml PO DAILY PRN PRN Reason: Constipation Stop: 01/20/24 11:19 Miscellaneous (Remove Nicoderm Patch) 1 each N/A DAILY@0859 [facility] Stop: 01/21/24 15:59 Last Admin: 12/27/23 09:00 Dose: 1 each Nicotine (Nicotine 14 Mg/24 Hr Patch) [facility] [place] Stop: 01/21/24 15:59 Last Admin: 12/27/23 09:00 Dose: 1 patch Nicotine Polacrilex (Nicotine Polacrilex 2 Mg Gum) 1 piece MT Q2H PRN PRN Reason: nicotine cravings Stop: 01/25/24 09:29 Paliperidone (Paliperidone 3 Mg Tabcr) 3 mg PO BID JEREMIAH Stop: 01/26/24 20:59 Last Admin: 12/27/23 20:39 Dose: 3 mg Sodium Chloride (Sodium Chloride 0.65% Na Soln 45 Ml ([place])) 1 - 2 sprays NA PRN PRN PRN Reason: Nasal Dryness/Congestion Stop: 01/20/24 11:19 Mental Health & Subst Abuse Tx Psychiatrist Name of Psychiatrist: Sara Duque [facility] Psychiatrist's Psychiatric Appointment Comment: [address], [address], [place] [address] Therapist Name of Therapist: denies Tapping Machine Operator Name of Tapping Machine Operator: denies Post Discharge Appointments Primary Care Physician Name Of Family Doctor/PCP: Sara Duque [facility] Primary Care Provider Appointment Comment: [address], [address], [place] [address]
[2023-12-28] MEDS: clonazePAM 0.5 MG TAB PO SCH (08:53)
[2023-12-29] MEDS: hydrOXYzine HCl 25 MG TAB PO PRN (01:35)
[2023-12-29] MEDS: clonazePAM 0.5 MG TAB PO SCH (09:15)
--- NOTE | 2023-12-29 09:28 | Psychiatric Progress Note ---
Date of Service December 29, 2023 Impression / Recommendations Impression Emilia Orta is a 28-year-old female unknown past history who was brought in by police after being found wandering the street by gas station. Patient presented pressured and tangential speech, memory impairment, and concern for psychosis. She was admitted on 11/21/23 09:58 on a 302 involuntary commitment for psychosis, now on a 304 commitment. Diagnostically consistent with unspecified psychosis- suspect schizoaffective disorder and possible methamphetamine induced psychosis as well as manic episode on admission. Collateral notable for periods of prolonged heavy methamphetamine use, particularly smoked methamphetamine, other polysubstance use, second-degree relative with a primary psychotic disorder, and presentation of a disorganized tangential thought process with concern for tactile disturbances and delusional thoughts there is a strong suspicion for methamphetamine induced psychotic disorder in the setting of severe methamphetamine use disorder vs schizophrenia vs bipolar affective disorder current manic episode. Patient has demonstrated significant dysfunction evidenced by recurrent legal troubles, persistent symptoms, recurrent hospitalizations, poor insight, inability to maintain stab ility in the community, and continued drug dependence. A: Euthymic mood today, some loosening of associations at times. Continues to tolerate Invega and she would like to get the STEINER tomorrow. Discussed risks, benefits and alternatives. She consented to Invega [place] for psychosis, suspected schizoaffective disorder. Reviewed side effects including but not limited to: movement (TD, NMS), cardiac (QTc prolongation), and metabolic (stroke, insulin resistance) and necessity for fasting lipid and glucose labwork (done 11/22/2023 and all were within normal limits) and AIMS done with score of 0. Overall, I spent a total of 35 minutes with this case including review of chart records, nursing report, review of lab work, direct evaluation of the patient at bedside, counseling the patient, orders, documentation in the electronic health record. 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 After that will discontinue Invega po. Subsequent dose will then be for 156mg STEINER on 01/06/2024 12/28/2023: Reduce Klonopin. Continue Invega and other medications. 12/27/2023: Will move Klonopin from late afternoon to AM to help address her concerns for anxiety during the day. Stopping haldol and starting Invega 3mg BID po as first step for eventual transition to STEINER for mood stabilization and psychosis per her preference to lessen po medications. 12/26/2023: Continue current medications and tx plan. 12/25/2023: Continue current medications and tx plan. 12/24/2023: Continue current medications and tx plan. 12/23/2023: Continue current medications and tx plan. 12/22/2023: Continue current medications and tx plan. 12/21/2023: Increase nightly depakote to 750mg in the evening. 12/20/2023: Continue current medications and tx plan. 12/19/2023: Decrease Haloperidol to 2.5mg BID. Consult for oral surgery for tooth pain. 12/18/2023: Continue current medications and tx plan. 12/17/2023: Continue current medications and tx plan. Plan for VPA trough level tomorrow AM. 12/16/2023: Continue current medication and tx plan. 12/15/2023: Continue current medications and tx plan. 12/14/2023: Continue current medications and tx plan. 12/13/2023: Increase Depakote to 500mg BID. 12/12/2023: Continue current medications and tx plan. 12/11/2023: Bacitracin ointment BID and Tdap vaccine ordered. 12/10/2023: Increase Depakote DR 250mg qAM and 500mg qdinner. Plan to taper Klonopin in coming days if Depakote increase is well tolerated. 12/09/2023: Continue current medications and tx plan. Will consider transition to Depakote ER after trough level is back. Can consider transition to olanzapine if she continues to prefer this to haldol. 12/08/2023: Trough Depakote level tomorrow PM (12/09/23) 12/07/2023: Continue medications and treatment plan. 12/06/2023: Continue medications and treatment plan. 12/05/2023: Schedule Depakote/Haldol/Klonopin at dinner instead of bedtime. 12/04/2023: Continue current medications and tx plan. 12/03/2023: Continue current medications and tx plan. 12/02/2023: Start Depakote DR 500mg HS. 12/01/2023: Continue current medications and tx plan. Continuing to attempt to get urine sample for UPT. 11/30/2023: UPT ordered. Added Thorazine 25mg IM prn for agitation per her request for additional IM medication options. 11/29/2023: Continue current medications and tx plan. 11/28/2023: Continue current medications and tx plan. 11/27/2023: Discontinue [place] and risperidone. Start haldol 5mg BID. 11/26/2023: Start Thorazine 12.5mg TID prn po for agitation. 11/25/2023: Decrease Clonazepam to 0.5mg HS. Encourage fluids. 11/24/2023: Start [place] 300mg BID for mood lability. 11/23/2023: Continue medications and treatment plan. 11/22/2023: Increase risperidone to 1 mg every morning and 2 mg nightly. Continue clonazepam 1 mg at bedtime. Encourage fluids. STI and hepatitis panel. 11/21/2023: One-time lorazepam 2 mg p.o. for anxiety. Schedule risperidone 1 mg twice daily and clonazepam 1 mg at bedtime. Baseline EKG and labs: Free T4, free T3, A1c, lipid panel. Inventory Assets Strengths: able to express needs, accepting treatment Needs: social supports, mood control Suicide Risk Level Suicide Risk Level: Moderate (q15 min suicide checks) (one episode of voicing SI but recently denying SI, mood lability, able to ask staff for support ) Risk Factors Assessment Male: No : Yes Do You Have Access To A Gun?: No Health Problems: No Mental Health Diagnoses: Yes Substance Use Disorders: Yes Previous Attempt: No Family History of Suicide: No Previous Psychiatric Hospitalization: Yes Hopelessness: No Protective Factors Assessment Caodaism Beliefs: No : No Responsible for Young Children: No Employed: No Stable Relationships: No Supportive Family: No Good Rapport with Provider: Yes Absence of Any Risk Factors Above: No Interval History Identifying Information Emilia Orta is a 28-year-old female unknown past history who was brought in by police after being found wandering the street by [place] station. Patient presented pressured and tangential speech, memory impairment, and concern for psychosis. She was admitted on 11/21/23 09:58 on a 302 involuntary commitment for psychosis. Currently on 304 comittment. Chief Complaint "Pretty good". Review of Systems Sleep Information Total Hours of Sleep: 7 Sleep Comments: PRN Vistaril at 1900 Meal Information Percent Meal Consumed - Breakfast: 100 Percent Meal Consumed - Lunch: 100 Percent Meal Consumed - Dinner: 100 Subjective Subjective Patient was seen & assessed and interval progress reviewed with treatment team nursing and social work. Pleasant yesterday evening, didn't attend any groups in the evenings. Today reports positive mood. Denies Invega side effects, wants to get STEINER tomorrow. Tells me today is a good day because "positive interruptions for when negative interruptions". She was difficult to follow at times. Physical Exam Psychiatric Orientation: alert and oriented x 3 Apperance: appropriately dressed and + disheveled Eye Contact: good eye contact Motor Behavior: no abnormal motor movements Speech: normal rate/rhythm/volume of speech Affect: euthymic affect Mood: no anxious mood Thought Process: + circumstantial thought process and + looseness of associations Thought Content: + preoccupation and + delusions Suicidal Thoughts: denies suicidal thoughts Homicidal Thoughts: denies homicidal thoughts Hallucinations: no auditory hallucinations and no visual hallucinations Insight: + poor insight Judgment: + limited judgement Vital Signs (Past 24 Hours) Last Vital Signs Temp 36.8 C 12/28/23 15:09 Pulse 91 H 12/28/23 15:09 Resp 16 12/28/23 15:09 BP 93/59 L 12/28/23 15:09 Pulse Ox 99 12/10/23 12:20 O2 Del Method Room Air 12/10/23 12:20 Results & Data ([facility]) Current Inpatient Medications Current Inpatient Medications: Current Inpatient Medications Acetaminophen (Acetaminophen 325 Mg Tab) 650 mg PO Q4H PRN PRN Reason: tooth pain Stop: 01/24/24 09:14 Al Hydrox/Mg Hydrox/Simethicone (Aluminum/Magnesium Susp 30 Ml Udc) 30 ml PO Q4H PRN PRN Reason: GI Upset Stop: 01/20/24 11:19 Bacitracin (Bacitracin Oint 14 Gm Tube) 1 appln EXT BID JEREMIAH Stop: 01/11/24 08:59 Last Admin: 12/29/23 09:19 Dose: Not Given Benzocaine (Benzocaine 20% (Orajel) 11.9 Gm Tube) 1 appln MT Q4H PRN PRN Reason: gum or tooth pain Stop: 01/03/24 08:56 Last Admin: 12/17/23 10:11 Dose: 1 appln Bismuth Subsalicylate (Bismuth Subsalicylate Liqd 236 Ml) 15 ml PO PRN PRN PRN Reason: Loose Stool Stop: 01/20/24 11:19 Chlorpromazine HCl (Chlorpromazine Hcl 25 Mg/Ml Amp) 25 mg IM BID PRN PRN Reason: Agitation Stop: 12/30/23 09:34 Last Admin: 12/02/23 14:07 Dose: 25 mg Clonazepam (Clonazepam 0.5 Mg Tab) 0.25 mg PO DAILY JEREMIAH Stop: 01/28/24 08:59 Last Admin: 12/29/23 09:15 Dose: 0.25 mg Divalproex Sodium (Divalproex Delay Release 500 Mg Tab) 500 mg PO QAM JEREMIAH Stop: 01/13/24 08:59 Last Admin: 12/29/23 09:15 Dose: 500 mg Divalproex Sodium (Divalproex Delay Release 250 Mg Tabec) 750 mg PO QDD JEREMIAH Stop: 01/20/24 17:44 Last Admin: 12/28/23 17:33 Dose: 750 mg Haloperidol (Haloperidol 5 Mg Tab) 5 mg PO Q8H PRN PRN Reason: Agitation Stop: 01/18/24 11:57 Last Admin: 12/16/23 10:10 Dose: 5 mg Hydroxyzine HCl (Hydroxyzine Hcl 25 Mg Tab) 50 mg PO HSZ PRN PRN Reason: Insomnia Stop: 01/20/24 11:19 Last Admin: 12/29/23 01:35 Dose: 50 mg Hydroxyzine HCl (Hydroxyzine Hcl 25 Mg Tab) 25 mg PO Q4H PRN PRN Reason: Anxiety Stop: 01/20/24 11:19 Last Admin: 12/27/23 09:03 Dose: 25 mg Ibuprofen (Ibuprofen 600 Mg Tab) 600 mg PO QID PRN PRN Reason: Pain Stop: 01/24/24 12:59 Magnesium Hydroxide (Magnesium Hydroxide Susp 30 Ml Udc) 30 ml PO DAILY PRN PRN Reason: Constipation Stop: 01/20/24 11:19 Miscellaneous (Remove Nicoderm Patch) 1 each N/A DAILY@0859 [facility] Stop: 01/21/24 15:59 Last Admin: 12/29/23 09:19 Dose: 1 each Nicotine (Nicotine 14 Mg/24 Hr Patch) 1 patch TD QAM [facility] Stop: 01/21/24 15:59 Last Admin: 12/29/23 09:19 Dose: 1 patch Nicotine Polacrilex (Nicotine Polacrilex 2 Mg Gum) 1 piece MT Q2H PRN PRN Reason: nicotine cravings Stop: 01/25/24 09:29 Paliperidone (Paliperidone 3 Mg Tabcr) 3 mg PO BID [facility] Stop: 01/26/24 20:59 Last Admin: 12/29/23 09:15 Dose: 3 mg Sodium Chloride (Sodium Chloride 0.65% Na Soln 45 Ml ([place])) 1 - 2 sprays NA PRN PRN PRN Reason: Nasal Dryness/Congestion Stop: 01/20/24 11:19 Mental Health & Subst Abuse Tx Psychiatrist Name of Psychiatrist: Sara Duque [facility] Psychiatrist's Psychiatric Appointment Comment: [id number], [place] [address] Therapist Name of Therapist: denies Forklift Supervisor Name of Forklift Supervisor: denies Post Discharge Appointments Primary Care Physician Name Of Family Doctor/PCP: Sara Duque [facility] Primary Care Provider Appointment Comment: [address], [address], [place] [id number]
[2023-12-29] MEDS: NICOTINE POLACRILEX 2 MG GUM MT PRN (17:24)
[2023-12-30] MEDS: PALIPERIDONE PALMITATE 234 MG/1.5 ML SYR IM ONE (09:24)
--- NOTE | 2023-12-30 09:50 | Psychiatric Progress Note ---
Date of Service December 30, 2023 Impression / Recommendations Impression Emilia Orta is a 28-year-old female unknown past history who was brought in by police after being found wandering the street by gas station. Patient presented pressured and tangential speech, memory impairment, and concern for psychosis. She was admitted on 11/21/23 09:58 on a 302 involuntary commitment for psychosis, now on a 304 commitment. Diagnostically consistent with unspecified psychosis- suspect schizoaffective disorder and possible methamphetamine induced psychosis as well as manic episode on admission. Collateral notable for periods of prolonged heavy methamphetamine use, particularly smoked methamphetamine, other polysubstance use, second-degree relative with a primary psychotic disorder, and presentation of a disorganized tangential thought process with concern for tactile disturbances and delusional thoughts there is a strong suspicion for methamphetamine induced psychotic disorder in the setting of severe methamphetamine use disorder vs schizophrenia vs bipolar affective disorder current manic episode. Patient has demonstrated significant dysfunction evidenced by recurrent legal troubles, persistent symptoms, recurrent hospitalizations, poor insight, inability to maintain sta bility in the community, and continued drug dependence. A: Mood upbeat today, loosened associations. Tolerated initial injection of Invega Sustenna. Will start melatonin at HS. Ongoing work trying to find disposition plan, referral placed for EAC and pending decision with [facility] meeting on Monday. Overall, I spent a total of 25 minutes with this case including review of chart records, nursing report, review of lab work, direct evaluation of the patient at bedside, counseling the patient, orders, documentation in the electronic health record. 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 Received Invega Sustenna 234mg STEINER 12/29/2023: Invega Sustenna 234mg STEINER scheduled for tomorrow. After that will discontinue Invega po. Subsequent dose will then be for 156mg STEINER on 01/06/2024 12/28/2023: Reduce Klonopin. Continue Invega and other medications. 12/27/2023: Will move Klonopin from late afternoon to AM to help address her concerns for anxiety during the day. Stopping haldol and starting Invega 3mg BID po as first step for eventual transition to STEINER for mood stabilization and psychosis per her preference to lessen po medications. 12/26/2023: Continue current medications and tx plan. 12/25/2023: Continue current medications and tx plan. 12/24/2023: Continue current medications and tx plan. 12/23/2023: Continue current medications and tx plan. 12/22/2023: Continue current medications and tx plan. 12/21/2023: Increase nightly depakote to 750mg in the evening. 12/20/2023: Continue current medications and tx plan. 12/19/2023: Decrease Haloperidol to 2.5mg BID. Consult for oral surgery for tooth pain. 12/18/2023: Continue current medications and tx plan. 12/17/2023: Continue current medications and tx plan. Plan for VPA trough level tomorrow AM. 12/16/2023: Continue current medication and tx plan. 12/15/2023: Continue current medications and tx plan. 12/14/2023: Continue current medications and tx plan. 12/13/2023: Increase Depakote to 500mg BID. 12/12/2023: Continue current medications and tx plan. 12/11/2023: Bacitracin ointment BID and Tdap vaccine ordered. 12/10/2023: Increase Depakote DR 250mg qAM and 500mg qdinner. Plan to taper Klonopin in coming days if Depakote increase is well tolerated. 12/09/2023: Continue current medications and tx plan. Will consider transition to Depakote ER after trough level is back. Can consider transition to olanzapine if she continues to prefer this to haldol. 12/08/2023: Trough Depakote level tomorrow PM (12/09/23) 12/07/2023: Continue medications and treatment plan. 12/06/2023: Continue medications and treatment plan. 12/05/2023: Schedule Depakote/Haldol/Klonopin at dinner instead of bedtime. 12/04/2023: Continue current medications and tx plan. 12/03/2023: Continue current medications and tx plan. 12/02/2023: Start Depakote DR 500mg HS. 12/01/2023: Continue current medications and tx plan. Continuing to attempt to get urine sample for UPT. 11/30/2023: UPT ordered. Added Thorazine 25mg IM prn for agitation per her request for additional IM medication options. 11/29/2023: Continue current medications and tx plan. 11/28/2023: Continue current medications and tx plan. 11/27/2023: Discontinue [place] and risperidone. Start haldol 5mg BID. 11/26/2023: Start Thorazine 12.5mg TID prn po for agitation. 11/25/2023: Decrease Clonazepam to 0.5mg HS. Encourage fluids. 11/24/2023: Start [place] 300mg BID for mood lability. 11/23/2023: Continue medications and treatment plan. 11/22/2023: Increase risperidone to 1 mg every morning and 2 mg nightly. Continue clonazepam 1 mg at bedtime. Encourage fluids. STI and hepatitis panel. 11/21/2023: One-time lorazepam 2 mg p.o. for anxiety. Schedule risperidone 1 mg twice daily and clonazepam 1 mg at bedtime. Baseline EKG and labs: Free T4, free T3, A1c, lipid panel. Inventory Assets Strengths: able to express needs, accepting treatment Needs: social supports, mood control Suicide Risk Level Suicide Risk Level: Moderate (q15 min suicide checks) (one episode of voicing SI but recently denying SI, mood lability, able to ask staff for support ) Risk Factors Assessment Male: No : Yes Do You Have Access To A Gun?: No Health Problems: No Mental Health Diagnoses: Yes Substance Use Disorders: Yes Previous Attempt: No Family History of Suicide: No Previous Psychiatric Hospitalization: Yes Hopelessness: No Protective Factors Assessment [employer] Beliefs: No : No Responsible for Young Children: No Employed: No Stable Relationships: No Supportive Family: No Good Rapport with Provider: Yes Absence of Any Risk Factors Above: No Interval History Identifying Information Emilia Orta is a 28-year-old female unknown past history who was brought in by police after being found wandering the street by gas station. Patient presented pressured and tangential speech, memory impairment, and concern for psychosis. She was admitted on 11/21/23 09:58 on a 302 involuntary commitment fo r psychosis. Currently on 304 comittment. Chief Complaint "I had the shot this morning". Review of Systems Sleep Information Total Hours of Sleep: 8.25 Sleep Comments: PRN Johanataril at 1900 Meal Information Percent Meal Consumed - Breakfast: 100 Percent Meal Consumed - Lunch: 100 Percent Meal Consumed - Dinner: 100 Subjective Subjective Patient was seen & assessed and interval progress reviewed with treatment team nursing and social work. Going to groups, reported mood last evening as "dreamy and satisfied". Got her Invega Sustenna STEINER this morning. Today reports her mood is "peppy" and "this is me, I like to talk". Denies any reaction to STEINER, pleased to have received this. Loosening of associations at times. Remains hopeful about possibility for EAC. Feels her sleep hasn't been as good, agreeable to trial of melatonin as struggles to fall asleep but then thinks she can stay asleep well. Physical Exam Psychiatric Orientation: alert and oriented x 3 Apperance: appropriately dressed and + disheveled Eye Contact: good eye contact Motor Behavior: no abnormal motor movements Speech: normal rate/rhythm/volume of speech Affect: euthymic affect Mood: no anxious mood Thought Process: + circumstantial thought process and + looseness of associations Thought Content: + preoccupation and + delusions Suicidal Thoughts: denies suicidal thoughts Homicidal Thoughts: denies homicidal thoughts Hallucinations: no auditory hallucinations and no visual hallucinations Insight: + poor insight Judgment: + limited judgement Vital Signs (Past 24 Hours) Last Vital Signs Temp 36.5 C 12/30/23 06:41 Pulse 82 12/30/23 06:42 Resp 16 12/30/23 06:41 BP 112/78 12/30/23 06:42 Pulse Ox 98 12/29/23 06:00 O2 Del Method Room Air 12/29/23 06:00 Results & Data ([facility]) Current Inpatient Medications Current Inpatient Medications: Current Inpatient Medications Acetaminophen (Acetaminophen 325 Mg Tab) 650 mg PO Q4H PRN PRN Reason: tooth pain Stop: 01/24/24 09:14 Al Hydrox/Mg Hydrox/Simethicone (Aluminum/Magnesium Susp 30 Ml Udc) 30 ml PO Q4H PRN PRN Reason: GI Upset Stop: 01/20/24 11:19 Bacitracin (Bacitracin Oint 14 Gm Tube) 1 appln EXT BID JEREMIAH Stop: 01/11/24 08:59 Last Admin: 12/30/23 08:28 Dose: Not Given Benzocaine (Benzocaine 20% (Orajel) 11.9 Gm Tube) 1 appln MT Q4H PRN PRN Reason: gum or tooth pain Stop: 01/03/24 08:56 Last Admin: 12/17/23 10:11 Dose: 1 appln Bismuth Subsalicylate (Bismuth Subsalicylate Liqd 236 Ml) 15 ml PO PRN PRN PRN Reason: Loose Stool Stop: 01/20/24 11:19 Clonazepam (Clonazepam 0.5 Mg Tab) 0.25 mg PO DAILY [facility] Stop: 01/28/24 08:59 Last Admin: 12/30/23 08:26 Dose: 0.25 mg Divalproex Sodium (Divalproex Delay Release 500 Mg Tab) 500 mg PO QAM [facility] Stop: 01/13/24 08:59 Last Admin: 12/30/23 08:27 Dose: 500 mg Divalproex Sodium (Divalproex Delay Release 250 Mg Tabec) 750 mg PO QDD [facility] Stop: 01/20/24 17:44 Last Admin: 12/29/23 17:24 Dose: 750 mg Haloperidol (Haloperidol 5 Mg Tab) 5 mg PO Q8H PRN PRN Reason: Agitation Stop: 01/18/24 11:57 Last Admin: 12/16/23 10:10 Dose: 5 mg Hydroxyzine HCl (Hydroxyzine Hcl 25 Mg Tab) 50 mg PO HSZ PRN PRN Reason: Insomnia Stop: 01/20/24 11:19 Last Admin: 12/29/23 19:00 Dose: 50 mg Hydroxyzine HCl (Hydroxyzine Hcl 25 Mg Tab) 25 mg PO Q4H PRN PRN Reason: Anxiety Stop: 01/20/24 11:19 Last Admin: 12/29/23 11:30 Dose: 25 mg Ibuprofen (Ibuprofen 600 Mg Tab) 600 mg PO QID PRN PRN Reason: Pain Stop: 01/24/24 12:59 Magnesium Hydroxide (Magnesium Hydroxide Susp 30 Ml Udc) 30 ml PO DAILY PRN PRN Reason: Constipation Stop: 01/20/24 11:19 Miscellaneous (Remove Nicoderm Patch) 1 each N/A DAILY@0859 [facility] Stop: 01/21/24 15:59 Last Admin: 12/30/23 08:27 Dose: 1 each Nicotine (Nicotine 14 Mg/24 Hr Patch) 1 patch TD QAM [facility] Stop: 01/21/24 15:59 Last Admin: 12/30/23 08:27 Dose: 1 patch Nicotine Polacrilex (Nicotine Polacrilex 2 Mg Gum) 1 piece MT Q2H PRN PRN Reason: nicotine cravings Stop: 01/25/24 09:29 Last Admin: 12/30/23 09:18 Dose: 1 piece Paliperidone Palmitate (Paliperidone Palmitate 234 Mg/1.5 Ml Syr) 234 mg IM ONCE ONE Stop: 12/30/23 10:01 Last Admin: 12/30/23 09:24 Dose: 234 mg Sodium Chloride (Sodium Chloride 0.65% Na Soln 45 Ml ([place])) 1 - 2 sprays NA PRN PRN PRN Reason: Nasal Dryness/Congestion Stop: 01/20/24 11:19 Mental Health & Subst Abuse Tx Psychiatrist Name of Psychiatrist: Sara Duque [facility] Psychiatrist's Psychiatric Appointment Comment: [id number], [address], [place] [address] Therapist Name of Therapist: denies Cancer Program Director Name of Cancer Program Director: denies Post Discharge Appointments Primary Care Physician Name Of Family Doctor/PCP: Sara Mandujano [facility] Primary Care Provider Appointment Comment: [id number], [address], [place] [address]
[2023-12-30] MEDS: MELATONIN 3 MG TAB PO SCH (21:10)
[2023-12-31] MEDS: ACETAMINOPHEN 325 MG TAB PO PRN (05:44)
--- NOTE | 2023-12-31 09:36 | Psychiatric Progress Note ---
Date of Service December 31, 2023 Impression / Recommendations Impression Emilia Orta is a 28-year-old female unknown past history who was brought in by police after being found wandering the street by gas station. Patient presented pressured and tangential speech, memory impairment, and concern for psychosis. She was admitted on 11/21/23 09:58 on a 302 involuntary commitment for psychosis, now on a 304 commitment. Diagnostically consistent with unspecified psychosis- suspect schizoaffective disorder and possible methamphetamine induced psychosis as well as manic episode on admission. Collateral notable for periods of prolonged heavy methamphetamine use, particularly smoked methamphetamine, other polysubstance use, second-degree relative with a primary psychotic disorder, and presentation of a disorganized tangential thought process with concern for tactile disturbances and delusional thoughts there is a strong suspicion for methamphetamine induced psychotic disorder in the setting of severe methamphetamine use disorder vs schizophrenia vs bipolar affective disorder current manic episode. Patient has demonstrated significant dysfunction evidenced by recurrent legal troubles, persistent symptoms, recurrent hospitalizations, poor insight, inability to maintain sta bility in the community, and continued drug dependence. A: Some signs of possible increased hypomania today given hypersexual comments last evening, poor sleep, increased psychomotor activation and more elated affect today but with incongruent report of her mood. Given this will move and increase dose of Klonopin at HS and increase Depakote dose at HS which she is agreeable to. Ongoing work trying to find disposition plan, referral placed for EAC and pending decision with [facility] meeting on Monday. Overall, I spent a total of 35 minutes with this case including review of chart records, nursing report, review of lab work, direct evaluation of the patient at bedside, counseling the patient, orders, documentation in the electronic health record. 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 12/30/2023: Start melatonin 3mg HS. Received Invega Sustenna 234mg STEINER 12/29/2023: Invega Sustenna 234mg STEINER scheduled for tomorrow. After that will discontinue Invega po. Subsequent dose will then be for 156mg STEINER on 01/06/2024 12/28/2023: Reduce Klonopin. Continue Invega and other medications. 12/27/2023: Will move Klonopin from late afternoon to AM to help address her c oncerns for anxiety during the day. Stopping haldol and starting Invega 3mg BID po as first step for eventual transition to STEINER for mood stabilization and psychosis per her preference to lessen po medications. 12/26/2023: Continue current medications and tx plan. 12/25/2023: Continue current medications and tx plan. 12/24/2023: Continue current medications and tx plan. 12/23/2023: Continue current medications and tx plan. 12/22/2023: Continue current medications and tx plan. 12/21/2023: Increase nightly depakote to 750mg in the evening. 12/20/2023: Continue current medications and tx plan. 12/19/2023: Decrease Haloperidol to 2.5mg BID. Consult for oral surgery for tooth pain. 12/18/2023: Continue current medications and tx plan. 12/17/2023: Continue current medications and tx plan. Plan for VPA trough level tomorrow AM. 12/16/2023: Continue current medication and tx plan. 12/15/2023: Continue current medications and tx plan. 12/14/2023: Continue current medications and tx plan. 12/13/2023: Increase Depakote to 500mg BID. 12/12/2023: Continue current medications and tx plan. 12/11/2023: Bacitracin ointment BID and Tdap vaccine ordered. 12/10/2023: Increase Depakote DR 250mg qAM and 500mg qdinner. Plan to taper Klonopin in coming days if Depakote increase is well tolerated. 12/09/2023: Continue current medications and tx plan. Will consider transition to Depakote ER after trough level is back. Can consider transition to olanzapine if she continues to prefer this to haldol. 12/08/2023: Trough Depakote level tomorrow PM (12/09/23) 12/07/2023: Continue medications and treatment plan. 12/06/2023: Continue medications and treatment plan. 12/05/2023: Schedule Depakote/Haldol/Klonopin at dinner instead of bedtime. 12/04/2023: Continue current medications and tx plan. 12/03/2023: Continue current medications and tx plan. 12/02/2023: Start Depakote DR 500mg HS. 12/01/2023: Continue current medications and tx plan. Continuing to attempt to get urine sample for UPT. 11/30/2023: UPT ordered. Added Thorazine 25mg IM prn for agitation per her request for additional IM medication options. 11/29/2023: Continue current medications and tx plan. 11/28/2023: Continue current medications and tx plan. 11/27/2023: Discontinue [place] and risperidone. Start haldol 5mg BID. 11/26/2023: Start Thorazine 12.5mg TID prn po for agitation. 11/25/2023: Decrease Clonazepam to 0.5mg HS. Encourage fluids. 11/24/2023: Start [place] 300mg BID for mood lability. 11/23/2023: Continue medications and treatment plan. 11/22/2023: Increase risperidone to 1 mg every morning and 2 mg nightly. Continue clonazepam 1 mg at bedtime. Encourage fluids. STI and hepatitis panel. 11/21/2023: One-time lorazepam 2 mg p.o. for anxiety. Schedule risperidone 1 mg twice daily and clonazepam 1 mg at bedtime. Baseline EKG and labs: Free T4, free T3, A1c, lipid panel. Inventory Assets Strengths: able to express needs, accepting treatment Needs: social supports, mood control Suicide Risk Level Suicide Risk Level: Moderate (q15 min suicide checks) (one episode of voicing SI but recently denying SI, mood lability, able to ask staff for support ) Risk Factors Assessment Male: No : Yes Do You Have Access To A Gun?: No Health Problems: No Mental Health Diagnoses: Yes Substance Use Disorders: Yes Previous Attempt: No Family History of Suicide: No Previous Psychiatric Hospitalization: Yes Hopelessness: No Protective Factors Assessment Orthodoxy Beliefs: No : No Responsible for Young Children: No Employed: No Stable Relationships: No Supportive Family: No Good Rapport with Provider: Yes Absence of Any Risk Factors Above: No Interval History Identifying Information Emilia Orta is a 28-year-old female unknown past history who was brought in by police after being found wandering the street by gas station. Patient presented pressured and tangential speech, memory impairment, and concern for psychosis. She was admitted on 11/21/23 09:58 on a 302 involuntary commitment for psychosis. Currently on 304 comittment. Chief Complaint "I paced around in here, I tried to be quiet after I woke up". Review of Systems Sleep Information Total Hours of Sleep: 4.75 Sleep Comments: business analytics specialist awakening Meal Information Percent Meal Consumed - Breakfast: 100 Percent Meal Consumed - Lunch: 100 Percent Meal Consumed - Dinner: 100 Subjective Subjective Patient was seen & assessed and interval progress reviewed with treatment team nursing and social work. Attended all the groups, reported her mood yesterday as "confused, sluggish and scared". Last evening talking about hypersexual themes with RN. Only slept about 4.75 hours. This morning jogging in place while watching TV from about 12 inches from the screen. She liked the melatonin and reports falling asleep easily but woke up very early this morning with high level of energy. No side effects from Invega STEINER yesterday. She is agreeable to shifting Klonopin to HS and increasing Depakote in effort to help with sleep. States she thinks she is having some depression stating "if there was a term for the actual word emotion" and that "heavy like an ironing board" to describe this. Physical Exam Psychiatric Orientation: alert and oriented x 3 Apperance: appropriately dressed and + disheveled Eye Contact: good eye contact Motor Behavior: no abnormal motor movements Speech: normal rate/rhythm/volume of speech Affect: euthymic affect; + mood not congruent with affect Mood: + depressed mood Thought Process: + circumstantial thought process and + looseness of associations Thought Content: + preoccupation and + delusions Suicidal Thoughts: denies suicidal thoughts Homicidal Thoughts: denies homicidal thoughts Hallucinations: no auditory hallucinations and no visual hallucinations Insight: + poor insight Judgment: + limited judgement Vital Signs (Past 24 Hours) Last Vital Signs Temp 36.4 C L 12/31/23 06:51 Pulse 80 12/31/23 06:51 Resp 18 12/31/23 06:51 BP 103/70 12/31/23 06:51 Pulse Ox 98 12/29/23 06:00 O2 Del Method Room Air 12/29/23 06:00 Results & Data ([facility]) Current Inpatient Medications Current Inpatient Medications: Current Inpatient Medications Acetaminophen (Acetaminophen 325 Mg Tab) 650 mg PO Q4H PRN PRN Reason: tooth pain Stop: 01/24/24 09:14 Last Admin: 12/31/23 05:44 Dose: 650 mg Al Hydrox/Mg Hydrox/Simethicone (Aluminum/Magnesium Susp 30 Ml Udc) 30 ml PO Q4H PRN PRN Reason: GI Upset Stop: 01/20/24 11:19 Bacitracin (Bacitracin Oint 14 Gm Tube) 1 appln EXT BID JEREMIAH Stop: 01/11/24 08:59 Last Admin: 12/31/23 08:22 Dose: Not Given Benzocaine (Benzocaine 20% (Orajel) 11.9 Gm Tube) 1 appln MT Q4H PRN PRN Reason: gum or tooth pain Stop: 01/03/24 08:56 Last Admin: 12/17/23 10:11 Dose: 1 appln Bismuth Subsalicylate (Bismuth Subsalicylate Liqd 236 Ml) 15 ml PO PRN PRN PRN Reason: Loose Stool Stop: 01/20/24 11:19 Clonazepam (Clonazepam 0.5 Mg Tab) 0.25 mg PO DAILY JEREMIAH Stop: 01/28/24 08:59 Last Admin: 12/31/23 08:21 Dose: 0.25 mg Divalproex Sodium (Divalproex Delay Release 500 Mg Tab) 500 mg PO QAM JEREMIAH Stop: 01/13/24 08:59 Last Admin: 12/31/23 08:21 Dose: 500 mg Divalproex Sodium (Divalproex Delay Release 250 Mg Tabec) 750 mg PO QDD JEREMIAH Stop: 01/20/24 17:44 Last Admin: 12/30/23 17:14 Dose: 750 mg Haloperidol (Haloperidol 5 Mg Tab) 5 mg PO Q8H PRN PRN Reason: Agitation Stop: 01/18/24 11:57 Last Admin: 12/16/23 10:10 Dose: 5 mg Hydroxyzine HCl (Hydroxyzine Hcl 25 Mg Tab) 50 mg PO HSZ PRN PRN Reason: Insomnia Stop: 01/20/24 11:19 Last Admin: 12/29/23 19:00 Dose: 50 mg Hydroxyzine HCl (Hydroxyzine Hcl 25 Mg Tab) 25 mg PO Q4H PRN PRN Reason: Anxiety Stop: 01/20/24 11:19 Last Admin: 12/29/23 11:30 Dose: 25 mg Ibuprofen (Ibuprofen 600 Mg Tab) 600 mg PO QID PRN PRN Reason: Pain Stop: 01/24/24 12:59 Magnesium Hydroxide (Magnesium Hydroxide Susp 30 Ml Udc) 30 ml PO DAILY PRN PRN Reason: Constipation Stop: 01/20/24 11:19 Melatonin (Melatonin 3 Mg Tab) 3 mg PO HS [facility] Stop: 01/29/24 21:59 Last Admin: 12/30/23 21:10 Dose: 3 mg Miscellaneous (Remove Nicoderm Patch) 1 each N/A DAILY@0859 [facility] Stop: 01/21/24 15:59 Last Admin: 12/31/23 08:22 Dose: 1 each Nicotine (Nicotine 14 Mg/24 Hr Patch) 1 patch TD QAM [facility] Stop: 01/21/24 15:59 Last Admin: 12/31/23 08:21 Dose: 1 patch Nicotine Polacrilex (Nicotine Polacrilex 2 Mg Gum) 1 piece MT Q2H PRN PRN Reason: nicotine cravings Stop: 01/25/24 09:29 Last Admin: 12/30/23 19:32 Dose: 1 piece Sodium Chloride (Sodium Chloride 0.65% Na Soln 45 Ml ([place])) 1 - 2 sprays NA PRN PRN PRN Reason: Nasal Dryness/Congestion Stop: 01/20/24 11:19 Mental Health & Subst Abuse Tx Psychiatrist Name of Psychiatrist: Sara Duque [facility] Psychiatrist's Psychiatric Appointment Comment: [phone], [address], [place] [address] Therapist Name of Therapist: denies Cotton Roll Packer Name of Cotton Roll Packer: denies Post Discharge Appointments Primary Care Physician Name Of Family Doctor/PCP: Sara Duque [facility] Primary Care Provider Appointment Comment: [phone], [address], [place] [address]
[2023-12-31] MEDS: IBUPROFEN 600 MG TAB PO PRN (14:18)
[2023-12-31] MEDS: DIVALPROEX DELAY RELEASE 500 MG TAB PO SCH (17:07)
[2023-12-31] MEDS: clonazePAM 0.5 MG TAB PO SCH (21:02)
--- NOTE | 2024-01-01 09:10 | Psychiatric Progress Note ---
Date of Service January 01, 2024 Impression / Recommendations Impression Emilia Orta is a 28-year-old female unknown past history who was brought in by police after being found wandering the street by gas station. Patient presented pressured and tangential speech, memory impairment, and concern for psychosis. She was admitted on 11/21/23 09:58 on a 302 involuntary commitment for psychosis, now on a 304 commitment. Diagnostically consistent with unspecified psychosis- suspect schizoaffective disorder and possible methamphetamine induced psychosis as well as manic episode on admission. Collateral notable for periods of prolonged heavy methamphetamine use, particularly smoked methamphetamine, other polysubstance use, second-degree relative with a primary psychotic disorder, and presentation of a disorganized tangential thought process with concern for tactile disturbances and delusional thoughts there is a strong suspicion for methamphetamine induced psychotic disorder in the setting of severe methamphetamine use disorder vs schizophrenia vs bipolar affective disorder current manic episode. Patient has demonstrated significant dysfunction evidenced by recurrent legal troubles, persistent symptoms, recurrent hospitalizations, poor insight, inability to maintain sta bility in the community, and continued drug dependence. A: Continues to show some signs of hypomania though did sleep better last night with medication adjustments. Suspect increased mood instability due to discontinuation of haldol and hasn't yet gotten next dose of Invega STEINER for initiation. Given increased mood lability and disorganization and her preference to avoid po antipsychotic medication will plan for next STEINER dose to be given tomorrow on day 4. She consents to this, re-reviewed potential side effects. Will also add prn lorazepam to help with symptoms of cyrus/agitation alongside prn haldol po. Overall, I spent a total of 35 minutes with this case including review of chart records, nursing report, review of lab work, direct evaluation of the patient at bedside, counseling the patient, orders, documentation in the electronic health record. 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 12/30/2023: Start melatonin 3mg HS. Received Invega Sustenna 234mg STEINER 12/29/2023: Invega Sustenna 234mg STEINER scheduled for tomorrow. After that will discontinue Invega po. Subsequent dose will then be for 156mg STEINER on 01/06/2024 12/28/2023: Reduce Klonopin. Continue Invega and other medications. 12/27/2023: Will move Klonopin from late afternoon to AM to help address her concerns for anxiety during the day. Stopping haldol and starting Invega 3mg BID po as first step for eventual transition to STEINER for mood stabilization and psychosis per her preference to lessen po medications. 12/26/2023: Continue current medications and tx plan. 12/25/2023: Continue current medications and tx plan. 12/24/2023: Continue current medications and tx plan. 12/23/2023: Continue current medications and tx plan. 12/22/2023: Continue current medications and tx plan. 12/21/2023: Increase nightly depakote to 750mg in the evening. 12/20/2023: Continue current medications and tx plan. 12/19/2023: Decrease Haloperidol to 2.5mg BID. Consult for oral surgery for tooth pain. 12/18/2023: Continue current medications and tx plan. 12/17/2023: Continue current medications and tx plan. Plan for VPA trough level tomorrow AM. 12/16/2023: Continue current medication and tx plan. 12/15/2023: Continue current medications and tx plan. 12/14/2023: Continue current medications and tx plan. 12/13/2023: Increase Depakote to 500mg BID. 12/12/2023: Continue current medications and tx plan. 12/11/2023: Bacitracin ointment BID and Tdap vaccine ordered. 12/10/2023: Increase Depakote DR 250mg qAM and 500mg qdinner. Plan to taper Klonopin in coming days if Depakote increase is well tolerated. 12/09/2023: Continue current medications and tx plan. Will consider transition to Depakote ER after trough level is back. Can consider transition to olanzapine if she continues to prefer this to haldol. 12/08/2023: Trough Depakote level tomorrow PM (12/09/23) 12/07/2023: Continue medications and treatment plan. 12/06/2023: Continue medications and treatment plan. 12/05/2023: Schedule Depakote/Haldol/Klonopin at dinner instead of bedtime. 12/04/2023: Continue current medications and tx plan. 12/03/2023: Continue current medications and tx plan. 12/02/2023: Start Depakote DR 500mg HS. 12/01/2023: Continue current medications and tx plan. Continuing to attempt to get urine sample for UPT. 11/30/2023: UPT ordered. Added Thorazine 25mg IM prn for agitation per her request for additional IM medication options. 11/29/2023: Continue current medications and tx plan. 11/28/2023: Continue current medications and tx plan. 11/27/2023: Discontinue [place] and risperidone. Start haldol 5mg BID. 11/26/2023: Start Thorazine 12.5mg TID prn po for agitation. 11/25/2023: Decrease Clonazepam to 0.5mg HS. Encourage fluids. 11/24/2023: Start [place] 300mg BID for mood lability. 11/23/2023: Continue medications and treatment plan. 11/22/2023: Increase risperidone to 1 mg every morning and 2 mg nightly. Continue clonazepam 1 mg at bedtime. Encourage fluids. STI and hepatitis panel. 11/21/2023: One-time lorazepam 2 mg p.o. for anxiety. Schedule risperidone 1 mg twice daily and clonazepam 1 mg at bedtime. Baseline EKG and labs: Free T4, free T3, A1c, lipid panel. Inventory Assets Strengths: able to express needs, accepting treatment Needs: social supports, mood control Suicide Risk Level Suicide Risk Level: Moderate (q15 min suicide checks) (one episode of voicing SI but recently denying SI, mood lability, able to ask staff for support ) Risk Factors Assessment Male: No : Yes Do You Have Access To A Gun?: No Health Problems: No Mental Health Diagnoses: Yes Substance Use Disorders: Yes Previous Attempt: No Family History of Suicide: No Previous Psychiatric Hospitalization: Yes Hopelessness: No Protective Factors Assessment Restorationism Beliefs: No : No Responsible for Young Children: No Employed: No Stable Relationships: No Supportive Family: No Good Rapport with Provider: Yes Absence of Any Risk Factors Above: No Interval History Identifying Information Emilia Orta is a 28-year-old female unknown past history who was brought in by police after being found wandering the street by gas station. Patient presented pressured and tangential speech, memory impairment, and concern for psychosis. She was admitted on 11/21/23 09:58 on a 302 involuntary commitment for psychosis. Currently on 304 comittment. Chief Complaint "I slept really good". Review of Systems Sleep Information Total Hours of Sleep: 6.75 Sleep Comments: Meal Information Percent Meal Consumed - Breakfast: 80 Percent Meal Consumed - Lunch: 100 Percent Meal Consumed - Dinner: 100 Subjective Subjective Patient was seen & assessed and interval progress reviewed with treatment team nursing and social work. Talking a lot in groups, requires redirection. Referenced peers as blooming riley and that she hasn't bloomed yet. Reported mood last night as hopeful and sad. Today requiring frequent redirection in groups due to excessive talking. Reports very positive mood but later in conversation tells me she thinks she is depressed "a bit". Is pleased she slept well last night. Discusses that she's been trying to journal more about her mood. No new medication side effects. Physical Exam Psychiatric Orientation: alert and oriented x 3 Apperance: appropriately dressed and + disheveled Eye Contact: good eye contact Motor Behavior: no abnormal motor movements Speech: normal rate/rhythm/volume of speech Affect: euthymic affect; + mood not congruent with affect Mood: + depressed mood Thought Process: + circumstantial thought process, + flight of ideas and + looseness of associations Thought Content: + preoccupation and + delusions Suicidal Thoughts: denies suicidal thoughts Homicidal Thoughts: denies homicidal thoughts Hallucinations: no auditory hallucinations and no visual hallucinations Insight: + poor insight Judgment: + limited judgement Vital Signs (Past 24 Hours) Last Vital Signs Temp 36.5 C 01/01/24 06:46 Pulse 72 01/01/24 06:46 Resp 16 01/01/24 06:46 BP 95/65 L 01/01/24 06:46 Pulse Ox 98 12/29/23 06:00 O2 Del Method Room Air 12/29/23 06:00 Results & Data ([facility]) Current Inpatient Medications Current Inpatient Medications: Current Inpatient Medications Acetaminophen (Acetaminophen 325 Mg Tab) 650 mg PO Q4H PRN PRN Reason: tooth pain Stop: 01/24/24 09:14 Last Admin: 12/31/23 05:44 Dose: 650 mg Al Hydrox/Mg Hydrox/Simethicone (Aluminum/Magnesium Susp 30 Ml Udc) 30 ml PO Q4H PRN PRN Reason: GI Upset Stop: 01/20/24 11:19 Benzocaine (Benzocaine 20% (Orajel) 11.9 Gm Tube) 1 appln MT Q4H PRN PRN Reason: gum or tooth pain Stop: 01/03/24 08:56 Last Admin: 12/17/23 10:11 Dose: 1 appln Bismuth Subsalicylate (Bismuth Subsalicylate Liqd 236 Ml) 15 ml PO PRN PRN PRN Reason: Loose Stool Stop: 01/20/24 11:19 Clonazepam (Clonazepam 0.5 Mg Tab) 0.5 mg PO HS JEREMIAH Stop: 01/30/24 21:59 Last Admin: 12/31/23 21:02 Dose: 0.5 mg Divalproex Sodium (Divalproex Delay Release 500 Mg Tab) 500 mg PO QAM JEREMIAH Stop: 01/13/24 08:59 Last Admin: 01/01/24 08:38 Dose: 500 mg Divalproex Sodium (Divalproex Delay Release 500 Mg Tab) 1,000 mg PO QDD JEREMIAH Stop: 01/30/24 17:44 Last Admin: 12/31/23 17:07 Dose: 1,000 mg Haloperidol (Haloperidol 5 Mg Tab) 5 mg PO Q8H PRN PRN Reason: Agitation Stop: 01/18/24 11:57 Last Admin: 12/16/23 10:10 Dose: 5 mg Hydroxyzine HCl (Hydroxyzine Hcl 25 Mg Tab) 50 mg PO HSZ PRN PRN Reason: Insomnia Stop: 01/20/24 11:19 Last Admin: 12/29/23 19:00 Dose: 50 mg Hydroxyzine HCl (Hydroxyzine Hcl 25 Mg Tab) 25 mg PO Q4H PRN PRN Reason: Anxiety Stop: 01/20/24 11:19 Last Admin: 12/29/23 11:30 Dose: 25 mg Ibuprofen (Ibuprofen 600 Mg Tab) 600 mg PO QID PRN PRN Reason: Pain Stop: 01/24/24 12:59 Last Admin: 12/31/23 14:18 Dose: 600 mg Magnesium Hydroxide (Magnesium Hydroxide Susp 30 Ml Udc) 30 ml PO DAILY PRN PRN Reason: Constipation Stop: 01/20/24 11:19 Miscellaneous (Remove Nicoderm Patch) 1 each N/A DAILY@0859 [facility] Stop: 01/21/24 15:59 Last Admin: 01/01/24 08:42 Dose: Not Given Nicotine (Nicotine 14 Mg/24 Hr Patch) 1 patch TD QAM [facility] Stop: 01/21/24 15:59 Last Admin: 01/01/24 08:39 Dose: 1 patch Nicotine Polacrilex (Nicotine Polacrilex 2 Mg Gum) 1 piece MT Q2H PRN PRN Reason: nicotine cravings Stop: 01/25/24 09:29 Last Admin: 01/01/24 09:03 Dose: 1 piece Sodium Chloride (Sodium Chloride 0.65% Na Soln 45 Ml ([place])) 1 - 2 sprays NA PRN PRN PRN Reason: Nasal Dryness/Congestion Stop: 01/20/24 11:19 Mental Health & Subst Abuse Tx Psychiatrist Name of Psychiatrist: Sara Duque [facility] Psychiatrist's Psychiatric Appointment Comment: [id number], [address], [place] [address] Therapist Name of Therapist: denies [place] Supervisor Name of [place] Supervisor: denies Post Discharge Appointments Primary Care Physician Name Of Family Doctor/PCP: Sara Duque [facility] Primary Care Provider Appointment Comment: [address], [address], [place] [address]
[2024-01-01] MEDS: CEROVITE ADV FORMULA TAB PO SCH (09:56)
[2024-01-01] MEDS: LORazepam 0.5 MG TAB PO PRN (10:46)
--- NOTE | 2024-01-02 09:08 | Psychiatric Progress Note ---
Date of Service January 02, 2024 Impression / Recommendations Impression Emilia Orta is a 28-year-old female unknown past history who was brought in by police after being found wandering the street by gas station. Patient presented pressured and tangential speech, memory impairment, and concern for psychosis. She was admitted on 11/21/23 09:58 on a 302 involuntary commitment for psychosis, now on a 304 commitment. Diagnostically consistent with unspecified psychosis- suspect schizoaffective disorder and possible methamphetamine induced psychosis as well as manic episode on admission. Collateral notable for periods of prolonged heavy methamphetamine use, particularly smoked methamphetamine, other polysubstance use, second-degree relative with a primary psychotic disorder, and presentation of a disorganized tangential thought process with concern for tactile disturbances and delusional thoughts there is a strong suspicion for methamphetamine induced psychotic disorder in the setting of severe methamphetamine use disorder vs schizophrenia vs bipolar affective disorder current manic episode. Patient has demonstrated significant dysfunction evidenced by recurrent legal troubles, persistent symptoms, recurrent hospitalizations, poor insight, inability to maintain sta bility in the community, and continued drug dependence. A: Less activated today, responded well to prn medications yesterday and increased sleep seems to resolved symptoms of hypomania. Mood is stable and eager for eventual discharge to [facility]. Tolerated second initiation dose of Invega Sustenna without any side effects or issues so far. Overall, I spent a total of 45 minutes with this case including review of chart records, nursing report, review of lab work, direct evaluation of the patient at bedside, counseling the patient, orders, documentation in the electronic health record and participation in meeting with the [facility] regarding plans for [facility]. 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 12/30/2023: Start melatonin 3mg HS. Received Invega Sustenna 234mg STEINER 12/29/2023: Invega Sustenna 234mg STEINER scheduled for tomorrow. After that will discontinue Invega po. Subsequent dose will then be for 156mg STEINER on 01/06/2024 12/28/2023: Reduce Klonopin. Continue Invega and other medications. 12/27/2023: Will move Klonopin from late afternoon to AM to help address her concerns for anxiety during the day. Stopping haldol and starting Invega 3mg BID po as first step for eventual transition to STEINER for mood stabilization and psychosis per her preference to lessen po medications. 12/26/2023: Continue current medications and tx plan. 12/25/2023: Continue current medications and tx plan. 12/24/2023: Continue current medications and tx plan. 12/23/2023: Continue current medications and tx plan. 12/22/2023: Continue current medications and tx plan. 12/21/2023: Increase nightly depakote to 750mg in the evening. 12/20/2023: Continue current medications and tx plan. 12/19/2023: Decrease Haloperidol to 2.5mg BID. Consult for oral surgery for tooth pain. 12/18/2023: Continue current medications and tx plan. 12/17/2023: Continue current medications and tx plan. Plan for VPA trough level tomorrow AM. 12/16/2023: Continue current medication and tx plan. 12/15/2023: Continue current medications and tx plan. 12/14/2023: Continue current medications and tx plan. 12/13/2023: Increase Depakote to 500mg BID. 12/12/2023: Continue current medications and tx plan. 12/11/2023: Bacitracin ointment BID and Tdap vaccine ordered. 12/10/2023: Increase Depakote DR 250mg qAM and 500mg qdinner. Plan to taper Klonopin in coming days if Depakote increase is well tolerated. 12/09/2023: Continue current medications and tx plan. Will consider transition to Depakote ER after trough level is back. Can consider transition to olanzapine if she continues to prefer this to haldol. 12/08/2023: Trough Depakote level tomorrow PM (12/09/23) 12/07/2023: Continue medications and treatment plan. 12/06/2023: Continue medications and treatment plan. 12/05/2023: Schedule Depakote/Haldol/Klonopin at dinner instead of bedtime. 12/04/2023: Continue current medications and tx plan. 12/03/2023: Continue current medications and tx plan. 12/02/2023: Start Depakote DR 500mg HS. 12/01/2023: Continue current medications and tx plan. Continuing to attempt to get urine sample for UPT. 11/30/2023: UPT ordered. Added Thorazine 25mg IM prn for agitation per her request for additional IM medication options. 11/29/2023: Continue current medications and tx plan. 11/28/2023: Continue current medications and tx plan. 11/27/2023: Discontinue [place] and risperidone. Start haldol 5mg BID. 11/26/2023: Start Thorazine 12.5mg TID prn po for agitation. 11/25/2023: Decrease Clonazepam to 0.5mg HS. Encourage fluids. 11/24/2023: Start [place] 300mg BID for mood lability. 11/23/2023: Continue medications and treatment plan. 11/22/2023: Increase risperidone to 1 mg every morning and 2 mg nightly. Continue clonazepam 1 mg at bedtime. Encourage fluids. STI and hepatitis panel. 11/21/2023: One-time lorazepam 2 mg p.o. for anxiety. Schedule risperidone 1 mg twice daily and clonazepam 1 mg at bedtime. Baseline EKG and labs: Free T4, free T3, A1c, lipid panel. Inventory Assets Strengths: able to express needs, accepting treatment Needs: social supports, mood control Suicide Risk Level Suicide Risk Level: Moderate (q15 min suicide checks) (one episode of voicing SI but recently denying SI, mood lability, able to ask staff for support ) Risk Factors Assessment Male: No : Yes Do You Have Access To A Gun?: No Health Problems: No Mental Health Diagnoses: Yes Substance Use Disorders: Yes Previous Attempt: No Family History of Suicide: No Previous Psychiatric Hospitalization: Yes Hopelessness: No Protective Factors Assessment [employer] Beliefs: No : No Responsible for Young Children: No Employed: No Stable Relationships: No Supportive Family: No Good Rapport with Provider: Yes Absence of Any Risk Factors Above: No Interval History Identifying Information Emilia Orta is a 28-year-old female unknown past history who was brought in by police after being found wandering the street by [place] station. Patient presented pressured and tangential speech, memory impairment, and concern for psychosis. She was admitted on 11/21/23 09:58 on a 302 involuntary commitment for psychosis. Currently on 304 comittment. Chief Complaint "Well". Review of Systems Sleep Information Total Hours of Sleep: 8 Meal Information Percent Meal Consumed - Breakfast: 80 Percent Meal Consumed - Lunch: 100 Percent Meal Consumed - Dinner: 100 Subjective Subjective Patient was seen & assessed and interval progress reviewed with treatment team nursing and social work. Got prn haldol and ativan yesterday and did well yesterday evening, only required redirection once during evening group. Slept well, about 8 hours. Reports positive mood today. No reactions to SETINER. Pleased that now she only has a few scheduled medications. Better understands role of Depakote and agreeable to continuing this and likes having Klonopin to help with sleep and mood. Excited about news of being accepted to the [facility]. Physical Exam Psychiatric Orientation: alert and oriented x 3 Apperance: appropriately dressed and + disheveled Eye Contact: good eye contact Motor Behavior: no abnormal motor movements Speech: normal rate/rhythm/volume of speech Affect: euthymic affect Mood: no depressed mood, no anxious mood and no irritable mood Thought Process: clear/coherent thought process Thought Content: reality based without delusions Suicidal Thoughts: denies suicidal thoughts Homicidal Thoughts: denies homicidal thoughts Hallucinations: no auditory hallucinations and no visual hallucinations Insight: + limited insight Judgment: + limited judgement Vital Signs (Past 24 Hours) Last Vital Signs Temp 36.5 C 01/01/24 06:46 Pulse 72 01/01/24 06:46 Resp 16 01/01/24 06:46 BP 95/65 L 01/01/24 06:46 Pulse Ox 98 12/29/23 06:00 O2 Del Method Room Air 12/29/23 06:00 Results & Data (U) Current Inpatient Medications Current Inpatient Medications: Current Inpatient Medications Acetaminophen (Acetaminophen 325 Mg Tab) 650 mg PO Q4H PRN PRN Reason: tooth pain Stop: 01/24/24 09:14 Last Admin: 12/31/23 05:44 Dose: 650 mg Al Hydrox/Mg Hydrox/Simethicone (Aluminum/Magnesium Susp 30 Ml Udc) 30 ml PO Q4H PRN PRN Reason: GI Upset Stop: 01/20/24 11:19 Benzocaine (Benzocaine 20% (Orajel) 11.9 Gm Tube) 1 appln MT Q4H PRN PRN Reason: gum or tooth pain Stop: 01/03/24 08:56 Last Admin: 12/17/23 10:11 Dose: 1 appln Bismuth Subsalicylate (Bismuth Subsalicylate Liqd 236 Ml) 15 ml PO PRN PRN PRN Reason: Loose Stool Stop: 01/20/24 11:19 Clonazepam (Clonazepam 0.5 Mg Tab) 0.5 mg PO HS JEREMIAH Stop: 01/30/24 21:59 Last Admin: 01/01/24 20:37 Dose: 0.5 mg Divalproex Sodium (Divalproex Delay Release 500 Mg Tab) 500 mg PO QAM JEREMIAH Stop: 01/13/24 08:59 Last Admin: 01/02/24 08:54 Dose: 500 mg Divalproex Sodium (Divalproex Delay Release 500 Mg Tab) 1,000 mg PO QDD JEREMIAH Stop: 01/30/24 17:44 Last Admin: 01/01/24 17:11 Dose: 1,000 mg Haloperidol (Haloperidol 5 Mg Tab) 5 mg PO Q8H PRN PRN Reason: Agitation Stop: 01/18/24 11:57 Last Admin: 01/01/24 10:46 Dose: 5 mg Hydroxyzine HCl (Hydroxyzine Hcl 25 Mg Tab) 50 mg PO HSZ PRN PRN Reason: Insomnia Stop: 01/20/24 11:19 Last Admin: 12/29/23 19:00 Dose: 50 mg Hydroxyzine HCl (Hydroxyzine Hcl 25 Mg Tab) 25 mg PO Q4H PRN PRN Reason: Anxiety Stop: 01/20/24 11:19 Last Admin: 12/29/23 11:30 Dose: 25 mg Ibuprofen (Ibuprofen 600 Mg Tab) 600 mg PO QID PRN PRN Reason: Pain Stop: 01/24/24 12:59 Last Admin: 12/31/23 14:18 Dose: 600 mg Lorazepam (Lorazepam 0.5 Mg Tab) 0.5 mg PO BID PRN PRN Reason: cyrus/agitation Stop: 01/31/24 10:36 Last Admin: 01/01/24 10:46 Dose: 0.5 mg Magnesium Hydroxide (Magnesium Hydroxide Susp 30 Ml Udc) 30 ml PO DAILY PRN PRN Reason: Constipation Stop: 01/20/24 11:19 Miscellaneous (Remove Nicoderm Patch) 1 each N/A DAILY@0859 [facility] Stop: 01/21/24 15:59 Last Admin: 01/02/24 08:53 Dose: 1 each Multivitamins/Minerals (Cerovite Adv Formula Tab) 1 tab PO QAM [facility] Stop: 01/31/24 09:14 Last Admin: 01/02/24 08:54 Dose: 1 tab Nicotine (Nicotine 14 Mg/24 Hr Patch) 1 patch TD QAM [facility] Stop: 01/21/24 15:59 Last Admin: 01/02/24 08:54 Dose: 1 patch Nicotine Polacrilex (Nicotine Polacrilex 2 Mg Gum) 1 piece MT Q2H PRN PRN Reason: nicotine cravings Stop: 01/25/24 09:29 Last Admin: 01/01/24 09:03 Dose: 1 piece Paliperidone Palmitate (Paliperidone Palmitate 156 Mg/Ml Syr) 156 mg IM ONCE ONE Stop: 01/02/24 10:01 Sodium Chloride (Sodium Chloride 0.65% Na Soln 45 Ml ([place])) 1 - 2 sprays NA PRN PRN PRN Reason: Nasal Dryness/Congestion Stop: 01/20/24 11:19 Mental Health & Subst Abuse Tx Psychiatrist Name of Psychiatrist: Sara Duque [facility] Psychiatrist's Psychiatric Appointment Comment: [phone], [address], [place] [address] Therapist Name of Therapist: denies Records Custodian Name of Records Custodian: denies Post Discharge Appointments Primary Care Physician Name Of Family Doctor/PCP: Sara Duque [facility] Primary Care Provider Appointment Comment: [id number], [address], [place] [address]
[2024-01-02] MEDS: PALIPERIDONE PALMITATE 156 MG/ML SYR IM ONE (11:11)
--- NOTE | 2024-01-03 09:09 | Psychiatric Progress Note ---
Date of Service January 03, 2024 Impression / Recommendations Impression Emilia Orta is a 28-year-old female unknown past history who was brought in by police after being found wandering the street by gas station. Patient presented pressured and tangential speech, memory impairment, and concern for psychosis. She was admitted on 11/21/23 09:58 on a 302 involuntary commitment for psychosis, now on a 304 commitment. Diagnostically consistent with unspecified psychosis- suspect schizoaffective disorder and possible methamphetamine induced psychosis as well as manic episode on admission. Collateral notable for periods of prolonged heavy methamphetamine use, particularly smoked methamphetamine, other polysubstance use, second-degree relative with a primary psychotic disorder, and presentation of a disorganized tangential thought process with concern for tactile disturbances and delusional thoughts there is a strong suspicion for methamphetamine induced psychotic disorder in the setting of severe methamphetamine use disorder vs schizophrenia vs bipolar affective disorder current manic episode. Patient has demonstrated significant dysfunction evidenced by recurrent legal troubles, persistent symptoms, recurrent hospitalizations, poor insight, inability to maintain sta bility in the community, and continued drug dependence. A: Stable mood, happy, and eager for eventual discharge to [facility]. Continues to tolerate STEINER, Depakote level tomorrow morning. Overall, I spent a total of 25 minutes with this case including review of chart records, nursing report, review of lab work, direct evaluation of the patient at bedside, counseling the patient, orders, documentation in the electronic health record. 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 01/02/2024:Received Invega Sustenna 156mg STEINER 01/01/2024: -Plan for Invega Sustenna 156mg STEINER tomorrow -Lorazepam 0.5mg BID prn for cyrus/agitation added -Recheck Depakote level in 3 days 12/31/2023: -Shift and increase Klonopin to 0.5mg HS -Increase Depakote DR to 500mg qAM and 1000mg daily with dinner. 12/30/2023: Start melatonin 3mg HS. Received Invega Sustenna 234mg STEINER 12/29/2023: Invega Sustenna 234mg STEINER scheduled for tomorrow. After that will discontinue Invega po. Subsequent dose will then be for 156mg STEINER on 01/06/2024 12/28/2023: Reduce Klonopin. Continue Invega and other medications. 12/27/2023: Will move Klonopin from late afternoon to AM to help address her concerns for anxiety during the day. Stopping haldol and starting Invega 3mg BID po as first step for eventual transition to STEINER for mood stabilization and psychosis per her preference to lessen po medications. 12/26/2023: Continue current medications and tx plan. 12/25/2023: Continue current medications and tx plan. 12/24/2023: Continue current medications and tx plan. 12/23/2023: Continue current medications and tx plan. 12/22/2023: Continue current medications and tx plan. 12/21/2023: Increase nightly depakote to 750mg in the evening. 12/20/2023: Continue current medications and tx plan. 12/19/2023: Decrease Haloperidol to 2.5mg BID. Consult for oral surgery for tooth pain. 12/18/2023: Continue current medications and tx plan. 12/17/2023: Continue current medications and tx plan. Plan for VPA trough level tomorrow AM. 12/16/2023: Continue current medication and tx plan. 12/15/2023: Continue current medications and tx plan. 12/14/2023: Continue current medications and tx plan. 12/13/2023: Increase Depakote to 500mg BID. 12/12/2023: Continue current medications and tx plan. 12/11/2023: Bacitracin ointment BID and Tdap vaccine ordered. 12/10/2023: Increase Depakote DR 250mg qAM and 500mg qdinner. Plan to taper Klonopin in coming days if Depakote increase is well tolerated. 12/09/2023: Continue current medications and tx plan. Will consider transition to Depakote ER after trough level is back. Can consider transition to olanzapine if she continues to prefer this to haldol. 12/08/2023: Trough Depakote level tomorrow PM (12/09/23) 12/07/2023: Continue medications and treatment plan. 12/06/2023: Continue medications and treatment plan. 12/05/2023: Schedule Depakote/Haldol/Klonopin at dinner instead of bedtime. 12/04/2023: Continue current medications and tx plan. 12/03/2023: Continue current medications and tx plan. 12/02/2023: Start Depakote DR 500mg HS. 12/01/2023: Continue current medications and tx plan. Continuing to attempt to get urine sample for UPT. 11/30/2023: UPT ordered. Added Thorazine 25mg IM prn for agitation per her request for additional IM medication options. 11/29/2023: Continue current medications and tx plan. 11/28/2023: Continue current medications and tx plan. 11/27/2023: Discontinue [place] and risperidone. Start haldol 5mg BID. 11/26/2023: Start Thorazine 12.5mg TID prn po for agitation. 11/25/2023: Decrease Clonazepam to 0.5mg HS. Encourage fluids. 11/24/2023: Start [place] 300mg BID for mood lability. 11/23/2023: Continue medications and treatment plan. 11/22/2023: Increase risperidone to 1 mg every morning and 2 mg nightly. Continue clonazepam 1 mg at bedtime. Encourage fluids. STI and hepatitis panel. 11/21/2023: One-time lorazepam 2 mg p.o. for anxiety. Schedule risperidone 1 mg twice daily and clonazepam 1 mg at bedtime. Baseline EKG and labs: Free T4, free T3, A1c, lipid panel. Inventory Assets Strengths: able to express needs, accepting treatment Needs: social supports, mood control Suicide Risk Level Suicide Risk Level: Moderate (q15 min suicide checks) (one episode of voicing SI early in hospitalization but denying in recent weeks, stable mood, feels safe here, able to ask staff for support ) Risk Factors Assessment Male: No : Yes Do You Have Access To A Gun?: No Health Problems: No Mental Health Diagnoses: Yes Substance Use Disorders: Yes Previous Attempt: No Family History of Suicide: No Previous Psychiatric Hospitalization: Yes Hopelessness: No Protective Factors Assessment Jain Beliefs: No : No Responsible for Young Children: No Employed: No Stable Relationships: No Supportive Family: No Good Rapport with Provider: Yes Absence of Any Risk Factors Above: No Interval History Identifying Information Emilia Orta is a 28-year-old female unknown past history who was brought in by police after being found wandering the street by gas station. Patient presented pressured and tangential speech, memory impairment, and concern for psychosis. She was admitted on 11/21/23 09:58 on a 302 involuntary commitment for psychosis. Currently on 304 comittment. Chief Complaint "ok". Review of Systems Sleep Information Total Hours of Sleep: 7 Meal Information Percent Meal Consumed - Breakfast: 100 Percent Meal Consumed - Lunch: 100 Percent Meal Consumed - Dinner: 100 Subjective Subjective Patient was seen & assessed and interval progress reviewed with treatment team nursing and social work. Had a good evening, rated her mood as "hopeful", enjoyed going outside. Reports her mood is "ok". Denies any reactions from STEINER yesterday nor side effects. Remains excited about plan for EAC. Physical Exam Psychiatric Orientation: alert and oriented x 3 Apperance: appropriately dressed and + disheveled Eye Contact: good eye contact Motor Behavior: no abnormal motor movements Speech: normal rate/rhythm/volume of speech Affect: euthymic affect Mood: no depressed mood, no anxious mood and no irritable mood Thought Process: clear/coherent thought process Thought Content: reality based without delusions Suicidal Thoughts: denies suicidal thoughts Homicidal Thoughts: denies homicidal thoughts Hallucinations: no auditory hallucinations and no visual hallucinations Insight: + limited insight Judgment: + limited judgement Vital Signs (Past 24 Hours) Last Vital Signs Temp 36.6 C 01/03/24 06:46 Pulse 83 01/03/24 06:47 Resp 16 01/03/24 06:46 BP 95/61 L 01/03/24 06:47 Pulse Ox 98 12/29/23 06:00 O2 Del Method Room Air 12/29/23 06:00 Results & Data (U) Current Inpatient Medications Current Inpatient Medications: Current Inpatient Medications Acetaminophen (Acetaminophen 325 Mg Tab) 650 mg PO Q4H PRN PRN Reason: tooth pain Stop: 01/24/24 09:14 Last Admin: 12/31/23 05:44 Dose: 650 mg Al Hydrox/Mg Hydrox/Simethicone (Aluminum/Magnesium Susp 30 Ml Udc) 30 ml PO Q4H PRN PRN Reason: GI Upset Stop: 01/20/24 11:19 Bismuth Subsalicylate (Bismuth Subsalicylate Liqd 236 Ml) 15 ml PO PRN PRN PRN Reason: Loose Stool Stop: 01/20/24 11:19 Clonazepam (Clonazepam 0.5 Mg Tab) 0.5 mg PO HS JEREMIAH Stop: 01/30/24 21:59 Last Admin: 01/02/24 20:35 Dose: 0.5 mg Divalproex Sodium (Divalproex Delay Release 500 Mg Tab) 500 mg PO QAM [facility] Stop: 01/13/24 08:59 Last Admin: 01/02/24 08:54 Dose: 500 mg Divalproex Sodium (Divalproex Delay Release 500 Mg Tab) 1,000 mg PO QDD [facility] Stop: 01/30/24 17:44 Last Admin: 01/02/24 17:22 Dose: 1,000 mg Haloperidol (Haloperidol 5 Mg Tab) 5 mg PO Q8H PRN PRN Reason: Agitation Stop: 01/18/24 11:57 Last Admin: 01/01/24 10:46 Dose: 5 mg Hydroxyzine HCl (Hydroxyzine Hcl 25 Mg Tab) 50 mg PO HSZ PRN PRN Reason: Insomnia Stop: 01/20/24 11:19 Last Admin: 12/29/23 19:00 Dose: 50 mg Hydroxyzine HCl (Hydroxyzine Hcl 25 Mg Tab) 25 mg PO Q4H PRN PRN Reason: Anxiety Stop: 01/20/24 11:19 Last Admin: 12/29/23 11:30 Dose: 25 mg Ibuprofen (Ibuprofen 600 Mg Tab) 600 mg PO QID PRN PRN Reason: Pain Stop: 01/24/24 12:59 Last Admin: 01/02/24 17:22 Dose: 600 mg Lorazepam (Lorazepam 0.5 Mg Tab) 0.5 mg PO BID PRN PRN Reason: cyrus/agitation Stop: 01/31/24 10:36 Last Admin: 01/01/24 10:46 Dose: 0.5 mg Magnesium Hydroxide (Magnesium Hydroxide Susp 30 Ml Udc) 30 ml PO DAILY PRN PRN Reason: Constipation Stop: 01/20/24 11:19 Miscellaneous (Remove Nicoderm Patch) 1 each N/A DAILY@0859 [facility] Stop: 01/21/24 15:59 Last Admin: 01/02/24 08:53 Dose: 1 each Multivitamins/Minerals (Cerovite Adv Formula Tab) 1 tab PO QAM [facility] Stop: 01/31/24 09:14 Last Admin: 01/02/24 08:54 Dose: 1 tab Nicotine (Nicotine 14 Mg/24 Hr Patch) 1 patch TD QAM [facility] Stop: 01/21/24 15:59 Last Admin: 01/02/24 08:54 Dose: 1 patch Nicotine Polacrilex (Nicotine Polacrilex 2 Mg Gum) 1 piece MT Q2H PRN PRN Reason: nicotine cravings Stop: 01/25/24 09:29 Last Admin: 01/02/24 14:29 Dose: 1 piece Sodium Chloride (Sodium Chloride 0.65% Na Soln 45 Ml ([place])) 1 - 2 sprays NA PRN PRN PRN Reason: Nasal Dryness/Congestion Stop: 01/20/24 11:19 Mental Health & Subst Abuse Tx Psychiatrist Name of Psychiatrist: Sara Duque [facility] Psychiatrist's Psychiatric Appointment Comment: [address], [address], [place] [address] Therapist Name of Therapist: denies Spinning Frame Fixer Name of Spinning Frame Fixer: denies Post Discharge Appointments Primary Care Physician Name Of Family Doctor/PCP: Sara Mandujano [facility] Primary Care Provider Appointment Comment: [address], [address], [place] [address]
--- NOTE | 2024-01-04 09:00 | Psychiatric Progress Note ---
Date of Service January 04, 2024 Impression / Recommendations Impression Emilia Orta is a 28-year-old female unknown past history who was brought in by police after being found wandering the street by [place] station. Patient presented pressured and tangential speech, memory impairment, and concern for psychosis. She was admitted on 11/21/23 09:58 on a 302 involuntary commitment for psychosis, now on a 304 commitment. Diagnostically consistent with unspecified psychosis- suspect schizoaffective disorder and possible methamphetamine induced psychosis as well as manic episode on admission. Collateral notable for periods of prolonged heavy methamphetamine use, particularly smoked methamphetamine, other polysubstance use, second-degree relative with a primary psychotic disorder, and presentation of a disorganized tangential thought process with concern for tactile disturbances and delusional thoughts there is a strong suspicion for methamphetamine induced psychotic disorder in the setting of severe methamphetamine use disorder vs schizophrenia vs bipolar affective disorder current manic episode. Patient has demonstrated significant dysfunction evidenced by recurrent legal troubles, persistent symptoms, recurrent hospitalizations, poor insight, inability to maintain sta bility in the community, and continued drug dependence. A: Mood remains stable, seems to be more organized to extent that she's been reaching out to a past? long-term boyfriend on the phone. Depakote level reviewed, on low end of normal so will increase HS dose slightly given at times some concern recently for possible hypomania. Overall, I spent a total of 35 minutes with this case including review of chart records, nursing report, review of lab work, direct evaluation of the patient at bedside, counseling the patient, orders, documentation in the electronic health record. 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 01/02/2024:Received Invega Sustenna 156mg STEINER 01/01/2024: -Plan for Invega Sustenna 156mg STEINER tomorrow -Lorazepam 0.5mg BID prn for cyrus/agitation added -Recheck Depakote level in 3 days 12/31/2023: -Shift and increase Klonopin to 0.5mg HS -Increase Depakote DR to 500mg qAM and 1000mg daily with dinner. 12/30/2023: Start melatonin 3mg HS. Received Invega Sustenna 234mg STEINER 12/29/2023: Invega Sustenna 234mg STEINER scheduled for tomorrow. After that will discontinue Invega po. Subsequent dose will then be for 156mg STEINER on 01/06/2024 12/28/2023: Reduce Klonopin. Continue Invega and other medications. 12/27/2023: Will move Klonopin from late afternoon to AM to help address her concerns for anxiety during the day. Stopping haldol and starting Invega 3mg BID po as first step for eventual transition to STEINER for mood stabilization and psychosis per her preference to lessen po medications. 12/26/2023: Continue current medications and tx plan. 12/25/2023: Continue current medications and tx plan. 12/24/2023: Continue current medications and tx plan. 12/23/2023: Continue current medications and tx plan. 12/22/2023: Continue current medications and tx plan. 12/21/2023: Increase nightly depakote to 750mg in the evening. 12/20/2023: Continue current medications and tx plan. 12/19/2023: Decrease Haloperidol to 2.5mg BID. Consult for oral surgery for tooth pain. 12/18/2023: Continue current medications and tx plan. 12/17/2023: Continue current medications and tx plan. Plan for VPA trough level tomorrow AM. 12/16/2023: Continue current medication and tx plan. 12/15/2023: Continue current medications and tx plan. 12/14/2023: Continue current medications and tx plan. 12/13/2023: Increase Depakote to 500mg BID. 12/12/2023: Continue current medications and tx plan. 12/11/2023: Bacitracin ointment BID and Tdap vaccine ordered. 12/10/2023: Increase Depakote DR 250mg qAM and 500mg qdinner. Plan to taper Klonopin in coming days if Depakote increase is well tolerated. 12/09/2023: Continue current medications and tx plan. Will consider transition to Depakote ER after trough level is back. Can consider transition to olanzapine if she continues to prefer this to haldol. 12/08/2023: Trough Depakote level tomorrow PM (12/09/23) 12/07/2023: Continue medications and treatment plan. 12/06/2023: Continue medications and treatment plan. 12/05/2023: Schedule Depakote/Haldol/Klonopin at dinner instead of bedtime. 12/04/2023: Continue current medications and tx plan. 12/03/2023: Continue current medications and tx plan. 12/02/2023: Start Depakote DR 500mg HS. 12/01/2023: Continue current medications and tx plan. Continuing to attempt to get urine sample for UPT. 11/30/2023: UPT ordered. Added Thorazine 25mg IM prn for agitation per her reque st for additional IM medication options. 11/29/2023: Continue current medications and tx plan. 11/28/2023: Continue current medications and tx plan. 11/27/2023: Discontinue [place] and risperidone. Start haldol 5mg BID. 11/26/2023: Start Thorazine 12.5mg TID prn po for agitation. 11/25/2023: Decrease Clonazepam to 0.5mg HS. Encourage fluids. 11/24/2023: Start [place] 300mg BID for mood lability. 11/23/2023: Continue medications and treatment plan. 11/22/2023: Increase risperidone to 1 mg every morning and 2 mg nightly. Continue clonazepam 1 mg at bedtime. Encourage fluids. STI and hepatitis panel. 11/21/2023: One-time lorazepam 2 mg p.o. for anxiety. Schedule risperidone 1 mg twice daily and clonazepam 1 mg at bedtime. Baseline EKG and labs: Free T4, free T3, A1c, lipid panel. Inventory Assets Strengths: able to express needs, accepting treatment Needs: social supports, mood control Suicide Risk Level Suicide Risk Level: Moderate (q15 min suicide checks) (one episode of voicing SI early in hospitalization but denying in recent weeks, stable mood, feels safe here, able to ask staff for support ) Risk Factors Assessment Male: No : Yes Do You Have Access To A Gun?: No Health Problems: No Mental Health Diagnoses: Yes Substance Use Disorders: Yes Previous Attempt: No Family History of Suicide: No Previous Psychiatric Hospitalization: Yes Hopelessness: No Protective Factors Assessment Zoroastrian Beliefs: No : No Responsible for Young Children: No Employed: No Stable Relationships: No Supportive Family: No Good Rapport with Provider: Yes Absence of Any Risk Factors Above: No Interval History Identifying Information Emilia Orta is a 28-year-old female unknown past history who was brought in by police after being found wandering the street by gas station. Patient presented pressured and tangential speech, memory impairment, and concern for psychosis. She was admitted on 11/21/23 09:58 on a 302 involuntary commitment for psychosis. Currently on 304 comittment. Chief Complaint "doing alright". Review of Systems Sleep Information Total Hours of Sleep: 6.30 Sleep Comments: HS Thai Meal Information Percent Meal Consumed - Breakfast: 100 Percent Meal Consumed - Lunch: 50 Percent Meal Consumed - Dinner: 100 Subjective Subjective Patient was seen & assessed and interval progress reviewed with treatment team nursing and social work. Last night appeared somewhat restless, was dancing and reported her mood as "goofy". Today reports stable mood, denies depression or anxiety. Feels her medications are working well. No side effects from recent STEINER. Reports she started talking to her boyfriend of 10 years, Viktor, on the phone and that they're been having better conversations which she attributes to having learned more coped skills through the groups here. Physical Exam Psychiatric Orientation: alert and oriented x 3 Apperance: appropriately dressed and + disheveled Eye Contact: good eye contact Motor Behavior: no abnormal motor movements Speech: normal rate/rhythm/volume of speech Affect: euthymic affect Mood: no depressed mood, no anxious mood and no irritable mood Thought Process: clear/coherent thought process Thought Content: reality based without delusions Suicidal Thoughts: denies suicidal thoughts Homicidal Thoughts: denies homicidal thoughts Hallucinations: no auditory hallucinations and no visual hallucinations Insight: + limited insight Judgment: + limited judgement Vital Signs (Past 24 Hours) Last Vital Signs Temp 36.4 C L 01/04/24 06:49 Pulse 90 01/04/24 06:49 Resp 16 01/04/24 06:49 BP 91/61 L 01/04/24 06:49 Pulse Ox 98 12/29/23 06:00 O2 Del Method Room Air 12/29/23 06:00 Results & Data ([facility]) Laboratory Results Laboratory Results - last 24 hr 01/04/24 08:14 Valproic Acid Pending Current Inpatient Medications Current Inpatient Medications: Current Inpatient Medications Acetaminophen (Acetaminophen 325 Mg Tab) 650 mg PO Q4H PRN PRN Reason: tooth pain Stop: 01/24/24 09:14 Last Admin: 12/31/23 05:44 Dose: 650 mg Al Hydrox/Mg Hydrox/Simethicone (Aluminum/Magnesium Susp 30 Ml Udc) 30 ml PO Q4H PRN PRN Reason: GI Upset Stop: 01/20/24 11:19 Bismuth Subsalicylate (Bismuth Subsalicylate Liqd 236 Ml) 15 ml PO PRN PRN PRN Reason: Loose Stool Stop: 01/20/24 11:19 Clonazepam (Clonazepam 0.5 Mg Tab) 0.5 mg PO HS JEREMIAH Stop: 01/30/24 21:59 Last Admin: 01/03/24 21:11 Dose: 0.5 mg Divalproex Sodium (Divalproex Delay Release 500 Mg Tab) 500 mg PO QAM [facility] Stop: 01/13/24 08:59 Last Admin: 01/03/24 09:25 Dose: 500 mg Divalproex Sodium (Divalproex Delay Release 500 Mg Tab) 1,000 mg PO QDD [facility] Stop: 01/30/24 17:44 Last Admin: 01/03/24 17:01 Dose: 1,000 mg Haloperidol (Haloperidol 5 Mg Tab) 5 mg PO Q8H PRN PRN Reason: Agitation Stop: 01/18/24 11:57 Last Admin: 01/01/24 10:46 Dose: 5 mg Hydroxyzine HCl (Hydroxyzine Hcl 25 Mg Tab) 50 mg PO HSZ PRN PRN Reason: Insomnia Stop: 01/20/24 11:19 Last Admin: 12/29/23 19:00 Dose: 50 mg Hydroxyzine HCl (Hydroxyzine Hcl 25 Mg Tab) 25 mg PO Q4H PRN PRN Reason: Anxiety Stop: 01/20/24 11:19 Last Admin: 12/29/23 11:30 Dose: 25 mg Ibuprofen (Ibuprofen 600 Mg Tab) 600 mg PO QID PRN PRN Reason: Pain Stop: 01/24/24 12:59 Last Admin: 01/02/24 17:22 Dose: 600 mg Lorazepam (Lorazepam 0.5 Mg Tab) 0.5 mg PO BID PRN PRN Reason: cyrus/agitation Stop: 01/31/24 10:36 Last Admin: 01/01/24 10:46 Dose: 0.5 mg Magnesium Hydroxide (Magnesium Hydroxide Susp 30 Ml Udc) 30 ml PO DAILY PRN PRN Reason: Constipation Stop: 01/20/24 11:19 Miscellaneous (Remove Nicoderm Patch) 1 each N/A DAILY@0859 [facility] Stop: 01/21/24 15:59 Last Admin: 01/03/24 09:25 Dose: 1 each Multivitamins/Minerals (Cerovite Adv Formula Tab) 1 tab PO QAM [facility] Stop: 01/31/24 09:14 Last Admin: 01/03/24 09:25 Dose: 1 tab Nicotine (Nicotine 14 Mg/24 Hr Patch) 1 patch TD QAM [facility] Stop: 01/21/24 15:59 Last Admin: 01/03/24 09:25 Dose: 1 patch Nicotine Polacrilex (Nicotine Polacrilex 2 Mg Gum) 1 piece MT Q2H PRN PRN Reason: nicotine cravings Stop: 01/25/24 09:29 Last Admin: 01/03/24 18:22 Dose: 1 piece Sodium Chloride (Sodium Chloride 0.65% Na Soln 45 Ml ([place])) 1 - 2 sprays NA PRN PRN PRN Reason: Nasal Dryness/Congestion Stop: 01/20/24 11:19 Mental Health & Subst Abuse Tx Psychiatrist Name of Psychiatrist: Sara Duque [facility] Psychiatrist's Psychiatric Appointment Comment: [address], [address], [facility] [address] Therapist Name of Therapist: denies Boiler Erector Name of Boiler Erector: denies Post Discharge Appointments Primary Care Physician Name Of Family Doctor/PCP: Sara Duque [facility] Primary Care Provider Appointment Comment: [id number], [address], [place] [address]
[2024-01-04] MEDS: DIVALPROEX DELAY RELEASE 500 MG TAB PO SCH (17:16)
--- NOTE | 2024-01-05 08:04 | Psychiatric Progress Note ---
Date of Service January 05, 2024 Impression / Recommendations Impression Emilia Orta is a 28-year-old female unknown past history who was brought in by police after being found wandering the street by gas station. Patient presented pressured and tangential speech, memory impairment, and concern for psychosis. She was admitted on 11/21/23 09:58 on a 302 involuntary commitment for psychosis, now on a 304 commitment. Diagnostically consistent with unspecified psychosis- suspect schizoaffective disorder and possible methamphetamine induced psychosis as well as manic episode on admission. Collateral notable for periods of prolonged heavy methamphetamine use, particularly smoked methamphetamine, other polysubstance use, second-degree relative with a primary psychotic disorder, and presentation of a disorganized tangential thought process with concern for tactile disturbances and delusional thoughts there is a strong suspicion for methamphetamine induced psychotic disorder in the setting of severe methamphetamine use disorder vs schizophrenia vs bipolar affective disorder current manic episode. Patient has demonstrated significant dysfunction evidenced by recurrent legal troubles, persistent symptoms, recurrent hospitalizations, poor insight, inability to maintain sta bility in the community, and continued drug dependence. A: Ongoing mood stability, tolerating Depakote well without any new side effects from dose increase. Plan for EAC once disposition date is set. Overall, I spent a total of 25 minutes with this case including review of chart records, nursing report, review of lab work, direct evaluation of the patient at bedside, counseling the patient, orders, documentation in the electronic health record. 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 01/04/2024: Increase Depakote DR to 500mg qAM and 1500mg HS 01/03/2024: Depakote level tomorrow AM. 01/02/2024:Received Invega Sustenna 156mg STEINER 01/01/2024: -Plan for Invega Sustenna 156mg STEINER tomorrow -Lorazepam 0.5mg BID prn for cyrus/agitation added -Recheck Depakote level in 3 days 12/31/2023: -Shift and increase Klonopin to 0.5mg HS -Increase Depakote DR to 500mg qAM and 1000mg daily with dinner. 12/30/2023: Start melatonin 3mg HS. Received Invega Sustenna 234mg STEINER 12/29/2023: Invega Sustenna 234mg STEINER scheduled for tomorrow. After that will discontinue Invega po. Subsequent dose will then be for 156mg STEINER on 01/06/2024 12/28/2023: Reduce Klonopin. Continue Invega and other medications. 12/27/2023: Will move Klonopin from late afternoon to AM to help address her concerns for anxiety during the day. Stopping haldol and starting Invega 3mg BID po as first step for eventual transition to STEINER for mood stabilization and psychosis per her preference to lessen po medications. 12/26/2023: Continue current medications and tx plan. 12/25/2023: Continue current medications and tx plan. 12/24/2023: Continue current medications and tx plan. 12/23/2023: Continue current medications and tx plan. 12/22/2023: Continue current medications and tx plan. 12/21/2023: Increase nightly depakote to 750mg in the evening. 12/20/2023: Continue current medications and tx plan. 12/19/2023: Decrease Haloperidol to 2.5mg BID. Consult for oral surgery for tooth pain. 12/18/2023: Continue current medications and tx plan. 12/17/2023: Continue current medications and tx plan. Plan for VPA trough level tomorrow AM. 12/16/2023: Continue current medication and tx plan. 12/15/2023: Continue current medications and tx plan. 12/14/2023: Continue current medications and tx plan. 12/13/2023: Increase Depakote to 500mg BID. 12/12/2023: Continue current medications and tx plan. 12/11/2023: Bacitracin ointment BID and Tdap vaccine ordered. 12/10/2023: Increase Depakote DR 250mg qAM and 500mg qdinner. Plan to taper Klonopin in coming days if Depakote increase is well tolerated. 12/09/2023: Continue current medications and tx plan. Will consider transition to Depakote ER after trough level is back. Can consider transition to olanzapine if she continues to prefer this to haldol. 12/08/2023: Trough Depakote level tomorrow PM (12/09/23) 12/07/2023: Continue medications and treatment plan. 12/06/2023: Continue medications and treatment plan. 12/05/2023: Schedule Depakote/Haldol/Klonopin at dinner instead of bedtime. 12/04/2023: Continue current medications and tx plan. 12/03/2023: Continue current medications and tx plan. 12/02/2023: Start Depakote DR 500mg HS. 12/01/2023: Continue current medications and tx plan. Continuing to attempt to get urine sample for UPT. 11/30/2023: UPT ordered. Added Thorazine 25mg IM prn for agitation per her request for additional IM medication options. 11/29/2023: Continue current medications and tx plan. 11/28/2023: Continue current medications and tx plan. 11/27/2023: Discontinue [place] and risperidone. Start haldol 5mg BID. 11/26/2023: Start Thorazine 12.5mg TID prn po for agitation. 11/25/2023: Decrease Clonazepam to 0.5mg HS. Encourage fluids. 11/24/2023: Start [place] 300mg BID for mood lability. 11/23/2023: Continue medications and treatment plan. 11/22/2023: Increase risperidone to 1 mg every morning and 2 mg nightly. Continue clonazepam 1 mg at bedtime. Encourage fluids. STI and hepatitis panel. 11/21/2023: One-time lorazepam 2 mg p.o. for anxiety. Schedule risperidone 1 mg twice daily and clonazepam 1 mg at bedtime. Baseline EKG and labs: Free T4, free T3, A1c, lipid panel. Inventory Assets Strengths: able to express needs, accepting treatment Needs: social supports, mood control Suicide Risk Level Suicide Risk Level: Moderate (q15 min suicide checks) (one episode of voicing SI early in hospitalization but denying in recent weeks, stable mood, feels safe here, able to ask staff for support ) Risk Factors Assessment Male: No : Yes Do You Have Access To A Gun?: No Health Problems: No Mental Health Diagnoses: Yes Substance Use Disorders: Yes Previous Attempt: No Family History of Suicide: No Previous Psychiatric Hospitalization: Yes Hopelessness: No Protective Factors Assessment Mormon Beliefs: No : No Responsible for Young Children: No Employed: No Stable Relationships: No Supportive Family: No Good Rapport with Provider: Yes Absence of Any Risk Factors Above: No Interval History Identifying Information Emilia Orta is a 28-year-old female unknown past history who was brought in by police after being found wandering the street by gas station. Patient presented pressured and tangential speech, memory impairment, and concern for psychosis. She was admitted on 11/21/23 09:58 on a 302 involuntary commitment for psychosis. Currently on 304 comittment. Chief Complaint "Good". Review of Systems Sleep Information Total Hours of Sleep: 7.15 Sleep Comments: HS Thai Meal Information Percent Meal Consumed - Breakfast: 100 Percent Meal Consumed - Lunch: 100 Percent Meal Consumed - Dinner: 100 Subjective Subjective Patient was seen & assessed and interval progress reviewed with treatment team nursing and social work. Rated her mood as "dreamy" last evening. Today reports "good" mood. Recalls that she had a busy day including participating in EAC disposition meeting and meeting with her new outpatient director case. Expresses gratitude for her medication regimen, feels the Depakote is working well and thanks me for starting her on this and keeping her on this. Reports that she feels good and remains eager for next step of starting at [facility] soon. Physical Exam Psychiatric Orientation: alert and oriented x 3 Apperance: appropriately dressed and appropriately groomed Eye Contact: good eye contact Motor Behavior: no abnormal motor movements Speech: normal rate/rhythm/volume of speech Affect: euthymic affect Mood: no depressed mood, no anxious mood and no irritable mood Thought Process: clear/coherent thought process Thought Content: reality based without delusions Suicidal Thoughts: denies suicidal thoughts Homicidal Thoughts: denies homicidal thoughts Hallucinations: no auditory hallucinations and no visual hallucinations Insight: + limited insight Judgment: + limited judgement Vital Signs (Past 24 Hours) Last Vital Signs Temp 36.5 C 01/05/24 06:42 Pulse 73 01/05/24 06:42 Resp 16 01/05/24 06:42 BP 94/65 L 01/05/24 06:42 Pulse Ox 98 12/29/23 06:00 O2 Del Method Room Air 12/29/23 06:00 Results & Data ([facility]) Laboratory Results Laboratory Results - last 24 hr 01/04/24 08:14 Valproic Acid 52 Current Inpatient Medications Current Inpatient Medications: Current Inpatient Medications Acetaminophen (Acetaminophen 325 Mg Tab) 650 mg PO Q4H PRN PRN Reason: tooth pain Stop: 01/24/24 09:14 Last Admin: 12/31/23 05:44 Dose: 650 mg Al Hydrox/Mg Hydrox/Simethicone (Aluminum/Magnesium Susp 30 Ml Udc) 30 ml PO Q4H PRN PRN Reason: GI Upset Stop: 01/20/24 11:19 Bismuth Subsalicylate (Bismuth Subsalicylate Liqd 236 Ml) 15 ml PO PRN PRN PRN Reason: Loose Stool Stop: 01/20/24 11:19 Clonazepam (Clonazepam 0.5 Mg Tab) 0.5 mg PO HS JEREMIAH Stop: 01/30/24 21:59 Last Admin: 01/04/24 20:47 Dose: 0.5 mg Divalproex Sodium (Divalproex Delay Release 500 Mg Tab) 500 mg PO QAM JEREMIAH Stop: 01/13/24 08:59 Last Admin: 01/04/24 09:10 Dose: 500 mg Divalproex Sodium (Divalproex Delay Release 500 Mg Tab) 1,500 mg PO QDD JEREMIAH Stop: 02/03/24 17:44 Last Admin: 01/04/24 17:16 Dose: 1,500 mg Haloperidol (Haloperidol 5 Mg Tab) 5 mg PO Q8H PRN PRN Reason: Agitation Stop: 01/18/24 11:57 Last Admin: 01/01/24 10:46 Dose: 5 mg Hydroxyzine HCl (Hydroxyzine Hcl 25 Mg Tab) 50 mg PO HSZ PRN PRN Reason: Insomnia Stop: 01/20/24 11:19 Last Admin: 12/29/23 19:00 Dose: 50 mg Hydroxyzine HCl (Hydroxyzine Hcl 25 Mg Tab) 25 mg PO Q4H PRN PRN Reason: Anxiety Stop: 01/20/24 11:19 Last Admin: 12/29/23 11:30 Dose: 25 mg Ibuprofen (Ibuprofen 600 Mg Tab) 600 mg PO QID PRN PRN Reason: Pain Stop: 01/24/24 12:59 Last Admin: 01/02/24 17:22 Dose: 600 mg Lorazepam (Lorazepam 0.5 Mg Tab) 0.5 mg PO BID PRN PRN Reason: cyrus/agitation Stop: 01/31/24 10:36 Last Admin: 01/01/24 10:46 Dose: 0.5 mg Magnesium Hydroxide (Magnesium Hydroxide Susp 30 Ml Udc) 30 ml PO DAILY PRN PRN Reason: Constipation Stop: 01/20/24 11:19 Miscellaneous (Remove Nicoderm Patch) 1 each N/A DAILY@0859 [facility] Stop: 01/21/24 15:59 Last Admin: 01/04/24 09:11 Dose: 1 each Multivitamins/Minerals (Cerovite Adv Formula Tab) 1 tab PO QAM [facility] Stop: 01/31/24 09:14 Last Admin: 01/04/24 09:10 Dose: 1 tab Nicotine (Nicotine 14 Mg/24 Hr Patch) 1 patch TD QAM [facility] Stop: 01/21/24 15:59 Last Admin: 01/04/24 09:11 Dose: 1 patch Nicotine Polacrilex (Nicotine Polacrilex 2 Mg Gum) 1 piece MT Q2H PRN PRN Reason: nicotine cravings Stop: 01/25/24 09:29 Last Admin: 01/04/24 19:06 Dose: 1 piece Sodium Chloride (Sodium Chloride 0.65% Na Soln 45 Ml ([place])) 1 - 2 sprays NA PRN PRN PRN Reason: Nasal Dryness/Congestion Stop: 01/20/24 11:19 Mental Health & Subst Abuse Tx Psychiatrist Name of Psychiatrist: [facility] Psychiatrist's Psychiatric Appointment Comment: [address], [address], [place] [address] Therapist Name of Therapist: denies Theatre Director Name of Theatre Director: denies Post Discharge Appointments Primary Care Physician Name Of Family Doctor/PCP: [facility] Primary Care Provider Appointment Comment: [id number], [address], [place] [address]
--- NOTE | 2024-01-06 13:44 | Psychiatric Progress Note ---
Date of Service January 06, 2024 Impression / Recommendations Impression Emilia Orta is a 28-year-old female unknown past history who was brought in by police after being found wandering the street by gas station. Patient presented pressured and tangential speech, memory impairment, and concern for psychosis. She was admitted on 11/21/23 09:58 on a 302 involuntary commitment for psychosis, now on a 304 commitment. Diagnostically consistent with unspecified psychosis- suspect schizoaffective disorder and possible methamphetamine induced psychosis as well as manic episode on admission. Collateral notable for periods of prolonged heavy methamphetamine use, particularly smoked methamphetamine, other polysubstance use, second-degree relative with a primary psychotic disorder, and presentation of a disorganized tangential thought process with concern for tactile disturbances and delusional thoughts there is a strong suspicion for methamphetamine induced psychotic disorder in the setting of severe methamphetamine use disorder vs schizophrenia vs bipolar affective disorder current manic episode. Patient has demonstrated significant dysfunction evidenced by recurrent legal troubles, persistent symptoms, recurrent hospitalizations, poor insight, inability to maintain sta bility in the community, and continued drug dependence. A: Patient presents less mood lability and improved future outlook. She is able to better engage in discussions regarding disposition and future planning. Presents a bright and reactive affect. Tolerating current Depakote doses. Overall, I spent a total of 25 minutes with this case including review of chart records, nursing report, review of lab work, direct evaluation of the patient at bedside, counseling the patient, orders, documentation in the electronic health record. 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 01/05/2024: Continue current medications and tx plan. 01/04/2024: Increase Depakote DR to 500mg qAM and 1500mg HS 01/03/2024: Depakote level tomorrow AM. 01/02/2024:Received Invega Sustenna 156mg STEINER 01/01/2024: -Plan for Invega Sustenna 156mg STEINER tomorrow -Lorazepam 0.5mg BID prn for cyrus/agitation added -Recheck Depakote level in 3 days 12/31/2023: -Shift and increase Klonopin to 0.5mg HS -Increase Depakote DR to 500mg qAM and 1000mg daily with dinner. 12/30/2023: Start melatonin 3mg HS. Received Invega Sustenna 234mg STEINER 12/29/2023: Invega Sustenna 234mg STEINER scheduled for tomorrow. After that will discontinue Invega po. Subsequent dose will then be for 156mg STEINER on 01/06/2024 12/28/2023: Reduce Klonopin. Continue Invega and other medications. 12/27/2023: Will move Klonopin from late afternoon to AM to help address her concerns for anxiety during the day. Stopping haldol and starting Invega 3mg BID po as first step for eventual transition to STEINER for mood stabilization and psychosis per her preference to lessen po medications. 12/26/2023: Continue current medications and tx plan. 12/25/2023: Continue current medications and tx plan. 12/24/2023: Continue current medications and tx plan. 12/23/2023: Continue current medications and tx plan. 12/22/2023: Continue current medications and tx plan. 12/21/2023: Increase nightly depakote to 750mg in the evening. 12/20/2023: Continue current medications and tx plan. 12/19/2023: Decrease Haloperidol to 2.5mg BID. Consult for oral surgery for tooth pain. 12/18/2023: Continue current medications and tx plan. 12/17/2023: Continue current medications and tx plan. Plan for VPA trough level tomorrow AM. 12/16/2023: Continue current medication and tx plan. 12/15/2023: Continue current medications and tx plan. 12/14/2023: Continue current medications and tx plan. 12/13/2023: Increase Depakote to 500mg BID. 12/12/2023: Continue current medications and tx plan. 12/11/2023: Bacitracin ointment BID and Tdap vaccine ordered. 12/10/2023: Increase Depakote DR 250mg qAM and 500mg qdinner. Plan to taper Klonopin in coming days if Depakote increase is well tolerated. 12/09/2023: Continue current medications and tx plan. Will consider transition to Depakote ER after trough level is back. Can consider transition to olanzapine if she continues to prefer this to haldol. 12/08/2023: Trough Depakote level tomorrow PM (12/09/23) 12/07/2023: Continue medications and treatment plan. 12/06/2023: Continue medications and treatment plan. 12/05/2023: Schedule Depakote/Haldol/Klonopin at dinner instead of bedtime. 12/04/2023: Continue current medications and tx plan. 12/03/2023: Continue current medications and tx plan. 12/02/2023: Start Depakote DR 500mg HS. 12/01/2023: Continue current medications and tx plan. Continuing to attempt to get urine sample for UPT. 11/30/2023: UPT ordered. Added Thorazine 25mg IM prn for agitation per her request for additional IM medication options. 11/29/2023: Continue current medications and tx plan. 11/28/2023: Continue current medications and tx plan. 11/27/2023: Discontinue [place] and risperidone. Start haldol 5mg BID. 11/26/2023: Start Thorazine 12.5mg TID prn po for agitation. 11/25/2023: Decrease Clonazepam to 0.5mg HS. Encourage fluids. 11/24/2023: Start [place] 300mg BID for mood lability. 11/23/2023: Continue medications and treatment plan. 11/22/2023: Increase risperidone to 1 mg every morning and 2 mg nightly. Continue clonazepam 1 mg at bedtime. Encourage fluids. STI and hepatitis panel. 11/21/2023: One-time lorazepam 2 mg p.o. for anxiety. Schedule risperidone 1 mg twice daily and clonazepam 1 mg at bedtime. Baseline EKG and labs: Free T4, free T3, A1c, lipid panel. Inventory Assets Strengths: able to express needs, accepting treatment Needs: social supports, mood control Suicide Risk Level Suicide Risk Level: Moderate (q15 min suicide checks) (one episode of voicing SI early in hospitalization but denying in recent weeks, stable mood, feels safe here, able to ask staff for support ) Risk Factors Assessment Male: No : Yes Do You Have Access To A Gun?: No Health Problems: No Mental Health Diagnoses: Yes Substance Use Disorders: Yes Previous Attempt: No Family History of Suicide: No Previous Psychiatric Hospitalization: Yes Hopelessness: No Protective Factors Assessment Quaker Beliefs: No : No Responsible for Young Children: No Employed: No Stable Relationships: No Supportive Family: No Good Rapport with Provider: Yes Absence of Any Risk Factors Above: No Interval History Identifying Information Emilia Orta is a 28-year-old female unknown past history who was brought in by police after being found wandering the street by gas station. Patient pre sented pressured and tangential speech, memory impairment, and concern for psychosis. She was admitted on 11/21/23 09:58 on a 302 involuntary commitment for psychosis. Currently on 304 comittment. Chief Complaint "I am happy" Review of Systems Sleep Information Total Hours of Sleep: 8.30 Sleep Comments: HS Thai Meal Information Percent Meal Consumed - Breakfast: 100 Percent Meal Consumed - Lunch: 100 Percent Meal Consumed - Dinner: 100 Subjective Subjective Patient was seen & assessed and interval progress reviewed with treatment team nursing and social work Patient accepted and [facility] and is looking forward to it. Complains of occasional anxiety where she feels "pressure in her chest" or "knot in her stomach" and this happens when she thinks about people who have been a bad influence in her life. Reports practicing deep breathing skills and has been effective. Reports past relationship with "Viktor" and needs to see him out of her life. Reports teeth pain resolved. When attempting discussed relapse prevention for substances she becomes tearful. Physical Exam Mental Examination Appearance: Well Groomed Eye Contact: Maintains Eye Contact Motor Behavior: Unremarkable Speech: Circumstantial Mood: Euthymic Affect: Congruent and Labile Thought Process: Intact and Linear Thought Content: Intact and Disorganized (at times) Hallucinations: None Insight: Fair (improved) Judgement: Fair Vital Signs (Past 24 Hours) Last Vital Signs Temp 36.7 C 01/06/24 06:48 Pulse 73 01/06/24 10:01 Resp 16 01/06/24 06:48 BP 82/49 L 01/06/24 10:01 Pulse Ox 97 01/06/24 06:48 O2 Del Method Room Air 01/06/24 06:48 Results & Data ([facility]) Current Inpatient Medications Current Inpatient Medications: Current Inpatient Medications Acetaminophen (Acetaminophen 325 Mg Tab) 650 mg PO Q4H PRN PRN Reason: tooth pain Stop: 01/24/24 09:14 Last Admin: 12/31/23 05:44 Dose: 650 mg Al Hydrox/Mg Hydrox/Simethicone (Aluminum/Magnesium Susp 30 Ml Udc) 30 ml PO Q4H PRN PRN Reason: GI Upset Stop: 01/20/24 11:19 Bismuth Subsalicylate (Bismuth Subsalicylate Liqd 236 Ml) 15 ml PO PRN PRN PRN Reason: Loose Stool Stop: 01/20/24 11:19 Clonazepam (Clonazepam 0.5 Mg Tab) 0.5 mg PO HS JEREMIAH Stop: 01/30/24 21:59 Last Admin: 01/05/24 20:26 Dose: 0.5 mg Divalproex Sodium (Divalproex Delay Release 500 Mg Tab) 500 mg PO QAM JEREMIAH Stop: 01/13/24 08:59 Last Admin: 01/06/24 08:27 Dose: 500 mg Divalproex Sodium (Divalproex Delay Release 500 Mg Tab) 1,500 mg PO QDD JEREMIAH Stop: 02/03/24 17:44 Last Admin: 01/05/24 17:39 Dose: 1,500 mg Haloperidol (Haloperidol 5 Mg Tab) 5 mg PO Q8H PRN PRN Reason: Agitation Stop: 01/18/24 11:57 Last Admin: 01/01/24 10:46 Dose: 5 mg Hydroxyzine HCl (Hydroxyzine Hcl 25 Mg Tab) 50 mg PO HSZ PRN PRN Reason: Insomnia Stop: 01/20/24 11:19 Last Admin: 12/29/23 19:00 Dose: 50 mg Hydroxyzine HCl (Hydroxyzine Hcl 25 Mg Tab) 25 mg PO Q4H PRN PRN Reason: Anxiety Stop: 01/20/24 11:19 Last Admin: 12/29/23 11:30 Dose: 25 mg Ibuprofen (Ibuprofen 600 Mg Tab) 600 mg PO QID PRN PRN Reason: Pain Stop: 01/24/24 12:59 Last Admin: 01/02/24 17:22 Dose: 600 mg Lorazepam (Lorazepam 0.5 Mg Tab) 0.5 mg PO BID PRN PRN Reason: cyrus/agitation Stop: 01/31/24 10:36 Last Admin: 01/01/24 10:46 Dose: 0.5 mg Magnesium Hydroxide (Magnesium Hydroxide Susp 30 Ml Udc) 30 ml PO DAILY PRN PRN Reason: Constipation Stop: 01/20/24 11:19 Miscellaneous (Remove Nicoderm Patch) 1 each N/A DAILY@0859 [facility] Stop: 01/21/24 15:59 Last Admin: 01/06/24 08:30 Dose: 1 each Multivitamins/Minerals (Cerovite Adv Formula Tab) 1 tab PO QAM [facility] Stop: 01/31/24 09:14 Last Admin: 01/06/24 08:27 Dose: 1 tab Nicotine (Nicotine 14 Mg/24 Hr Patch) 1 patch TD QAM [facility] Stop: 01/21/24 15:59 Last Admin: 01/06/24 08:27 Dose: 1 patch Nicotine Polacrilex (Nicotine Polacrilex 2 Mg Gum) 1 piece MT Q2H PRN PRN Reason: nicotine cravings Stop: 01/25/24 09:29 Last Admin: 01/06/24 10:34 Dose: 1 piece Sodium Chloride (Sodium Chloride 0.65% Na Soln 45 Ml ([place])) 1 - 2 sprays NA PRN PRN PRN Reason: Nasal Dryness/Congestion Stop: 01/20/24 11:19 Mental Health & Subst Abuse Tx Psychiatrist Name of Psychiatrist: Sara Duque [facility] Psychiatrist's Psychiatric Appointment Comment: [address], [address], [facility] [address] Therapist Name of Therapist: denies [employer] Name of [employer]: denies Post Discharge Appointments Primary Care Physician Name Of Family Doctor/PCP: Sara Duque [facility] Primary Care Provider Appointment Comment: [address], [address], [facility] [address]
--- NOTE | 2024-01-07 15:05 | Psychiatric Progress Note ---
Date of Service January 07, 2024 Impression / Recommendations Impression Emilia Orta is a 28-year-old female unknown past history who was brought in by police after being found wandering the street by gas station. Patient presented pressured and tangential speech, memory impairment, and concern for psychosis. She was admitted on 11/21/23 09:58 on a 302 involuntary commitment for psychosis, now on a 304 commitment. Diagnostically consistent with unspecified psychosis- suspect schizoaffective disorder and possible methamphetamine induced psychosis as well as manic episode on admission. Collateral notable for periods of prolonged heavy methamphetamine use, particularly smoked methamphetamine, other polysubstance use, second-degree relative with a primary psychotic disorder, and presentation of a disorganized tangential thought process with concern for tactile disturbances and delusional thoughts there is a strong suspicion for methamphetamine induced psychotic disorder in the setting of severe methamphetamine use disorder vs schizophrenia vs bipolar affective disorder current manic episode. Patient has demonstrated significant dysfunction evidenced by recurrent legal troubles, persistent symptoms, recurrent hospitalizations, poor insight, inability to maintain sta bility in the community, and continued drug dependence. A: Patient presents improved mood and outlook. Counseled about future planning. Concern for excess sedation and will decrease nightly Klonopin dose. Patient presented brief vision changes however quickly resolved and will continue to monitor. Patient was counseled on diet and to avoid concentrated sugars in excess calories especially in the context of medications causing weight gain and appetite stimulation. Overall, I spent a total of 25 minutes with this case including review of chart records, nursing report, review of lab work, direct evaluation of the patient at bedside, counseling the patient, orders, documentation in the electronic health record. 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 Continue medications and treatment plan. 01/06/2024: Continue medications and treatment plan. 01/05/2024: Continue current medications and tx plan. 01/04/2024: Increase Depakote DR to 500mg qAM and 1500mg HS 01/03/2024: Depakote level tomorrow AM. 01/02/2024:Received Invega Sustenna 156mg STEINER 01/01/2024: -Plan for Invega Sustenna 156mg STEINER tomorrow -Lorazepam 0.5mg BID prn for cyrus/agitation added -Recheck Depakote level in 3 days 12/31/2023: -Shift and increase Klonopin to 0.5mg HS -Increase Depakote DR to 500mg qAM and 1000mg daily with dinner. 12/30/2023: Start melatonin 3mg HS. Received Invega Sustenna 234mg STEINER 12/29/2023: Invega Sustenna 234mg STEINER scheduled for tomorrow. After that will discontinue Invega po. Subsequent dose will then be for 156mg STEINER on 01/06/2024 12/28/2023: Reduce Klonopin. Continue Invega and other medications. 12/27/2023: Will move Klonopin from late afternoon to AM to help address her concerns for anxiety during the day. Stopping haldol and starting Invega 3mg BID po as first step for eventual transition to STEINER for mood stabilization and psychosis per her preference to lessen po medications. 12/26/2023: Continue current medications and tx plan. 12/25/2023: Continue current medications and tx plan. 12/24/2023: Continue current medications and tx plan. 12/23/2023: Continue current medications and tx plan. 12/22/2023: Continue current medications and tx plan. 12/21/2023: Increase nightly depakote to 750mg in the evening. 12/20/2023: Continue current medications and tx plan. 12/19/2023: Decrease Haloperidol to 2.5mg BID. Consult for oral surgery for tooth pain. 12/18/2023: Continue current medications and tx plan. 12/17/2023: Continue current medications and tx plan. Plan for VPA trough level tomorrow AM. 12/16/2023: Continue current medication and tx plan. 12/15/2023: Continue current medications and tx plan. 12/14/2023: Continue current medications and tx plan. 12/13/2023: Increase Depakote to 500mg BID. 12/12/2023: Continue current medications and tx plan. 12/11/2023: Bacitracin ointment BID and Tdap vaccine ordered. 12/10/2023: Increase Depakote DR 250mg qAM and 500mg qdinner. Plan to taper Klonopin in coming days if Depakote increase is well tolerated. 12/09/2023: Continue current medications and tx plan. Will consider transition to Depakote ER after trough level is back. Can consider transition to olanzapine if she continues to prefer this to haldol. 12/08/2023: Trough Depakote level tomorrow PM (12/09/23) 12/07/2023: Continue medications and treatment plan. 12/06/2023: Continue medications and treatment plan. 12/05/2023: Schedule Depakote/Haldol/Klonopin at dinner instead of bedtime. 12/04/2023: Continue current medications and tx plan. 12/03/2023: Continue current medications and tx plan. 12/02/2023: Start Depakote DR 500mg HS. 12/01/2023: Continue current medications and tx plan. Continuing to attempt to get urine sample for UPT. 11/30/2023: UPT ordered. Added Thorazine 25mg IM prn for agitation per her request for additional IM medication options. 11/29/2023: Continue current medications and tx plan. 11/28/2023: Continue current medications and tx plan. 11/27/2023: Discontinue Justin and risperidone. Start haldol 5mg BID. 11/26/2023: Start Thorazine 12.5mg TID prn po for agitation. 11/25/2023: Decrease Clonazepam to 0.5mg HS. Encourage fluids. 11/24/2023: Start Justin 300mg BID for mood lability. 11/23/2023: Continue medications and treatment plan. 11/22/2023: Increase risperidone to 1 mg every morning and 2 mg nightly. Continue clonazepam 1 mg at bedtime. Encourage fluids. STI and hepatitis panel. 11/21/2023: One-time lorazepam 2 mg p.o. for anxiety. Schedule risperidone 1 mg twice daily and clonazepam 1 mg at bedtime. Baseline EKG and labs: Free T4, free T3, A1c, lipid panel. Inventory Assets Strengths: able to express needs, accepting treatment Needs: social supports, mood control Suicide Risk Level Suicide Risk Level: Moderate (q15 min suicide checks) (one episode of voicing SI early in hospitalization but denying in recent weeks, stable mood, feels safe here, able to ask staff for support ) Risk Factors Assessment Male: No : Yes Do You Have Access To A Gun?: No Health Problems: No Mental Health Diagnoses: Yes Substance Use Disorders: Yes Previous Attempt: No Family History of Suicide: No Previous Psychiatric Hospitalization: Yes Hopelessness: No Protective Factors Assessment Muslim Beliefs: No : No Responsible for Young Children: No Employed: No Stable Relationships: No Supportive Family: No Good Rapport with Provider: Yes Absence of Any Risk Factors Above: No Interval History Identifying Information Emilia Orta is a 28-year-old female unknown past history who was brought in by police after being found wandering the street [place] gas station. Patient presented pressured and tangential speech, memory impairment, and concern for psychosis. She was admitted on 11/21/23 09:58 on a 302 involuntary commitment for psychosis. Currently on 304 comittment. Chief Complaint "ok" Review of Systems Sleep Information Total Hours of Sleep: 10 Sleep Comments: HS Thai Meal Information Percent Meal Consumed - Breakfast: 100 Percent Meal Consumed - Lunch: 100 Percent Meal Consumed - Dinner: 100 Subjective Subjective Patient was seen & assessed and interval progress reviewed with treatment team nursing and social work Patient slept 10 hours overnight. Took a nap this morning. Reports good mood and energy. Has been starting a routine in the morning that includes playing relaxing music and getting coffee. Denies feelings of lightheadedness or dizziness. Says yesterday she had a period where she was seeing "stars" and her eyes were open and this lasted for 5 minutes and resolved. Denies any eye pain or change in vision. When inquiring about past bipolar diagnosis she reports it started as a child and had parents who were constantly on drugs so would try to keep up with their behavior. Complains of chronic restlessness which has oc curred since she was a child and has trouble sitting still; denies worsening after initiation of antipsychotics. Looking forward to EAC and staying clean. Physical Exam Mental Examination Appearance: Well Groomed Eye Contact: Maintains Eye Contact Motor Behavior: Unremarkable Speech: Circumstantial Mood: Euthymic Affect: Congruent and Labile Thought Process: Intact and Linear Thought Content: Intact and Disorganized (at times) Hallucinations: None Insight: Fair (improved) Judgement: Fair Vital Signs (Past 24 Hours) Last Vital Signs Temp 36.5 C 01/07/24 01:30 Pulse 118 H 01/07/24 01:30 Resp 16 01/07/24 01:30 BP 94/64 L 01/07/24 01:30 Pulse Ox 97 01/07/24 01:30 O2 Del Method Room Air 01/07/24 01:30 Results & Data ([facility]) Current Inpatient Medications Current Inpatient Medications: Current Inpatient Medications Acetaminophen (Acetaminophen 325 Mg Tab) 650 mg PO Q4H PRN PRN Reason: tooth pain Stop: 01/24/24 09:14 Last Admin: 12/31/23 05:44 Dose: 650 mg Al Hydrox/Mg Hydrox/Simethicone (Aluminum/Magnesium Susp 30 Ml Udc) 30 ml PO Q4H PRN PRN Reason: GI Upset Stop: 01/20/24 11:19 Bismuth Subsalicylate (Bismuth Subsalicylate Liqd 236 Ml) 15 ml PO PRN PRN PRN Reason: Loose Stool Stop: 01/20/24 11:19 Clonazepam (Clonazepam 0.5 Mg Tab) 0.25 mg PO HS JEREMIAH Stop: 02/06/24 21:59 Divalproex Sodium (Divalproex Delay Release 500 Mg Tab) 500 mg PO QAM JEREMIAH Stop: 01/13/24 08:59 Last Admin: 01/07/24 08:18 Dose: 500 mg Divalproex Sodium (Divalproex Delay Release 500 Mg Tab) 1,500 mg PO QDD JEREMIAH Stop: 02/03/24 17:44 Last Admin: 01/06/24 17:01 Dose: 1,500 mg Haloperidol (Haloperidol 5 Mg Tab) 5 mg PO Q8H PRN PRN Reason: Agitation Stop: 01/18/24 11:57 Last Admin: 01/01/24 10:46 Dose: 5 mg Hydroxyzine HCl (Hydroxyzine Hcl 25 Mg Tab) 50 mg PO HSZ PRN PRN Reason: Insomnia Stop: 01/20/24 11:19 Last Admin: 12/29/23 19:00 Dose: 50 mg Hydroxyzine HCl (Hydroxyzine Hcl 25 Mg Tab) 25 mg PO Q4H PRN PRN Reason: Anxiety Stop: 01/20/24 11:19 Last Admin: 01/06/24 17:35 Dose: 25 mg Ibuprofen (Ibuprofen 600 Mg Tab) 600 mg PO QID PRN PRN Reason: Pain Stop: 01/24/24 12:59 Last Admin: 01/02/24 17:22 Dose: 600 mg Lorazepam (Lorazepam 0.5 Mg Tab) 0.5 mg PO BID PRN PRN Reason: cyrus/agitation Stop: 01/31/24 10:36 Last Admin: 01/01/24 10:46 Dose: 0.5 mg Magnesium Hydroxide (Magnesium Hydroxide Susp 30 Ml Udc) 30 ml PO DAILY PRN PRN Reason: Constipation Stop: 01/20/24 11:19 Miscellaneous (Remove Nicoderm Patch) 1 each N/A DAILY@0859 [facility] Stop: 01/21/24 15:59 Last Admin: 01/07/24 08:21 Dose: 1 each Multivitamins/Minerals (Cerovite Adv Formula Tab) 1 tab PO QAM [facility] Stop: 01/31/24 09:14 Last Admin: 01/07/24 08:18 Dose: 1 tab Nicotine (Nicotine 14 Mg/24 Hr Patch) 1 [facility] Stop: 01/21/24 15:59 Last Admin: 01/07/24 08:21 Dose: 1 patch Nicotine Polacrilex (Nicotine Polacrilex 2 Mg Gum) 1 piece MT Q2H PRN PRN Reason: nicotine cravings Stop: 01/25/24 09:29 Last Admin: 01/07/24 12:12 Dose: 1 piece Sodium Chloride (Sodium Chloride 0.65% Na Soln 45 Ml ([place])) 1 - 2 sprays NA PRN PRN PRN Reason: Nasal Dryness/Congestion Stop: 01/20/24 11:19 Mental Health & Subst Abuse Tx Psychiatrist Name of Psychiatrist: [facility] Psychiatrist's Psychiatric Appointment Comment: [address], [address], [place] [address] Therapist Name of Therapist: denies Digital Imaging Specialist Name of Digital Imaging Specialist: denies Post Discharge Appointments Primary Care Physician Name Of Family Doctor/PCP: [facility] Primary Care Provider Appointment Comment: [address], [address], [place] [address]
[2024-01-07] MEDS: clonazePAM 0.5 MG TAB PO SCH (21:02)
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
--- NOTE | 2024-01-09 11:46 | Psychiatric Progress Note ---
Date of Service January 09, 2024 Impression / Recommendations Impression Emilia Orta is a 28-year-old female unknown past history who was brought in by police after being found wandering the street by gas station. Patient presented pressured and tangential speech, memory impairment, and concern for psychosis. She was admitted on 11/21/23 09:58 on a 302 involuntary commitment for psychosis, now on a 304 commitment. Diagnostically consistent with unspecified psychosis- suspect schizoaffective disorder and possible methamphetamine induced psychosis as well as manic episode on admission. Collateral notable for periods of prolonged heavy methamphetamine use, particularly smoked methamphetamine, other polysubstance use, second-degree relative with a primary psychotic disorder, and presentation of a disorganized tangential thought process with concern for tactile disturbances and delusional thoughts there is a strong suspicion for methamphetamine induced psychotic disorder in the setting of severe methamphetamine use disorder vs schizophrenia vs bipolar affective disorder current manic episode. Patient has demonstrated significant dysfunction evidenced by recurrent legal troubles, persistent symptoms, recurrent hospitalizations, poor insight, inability to maintain sta bility in the community, and continued drug dependence. A: Patient presents in good spirits and has a positive outlook. Reconnecting with family members. Pending acceptance date into [facility]. Patient presents slightly dysarthric speech and trouble organizing words. Concern for a.m. sedation with Depakote and we will schedule her dose entirely at night. Overall, I spent a total of 30 minutes with this case including review of chart records, nursing report, review of lab work, direct evaluation of the patient at bedside, counseling the patient, orders, gathering collateral documentation in the electronic health record. 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 Depakote, increased nightly Depakote ER to 2000 mg at bedtime. 01/08/2024: Continue medications and treatment plan. 01/07/2024: Decrease nightly clonazepam to 0.25 mg at bedtime. Continue med ications and treatment plan. 01/06/2024: Continue medications and treatment plan. 01/05/2024: Continue current medications and tx plan. 01/04/2024: Increase Depakote DR to 500mg qAM and 1500mg HS 01/03/2024: Depakote level tomorrow AM. 01/02/2024:Received Invega Sustenna 156mg STEINER 01/01/2024: -Plan for Invega Sustenna 156mg STEINER tomorrow -Lorazepam 0.5mg BID prn for cyrus/agitation added -Recheck Depakote level in 3 days 12/31/2023: -Shift and increase Klonopin to 0.5mg HS -Increase Depakote DR to 500mg qAM and 1000mg daily with dinner. 12/30/2023: Start melatonin 3mg HS. Received Invega Sustenna 234mg STEINER 12/29/2023: Invega Sustenna 234mg STEINER scheduled for tomorrow. After that will discontinue Invega po. Subsequent dose will then be for 156mg STEINER on 01/06/2024 12/28/2023: Reduce Klonopin. Continue Invega and other medications. 12/27/2023: Will move Klonopin from late afternoon to AM to help address her concerns for anxiety during the day. Stopping haldol and starting Invega 3mg BID po as first step for eventual transition to STEINER for mood stabilization and psychosis per her preference to lessen po medications. 12/26/2023: Continue current medications and tx plan. 12/25/2023: Continue current medications and tx plan. 12/24/2023: Continue current medications and tx plan. 12/23/2023: Continue current medications and tx plan. 12/22/2023: Continue current medications and tx plan. 12/21/2023: Increase nightly depakote to 750mg in the evening. 12/20/2023: Continue current medications and tx plan. 12/19/2023: Decrease Haloperidol to 2.5mg BID. Consult for oral surgery for tooth pain. 12/18/2023: Continue current medications and tx plan. 12/17/2023: Continue current medications and tx plan. Plan for VPA trough level tomorrow AM. 12/16/2023: Continue current medication and tx plan. 12/15/2023: Continue current medications and tx plan. 12/14/2023: Continue current medications and tx plan. 12/13/2023: Increase Depakote to 500mg BID. 12/12/2023: Continue current medications and tx plan. 12/11/2023: Bacitracin ointment BID and Tdap vaccine ordered. 12/10/2023: Increase Depakote DR 250mg qAM and 500mg qdinner. Plan to taper Klonopin in coming days if Depakote increase is well tolerated. 12/09/2023: Continue current medications and tx plan. Will consider transition to Depakote ER after trough level is back. Can consider transition to olanzapine if she continues to prefer this to haldol. 12/08/2023: Trough Depakote level tomorrow PM (12/09/23) 12/07/2023: Continue medications and treatment plan. 12/06/2023: Continue medications and treatment plan. 12/05/2023: Schedule Depakote/Haldol/Klonopin at dinner instead of bedtime. 12/04/2023: Continue current medications and tx plan. 12/03/2023: Continue current medications and tx plan. 12/02/2023: Start Depakote DR 500mg HS. 12/01/2023: Continue current medications and tx plan. Continuing to attempt to get urine sample for UPT. 11/30/2023: UPT ordered. Added Thorazine 25mg IM prn for agitation per her re quest for additional IM medication options. 11/29/2023: Continue current medications and tx plan. 11/28/2023: Continue current medications and tx plan. 11/27/2023: Discontinue Brenas and risperidone. Start haldol 5mg BID. 11/26/2023: Start Thorazine 12.5mg TID prn po for agitation. 11/25/2023: Decrease Clonazepam to 0.5mg HS. Encourage fluids. 11/24/2023: Start Brenas 300mg BID for mood lability. 11/23/2023: Continue medications and treatment plan. 11/22/2023: Increase risperidone to 1 mg every morning and 2 mg nightly. Continue clonazepam 1 mg at bedtime. Encourage fluids. STI and hepatitis panel. 11/21/2023: One-time lorazepam 2 mg p.o. for anxiety. Schedule risperidone 1 mg twice daily and clonazepam 1 mg at bedtime. Baseline EKG and labs: Free T4, free T3, A1c, lipid panel. Inventory Assets Strengths: able to express needs, accepting treatment Needs: social supports, mood control Suicide Risk Level Suicide Risk Level: Moderate (q15 min suicide checks) (one episode of voicing SI early in hospitalization but denying in recent weeks, stable mood, feels safe here, able to ask staff for support ) Risk Factors Assessment Male: No : Yes Do You Have Access To A Gun?: No Health Problems: No Mental Health Diagnoses: Yes Substance Use Disorders: Yes Previous Attempt: No Family History of Suicide: No Previous Psychiatric Hospitalization: Yes Hopelessness: No Protective Factors Assessment Sabianist Beliefs: No : No Responsible for Young Children: No Employed: No Stable Relationships: No Supportive Family: No Good Rapport with Provider: Yes Absence of Any Risk Factors Above: No Interval History Identifying Information Emilia Orta is a 28-year-old female unknown past history who was brought in by police after being found wandering the street by gas station. Patient presented pressured and tangential speech, memory impairment, and concern for psychosis. She was admitted on 11/21/23 09:58 on a 302 involuntary commitment for psychosis. Currently on 304 comittment. Chief Complaint "Little sleepy" Review of Systems Sleep Information Total Hours of Sleep: 6 Sleep Comments: ANGEL LUIS Andre Meal Information Percent Meal Consumed - Breakfast: 100 Percent Meal Consumed - Lunch: 75 Percent Meal Consumed - Dinner: 100 Subjective Subjective Patient was seen & assessed and interval progress reviewed with treatment team nursing and social work Patient reports sleeping 6 hours and took a nap this morning. Update from social science research assistant indicates [facility] provide intake date for EAC later this week. Patient reports feeling a little sleepy this morning and is also taking a nap due to boredom. Reports conversation with her aunt went well yesterday. Reports last speaking to her aunt in October. When I clarified the timeline of her family not being with reach her for the past 2 years she says that it is a blur. Reports her vision is "okay". Says she has some dizziness when getting up suddenly from bed but otherwise has not noticed any problems with her gait or lightheadedness. Physical Exam Mental Examination Appearance: Well Groomed Eye Contact: Maintains Eye Contact Motor Behavior: Unremarkable Speech: Circumstantial and Rambling Mood: Euthymic Affect: Congruent and Labile Thought Process: Intact and Linear Thought Content: Intact and Disorganized (at times) Hallucinations: None Insight: Fair (improved) Judgement: Fair Vital Signs (Past 24 Hours) Last Vital Signs Temp 36.2 C L 01/09/24 02:27 Pulse 128 H 01/09/24 02:27 Resp 16 01/09/24 02:27 BP 105/71 01/09/24 02:27 Pulse Ox 99 01/09/24 02:27 O2 Del Method Room Air 01/09/24 02:27 Results & Data ([facility]) Current Inpatient Medications Current Inpatient Medications: Current Inpatient Medications Acetaminophen (Acetaminophen 325 Mg Tab) 650 mg PO Q4H PRN PRN Reason: tooth pain Stop: 01/24/24 09:14 Last Admin: 12/31/23 05:44 Dose: 650 mg Al Hydrox/Mg Hydrox/Simethicone (Aluminum/Magnesium Susp 30 Ml Udc) 30 ml PO Q4H PRN PRN Reason: GI Upset Stop: 01/20/24 11:19 Bismuth Subsalicylate (Bismuth Subsalicylate Liqd 236 Ml) 15 ml PO PRN PRN PRN Reason: Loose Stool Stop: 01/20/24 11:19 Clonazepam (Clonazepam 0.5 Mg Tab) 0.25 mg PO HS JEREMIAH Stop: 02/06/24 21:59 Last Admin: 01/08/24 21:02 Dose: 0.25 mg Divalproex Sodium (Divalproex Delay Release 500 Mg Tab) 2,000 mg PO QDD JEREMIAH Stop: 02/08/24 17:44 Haloperidol (Haloperidol 5 Mg Tab) 5 mg PO Q8H PRN PRN Reason: Agitation Stop: 01/18/24 11:57 Last Admin: 01/01/24 10:46 Dose: 5 mg Hydroxyzine HCl (Hydroxyzine Hcl 25 Mg Tab) 50 mg PO HSZ PRN PRN Reason: Insomnia Stop: 01/20/24 11:19 Last Admin: 12/29/23 19:00 Dose: 50 mg Hydroxyzine HCl (Hydroxyzine Hcl 25 Mg Tab) 25 mg PO Q4H PRN PRN Reason: Anxiety Stop: 01/20/24 11:19 Last Admin: 01/06/24 17:35 Dose: 25 mg Ibuprofen (Ibuprofen 600 Mg Tab) 600 mg PO QID PRN PRN Reason: Pain Stop: 01/24/24 12:59 Last Admin: 01/02/24 17:22 Dose: 600 mg Lorazepam (Lorazepam 0.5 Mg Tab) 0.5 mg PO BID PRN PRN Reason: cyrus/agitation Stop: 01/31/24 10:36 Last Admin: 01/01/24 10:46 Dose: 0.5 mg Magnesium Hydroxide (Magnesium Hydroxide Susp 30 Ml Udc) 30 ml PO DAILY PRN PRN Reason: Constipation Stop: 01/20/24 11:19 Miscellaneous (Remove Nicoderm Patch) 1 each N/A DAILY@0859 [facility] Stop: 01/21/24 15:59 Last Admin: 01/09/24 08:37 Dose: 1 each Multivitamins/Minerals (Cerovite Adv Formula Tab) 1 tab PO QAM [facility] Stop: 01/31/24 09:14 Last Admin: 01/09/24 08:37 Dose: 1 tab Nicotine (Nicotine 14 Mg/24 Hr Patch) 1 patch TD QAM [facility] Stop: 01/21/24 15:59 Last Admin: 01/09/24 08:36 Dose: 1 patch Nicotine Polacrilex (Nicotine Polacrilex 2 Mg Gum) 1 piece MT Q2H PRN PRN Reason: nicotine cravings Stop: 01/25/24 09:29 Last Admin: 01/09/24 10:48 Dose: 1 piece Sodium Chloride (Sodium Chloride 0.65% Na Soln 45 Ml (Door)) 1 - 2 sprays NA PRN PRN PRN Reason: Nasal Dryness/Congestion Stop: 01/20/24 11:19 Mental Health & Subst Abuse Tx Psychiatrist Name of Psychiatrist: Sara Duque [facility] Psychiatrist's Psychiatric Appointment Comment: [address], [address], [facility] [address] Therapist Name of Therapist: denies Elementary Instructional Coach Name of Elementary Instructional Coach: denies Post Discharge Appointments Primary Care Physician Name Of Family Doctor/PCP: Sara Duque [facility] Primary Care Provider Appointment Comment: [address], [address], [facility] [address]
[2024-01-09] MEDS: DIVALPROEX DELAY RELEASE 500 MG TAB PO SCH (17:23)
--- NOTE | 2024-01-10 14:05 | Psychiatric Progress Note ---
Date of Service January 10, 2024 Impression / Recommendations Impression Emilia Orta is a 28-year-old female unknown past history who was brought in by police after being found wandering the street by gas station. Patient presented pressured and tangential speech, memory impairment, and concern for psychosis. She was admitted on 11/21/23 09:58 on a 302 involuntary commitment for psychosis, now on a 304 commitment. Diagnostically consistent with unspecified psychosis- suspect schizoaffective disorder and possible methamphetamine induced psychosis as well as manic episode on admission. Collateral notable for periods of prolonged heavy methamphetamine use, particularly smoked methamphetamine, other polysubstance use, second-degree relative with a primary psychotic disorder, and presentation of a disorganized tangential thought process with concern for tactile disturbances and delusional thoughts there is a strong suspicion for methamphetamine induced psychotic disorder in the setting of severe methamphetamine use disorder vs schizophrenia vs bipolar affective disorder current manic episode. Patient has demonstrated significant dysfunction evidenced by recurrent legal troubles, persistent symptoms, recurrent hospitalizations, poor insight, inability to maintain sta bility in the community, and continued drug dependence. A: Patient is sleeping well and is future oriented. Given concern for excess sedation will discontinue nightly Klonopin. We will redraw Depakote trough level tonight to assure therapeutic range. COVID test ordered for EAC acceptance. Overall, I spent a total of 30 minutes with this case including review of chart records, nursing report, review of lab work, direct evaluation of the patient at bedside, counseling the patient, orders, gathering collateral documentation in the electronic health record. 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 Depakote level tonight. Rapid COVID test. 01/09/2024: Discontinue a.m. Depakote, increased nightly Depakote ER to 2000 mg at bedtime. 01/08/2024: Continue medications and treatment plan. 01/07/2024: Decrease nightly clonazepam to 0.25 mg at bedtime. Continue medications and treatment plan. 01/06/2024: Continue medications and treatment plan. 01/05/2024: Continue current medications and tx plan. 01/04/2024: Increase Depakote DR to 500mg qAM and 1500mg HS 01/03/2024: Depakote level tomorrow AM. 01/02/2024:Received Invega Sustenna 156mg STEINER 01/01/2024: -Plan for Invega Sustenna 156mg STEINER tomorrow -Lorazepam 0.5mg BID prn for cyrus/agitation added -Recheck Depakote level in 3 days 12/31/2023: -Shift and increase Klonopin to 0.5mg HS -Increase Depakote DR to 500mg qAM and 1000mg daily with dinner. 12/30/2023: Start melatonin 3mg HS. Received Invega Sustenna 234mg STEINER 12/29/2023: Invega Sustenna 234mg STEINER scheduled for tomorrow. After that will discontinue Invega po. Subsequent dose will then be for 156mg STEINER on 01/06/2024 12/28/2023: Reduce Klonopin. Continue Invega and other medications. 12/27/2023: Will move Klonopin from late afternoon to AM to help address her concerns for anxiety during the day. Stopping haldol and starting Invega 3mg BID po as first step for eventual transition to STEINER for mood stabilization and psychosis per her preference to lessen po medications. 12/26/2023: Continue current medications and tx plan. 12/25/2023: Continue current medications and tx plan. 12/24/2023: Continue current medications and tx plan. 12/23/2023: Continue current medications and tx plan. 12/22/2023: Continue current medications and tx plan. 12/21/2023: Increase nightly depakote to 750mg in the evening. 12/20/2023: Continue current medications and tx plan. 12/19/2023: Decrease Haloperidol to 2.5mg BID. Consult for oral surgery for tooth pain. 12/18/2023: Continue current medications and tx plan. 12/17/2023: Continue current medications and tx plan. Plan for VPA trough level tomorrow AM. 12/16/2023: Continue current medication and tx plan. 12/15/2023: Continue current medications and tx plan. 12/14/2023: Continue current medications and tx plan. 12/13/2023: Increase Depakote to 500mg BID. 12/12/2023: Continue current medications and tx plan. 12/11/2023: Bacitracin ointment BID and Tdap vaccine ordered. 12/10/2023: Increase Depakote DR 250mg qAM and 500mg qdinner. Plan to taper Klonopin in coming days if Depakote increase is well tolerated. 12/09/2023: Continue current medications and tx plan. Will consider transition to Depakote ER after trough level is back. Can consider transition to olanzapine if she continues to prefer this to haldol. 12/08/2023: Trough Depakote level tomorrow PM (12/09/23) 12/07/2023: Continue medications and treatment plan. 12/06/2023: Continue medications and treatment plan. 12/05/2023: Schedule Depakote/Haldol/Klonopin at dinner instead of bedtime. 12/04/2023: Continue current medications and tx plan. 12/03/2023: Continue current medications and tx plan. 12/02/2023: Start Depakote DR 500mg HS. 12/01/2023: Continue current medications and tx plan. Continuing to attempt to get urine sample for UPT. 11/30/2023: UPT ordered. Added Thorazine 25mg IM prn for agitation per her request for additional IM medication options. 11/29/2023: Continue current medications and tx plan. 11/28/2023: Continue current medications and tx plan. 11/27/2023: Discontinue Uvalda and risperidone. Start haldol 5mg BID. 11/26/2023: Start Thorazine 12.5mg TID prn po for agitation. 11/25/2023: Decrease Clonazepam to 0.5mg HS. Encourage fluids. 11/24/2023: Start Uvalda 300mg BID for mood lability. 11/23/2023: Continue medications and treatment plan. 11/22/2023: Increase risperidone to 1 mg every morning and 2 mg nightly. Continue clonazepam 1 mg at bedtime. Encourage fluids. STI and hepatitis panel. 11/21/2023: One-time lorazepam 2 mg p.o. for anxiety. Schedule risperidone 1 mg twice daily and clonazepam 1 mg at bedtime. Baseline EKG and labs: Free T4, free T3, A1c, lipid panel. Inventory Assets Strengths: able to express needs, accepting treatment Needs: social supports, mood control Suicide Risk Level Suicide Risk Level: Moderate (q15 min suicide checks) (one episode of voicing SI early in hospitalization but denying in recent weeks, stable mood, feels safe here, able to ask staff for support ) Risk Factors Assessment Male: No : Yes Do You Have Access To A Gun?: No Health Problems: No Mental Health Diagnoses: Yes Substance Use Disorders: Yes Previous Attempt: No Family History of Suicide: No Previous Psychiatric Hospitalization: Yes Hopelessness: No Protective Factors Assessment Jewish Beliefs: No : No Responsible for Young Children: No Employed: No Stable Relationships: No Supportive Family: No Good Rapport with Provider: Yes Absence of Any Risk Factors Above: No Interval History Identifying Information Emilia Orta is a 28-year-old female unknown past history who was brought in by police after being found wandering the street by gas station. Patient presented pressured and tangential speech, memory impairment, and concern for psychosis. She was admitted on 11/21/23 09:58 on a 302 involuntary commitment for psychosis. Currently on 304 comittment. Chief Complaint "Optimistic" Review of Systems Sleep Information Total Hours of Sleep: 8 Sleep Comments: ANGEL LUIS Andre Meal Information Percent Meal Consumed - Breakfast: 100 Percent Meal Consumed - Lunch: 75 Percent Meal Consumed - Dinner: 100 Subjective Subjective Patient was seen & assessed and interval progress reviewed with treatment team nursing and social work Patient reports sleeping well. We discussed challenges that will come up in her next placement. Complains of feeling anxious but "optimistic". Counseled on what a stepdown unit may look like. Says the current hospitalization is more for mental health but she wants to focus on "recovery." Physical Exam Mental Examination Appearance: Well Groomed Eye Contact: Maintains Eye Contact Motor Behavior: Unremarkable Speech: Circumstantial and Rambling Mood: Euthymic Affect: Congruent and Labile Thought Process: Intact and Linear Thought Content: Intact and Disorganized (at times) Hallucinations: None Insight: Fair (improved) Judgement: Fair Vital Signs (Past 24 Hours) Last Vital Signs Temp 36.0 C L 01/10/24 06:00 Pulse 80 01/10/24 06:22 Resp 16 01/10/24 06:00 BP 92/60 L 01/10/24 06:22 Pulse Ox 99 01/09/24 02:27 O2 Del Method Room Air 01/09/24 02:27 Results & Data ([facility]) Current Inpatient Medications Current Inpatient Medications: Current Inpatient Medications Acetaminophen (Acetaminophen 325 Mg Tab) 650 mg PO Q4H PRN PRN Reason: tooth pain Stop: 01/24/24 09:14 Last Admin: 12/31/23 05:44 Dose: 650 mg Al Hydrox/Mg Hydrox/Simethicone (Aluminum/Magnesium Susp 30 Ml Udc) 30 ml PO Q4H PRN PRN Reason: GI Upset Stop: 01/20/24 11:19 Bismuth Subsalicylate (Bismuth Subsalicylate Liqd 236 Ml) 15 ml PO PRN PRN PRN Reason: Loose Stool Stop: 01/20/24 11:19 Divalproex Sodium (Divalproex Delay Release 500 Mg Tab) 2,000 mg PO QDD JEREMIAH Stop: 02/08/24 17:44 Last Admin: 01/09/24 17:23 Dose: 2,000 mg Haloperidol (Haloperidol 5 Mg Tab) 5 mg PO Q8H PRN PRN Reason: Agitation Stop: 01/18/24 11:57 Last Admin: 01/01/24 10:46 Dose: 5 mg Hydroxyzine HCl (Hydroxyzine Hcl 25 Mg Tab) 50 mg PO HSZ PRN PRN Reason: Insomnia Stop: 01/20/24 11:19 Last Admin: 01/10/24 02:43 Dose: 50 mg Hydroxyzine HCl (Hydroxyzine Hcl 25 Mg Tab) 25 mg PO Q4H PRN PRN Reason: Anxiety Stop: 01/20/24 11:19 Last Admin: 01/06/24 17:35 Dose: 25 mg Ibuprofen (Ibuprofen 600 Mg Tab) 600 mg PO QID PRN PRN Reason: Pain Stop: 01/24/24 12:59 Last Admin: 01/02/24 17:22 Dose: 600 mg Lorazepam (Lorazepam 0.5 Mg Tab) 0.5 mg PO BID PRN PRN Reason: cyrus/agitation Stop: 01/31/24 10:36 Last Admin: 01/01/24 10:46 Dose: 0.5 mg Magnesium Hydroxide (Magnesium Hydroxide Susp 30 Ml Udc) 30 ml PO DAILY PRN PRN Reason: Constipation Stop: 01/20/24 11:19 Miscellaneous (Remove Nicoderm Patch) 1 each N/A DAILY@0859 [facility] Stop: 01/21/24 15:59 Last Admin: 01/10/24 08:45 Dose: 1 each Multivitamins/Minerals (Cerovite Adv Formula Tab) 1 tab PO QAM [facility] Stop: 01/31/24 09:14 Last Admin: 01/10/24 08:45 Dose: 1 tab Nicotine (Nicotine 14 Mg/24 Hr Patch) 1 patch TD QAM [facility] Stop: 01/21/24 15:59 Last Admin: 01/10/24 08:45 Dose: 1 patch Nicotine Polacrilex (Nicotine Polacrilex 2 Mg Gum) 1 piece MT Q2H PRN PRN Reason: nicotine cravings Stop: 01/25/24 09:29 Last Admin: 01/09/24 19:13 Dose: 1 piece Sodium Chloride (Sodium Chloride 0.65% Na Soln 45 Ml (Deuel)) 1 - 2 sprays NA PRN PRN PRN Reason: Nasal Dryness/Congestion Stop: 01/20/24 11:19 Mental Health & Subst Abuse Tx Psychiatrist Name of Psychiatrist: Sara Duque [facility] Psychiatrist's Psychiatric Appointment Comment: [address], [address], [facility] [address] Therapist Name of Therapist: denies Application Developer Name of Application Developer: denies Post Discharge Appointments Primary Care Physician Name Of Family Doctor/PCP: Sara Duque [facility] Primary Care Provider Appointment Comment: [id number], [address], [place] [address]
--- NOTE | 2024-01-11 12:10 | Psychiatric Progress Note ---
Date of Service January 11, 2024 Impression / Recommendations Impression Emilia Orta is a 28-year-old female unknown past history who was brought in by police after being found wandering the street by gas station. Patient presented pressured and tangential speech, memory impairment, and concern for psychosis. She was admitted on 11/21/23 09:58 on a 302 involuntary commitment for psychosis, now on a 304 commitment. Diagnostically consistent with unspecified psychosis- suspect schizoaffective disorder and possible methamphetamine induced psychosis as well as manic episode on admission. Collateral notable for periods of prolonged heavy methamphetamine use, particularly smoked methamphetamine, other polysubstance use, second-degree relative with a primary psychotic disorder, and presentation of a disorganized tangential thought process with concern for tactile disturbances and delusional thoughts there is a strong suspicion for methamphetamine induced psychotic disorder in the setting of severe methamphetamine use disorder vs schizophrenia vs bipolar affective disorder current manic episode. Patient has demonstrated significant dysfunction evidenced by recurrent legal troubles, persistent symptoms, recurrent hospitalizations, poor insight, inability to maintain sta bility in the community, and continued drug dependence. A: Patient is presenting stable mood and gradually more linear thought process. Has some sleep onset insomnia however is able to maintain sleep. Is future oriented and is planning disposition. Depakote level resulted at 83 and we will plan to continue current dose after discussion with patient. EAC admission pending. Overall, I spent a total of 30 minutes with this case including review of chart records, nursing report, review of lab work, direct evaluation of the patient at bedside, counseling the patient, orders, documentation in the electronic health record. 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 01/10/2024: Discontinue nightly clonazepam. Depakote level tonight. Rapid COVID test. 01/09/2024: Discontinue a.m. Depakote, increased nightly Depakote ER to 2000 mg at bedtime. 01/08/2024: Continue medications and treatment plan. 01/07/2024: Decrease nightly clonazepam to 0.25 mg at bedtime. Continue medications and treatment plan. 01/06/2024: Continue medications and treatment plan. 01/05/2024: Continue current medications and tx plan. 01/04/2024: Increase Depakote DR to 500mg qAM and 1500mg HS 01/03/2024: Depakote level tomorrow AM. 01/02/2024:Received Invega Sustenna 156mg STEINER 01/01/2024: -Plan for Invega Sustenna 156mg STEINER tomorrow -Lorazepam 0.5mg BID prn for cyrus/agitation added -Recheck Depakote level in 3 days 12/31/2023: -Shift and increase Klonopin to 0.5mg HS -Increase Depakote DR to 500mg qAM and 1000mg daily with dinner. 12/30/2023: Start melatonin 3mg HS. Received Invega Sustenna 234mg STEINER 12/29/2023: Invega Sustenna 234mg STEINER scheduled for tomorrow. After that will discontinue Invega po. Subsequent dose will then be for 156mg STEINER on 01/06/2024 12/28/2023: Reduce Klonopin. Continue Invega and other medications. 12/27/2023: Will move Klonopin from late afternoon to AM to help address her concerns for anxiety during the day. Stopping haldol and starting Invega 3mg BID po as first step for eventual transition to STEINER for mood stabilization and psychosis per her preference to lessen po medications. 12/26/2023: Continue current medications and tx plan. 12/25/2023: Continue current medications and tx plan. 12/24/2023: Continue current medications and tx plan. 12/23/2023: Continue current medications and tx plan. 12/22/2023: Continue current medications and tx plan. 12/21/2023: Increase nightly depakote to 750mg in the evening. 12/20/2023: Continue current medications and tx plan. 12/19/2023: Decrease Haloperidol to 2.5mg BID. Consult for oral surgery for tooth pain. 12/18/2023: Continue current medications and tx plan. 12/17/2023: Continue current medications and tx plan. Plan for VPA trough level tomorrow AM. 12/16/2023: Continue current medication and tx plan. 12/15/2023: Continue current medications and tx plan. 12/14/2023: Continue current medications and tx plan. 12/13/2023: Increase Depakote to 500mg BID. 12/12/2023: Continue current medications and tx plan. 12/11/2023: Bacitracin ointment BID and Tdap vaccine ordered. 12/10/2023: Increase Depakote DR 250mg qAM and 500mg qdinner. Plan to taper Klonopin in coming days if Depakote increase is well tolerated. 12/09/2023: Continue current medications and tx plan. Will consider transition to Depakote ER after trough level is back. Can consider transition to olanzapine if she continues to prefer this to haldol. 12/08/2023: Trough Depakote level tomorrow PM (12/09/23) 12/07/2023: Continue medications and treatment plan. 12/06/2023: Continue medications and treatment plan. 12/05/2023: Schedule Depakote/Haldol/Klonopin at dinner instead of bedtime. 12/04/2023: Continue current medications and tx plan. 12/03/2023: Continue current medications and tx plan. 12/02/2023: Start Depakote DR 500mg HS. 12/01/2023: Continue current medications and tx plan. Continuing to attempt to get urine sample for UPT. 11/30/2023: UPT ordered. Added Thorazine 25mg IM prn for agitation per her request for additional IM medication options. 11/29/2023: Continue current medications and tx plan. 11/28/2023: Continue current medications and tx plan. 11/27/2023: Discontinue [place] and risperidone. Start haldol 5mg BID. 11/26/2023: Start Thorazine 12.5mg TID prn po for agitation. 11/25/2023: Decrease Clonazepam to 0.5mg HS. Encourage fluids. 11/24/2023: Start [place] 300mg BID for mood lability. 11/23/2023: Continue medications and treatment plan. 11/22/2023: Increase risperidone to 1 mg every morning and 2 mg nightly. Continue clonazepam 1 mg at bedtime. Encourage fluids. STI and hepatitis panel. 11/21/2023: One-time lorazepam 2 mg p.o. for anxiety. Schedule risperidone 1 mg twice daily and clonazepam 1 mg at bedtime. Baseline EKG and labs: Free T4, free T3, A1c, lipid panel. Inventory Assets Strengths: able to express needs, accepting treatment Needs: social supports, mood control Suicide Risk Level Suicide Risk Level: Moderate (q15 min suicide checks) (one episode of voicing SI early in hospitalization but denying in recent weeks, stable mood, feels safe here, able to ask staff for support ) Risk Factors Assessment Male: No : Yes Do You Have Access To A Gun?: No Health Problems: No Mental Health Diagnoses: Yes Substance Use Disorders: Yes Previous Attempt: No Family History of Suicide: No Previous Psychiatric Hospitalization: Yes Hopelessness: No Protective Factors Assessment Anabaptism Beliefs: No : No Responsible for Young Children: No Employed: No Stable Relationships: No Supportive Family: No Good Rapport with Provider: Yes Absence of Any Risk Factors Above: No Interval History Identifying Information Emilia Orta is a 28-year-old female unknown past history who was brought in by police after being found wandering the street by gas station. Patient presented pressured and tangential speech, memory impairment, and concern for psychosis. She was admitted on 11/21/23 09:58 on a 302 involuntary commitment for psychosis. Currently on 304 comittment. Chief Complaint "Trouble falling asleep" Review of Systems Sleep Information Total Hours of Sleep: 6.30 Sleep Comments: PRN Vistaril Meal Information Percent Meal Consumed - Breakfast: 100 Percent Meal Consumed - Lunch: 100 Percent Meal Consumed - Dinner: 100 Subjective Subjective Patient was seen & assessed and interval progress reviewed with treatment team nursing and social work Patient reports sleeping well. Reports having trouble sleeping initially and taking 30 minutes to an hour but then can stay asleep. Feels rested. Says that she needs some "counselor, psychiatrist" that she sees regularly. Reports that she learned in therapy that she needs to be more assertive and less impulsive. Discussed recent discontinuation of Klonopin and wants to continue current dose of Depakote. Reports she has been adhering to a good diet and avoiding excess sugars. Updated about care plan and reassured. Physical Exam Mental Examination Appearance: Well Groomed Eye Contact: Maintains Eye Contact Motor Behavior: Unremarkable Speech: Circumstantial and Rambling Mood: Euthymic Affect: Congruent and Labile Thought Process: Intact and Linear Thought Content: Intact and Disorganized (at times) Hallucinations: None Insight: Fair (improved) Judgement: Fair Vital Signs (Past 24 Hours) Last Vital Signs Temp 36.2 C L 01/11/24 06:00 Pulse 83 01/11/24 06:15 Resp 16 01/11/24 06:00 BP 86/59 L 01/11/24 06:15 Pulse Ox 99 01/09/24 02:27 O2 Del Method Room Air 01/09/24 02:27 Results & Data ([facility]) Laboratory Results Laboratory Results - last 24 hr 01/10/24 15:59 Valproic Acid 83 Current Inpatient Medications Current Inpatient Medications: Current Inpatient Medications Acetaminophen (Acetaminophen 325 Mg Tab) 650 mg PO Q4H PRN PRN Reason: tooth pain Stop: 01/24/24 09:14 Last Admin: 12/31/23 05:44 Dose: 650 mg Al Hydrox/Mg Hydrox/Simethicone (Aluminum/Magnesium Susp 30 Ml Udc) 30 ml PO Q4H PRN PRN Reason: GI Upset Stop: 01/20/24 11:19 Bismuth Subsalicylate (Bismuth Subsalicylate Liqd 236 Ml) 15 ml PO PRN PRN PRN Reason: Loose Stool Stop: 01/20/24 11:19 Divalproex Sodium (Divalproex Delay Release 500 Mg Tab) 2,000 mg PO QDD JEREMIAH Stop: 02/08/24 17:44 Last Admin: 01/10/24 17:12 Dose: 2,000 mg Haloperidol (Haloperidol 5 Mg Tab) 5 mg PO Q8H PRN PRN Reason: Agitation Stop: 01/18/24 11:57 Last Admin: 01/01/24 10:46 Dose: 5 mg Hydroxyzine HCl (Hydroxyzine Hcl 25 Mg Tab) 50 mg PO HSZ PRN PRN Reason: Insomnia Stop: 01/20/24 11:19 Last Admin: 01/10/24 21:09 Dose: 50 mg Hydroxyzine HCl (Hydroxyzine Hcl 25 Mg Tab) 25 mg PO Q4H PRN PRN Reason: Anxiety Stop: 01/20/24 11:19 Last Admin: 01/06/24 17:35 Dose: 25 mg Ibuprofen (Ibuprofen 600 Mg Tab) 600 mg PO QID PRN PRN Reason: Pain Stop: 01/24/24 12:59 Last Admin: 01/02/24 17:22 Dose: 600 mg Lorazepam (Lorazepam 0.5 Mg Tab) 0.5 mg PO BID PRN PRN Reason: cyrus/agitation Stop: 01/31/24 10:36 Last Admin: 01/01/24 10:46 Dose: 0.5 mg Magnesium Hydroxide (Magnesium Hydroxide Susp 30 Ml Udc) 30 ml PO DAILY PRN PRN Reason: Constipation Stop: 01/20/24 11:19 Miscellaneous (Remove Nicoderm Patch) 1 each N/A DAILY@0859 [facility] Stop: 01/21/24 15:59 Last Admin: 01/11/24 09:06 Dose: Not Given Multivitamins/Minerals (Cerovite Adv Formula Tab) 1 tab PO QAM [facility] Stop: 01/31/24 09:14 Last Admin: 01/11/24 09:03 Dose: 1 tab Nicotine (Nicotine 14 Mg/24 Hr Patch) 1 patch TD QAM [facility] Stop: 01/21/24 15:59 Last Admin: 01/11/24 09:04 Dose: 1 patch Nicotine Polacrilex (Nicotine Polacrilex 2 Mg Gum) 1 piece MT Q2H PRN PRN Reason: nicotine cravings Stop: 01/25/24 09:29 Last Admin: 01/11/24 11:14 Dose: 1 piece Sodium Chloride (Sodium Chloride 0.65% Na Soln 45 Ml ([place])) 1 - 2 sprays NA PRN PRN PRN Reason: Nasal Dryness/Congestion Stop: 01/20/24 11:19 Mental Health & Subst Abuse Tx Psychiatrist Name of Psychiatrist: Sara Duque [facility] Psychiatrist's Psychiatric Appointment Comment: [address], [address], [facility] [address] Therapist Name of Therapist: denies Scrap Hoist Operator Name of Scrap Hoist Operator: denies Post Discharge Appointments Primary Care Physician Name Of Family Doctor/PCP: Sara Duque [facility] Primary Care Provider Appointment Comment: [address], [address], [place] [address]
--- NOTE | 2024-01-12 12:43 | Psychiatric Progress Note ---
Date of Service January 12, 2024 Impression / Recommendations Impression Emilia Orta is a 28-year-old female unknown past history who was brought in by police after being found wandering the street by gas station. Patient presented pressured and tangential speech, memory impairment, and concern for psychosis. She was admitted on 11/21/23 09:58 on a 302 involuntary commitment for psychosis, now on a 304 commitment. Diagnostically consistent with unspecified psychosis- suspect schizoaffective disorder and possible methamphetamine induced psychosis as well as manic episode on admission. Collateral notable for periods of prolonged heavy methamphetamine use, particularly smoked methamphetamine, other polysubstance use, second-degree relative with a primary psychotic disorder, and presentation of a disorganized tangential thought process with concern for tactile disturbances and delusional thoughts there is a strong suspicion for methamphetamine induced psychotic disorder in the setting of severe methamphetamine use disorder vs schizophrenia vs bipolar affective disorder current manic episode. Patient has demonstrated significant dysfunction evidenced by recurrent legal troubles, persistent symptoms, recurrent hospitalizations, poor insight, inability to maintain sta bility in the community, and continued drug dependence. A: Patient is future oriented and optimistic. Discussed management of distressing emotions and benefits of continuing the treatment plan including medication adherence and sobriety. Concern for hypotension from Depakote and will lower dose slightly. Overall, I spent a total of 30 minutes with this case including review of chart records, nursing report, review of lab work, direct evaluation of the patient at bedside, counseling the patient, orders, documentation in the electronic health record. 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 01/10/2024: Discontinue nightly clonazepam. Depakote level tonight. Rapid COVID test. 01/09/2024: Discontinue a.m. Depakote, increased nightly Depakote ER to 2000 mg at bedtime. 01/08/2024: Continue medications and treatment plan. 01/07/2024: Decrease nightly clonazepam to 0.25 mg at bedtime. Continue medications and treatment plan. 01/06/2024: Continue medications and treatment plan. 01/05/2024: Continue current medications and tx plan. 01/04/2024: Increase Depakote DR to 500mg qAM and 1500mg HS 01/03/2024: Depakote level tomorrow AM. 01/02/2024:Received Invega Sustenna 156mg STEINER 01/01/2024: -Plan for Invega Sustenna 156mg STEINER tomorrow -Lorazepam 0.5mg BID prn for cyrus/agitation added -Recheck Depakote level in 3 days 12/31/2023: -Shift and increase Klonopin to 0.5mg HS -Increase Depakote DR to 500mg qAM and 1000mg daily with dinner. 12/30/2023: Start melatonin 3mg HS. Received Invega Sustenna 234mg STEINER 12/29/2023: Invega Sustenna 234mg [place]IN[place] scheduled for tomorrow. After that will discontinue Invega po. Subsequent dose will then be for 156mg [place]IN[place] on 01/06/2024 12/28/2023: Reduce Klonopin. Continue Invega and other medications. 12/27/2023: Will move Klonopin from late afternoon to AM to help address her concerns for anxiety during the day. Stopping haldol and starting Invega 3mg BID po as first step for eventual transition to STEINER for mood stabilization and psychosis per her preference to lessen po medications. 12/26/2023: Continue current medications and tx plan. 12/25/2023: Continue current medications and tx plan. 12/24/2023: Continue current medications and tx plan. 12/23/2023: Continue current medications and tx plan. 12/22/2023: Continue current medications and tx plan. 12/21/2023: Increase nightly depakote to 750mg in the evening. 12/20/2023: Continue current medications and tx plan. 12/19/2023: Decrease Haloperidol to 2.5mg BID. Consult for oral surgery for tooth pain. 12/18/2023: Continue current medications and tx plan. 12/17/2023: Continue current medications and tx plan. Plan for VPA trough level tomorrow AM. 12/16/2023: Continue current medication and tx plan. 12/15/2023: Continue current medications and tx plan. 12/14/2023: Continue current medications and tx plan. 12/13/2023: Increase Depakote to 500mg BID. 12/12/2023: Continue current medications and tx plan. 12/11/2023: Bacitracin ointment BID and Tdap vaccine ordered. 12/10/2023: Increase Depakote DR 250mg qAM and 500mg qdinner. Plan to taper Klonopin in coming days if Depakote increase is well tolerated. 12/09/2023: Continue current medications and tx plan. Will consider transition to Depakote ER after trough level is back. Can consider transition to olanzapine if she continues to prefer this to haldol. 12/08/2023: Trough Depakote level tomorrow PM (12/09/23) 12/07/2023: Continue medications and treatment plan. 12/06/2023: Continue medications and treatment plan. 12/05/2023: Schedule Depakote/Haldol/Klonopin at dinner instead of bedtime. 12/04/2023: Continue current medications and tx plan. 12/03/2023: Continue current medications and tx plan. 12/02/2023: Start Depakote DR 500mg HS. 12/01/2023: Continue current medications and tx plan. Continuing to attempt to get urine sample for UPT. 11/30/2023: UPT ordered. Added Thorazine 25mg IM prn for agitation per her request for additional IM medication options. 11/29/2023: Continue current medications and tx plan. 11/28/2023: Continue current medications and tx plan. 11/27/2023: Discontinue [place] and risperidone. Start haldol 5mg BID. 11/26/2023: Start Thorazine 12.5mg TID prn po for agitation. 11/25/2023: Decrease Clonazepam to 0.5mg HS. Encourage fluids. 11/24/2023: Start [place] 300mg BID for mood lability. 11/23/2023: Continue medications and treatment plan. 11/22/2023: Increase risperidone to 1 mg every morning and 2 mg nightly. Continue clonazepam 1 mg at bedtime. Encourage fluids. STI and hepatitis panel. 11/21/2023: One-time lorazepam 2 mg p.o. for anxiety. Schedule risperidone 1 mg twice daily and clonazepam 1 mg at bedtime. Baseline EKG and labs: Free T4, free T3, A1c, lipid panel. Inventory Assets Strengths: able to express needs, accepting treatment Needs: social supports, mood control Suicide Risk Level Suicide Risk Level: Moderate (q15 min suicide checks) (one episode of voicing SI early in hospitalization but denying in recent weeks, stable mood, feels safe here, able to ask staff for support ) Risk Factors Assessment Male: No : Yes Do You Have Access To A Gun?: No Health Problems: No Mental Health Diagnoses: Yes Substance Use Disorders: Yes Previous Attempt: No Family History of Suicide: No Previous Psychiatric Hospitalization: Yes Hopelessness: No Protective Factors Assessment Faith Beliefs: No : No Responsible for Young Children: No Employed: No Stable Relationships: No Supportive Family: No Good Rapport with Provider: Yes Absence of Any Risk Factors Above: No Interval History Identifying Information Emilia Orta is a 28-year-old female unknown past history who was brought in by police after being found wandering the street by gas station. Patient presented pressured and tangential speech, memory impairment, and concern for psychosis. She was admitted on 11/21/23 09:58 on a 302 involuntary commitment for psychosis. Currently on 304 comittment. Chief Complaint "Doing well" Review of Systems Sleep Information Total Hours of Sleep: 7.75 Sleep Comments: PRN Vistaril Meal Information Percent Meal Consumed - Breakfast: 100 Percent Meal Consumed - Lunch: 100 Percent Meal Consumed - Dinner: 100 Subjective Subjective Patient was seen & assessed and interval progress reviewed with treatment team nursing and social work Pt discusses that cousins and aunt are moving to [place]. Reports 8-10 yrs ago her family fell apart after aunt and uncle . Both are "Drunks" and have their own problems. She grew up with her aunt and uncle and are close to their children. She recounts the children's names. After the divorce they moved to [place] and family lost touch. Denies SI. Reports being "little hyper" and trying to handle her emotions. Became tearful when she saw the pile of clothes for her. Physical Exam Mental Examination Appearance: Well Groomed Eye Contact: Maintains Eye Contact Motor Behavior: Unremarkable Speech: Circumstantial and Rambling Mood: Euthymic Affect: Congruent and Labile Thought Process: Intact and Linear Thought Content: Intact and Disorganized (at times) Hallucinations: None Insight: Fair (improved) Judgement: Fair Vital Signs (Past 24 Hours) Last Vital Signs Temp 36.5 C 01/12/24 06:45 Pulse 80 01/12/24 06:46 Resp 16 01/12/24 06:45 BP 80/50 L 01/12/24 06:46 Pulse Ox 99 01/09/24 02:27 O2 Del Method Room Air 01/09/24 02:27 Results & Data ([facility]) Current Inpatient Medications Current Inpatient Medications: Current Inpatient Medications Acetaminophen (Acetaminophen 325 Mg Tab) 650 mg PO Q4H PRN PRN Reason: tooth pain Stop: 01/24/24 09:14 Last Admin: 12/31/23 05:44 Dose: 650 mg Al Hydrox/Mg Hydrox/Simethicone (Aluminum/Magnesium Susp 30 Ml Udc) 30 ml PO Q4H PRN PRN Reason: GI Upset Stop: 01/20/24 11:19 Bismuth Subsalicylate (Bismuth Subsalicylate Liqd 236 Ml) 15 ml PO PRN PRN PRN Reason: Loose Stool Stop: 01/20/24 11:19 Haloperidol (Haloperidol 5 Mg Tab) 5 mg PO Q8H PRN PRN Reason: Agitation Stop: 01/18/24 11:57 Last Admin: 01/01/24 10:46 Dose: 5 mg Hydroxyzine HCl (Hydroxyzine Hcl 25 Mg Tab) 50 mg PO HSZ PRN PRN Reason: Insomnia Stop: 01/20/24 11:19 Last Admin: 01/11/24 20:45 Dose: 50 mg Hydroxyzine HCl (Hydroxyzine Hcl 25 Mg Tab) 25 mg PO Q4H PRN PRN Reason: Anxiety Stop: 01/20/24 11:19 Last Admin: 01/06/24 17:35 Dose: 25 mg Ibuprofen (Ibuprofen 600 Mg Tab) 600 mg PO QID PRN PRN Reason: Pain Stop: 01/24/24 12:59 Last Admin: 01/02/24 17:22 Dose: 600 mg Lorazepam (Lorazepam 0.5 Mg Tab) 0.5 mg PO BID PRN PRN Reason: cyrus/agitation Stop: 01/31/24 10:36 Last Admin: 01/01/24 10:46 Dose: 0.5 mg Magnesium Hydroxide (Magnesium Hydroxide Susp 30 Ml Udc) 30 ml PO DAILY PRN PRN Reason: Constipation Stop: 01/20/24 11:19 Miscellaneous (Remove Nicoderm Patch) 1 each N/A DAILY@0859 [facility] Stop: 01/21/24 15:59 Last Admin: 01/12/24 08:57 Dose: Not Given Multivitamins/Minerals (Cerovite Adv Formula Tab) 1 tab PO QAM [facility] Stop: 01/31/24 09:14 Last Admin: 01/12/24 08:55 Dose: 1 tab Nicotine (Nicotine 14 Mg/24 Hr Patch) 1 patch TD QAM [facility] Stop: 01/21/24 15:59 Last Admin: 01/12/24 08:57 Dose: 1 patch Nicotine Polacrilex (Nicotine Polacrilex 2 Mg Gum) 1 piece MT Q2H PRN PRN Reason: nicotine cravings Stop: 01/25/24 09:29 Last Admin: 01/12/24 12:15 Dose: 1 piece Sodium Chloride (Sodium Chloride 0.65% Na Soln 45 Ml ([place])) 1 - 2 sprays NA PRN PRN PRN Reason: Nasal Dryness/Congestion Stop: 01/20/24 11:19 Mental Health & Subst Abuse Tx Psychiatrist Name of Psychiatrist: EAC will assign at discharge Psychiatrist's Psychiatric Appointment Comment: [address], [address], [place] [address] Therapist Name of Therapist: EAC will assign at discharge Heat Treating Operator Name of Heat Treating Operator: [employer] Phone Number for Heat Treating Operator: [phone] Post Discharge Appointments Primary Care Physician Name Of Family Doctor/PCP: EAC will assign at discharge Primary Care Provider Appointment Comment: [address], [address], [place] [address] Contact Information Discharge Discharge Address: [facility] Address: [address] [place] [address] Dr. [place] [id number]
[2024-01-12] MEDS: DIVALPROEX DELAY RELEASE 250 MG TABEC PO SCH (17:19)
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
--- NOTE | 2024-01-15 09:14 | Discharge Summary ---
Date of Service January 15, 2024 History of Present Illness Patient appears restless and is unable to sit still. She complains of being "uncomfortable in her skin" reports that she wants to complete steps for mental health however is vague when I try to clarify "I want to be out there" and tangential. Through the interview she is labile at times tearful and then smiling brightly. She reports having an altercation at home and then her grandmother called the police "it was all a blur". Reports past diagnosis of bipolar disorder, unable to clarify further. Complains of trouble sleeping. Unsure of past drug use. When asking about past drug use she looks at me and says "doesn't smoke come out of the body". Unable to answer questions about auditory visual hallucinations. Reports that she is not worried about her safety. Unable to give me clear medication history. Reports having a child and is from [place]. Pt provided verbal permission to call her grandmother Sejal Orta ([phone]): line disconnected. Alternate land line rang and went to [employer]. Called [facility] pharmacy and they report they never filled the prescription from 02/18/2022 of paliperidone 6 mg, lithium 300 mg twice daily, Wellbutrin, atorvastatin. Online legal records: Charges of misemanor theft by shoplifting and driving with suspended license on 10/14/2020 at [place], [place] Physical Exam Mental Examination Appearance: Well Groomed Eye Contact: Maintains Eye Contact Motor Behavior: Unremarkable Speech: Normal and Circumstantial (at times) Mood: Euthymic Affect: Appropriate and Congruent Thought Process: Intact and Linear Thought Content: Intact Hallucinations: None Insight: Fair (improved) Judgement: Fair Vital Signs (Past 24 Hours) Last Vital Signs Temp 36.6 C 01/15/24 08:56 Pulse 118 H 01/15/24 08:56 Resp 16 01/15/24 08:56 BP 94/61 L 01/15/24 08:56 Pulse Ox 99 01/15/24 08:56 O2 Del Method Room Air 01/09/24 02:27 Principal Diagnosis Schizoaffective disorder, bipolar type Methamphetamine use disorder, severe, in early remission Psychiatric Data See daily stay summary. In short, safety was maintained and the patient was cooperative with care. Medication changes included starting Depakote 1750mg HS and Invega Sustenna 234mg Q28D and they tolerated this well. The patient initially presented with severe psychosis and thought disorganization related to chronic methamphetamine use. She presented significant cognitive impairments related to methamphetamine and polysubstance abuse. She was started on antipsychotic medications to control psychosis and required multiple weeks of recovery to see improvements in cognitive function and thought process. She presented a labile mood and was started on Depakote which she tolerated well and presented more controlled mood. There is concern for underlying psychosis and cyrus and symptoms appear to be well controlled. Prior to discharge she presents with a bright affect, linear and logical thought process, is future oriented for sobriety and to connect with family, and is tolerating her medications well. She would benefit from continued relapse prevention training and housing support. Day of Discharge Assessment Today the patient voices readiness for discharge. They note improvement in mood and deny thoughts to harm self or others. Thoughts remain organized and they are improved from admission. There is no evidence of psychosis. They agree to take mediations as prescribed and keep follow-up appointments. They are stable for discharge to outpatient level of care. Transition of Care Transition Of Care Record: was reviewed with the patient Advance Directives Advance Directives Information Provided: Yes Advance Directives: No Mental Health Advance Directive: No Advance Directives on File: No Living Will: No Power of Paleontological Helper: No Advance Directives Reason:: Declines as Mental Health Visit. Risk Factors Assessment Male: No : Yes Do You Have Access To A Gun?: No Health Problems: No Mental Health Diagnoses: Yes Substance Use Disorders: Yes Previous Attempt: No Family History of Suicide: No Previous Psychiatric Hospitalization: Yes Hopelessness: No Protective Factors Assessment Jewish Beliefs: No : No Responsible for Young Children: No Employed: No Stable Relationships: No Supportive Family: No Good Rapport with Provider: Yes Absence of Any Risk Factors Above: No Discharge Data Consultations 12/19/23 10:53 Consult Oromaxillofacial Surgery Routine Lab Results 11/21/23 11/21/23 11/21/23 03:34 04:07 Unknown WBC 9.38 RBC 4.50 Hgb 13.7 Hct 40.1 MCV 89.1 MCH 30.4 MCHC 34.2 RDW Std Deviation 39.8 RDW Coeff of Jay 12.3 Plt Count 305 MPV 9.6 Immature Gran % (Auto) 0.2 Neut % (Auto) 69.1 Lymph % (Auto) 21.2 [place] % (Auto) 7.7 Eos % (Auto) 1.1 Baso % (Auto) 0.7 Neut # (Auto) 6.48 Lymph # (Auto) 1.99 [place] # (Auto) 0.72 H Eos # (Auto) 0.10 Baso # (Auto) 0.07 Immature Gran # (Auto) 0.02 Sodium 135 L Potassium 4.0 Chloride 103 Carbon Dioxide 26 Anion Gap 6 BUN 9 Creatinine 0.47 L Est Cr Clr Drug Dosing 157.5 Est GFR ( Amer) > 150.0 Est GFR (Non-Af Amer) 132.5 BUN/Creatinine Ratio 19.1 Glucose 96 Estimat Average Glucose Hemoglobin A1c Calcium 9.7 Total Bilirubin 0.9 AST 31 ALT 14 Alkaline Phosphatase 47 Total Protein 8.4 H Albumin 5.3 H Globulin 3.1 Albumin/Globulin Ratio 1.7 Triglycerides Cholesterol LDL Cholesterol, Calc VLDL Cholesterol, Calc HDL Cholesterol Cholesterol/HDL Ratio TSH 6.146 H Free T4 Free T3 Urine Color Yellow Urine Appearance Clear Urine pH 6.0 Ur Specific [place] 1.013 Urine Protein Negative Urine Glucose (UA) Negative Urine Ketones Negative Urine Blood Negative Urine Nitrite Negative Urine Bilirubin Negative Urine Urobilinogen Negative Ur Leukocyte Esterase Trace H Urine WBC (Auto) 0-5 Urine RBC (Auto) 0-2 U Hyaline Cast (Auto) 0-2 U Epithel Cells (Auto) 3-5 H Urine Bacteria (Auto) None Seen Urine Test Salicylates < 3.0 L Urine Opiates Screen Neg Ur Methadone, Qual Neg Urine Fentanyl Screen Neg Acetaminophen < 3 L Urine Barbiturates Neg Valproic Acid Ur Phencyclidine (PCP) Neg U Amphetamin/Meth Scrn Neg MDMA (Ecstasy) Screen Neg U Benzodiazepines Scrn Neg Ur Cocaine Metabolite Neg U Marijuana (THC) Screen Neg Ethyl Alcohol mg/dL < 10.0 RPR C.trachomatis RNA Hepatitis A IgM Ab Hep Bs Antigen Hep B Core IgM Ab Hepatitis C Antibody HCV RNA (PCR) IUs/ml HCV RNA PCR log IUs/ml HIV 1&2 Ab/P24 Ag 4thGn N.gonorrhoeae RNA SARS-CoV-2, RNA, NAAT NEGATIVE T.vaginalis (Amp Det) 11/22/23 11/23/23 12/01/23 08:15 07:07 21:20 WBC RBC Hgb Hct MCV MCH MCHC RDW Std Deviation RDW Coeff of Jay Plt Count MPV Immature Gran % (Auto) Neut % (Auto) Lymph % (Auto) [place] % (Auto) Eos % (Auto) Baso % (Auto) Neut # (Auto) Lymph # (Auto) [place] # (Auto) Eos # (Auto) Baso # (Auto) Immature Gran # (Auto) Sodium Potassium Chloride Carbon Dioxide Anion Gap BUN Creatinine Est Cr Clr Drug Dosing Est GFR ( Amer) Est GFR (Non-Af Amer) BUN/Creatinine Ratio Glucose Estimat Average Glucose 100 Hemoglobin A1c 5.1 Calcium Total Bilirubin AST ALT Alkaline Phosphatase Total Protein Albumin Globulin Albumin/Globulin Ratio Triglycerides 40 Cholesterol 97 LDL Cholesterol, Calc 43 VLDL Cholesterol, Calc 8 HDL Cholesterol 46 Cholesterol/HDL Ratio 2.1 TSH Free T4 0.93 Free T3 2.96 Urine Color Urine Appearance Urine pH Ur Specific [place] Urine Protein Urine Glucose (UA) Urine Ketones Urine Blood Urine Nitrite Urine Bilirubin Urine Urobilinogen Ur Leukocyte Esterase Urine WBC (Auto) Urine RBC (Auto) U Hyaline Cast (Auto) U Epithel Cells (Auto) Urine Bacteria (Auto) Urine Test Negative Salicylates Urine Opiates Screen Ur Methadone, Qual Urine Fentanyl Screen Acetaminophen Urine Barbiturates Valproic Acid Ur Phencyclidine (PCP) U Amphetamin/Meth Scrn MDMA (Ecstasy) Screen U Benzodiazepines Scrn Ur Cocaine Metabolite U Marijuana (THC) Screen Ethyl Alcohol mg/dL RPR Nonreactive C.trachomatis RNA Hepatitis A IgM Ab NON-REACTIVE Hep Bs Antigen Negative Hep B Core IgM Ab NON-REACTIVE Hepatitis C Antibody Prelim Positive A HCV RNA (PCR) IUs/ml <15 NOT DETECTED HCV RNA PCR log IUs/ml <1.18 NOT DETECTED HIV 1&2 Ab/P24 Ag 4thGn Negative N.gonorrhoeae RNA SARS-CoV-2, RNA, NAAT T.vaginalis (Amp Det) 12/09/23 12/18/23 12/18/23 17:30 07:42 17:30 WBC RBC Hgb Hct MCV MCH MCHC RDW Std Deviation RDW Coeff of Jay Plt Count MPV Immature Gran % (Auto) Neut % (Auto) Lymph % (Auto) [place] % (Auto) Eos % (Auto) Baso % (Auto) Neut # (Auto) Lymph # (Auto) [place] # (Auto) Eos # (Auto) Baso # (Auto) Immature Gran # (Auto) Sodium Potassium Chloride Carbon Dioxide Anion Gap BUN Creatinine Est Cr Clr Drug Dosing Est GFR ( Amer) Est GFR (Non-Af Amer) BUN/Creatinine Ratio Glucose Estimat Average Glucose Hemoglobin A1c Calcium Total Bilirubin AST ALT Alkaline Phosphatase Total Protein Albumin Globulin Albumin/Globulin Ratio Triglycerides Cholesterol LDL Cholesterol, Calc VLDL Cholesterol, Calc HDL Cholesterol Cholesterol/HDL Ratio TSH Free T4 Free T3 Urine Color Urine Appearance Urine pH Ur Specific [place] Urine Protein Urine Glucose (UA) Urine Ketones Urine Blood Urine Nitrite Urine Bilirubin Urine Urobilinogen Ur Leukocyte Esterase Urine WBC (Auto) Urine RBC (Auto) U Hyaline Cast (Auto) U Epithel Cells (Auto) Urine Bacteria (Auto) Urine Test Salicylates Urine Opiates Screen Ur Methadone, Qual Urine Fentanyl Screen Acetaminophen Urine Barbiturates Valproic Acid 43 L 49 L Ur Phencyclidine (PCP) U Amphetamin/Meth Scrn MDMA (Ecstasy) Screen U Benzodiazepines Scrn Ur Cocaine Metabolite U Marijuana (THC) Screen Ethyl Alcohol mg/dL RPR C.trachomatis RNA Hepatitis A IgM Ab Hep Bs Antigen Hep B Core IgM Ab Hepatitis C Antibody HCV RNA (PCR) IUs/ml HCV RNA PCR log IUs/ml HIV 1&2 Ab/P24 Ag 4thGn N.gonorrhoeae RNA SARS-CoV-2, RNA, NAAT NEGATIVE T.vaginalis (Amp Det) 12/21/23 01/04/24 01/10/24 20:43 08:14 15:59 WBC RBC Hgb Hct MCV MCH MCHC RDW Std Deviation RDW Coeff of Jay Plt Count MPV Immature Gran % (Auto) Neut % (Auto) Lymph % (Auto) [place] % (Auto) Eos % (Auto) Baso % (Auto) Neut # (Auto) Lymph # (Auto) [place] # (Auto) Eos # (Auto) Baso # (Auto) Immature Gran # (Auto) Sodium Potassium Chloride Carbon Dioxide Anion Gap BUN Creatinine Est Cr Clr Drug Dosing Est GFR ( Amer) Est GFR (Non-Af Amer) BUN/Creatinine Ratio Glucose Estimat Average Glucose Hemoglobin A1c Calcium Total Bilirubin AST ALT Alkaline Phosphatase Total Protein Albumin Globulin Albumin/Globulin Ratio Triglycerides Cholesterol LDL Cholesterol, Calc VLDL Cholesterol, Calc HDL Cholesterol Cholesterol/HDL Ratio TSH Free T4 Free T3 Urine Color Urine Appearance Urine pH Ur Specific [place] Urine Protein Urine Glucose (UA) Urine Ketones Urine Blood Urine Nitrite Urine Bilirubin Urine Urobilinogen Ur Leukocyte Esterase Urine WBC (Auto) Urine RBC (Auto) U Hyaline Cast (Auto) U Epithel Cells (Auto) Urine Bacteria (Auto) Urine Test Salicylates Urine Opiates Screen Ur Methadone, Qual Urine Fentanyl Screen Acetaminophen Urine Barbiturates Valproic Acid 52 83 Ur Phencyclidine (PCP) U Amphetamin/Meth Scrn MDMA (Ecstasy) Screen U Benzodiazepines Scrn Ur Cocaine Metabolite U Marijuana (THC) Screen Ethyl Alcohol mg/dL RPR C.trachomatis RNA Not Detected Hepatitis A IgM Ab Hep Bs Antigen Hep B Core IgM Ab Hepatitis C Antibody HCV RNA (PCR) IUs/ml HCV RNA PCR log IUs/ml HIV 1&2 Ab/P24 Ag 4thGn N.gonorrhoeae RNA Not Detected SARS-CoV-2, RNA, NAAT T.vaginalis (Amp Det) Not Detected 01/14/24 09:07 WBC RBC Hgb Hct MCV MCH MCHC RDW Std Deviation RDW Coeff of Jay Plt Count MPV Immature Gran % (Auto) Neut % (Auto) Lymph % (Auto) [place] % (Auto) Eos % (Auto) Baso % (Auto) Neut # (Auto) Lymph # (Auto) [place] # (Auto) Eos # (Auto) Baso # (Auto) Immature Gran # (Auto) Sodium Potassium Chloride Carbon Dioxide Anion Gap BUN Creatinine Est Cr Clr Drug Dosing Est GFR ( Amer) Est GFR (Non-Af Amer) BUN/Creatinine Ratio Glucose Estimat Average Glucose Hemoglobin A1c Calcium Total Bilirubin AST ALT Alkaline Phosphatase Total Protein Albumin Globulin Albumin/Globulin Ratio Triglycerides Cholesterol LDL Cholesterol, Calc VLDL Cholesterol, Calc HDL Cholesterol Cholesterol/HDL Ratio TSH Free T4 Free T3 Urine Color Urine Appearance Urine pH Ur Specific [place] Urine Protein Urine Glucose (UA) Urine Ketones Urine Blood Urine Nitrite Urine Bilirubin Urine Urobilinogen Ur Leukocyte Esterase Urine WBC (Auto) Urine RBC (Auto) U Hyaline Cast (Auto) U Epithel Cells (Auto) Urine Bacteria (Auto) Urine Test Salicylates Urine Opiates Screen Ur Methadone, Qual Urine Fentanyl Screen Acetaminophen Urine Barbiturates Valproic Acid Ur Phencyclidine (PCP) U Amphetamin/Meth Scrn MDMA (Ecstasy) Screen U Benzodiazepines Scrn Ur Cocaine Metabolite U Marijuana (THC) Screen Ethyl Alcohol mg/dL RPR C.trachomatis RNA Hepatitis A IgM Ab Hep Bs Antigen Hep B Core IgM Ab Hepatitis C Antibody HCV RNA (PCR) IUs/ml HCV RNA PCR log IUs/ml HIV 1&2 Ab/P24 Ag 4thGn N.gonorrhoeae RNA SARS-CoV-2, RNA, NAAT NEGATIVE T.vaginalis (Amp Det) Hospital Course (1) Schizoaffective disorder: (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 Rapid COVID test for E[facility] acceptance. 01/13/2024: Continue medications and treatment plan. 01/12/2024: Decrease Depakote to 1750mg HS 01/11/2024: Continue medications and treatment plan. 01/10/2024: Discontinue nightly clonazepam. Depakote level tonight. 01/09/2024: Discontinue a.m. Depakote, increased nightly Depakote ER to 2000 mg at bedtime. 01/08/2024: Continue medications and treatment plan. 01/07/2024: Decrease nightly clonazepam to 0.25 mg at bedtime. Continue medications and treatment plan. 01/06/2024: Continue medications and treatment plan. 01/05/2024: Continue current medications and tx plan. 01/04/2024: Increase Depakote DR to 500mg qAM and 1500mg HS 01/03/2024: Depakote level tomorrow AM. 01/02/2024:Received Invega Sustenna 156mg STEINER 01/01/2024: -Plan for Invega Sustenna 156mg STEINER tomorrow -Lorazepam 0.5mg BID prn for cyrus/agitation added -Recheck Depakote level in 3 days 12/31/2023: -Shift and increase Klonopin to 0.5mg HS -Increase Depakote DR to 500mg qAM and 1000mg daily with dinner. 12/30/2023: Start melatonin 3mg HS. Received Invega Sustenna 234mg STEINER 12/29/2023: Invega Sustenna 234mg STEINER scheduled for tomorrow. After that will discontinue Invega po. Subsequent dose will then be for 156mg STEINER on 01/06/2024 12/28/2023: Reduce Klonopin. Continue Invega and other medications. 12/27/2023: Will move Klonopin from late afternoon to AM to help address her concerns for anxiety during the day. Stopping haldol and starting Invega 3mg BID po as first step for eventual transition to STEINER for mood stabilization and psychosis per her preference to lessen po medications. 12/26/2023: Continue current medications and tx plan. 12/25/2023: Continue current medications and tx plan. 12/24/2023: Continue current medications and tx plan. 12/23/2023: Continue current medications and tx plan. 12/22/2023: Continue current medications and tx plan. 12/21/2023: Increase nightly depakote to 750mg in the evening. 12/20/2023: Continue current medications and tx plan. 12/19/2023: Decrease Haloperidol to 2.5mg BID. Consult for oral surgery for tooth pain. 12/18/2023: Continue current medications and tx plan. 12/17/2023: Continue current medications and tx plan. Plan for VPA trough level tomorrow AM. 12/16/2023: Continue current medication and tx plan. 12/15/2023: Continue current medications and tx plan. 12/14/2023: Continue current medications and tx plan. 12/13/2023: Increase Depakote to 500mg BID. 12/12/2023: Continue current medications and tx plan. 12/11/2023: Bacitracin ointment BID and Tdap vaccine ordered. 12/10/2023: Increase Depakote DR 250mg qAM and 500mg qdinner. Plan to taper Klonopin in coming days if Depakote increase is well tolerated. 12/09/2023: Continue current medications and tx plan. Will consider transition to Depakote ER after trough level is back. Can consider transition to olanzapine if she continues to prefer this to haldol. 12/08/2023: Trough Depakote level tomorrow PM (12/09/23) 12/07/2023: Continue medications and treatment plan. 12/06/2023: Continue medications and treatment plan. 12/05/2023: Schedule Depakote/Haldol/Klonopin at dinner instead of bedtime. 12/04/2023: Continue current medications and tx plan. 12/03/2023: Continue current medications and tx plan. 12/02/2023: Start Depakote DR 500mg HS. 12/01/2023: Continue current medications and tx plan. Continuing to attempt to get urine sample for UPT. 11/30/2023: UPT ordered. Added Thorazine 25mg IM prn for agitation per her request for additional IM medication options. 11/29/2023: Continue current medications and tx plan. 11/28/2023: Continue current medications and tx plan. 11/27/2023: Discontinue Tasley and risperidone. Start haldol 5mg BID. 11/26/2023: Start Thorazine 12.5mg TID prn po for agitation. 11/25/2023: Decrease Clonazepam to 0.5mg HS. Encourage fluids. 11/24/2023: Start Tasley 300mg BID for mood lability. 11/23/2023: Continue medications and treatment plan. 11/22/2023: Increase risperidone to 1 mg every morning and 2 mg nightly. Continue clonazepam 1 mg at bedtime. Encourage fluids. STI and hepatitis panel. 11/21/2023: One-time lorazepam 2 mg p.o. for anxiety. Schedule risperidone 1 mg twice daily and clonazepam 1 mg at bedtime. Baseline EKG and labs: Free T4, free T3, A1c, lipid panel. Mental Health & Subst Abuse Tx Psychiatrist Name of Psychiatrist: NORA will assign at discharge Psychiatrist's Psychiatric Appointment Comment: [address], [address], [place] [address] Therapist Name of Therapist: NORA will assign at discharge Bundling Machine Operator Name of Bundling Machine Operator: [employer] Phone Number for Bundling Machine Operator: [phone] Post Discharge Appointments Primary Care Physician Name Of Family Doctor/PCP: NORA will assign at discharge Primary Care Provider Appointment Comment: [address], [address], [place] [address] Specialist Name of Specialist: [facility] Phone Number for Specialist: [phone] Date of Appointment with Specialist: 01/15/24 Specialty Appointment Comment: pt. being transported at 10:00 on 01/15/24 Specialist Release of Information: Obtained, Reviewed and Signed Contact Information Discharge Discharge Address: [facility] Address: [address] [place] [address] [address]. [place] [place] [address] Discharge Plan Discharge Items Patient Disposition: Home - Self-Care Reason For Visit: psychosis Discharge Diagnosis: Schizoaffective Disorder, bipolar type Methamphetamine use disorder, severe, in early remission Condition on Discharge: Good Activity: Resume your previous activity Lifting: None Bathing: No limitations Exercise/Sports: Gradually increase as tolerated Weightbearing: Full weightbearing Non-emergency contact: Primary Care Provider and Therapist Call non-emergency contact if: you have any medication questions and your symptoms worsen Follow-up/Referrals: Garrett Zuñiga, DMD [Physician] - PCP,NO [Primary Care Provider] - Diet: Regular Addtl Attending Provider Instructions: -Continue Depakote 1750mg at dinner -Continue Invega Sustenna 234mg every 4 weeks, next expected on 01/27/2024 Pending Studies at Discharge: No Stand-Alone Forms: My [employer], Smoking Cessation Medications and DC Order Prescriptions: New divalproex 250 mg Tablet,Delayed Release (Dr/Ec) 1,750 mg PO QDD Qty: 0 0RF nicotine 7 mg/24 hr Patch 24 Hour 1 patch transdermal QAM Qty: 30 0RF Invega Sustenna 234 mg/1.5 mL syringe 234 mg IM Q28D Qty: 1.5 0RF Rx Instructions: next on 01/27/2024 Discharge Orders: Discharge Order (Routine); Ordered 01/15/24 Ordered By: Garrett Zuñiga Admission Data Admit Date/Time: 11/21/23 09:58 Attending Provider: Marlen Bernard Admit Provider: Jaylan Cade Primary Care Provider: PCP,NO Other Providers: Jaylan Cade; Garrett Zuñiga Coding [place] [address] D/C day mgmt > 30 min Patient Type Established History Comprehensive Exam Comprehensive Medical Decision Making High Complexity Diagnoses Schizoaffective disorder F25.9 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
== END 2024-01-15 13:15 | disposition home or self-care (01) | DRG 885 ==
LOC: ED 03:29 → SUATTDRO 09:58 → 3S 09:58